=== PATIENT | female | born 1940 | race Caucasian/White ===

== ENCOUNTER → 2017-03-19 | Outpatient (CLI) | payer MEDICARE, BC ==
[~2017-03-19] MED LIST: ALBU0.08 NEB; AMLO2.5T PO; CICL8KIT2 TOPICAL; FLUT50SP EACH NARE; LORA-474 PO; LOSA50TA PO; METO200T3 PO; MONT10TA4 PO; PRAV20TA2 PO; SYMB160A INH; TRIA37.5 PO; VENTAER INH
[2017-03-19 09:26] LABS: HEMATOCRIT 41.5 % (35.0-46.0); MEAN CELL VOLUME 93.5 FL (80.0-100.0); MEAN CORPUSCULAR HEMOGLOBIN 31.3 PG (27.0-34.0); MEAN CORPUSCULAR HGB CONC 33.4 % (32.0-36.0); PLATELET COUNT 256 TH/MM3 (150-450); RED BLOOD COUNT 4.43 MIL/MM3 (4.00-5.30); RED CELL DISTRIBUTION WIDTH 12.9 % (11.6-17.2); REVIEW FLAG FINAL; WHITE BLOOD COUNT 6.9 TH/MM3 (4.0-11.0)
[2017-03-19 09:54] LABS: ANION GAP 10 MEQ/L (5-15); AST (GOT) 17 U/L (15-37); BICARBONATE 27.5 MEQ/L (21.0-32.0); BLOOD UREA NITROGEN 38 MG/DL (7-18); CHLORIDE 97 MEQ/L (98-107); GLOMERULAR FILTRATION RATE 21 ML/MIN (>89); GLUCOSE,FASTING 91 MG/DL (74-99); POTASSIUM 4.2 MEQ/L (3.5-5.1); SODIUM (NA) 134 MEQ/L (136-145)
[2017-03-19 10:00] LABS: ALKALINE PHOSPHATASE 64 U/L (45-117); ALT (GPT) 19 U/L (10-53); HDL CHOLESTEROL 52.1 MG/DL (40.0-60.0); LDL CHOLESTEROL 211 MG/DL (0-99); TOTAL BILIRUBIN ADULT 0.8 MG/DL (0.2-1.0)
== END ==
LOC: PLAB 06:58
PROVIDERS: ATTEND Family Medicine
DX: I10 Essential (primary) hypertension (principal)
CPT/HCPCS: 36415; 80053; 80061; 85027

== ENCOUNTER 2017-07-24 10:02 | Inpatient (IN) | payer MEDICARE, BC ==
[~2017-07-24] VITALS: Ht 165.1 cm; Wt 84.8 kg
[2017-07-24] VITALS (8 sets, daily range): BP systolic 162–198; BP diastolic 80–93; PULSE 60–68; RESP 18–29; TEMP 97.6–98.8; O2SAT 94–96
[~2017-07-24 10:02] MED LIST changes: +METO-393 PO; -METO200T3 PO
--- NOTE | 2017-07-24 14:27 | PD ---
HPI Chief Complaint: Neuro Symptoms/ Deficits Time Seen by Provider: 14:27 Travel History International Travel<30 days: No Contact w/Intl Traveler<30days: Yes Name of Country Traveled to: [facility], [facility], Traveled to known affect area: No History of Present Illness HPI 77-year-old female presenting to the primary's office complaining left arm weakness and numbness: She states that 5 days ago she was at home when she developed relatively sudden onset weakness of her left hand and left arm. She has difficulty raising her left arm due to weakness and difficulty controlling her arm. She also is dropping things out of her left hand and is unable to hold onto objects. She has a pins and needles sensation in the arm from the proximal humerus down into the hand, and has remained relatively constant and without improvement....of note patient is left hand dominant. pcp dr velasquez pmhx:htn, hyperchol, copd, anxiety, PFSH Past Medical History Anemia: Yes Arthritis: Yes Asthma: No Autoimmune Disease: No Blood Disorders: No Anxiety: Yes Depression: Yes Cancer: No Cardiovascular Problems: Yes (htn on meds) High Cholesterol: Yes Chemotherapy: No Chest Pain: No Congestive Heart Failure: No COPD: Yes Cerebrovascular Accident: No Diminished Hearing: No GERD: Yes Glaucoma: No Genitourinary: No Headaches: No Hepatitis: No Hiatal Hernia: No Hypertension: Yes Immune Disorder: No Kidney Stones: No Musculoskeletal: No Neurologic: No Psychiatric: No Reproductive: No Respiratory: Yes (copd/PE) Migraines: No Radiation Therapy: No Renal Failure: No Seizures: No Sickle Cell Disease: No Sleep Apnea: No Ulcer: No PNEUMOCCOCAL Vaccine (Year): 2 ?: Not Menopausal: Yes Past Surgical History Abdominal Surgery: Yes (GALLBLADDER, HERNIA REPAIR) AICD: No Arteriovenous Shunt: No Cardiac Surgery: No Cholecystectomy: Yes Ear Surgery: No Endocrine Surgery: No Eye Surgery: No Genitourinary Surgery: No Gynecologic Surgery: No Hysterectomy: Yes Insulin Pump: No Joint Replacement: No Oral Surgery: No Pacemaker: No Thoracic Surgery: No Other Surgery: Yes Social History Alcohol Use: Yes (OCCASIONALLY) Tobacco Use: No Substance Use: No Allergies-Medications (Allergen,Severity, Reaction): Coded Allergies: lisinopril (Unverified Allergy, Mild, obdulio cough, 07/24/17) Reported Meds & Prescriptions Reported Meds & Active Scripts Active Montelukast (Montelukast Sodium) 10 Mg Tab 10 Mg PO HS Amlodipine (Amlodipine Besylate) 2.5 Mg Tab 2.5 Mg PO DAILY Symbicort Inh (Budesonide/Formoterol Fumarate) 160-4.5 Mcg/Act Aero 2 Puff INH Q12HR Fluticasone Nasal Chancellor 50 Mcg/Act Naspr 50 Mcg EACH NARE BID 50 mcg/spray Pravastatin 20 Mg Tab 20 Mg PO DAILY Triamterene-Hydrochlorothiazide 37.5-25 Mg Tab 1 Tab PO DAILY Metoprolol Succinate ER 24 HR (Metoprolol Succinate) 200 Mg Tab 200 Mg PO DAILY Losartan (Losartan Potassium) 50 Mg Tab 50 Mg PO DAILY Ativan (Lorazepam) 1 Mg Tab 1 Mg PO DIRECTED PRN Reported Ciclopirox (Nail Lacquer) Topical 8% Kit 1 Applic TOPICAL HS Ventolin Hfa 18 GM Inh (Albuterol Sulfate) 90 Mcg/Act Aer 2 Puff INH DIRECTED PRN Albuterol Neb (Albuterol Sulfate) 2.5 Mg/3 Ml Neb 2.5 Mg NEB DIRECTED PRN While awake Review of Systems Except as stated in HPI: all other systems reviewed are Neg General / Constitutional: No: Fever Eyes: No: Visual changes HENT: No: Headaches Cardiovascular: No: Chest Pain or Discomfort Respiratory: No: Shortness of Breath Gastrointestinal: No: Abdominal Pain Genitourinary: No: Dysuria Musculoskeletal: No: Pain Skin: No Rash Neurologic: Positive: Paresthesia Psychiatric: No: Depression Endocrine: No: Polydipsia Hematologic/Lymphatic: No: Easy Bruising Physical Exam Narrative GENERAL: SKIN: Warm and dry. HEAD: Atraumatic. Normocephalic. EYES: Pupils equal and round. No scleral icterus. No injection or drainage. ENT: No nasal bleeding or discharge. Mucous membranes pink and moist. NECK: Trachea midline. No JVD. CARDIOVASCULAR: Regular rate and rhythm. RESPIRATORY: No accessory muscle use. Clear to auscultation. Breath sounds equal bilaterally. GASTROINTESTINAL: Abdomen soft, non-tender, nondistended. Hepatic and splenic margins not palpable. MUSCULOSKELETAL: Extremities without clubbing, cyanosis, or edema. No obvious deformities. NEUROLOGICAL: Awake and alert. No obvious cranial nerve deficits. Motor grossly within normal limits. Five out of 5 muscle strength in the arms and legs. Normal speech. PSYCHIATRIC: Appropriate mood and affect; insight and judgment normal. Data Data Last Documented VS Vital Signs Date Time Temp Pulse Resp B/P (MAP) Pulse Ox O2 Delivery O2 Flow Rate FiO2 07/24/17 14:22 68 18 195/ Room Air 07/24/17 10:04 98.8 96 Orders Orders Complete Blood Count With Diff (07/24/17 11:21) Basic Metabolic Panel (Bmp) (07/24/17 11:21) Act Partial Throm Time (Ptt) (07/24/17 11:21) Prothrombin Time / Inr (Pt) (07/24/17 11:21) Electrocardiogram (07/24/17 ) Ct Brain W/O Iv Contrast(Rout) (07/24/17 14:47) Labs Laboratory Tests Test 07/24/17 14:26 [facility] Medical Decision Making Medical Screen Exam Complete: Yes Emergency Medical Condition: Yes Medical Record Reviewed: Yes Interpretation(s) nsr, 65, incomplete rbbb, nonspec stt changes Differential Diagnosis tia v cva v paresthesia Admitting Information Admitting Physician Requests: Observation Jason Jara MD Jul 24, 2017 14:27
[2017-07-24 14:53] LABS: BASOPHIL # 0.1 TH/MM3 (0-0.2); BASOPHIL % 0.6 % (0.0-2.0); EOSINOPHIL # 0.3 TH/MM3 (0-0.4); EOSINOPHIL % 2.5 % (0.0-4.0); HEMOGLOBIN 14.2 GM/DL (11.6-15.3); LYMPH % 18.8 % (9.0-44.0); LYMPHOCYTE # 1.9 TH/MM3 (1.0-4.8); MEAN CORPUSCULAR HEMOGLOBIN 31.8 PG (27.0-34.0); MEAN CORPUSCULAR HGB CONC 33.9 % (32.0-36.0); MEAN PLATELET VOLUME 9.1 FL (7.0-11.0); MONO % 8.5 % (0.0-8.0); MONOCYTE # 0.9 TH/MM3 (0-0.9); NEUT % 69.6 % (16.0-70.0); PLATELET COUNT 276 TH/MM3 (150-450); RED BLOOD COUNT 4.47 MIL/MM3 (4.00-5.30); WHITE BLOOD COUNT 10.1 TH/MM3 (4.0-11.0)
[2017-07-24 15:14] LABS: BICARBONATE 31.9 MEQ/L (21.0-32.0); CALCIUM 10.1 MG/DL (8.5-10.1); CREATININE 1.5 MG/DL (0.50-1.00)
--- NOTE | 2017-07-24 15:16 | RADRPT ---
EXAM DATE/TIME: 07/24/2017 14:47 [facility] COMPARISON: No previous studies available for comparison. INDICATIONS : General weakness for one day. RADIATION DOSE: 56.35 CTDIvol (mGy) MEDICAL HISTORY : Hypertension. Chronic obstructive pulmonary disease. SURGICAL HISTORY : None. ENCOUNTER: Initial ACUITY: 1 day PAIN SCALE: 4/10 LOCATION: Bilateral cranial TECHNIQUE: Multiple contiguous axial images were obtained of the head. Using automated exposure control and adj ustment of the mA and/or kV according to patient size, radiation dose was kept as low as reasonably a chievable to obtain optimal diagnostic quality images. DICOM format image data is available electro nically for review and comparison. FINDINGS: CEREBRUM: Areas of low-attenuation are seen throughout the white matter. The ventricles are normal for age. No evidence of midline shift, mass lesion, hemorrhage or acute infarction. No extra-axial fluid collec tions are seen. POSTERIOR FOSSA: The cerebellum and brainstem are intact. The 4th ventricle is midline. The cerebellopontine angle i s unremarkable. EXTRACRANIAL: The visualized portion of the orbits is intact. SKULL: The calvaria is intact. No evidence of skull fracture. CONCLUSION: Chronic ischemic small vessel vasculopathy. Rufino Ray MD on July 24, 2017 at 15:12 Board Certified Radiologist. This report was verified electronically.
[2017-07-24] MEDS ORDERED: GADOBENATE DIM PF 529 MG/ML 20ML VIAL (for RAD MRI) IV ONE (15:59)
--- NOTE | 2017-07-24 16:02 | HHI.HP ---
[facility] Service Family Medicine Primary Care Physician Unknown Admission Diagnosis CVA Diagnoses: International Travel<30 Days: No Contact w/Intl Traveler<30days: Yes Name of Country Traveled to: [facility], Known Affected Area: No History of Present Illness 77-year-old female presenting to the office with a chief complaint left arm weakness and numbness, and left-sided facial drooping. She states she lost control of her left arm on Saturday. She feels like it is wobbly and she can't write anything (she is left-handed) or lift her left arm. She is continuing to drop things at the left arm and feels numbness and tingling from her elbow to hand. This has been unchanged since Saturday, neither improved or worsening. She also feels that her arm is heavy. She is also had some difficulty walking and is unsure if she is weaker in her left leg. She denies any headache or confusion at the time of event. She denies any shaking, tongue-biting, or incontinence. The physical weakness was noticeable by her but not alarming enough for her to come to the ED. She has not been sick recently and has been taking PO food and fluids without difficulty. Denies any chest pain/was of breath. Denies any nausea/vomiting. Denies any pain in any extremity. Denies any confusion, blurry vision, or mental status changes. (Cait Rojas MD R2) Review of Systems Constitutional: DENIES: Fever, Weight gain Endocrine: DENIES: Polyuria, Polyphagia Eyes: DENIES: Diplopia, Eye inflammation Ears, nose, mouth, throat: DENIES: Oral lesions, Throat pain Respiratory: DENIES: Apneas, Shortness of breath Cardiovascular: DENIES: Palpitations, Syncope Gastrointestinal: DENIES: Constipation, Diarrhea Genitourinary: DENIES: Urinary frequency Integumentary: DENIES: Pruritus, Rash Hematologic/lymphatic: DENIES: Lymphadenopathy Immunologic/allergic: DENIES: Urticaria Neurologic: DENIES: Headache Psychiatric: DENIES: Mood changes (Cait Rojas MD R2) Past Family Social History Past Medical History Past Medical History: Chronic kidney insufficiency Hypertension COPD Seasonal allergies Past Surgical/Procedural History: Pulmonary function tests, 10/02/13 MRI of the brain 05/20/13 CT angiogram 09/25/13 Echocardiogram 01/09/16 Colonoscopy 05/15/16 Ultrasound of abdominal aorta 08/02/15 Other Physicians/Providers Involved in the Care of Patient: Dr. Whitfieldology Dr. Nettie carranzaulmonary Dr. Елена Purvisergy Dr. Shelbydermatology Family History: Father: Mother: Siblings: Children: Social History: Marital Status: Living Situation: Lives with her Education: Work history: Tobacco: Denies Alcohol: Denies Illicit drug use: none Health maintenance: Colonoscopy 05/15/16 - 8 polyps removed, returned benign. Repeat colonoscopy in 3 years Mammogram 05/11/16 - benign cyst Flu shot 05/17/16 Pneumovax 10/01/12 (Cait Rojas MD R2) Allergies: Coded Allergies: lisinopril (Unverified Allergy, Mild, obdulio cough, 07/24/17) Physical Exam Vital Signs Vital Signs Date Time Temp Pulse Resp B/P (MAP) Pulse Ox O2 Delivery O2 Flow Rate FiO2 07/24/17 14:22 68 18 195/ Room Air 07/24/17 10:04 98.8 64 18 187/88 (121) 96 Room Air Physical Exam GENERAL: Awake alert and oriented 3, in no acute distress, obvious facial droop on left side, no dysarthria SKIN: Warm and dry. HEAD: Normocephalic. EYES: No scleral icterus. No injection or drainage. Pupils reactive and equal. Extraocular movements normal. NECK: Supple, trachea midline. No JVD or lymphadenopathy. CARDIOVASCULAR: Regular rate and rhythm without murmurs, gallops, or rubs. RESPIRATORY: Breath sounds equal bilaterally. No accessory muscle use. GASTROINTESTINAL: Abdomen soft, non-tender, nondistended. MUSCULOSKELETAL: No cyanosis, or edema. 3+ strength of left upper extremity, compared with 5 out of 5 strength on right upper extremity. Sensation intact and equal throughout. BACK: Nontender without obvious deformity. No CVA tenderness. Neuro: Cranial nerves grossly intact. Negative Babinski. Finger to nose exam normal, Laboratory Laboratory Tests Test 07/24/17 14:26 White Blood Count 10.1 Red Blood Count 4.47 Hemoglobin 14.2 Hematocrit 42.0 Mean Corpuscular Volume 94.0 Mean Corpuscular Hemoglobin 31.8 Mean Corpuscular Hemoglobin Concent 33.9 Red Cell Distribution Width 13.0 Platelet Count 276 Mean Platelet Volume 9.1 Neutrophils (%) (Auto) 69.6 Lymphocytes (%) (Auto) 18.8 Monocytes (%) (Auto) 8.5 Eosinophils (%) (Auto) 2.5 Basophils (%) (Auto) 0.6 Neutrophils # (Auto) 7.0 Lymphocytes # (Auto) 1.9 Monocytes # (Auto) 0.9 Eosinophils # (Auto) 0.3 Basophils # (Auto) 0.1 CBC Comment DIFF FINAL Differential Comment Prothrombin Time 10.0 Prothromb Time International Ratio 1.0 Activated Partial Thromboplast Time 25.5 Blood Urea Nitrogen 16 Creatinine 1.50 Random Glucose 87 Calcium Level 10.1 Sodium Level 137 Potassium Level 5.0 Chloride Level 100 Carbon Dioxide Level 31.9 Anion Gap 5 Estimat Glomerular Filtration Rate 34 (Cait Rojas MD R2) Result Diagram: 07/24/176 07/24/17 1426 Septic Shock Reassessment Septic shock perfusion: reassessment completed (Cait Rojas MD R2) Caprini VTE Risk Assessment Caprini VTE Risk Assessment: No/Low Risk (score <= 1) Caprini Risk Assessment Model Point Value = 1 Point Value = 2 Point Value = 3 Point Value = 5 Age 41-60 Minor surgery BMI > 25 kg/m2 Swollen legs Varicose veins or History of unexplained or recurrent spontaneous Oral contraceptives or hormone replacement Sepsis (< 1 month) Serious lung disease, including pneumonia (< 1 month) Abnormal pulmonary function Acute myocardial infarction Congestive heart failure (< 1 month) History of inflammatory bowel disease Medical patient at bed rest Age 61-74 Arthroscopic surgery Major open surgery (> 45 min) Laparoscopic surgery (> 45 min) Malignancy Confined to bed (> 72 hours) Immobilizing plaster cast Central venous access Age >= 75 History of VTE Family history of VTE Factor V Leiden Prothrombin [id number] Lupus anticoagulant Anticardiolipin antibodies Elevated serum homocysteine Heparin-induced thrombocytopenia Other congenital or acquired thrombophilia Stroke (< 1 month) Elective arthroplasty Hip, pelvis, or leg fracture Acute spinal cord injury (< 1 month) Prophylaxis Regimen Total Risk Factor Score Risk Level Prophylaxis Regimen 0-1 Low Early ambulation 2 Moderate Order ONE of the following: *Sequential Compression Device (SCD) *Heparin 5000 units SQ BID 3-4 Higher Order ONE of the following medications: *Heparin 5000 units SQ TID *Enoxaparin/Lovenox 40 mg SQ daily (WT < 150 kg, CrCl > 30 mL/min) *Enoxaparin/Lovenox 30 mg SQ daily (WT < 150 kg, CrCl > 10-29 mL/min) *Enoxaparin/Lovenox 30 mg SQ BID (WT < 150 kg, CrCl > 30 mL/min) AND/OR *Sequential Compression Device (SCD) 5 or more Highest Order ONE of the following medications: *Heparin 5000 units SQ TID (Preferred with Epidurals) *Enoxaparin/Lovenox 40 mg SQ daily (WT < 150 kg, CrCl > 30 mL/min) *Enoxaparin/Lovenox 30 mg SQ daily (WT < 150 kg, CrCl > 10-29 mL/min) *Enoxaparin/Lovenox 30 mg SQ BID (WT < 150 kg, CrCl > 30 mL/min) AND *Sequential Compression Device (SCD) (Cait Rojas MD R2) Assessment and Plan Assessment and Plan 77-year-old female with a past medical history of chronic kidney insufficiency, hypertension, and COPD presents with left arm weakness and numbness and facial droop. (Cait Rojas MD R2) Problem List: (1) Stroke ICD Codes: I63.9 - Cerebral infarction, unspecified Status: Acute Plan: Lay flat [address] negative for bleeding CT: chronic ischemic small vessel vasculopathy f/u MRI brain non-contrast f/u MRA brain non-contrast f/u STAT MRA of carotids w/ contrast Follow-up neurology consult recommendations Aspirin 325daily Pravastatin 40mg daily Lovenox 40 SQ daily (Creat 1.5, from 2.2 last year) Follow up lipids, A1C, LFTs Follow up echo Bedrest Fall precautions NIH stroke scale Neuro checks every 4 Bedside swallow study then full diet Stroke education Normal saline at 75 ml/hr Initial troponin 0.02, follow-up troponin trend EKG: WNL f/u with PT, OT, speech, CM (2) Hypertension, benign ICD Codes: I10 - Essential (primary) hypertension Status: Acute Plan: Blood pressure high on admission, BP range : 187/88 - 190/93 , however blood pressure within normal limits in clinic this morning - Continue amlodipine 2.5 mg daily - Continue losartan 50 mg daily - Continue metoprolol 200 mg daily - Clonidine when necessary 0.1 mg (3) COPD (chronic obstructive pulmonary disease) ICD Codes: J44.9 - Chronic obstructive pulmonary disease Status: Acute Plan: Currently not symptomatic Albuterol Inhalers when necessary (4) Kidney disease ICD Codes: N28.9 - Disorder of kidney and ureter, unspecified Status: Chronic Plan: Stage III kidney disease per chart review Creatinine 1.5 today, from 2.26 in March renal u/s (04/30) : right kidney echogenic and small, renal artery stenosis as a possibility. Left kidney unremarkable Avoid NSAIDs f/u BMP Follow-up with nephrology if acute worsening (5) fen/ppx Status: Chronic Plan: Fluids: Normal saline as above Electrolytes: BMP within normal limits, follow-up BMP tomorrow Nutrition: Regular diet after swallow test (Cait Rojas MD R2) Problem List: (1) Stroke ICD Codes: I63.9 - Cerebral infarction, unspecified Status: Acute Plan: Lay flat [address] negative for bleeding CT: chronic ischemic small vessel vasculopathy f/u MRI brain non-contrast f/u MRA brain non-contrast f/u STAT MRA of carotids w/ contrast Follow-up neurology consult recommendations Aspirin 325daily Pravastatin 40mg daily Lovenox 40 SQ daily (Creat 1.5, from 2.2 last year) Follow up lipids, A1C, LFTs Follow up echo Bedrest Fall precautions NIH stroke scale Neuro checks every 4 Bedside swallow study then full diet Stroke education Normal saline at 75 ml/hr Initial troponin 0.02, follow-up troponin trend EKG: WNL f/u with PT, OT, speech, CM (2) Hypertension, benign ICD Codes: I10 - Essential (primary) hypertension Status: Acute Plan: Blood pressure high on admission, BP range : 187/88 - 190/93 , however blood pressure within normal limits in clinic this morning - Continue amlodipine 2.5 mg daily - Continue losartan 50 mg daily - Continue metoprolol 200 mg daily - Clonidine when necessary 0.1 mg (3) COPD (chronic obstructive pulmonary disease) ICD Codes: J44.9 - Chronic obstructive pulmonary disease Status: Acute Plan: Currently not symptomatic Albuterol Inhalers when necessary (4) Kidney disease ICD Codes: N28.9 - Disorder of kidney and ureter, unspecified Status: Chronic Plan: Stage III kidney disease per chart review Creatinine 1.5 today, from 2.26 in March renal u/s (04/30) : right kidney echogenic and small, renal artery stenosis as a possibility. Left kidney unremarkable Avoid NSAIDs f/u BMP Follow-up with nephrology if acute worsening (5) fen/ppx Status: Chronic Plan: Fluids: Normal saline as above Electrolytes: BMP within normal limits, follow-up BMP tomorrow Nutrition: Regular diet after swallow test See the residents documentation for details. I saw and evaluated the patient regarding the solorzano portions of this evaluation and agree with the residents findings and plans as written. Parts of this note were created using [employer] voice recognition software program. While efforts were made to correct any mistakes made by this software, some mistakes, errors, and omissions may remain in the final note that were not caught when the note was originally created. Plan of care was discussed and agreed upon with the patient as specifically documented in the above note. An opportunity to ask questions with explanation was provided. Patient voiced understanding on all information reviewed and discussed. (Apolinar Henderson MD) Physician Certification 2 Midnight Certification Type: Admission for Inpatient Services Order for Inpatient Services The services are ordered in accordance with Medicare regulations or non- Medicare payer requirements, as applicable. In the case of services not specified as inpatient-only, they are appropriately provided as inpatient services in accordance with the 2-midnight benchmark. Estimated LOS (days): 2 days is the estimated time the patient will need to remain in the hospital, assuming treatment plan goals are met and no additional complications. Post-Hospital Plan: Home (Cait Rojas MD R2) Cait Rojas MD R2 Jul 24, 2017 16:02 Apolinar Henderson MD Jul 27, 2017 12:13
[2017-07-24] MEDS ORDERED: CALC600T5 PO (16:16)
[2017-07-24] MEDS ORDERED: MULT-65 PO (16:16)
[2017-07-24] MEDS ORDERED: DIPH25TA31 PO (16:16)
[2017-07-24] MEDS ORDERED: VITA1000 PO (16:16)
[2017-07-24] MEDS ORDERED: NALOXONE HCL 0.4 MG/ML AMP IV PUSH PRN (17:15)
[2017-07-24] MEDS ORDERED: LACTULOSE SYRUP 20 GM/30 ML CUP PO PRN (17:15)
[2017-07-24] MEDS ORDERED: DEXTROSE 50% IN WATER 50 ML VIAL(D50) IV PUSH PRN (17:15)
[2017-07-24] MEDS ORDERED: SENNOSIDES 8.6 MG TAB PO PRN (17:15)
[2017-07-24] MEDS ORDERED: GLUCAGON 1 MG/ML VIAL OTHER PRN (17:15)
[2017-07-24] MEDS ORDERED: ENALAPRILAT 1.25 MG/ML VIAL IV PUSH PRN (17:15)
[2017-07-24] MEDS ORDERED: SODIUM CHLORIDE 0.9% FLUSH 10 ML FLUSH IV FLUSH PRN (17:15)
[2017-07-24] MEDS ORDERED: MAGNESIUM HYDROXIDE SUSP 30 ML CUP PO PRN (17:15)
[2017-07-24] MEDS ORDERED: ONDANSETRON HCL 4 MG/2 ML VIAL IVP PRN (17:15)
[2017-07-24] MEDS ORDERED: BISACODYL 10 MG SUPP RECTAL PRN (17:15)
[2017-07-24] MEDS ORDERED: cloNIDine HCL 0.1 MG TAB PO ONE (17:30)
--- NOTE | 2017-07-24 17:42 | RADRPT ---
EXAM DATE/TIME: 07/24/2017 17:22 [facility] COMPARISON: No previous studies available for comparison. INDICATIONS : Stroke symptoms MEDICAL HISTORY : None. SURGICAL HISTORY : None. ENCOUNTER: Initial ACUITY: 1 day PAIN SCORE: 0/10 LOCATION: Bilateral chest FINDINGS: A single view of the chest demonstrates the lungs to be symmetrically aerated without evidence of mas s, infiltrate or effusion. The cardiomediastinal contours are unremarkable. Osseous structures are intact. CONCLUSION: No acute disease. Yo Metcalf MD FACR on July 24, 2017 at 17:39 Board Certified Radiologist. This report was verified electronically.
[2017-07-24] MEDS ORDERED: PILL SPLITTER OTHER PRN (17:45)
[2017-07-24] MEDS ORDERED: LOSARTAN 50 MG TAB PO ONE (17:45)
[2017-07-24] MEDS ORDERED: amLODIPine BESYLATE 5 MG TAB PO ONE (17:45)
[2017-07-24] MEDS: ASPIRIN 325 MG TAB PO SCH (18:08)
[2017-07-24] MEDS: ENOXAPARIN SODIUM 40 MG/0.4 ML SYRINGE SQ SCH (18:08)
[2017-07-24] MEDS: SODIUM CHLOR 0.9% 1000 ML INJ 1,000 ML IV SCH (18:12)
[2017-07-24] MEDS: INSULIN ASPART SUPPLEMENTAL SCALE SQ SCH (21:09)
[2017-07-24] MEDS: PRAVASTATIN SOD 40 MG TAB PO SCH (21:38)
[2017-07-24] MEDS: DOCUSATE SODIUM 50 MG/SENNA 8.6 MG TAB PO SCH (21:39)
[2017-07-24] MEDS: LORazepam 2 MG/ML VIAL IV PUSH PRN (21:39)
[2017-07-24] MEDS: SODIUM CHLORIDE 0.9% FLUSH 10 ML FLUSH IV FLUSH SCH (21:39)
[2017-07-24] MEDS ORDERED: cloNIDine HCL 0.1 MG TAB PO PRN (22:00)
--- NOTE | 2017-07-24 22:52 | RADRPT ---
EXAM DATE/TIME: 07/24/2017 22:09 [facility] COMPARISON: CT BRAIN W/O CONTRAST, July 24, 2017, 14:47. INDICATIONS : Stroke. Left sided weakness and facial droop. MEDICAL HISTORY : Hypertension. Hypercholesterolemia. Chronic obstructive pulmonary disease. GERD SURGICAL HISTORY : Cholecystectomy. ENCOUNTER: Initial ACUITY: 1 day PAIN SCORE: 3/10 LOCATION: Left cranial TECHNIQUE: Multiplanar, multisequence MRI of the brain was performed without contrast. FINDINGS: CEREBRUM: The ventricles are normal for age. No evidence of midline shift, mass lesion, hemorrhage or acute in farction. No extraaxial fluid collections are seen. The pituitary gland and suprasellar cistern are normal in configuration. WHITE MATTER: There bilateral chronic areas of increased signal in the periventricular white matter consistent with ischemic demyelinization. It is bilateral and symmetric.. POSTERIOR FOSSA: The cerebellum and brainstem are intact. The 4th ventricle is midline. The cerebellopontine angle is unremarkable. The cerebellar tonsils are normal in position. DIFFUSION IMAGING: There is a small focal infarct in the high white matter tracks on the right between the frontal and p arietal lobes. EXTRACRANIAL: The visualized portions of the orbits and paranasal sinuses are unremarkable. CONCLUSION: Area of abnormal diffusion signal in the deep white matter tracks between the right frontal and parie dulce maria regions. There is an additional small cortical stroke also in the right parietal region. No mass or mass effect. Abhilash Garcia MD on July 24, 2017 at 22:49 Board Certified Radiologist. This report was verified electronically.
--- NOTE | 2017-07-24 22:54 | RADRPT ---
EXAM DATE/TIME: 07/24/2017 22:09 [facility] COMPARISON: No previous studies available for comparison. INDICATIONS : Stroke. Left sided facial droop and weakness. MEDICAL HISTORY : Hypertension. Chronic obstructive pulmonary disease. Hypercholesterolemia. GERD SURGICAL HISTORY : Cholecystectomy. ENCOUNTER: Initial ACUITY: 1 day PAIN SCORE: 4/10 LOCATION: Left cranial Please note a normal MRA of the brain does not entirely exclude the possibility of a small aneurysm, nor the possibility of distal intracranial vessel disease. TECHNIQUE: 3D time of flight MRA was performed. Source images, multiplanar STS MIP, and 3D volume MIP reconstru ctions were reviewed. FINDINGS: There is excellent visualization of the major intracranial arteries out to the second-order branch ve ssels. There is no evidence for aneurysm, vessel truncation or stenosis, and no evidence for vascula r malformation. CONCLUSION: Normal examination. Abhilash Garcia MD on July 24, 2017 at 22:51 Board Certified Radiologist. This report was verified electronically.
--- NOTE | 2017-07-24 23:44 | RADRPT ---
EXAM DATE/TIME: 07/24/2017 22:09 [facility] COMPARISON: No previous studies available for comparison. INDICATIONS : Stroke. Facial droop and left sided weakness. CONTRAST: 20 cc Multihance (gadobenate) IV MEDICAL HISTORY : Hypertension. Chronic obstructive pulmonary disease. Hypercholesterolemia. GERD SURGICAL HISTORY : Cholecystectomy. ENCOUNTER: Initial ACUITY: 1 day PAIN SCORE: Nonresponsive. LOCATION: Left cranial Percent stenosis is calculated using the diameter of the stenotic region over the diameter of the nor mal distal internal carotid artery. TECHNIQUE: Bolus infused MRA of the extracranial circulation was performed using a neurovascular coil. Post pro cessing was performed including rotating subvolume maximum intensity projections of each carotid marques ry, rotating full volume maximum intensity projections of both carotid arteries, sagittal and coronal sliding thin slab reformations of each carotid artery, and left oblique sliding thin slab reformatio n through the aortic arch to include the origin of the arch branch vessels. FINDINGS: Percent stenosis is calculated using the diameter of the stenotic region over the diameter of the nor mal distal internal carotid artery. No abnormality is identified within the lung apices. There is 30-40% stenosis at the origin of the br achycephalic artery. Vertebral arteries are codominant. Examination of the right common carotid artery demonstrates the vessel to be widely patent. There is 50-60% stenosis at the origin of the right internal carotid artery. More distally the cervical staff internist office based only al carotid artery is intact. Examination of the left common carotid artery demonstrates the vessel to be widely patent. There is 0 -10% stenosis at the origin of the left internal carotid artery More distally the cervical internal c arotid artery is intact. CONCLUSION: 1. There is 50-60% stenosis at the origin of the right internal carotid artery. No significant stenos is on the left Kuldip Baron MD on July 24, 2017 at 23:38 Board Certified Radiologist. This report was verified electronically.
[2017-07-25] VITALS (10 sets, daily range): BP systolic 124–168; BP diastolic 58–79; PULSE 59–70; RESP 18–20; TEMP 97.5–98.5; O2SAT 93–96
[2017-07-25 07:05] LABS: BASOPHIL # 0.1 TH/MM3 (0-0.2); BASOPHIL % 0.8 % (0.0-2.0); EOSINOPHIL # 0.2 TH/MM3 (0-0.4); EOSINOPHIL % 3.7 % (0.0-4.0); HEMATOCRIT 37.8 % (35.0-46.0); HEMOGLOBIN 12.7 GM/DL (11.6-15.3); LYMPH % 20.3 % (9.0-44.0); LYMPHOCYTE # 1.3 TH/MM3 (1.0-4.8); MEAN CELL VOLUME 93.7 FL (80.0-100.0); MEAN CORPUSCULAR HEMOGLOBIN 31.5 PG (27.0-34.0); MEAN CORPUSCULAR HGB CONC 33.6 % (32.0-36.0); MEAN PLATELET VOLUME 9.1 FL (7.0-11.0); MONO % 12.2 % (0.0-8.0); MONOCYTE # 0.8 TH/MM3 (0-0.9); PLATELET COUNT 214 TH/MM3 (150-450); RED BLOOD COUNT 4.03 MIL/MM3 (4.00-5.30); RED CELL DISTRIBUTION WIDTH 12.7 % (11.6-17.2); WHITE BLOOD COUNT 6.3 TH/MM3 (4.0-11.0)
[2017-07-25 07:44] LABS: ALBUMIN 3.1 GM/DL (3.4-5.0); ALKALINE PHOSPHATASE 63 U/L (45-117); ALT (GPT) 17 U/L (10-53); AST (GOT) 21 U/L (15-37); BICARBONATE 28.4 MEQ/L (21.0-32.0); BLOOD UREA NITROGEN 18 MG/DL (7-18); CALCIUM 8.6 MG/DL (8.5-10.1); CHLORIDE 103 MEQ/L (98-107); CHOLESTEROL 224 MG/DL (120-200); CHOLESTEROL/ HDL RATIO 5.75 RATIO; CREATININE 1.46 MG/DL (0.50-1.00); DIRECT BILIRUBIN ADULT 0.1 MG/DL (0.0-0.2); GLOMERULAR FILTRATION RATE 35 ML/MIN (>89); GLUCOSE,RANDOM 90 MG/DL (74-106); HDL CHOLESTEROL 38.9 MG/DL (40.0-60.0); INDIRECT BILIRUBIN 0.4 MG/DL (0.0-0.8); LDL CHOLESTEROL 110 MG/DL (0-99); SODIUM (NA) 138 MEQ/L (136-145); TOTAL BILIRUBIN ADULT 0.5 MG/DL (0.2-1.0); TOTAL PROTEIN 6.5 GM/DL (6.4-8.2); TRIGLYCERIDES 378 MG/DL (42-150); TROPONIN I 0.02 NG/ML (0.02-0.05)
--- NOTE | 2017-07-25 08:05 | PD.CAR.PN ---
CVT Progress Note Subjective/Hospital Course: Referral received Full consult BRANDIN Jhaveri Objective: Vital Signs Date Time Temp Pulse Resp B/P (MAP) Pulse Ox O2 Delivery O2 Flow Rate FiO2 07/25/17 05:00 97.7 61 18 144/67 (92) 94 07/25/17 03:44 62 07/25/17 00:36 97.5 65 18 124/58 (80) 94 07/24/17 20:30 97.6 67 18 178/86 (116) 94 07/24/17 19:10 98.0 60 20 162/80 (107) 96 Room Air 07/24/17 18:00 61 29 195/88 (123) 95 07/24/17 17:00 60 25 198/93 (128) 94 Room Air 07/24/17 16:00 64 21 197/86 (123) 95 Room Air 07/24/17 15:00 62 24 190/92 (124) 95 Room Air 07/24/17 14:22 68 18 195/ Room Air 07/24/17 10:04 98.8 64 18 187/88 (121) 96 Room Air Labs: Laboratory Tests Test 07/24/17 23:41 07/25/17 05:21 Troponin I 0.03 NG/ML (0.02-0.05) 0.02 NG/ML (0.02-0.05) White Blood Count 6.3 TH/MM3 (4.0-11.0) Red Blood Count 4.03 MIL/MM3 (4.00-5.30) Hemoglobin 12.7 GM/DL (11.6-15.3) Hematocrit 37.8 % (35.0-46.0) Mean Corpuscular Volume 93.7 FL (80.0-100.0) Mean Corpuscular Hemoglobin 31.5 PG (27.0-34.0) Mean Corpuscular Hemoglobin Concent 33.6 % (32.0-36.0) Red Cell Distribution Width 12.7 % (11.6-17.2) Platelet Count 214 TH/MM3 (150-450) Mean Platelet Volume 9.1 FL (7.0-11.0) Neutrophils (%) (Auto) 63.0 % (16.0-70.0) Lymphocytes (%) (Auto) 20.3 % (9.0-44.0) Monocytes (%) (Auto) 12.2 % (0.0-8.0) Eosinophils (%) (Auto) 3.7 % (0.0-4.0) Basophils (%) (Auto) 0.8 % (0.0-2.0) Neutrophils # (Auto) 4.0 TH/MM3 (1.8-7.7) Lymphocytes # (Auto) 1.3 TH/MM3 (1.0-4.8) Monocytes # (Auto) 0.8 TH/MM3 (0-0.9) Eosinophils # (Auto) 0.2 TH/MM3 (0-0.4) Basophils # (Auto) 0.1 TH/MM3 (0-0.2) CBC Comment DIFF FINAL Differential Comment Blood Urea Nitrogen 18 MG/DL (7-18) Creatinine 1.46 MG/DL (0.50-1.00) Random Glucose 90 MG/DL (74-106) Total Protein 6.5 GM/DL (6.4-8.2) Albumin 3.1 GM/DL (3.4-5.0) Calcium Level 8.6 MG/DL (8.5-10.1) Alkaline Phosphatase 63 U/L (45-117) Aspartate Amino Transf (AST/SGOT) 21 U/L (15-37) Alanine Aminotransferase (ALT/SGPT) 17 U/L (10-53) Total Bilirubin 0.5 MG/DL (0.2-1.0) Direct Bilirubin 0.1 MG/DL (0.0-0.2) Sodium Level 138 MEQ/L (136-145) Potassium Level 3.9 MEQ/L (3.5-5.1) Chloride Level 103 MEQ/L (98-107) Carbon Dioxide Level 28.4 MEQ/L (21.0-32.0) Anion Gap 7 MEQ/L (5-15) Estimat Glomerular Filtration Rate 35 ML/MIN (>89) Indirect Bilirubin 0.4 MG/DL (0.0-0.8) Triglycerides Level 378 MG/DL (42-150) Cholesterol Level 224 MG/DL (120-200) LDL Cholesterol 110 MG/DL (0-99) HDL Cholesterol 38.9 MG/DL (40.0-60.0) Cholesterol/HDL Ratio 5.75 RATIO Result Diagram: 07/25/1752007/25/17 0521 Janna Cervantes MD Jul 25, 2017 08:05
[2017-07-25] MEDS: METOPROLOL SUCCINATE 50 MG EXTENDED RELEASE TAB PO SCH (08:07)
[2017-07-25] MEDS: INSULIN ASPART SUPPLEMENTAL SCALE SQ SCH ×4 (08:07→20:08)
[2017-07-25] MEDS: ASPIRIN 325 MG TAB PO SCH (08:08)
[2017-07-25] MEDS: amLODIPine BESYLATE 5 MG TAB PO SCH (08:08)
[2017-07-25] MEDS: DOCUSATE SODIUM 50 MG/SENNA 8.6 MG TAB PO SCH ×2 (08:08→20:07)
[2017-07-25] MEDS: LOSARTAN 50 MG TAB PO SCH (08:09)
[2017-07-25] MEDS: SODIUM CHLORIDE 0.9% FLUSH 10 ML FLUSH IV FLUSH SCH ×2 (08:13→20:09)
[2017-07-25] MEDS: SODIUM CHLOR 0.9% 1000 ML INJ 1,000 ML IV SCH ×2 (08:13→20:40)
--- NOTE | 2017-07-25 09:06 | MB ---
cc: JARVISLANDRY DATE OF CONSULTATION: 07/25/2017 HISTORY OF PRESENT ILLNESS A 77-year-old left-handed woman with hypertension, hypercholesterolemia, she does not take an aspirin a day or any blood thinners. About 5 days ago she woke up and her left arm was not working well. Her saw her left face was a little bit droopy and she had a little bit of difficulty walking. She did not fall. No headache, chest pain or palpitations. REVIEW OF SYSTEMS She denies any history of diabetes, NH, stent, angioplasty, atrial fibrillation, Coumadin, renal, hepatic or pulmonary disease, thyroid disease, lupus, ulcer, cancer, seizure, stroke, chest pain or palpitations. SOCIAL HISTORY She is not a smoker, occasional drink. Lives with her . FAMILY HISTORY Negative for cancer, seizure, stroke. ALLERGIES LISINOPRIL. MEDICATIONS 1. She is on Montelukast 2. Amlodipine 3. Symbicort 4. Some inhalers 5. Pravastatin 6. Triamterene-Hydrochlorothiazide 7. Metoprolol 8. Losartan 9. Ativan milligram p.r.n. 10. Other inhalers. PAST MEDICAL HISTORY As above. Also some chronic renal insufficiency, COPD, seasonal allergies. She does see Dr. Gilmore from cardiology. There has been some PE in the past and she did see Dr. Gilmore for some kind of irregular heart rhythm but not called atrial fibrillation as far as we can tell. PHYSICAL EXAMINATION VITAL SIGNS: Afebrile, 61, 18, 144/67 to 195/88. NECK: There were no carotid bruits. HEART: Regular rhythm. I do not detect a murmur. NEURO: Pupils are equal. Visual ludwig are full. Extraocular movements intact without nystagmus. Face is mainly symmetric, a little bit of a hint of facial droop on the left at rest but she moves it symmetrically with normal sensation. Tongue was midline. There is a positive left drift. She had normal strength in the right upper and bilateral lower extremities. Left deltoid, triceps was normal. Finger extensors were about a 5-/5, except the left pinky seems to be a little bit weaker. DTRs are trace throughout. Toes downgoing bilaterally. Pinprick is intact throughout including the left hand. She is not ataxic on [id number] on the right. She has severe ataxia on [id number] on the left. She is not ataxic on toe to finger on the left. Speech is fluent. She is not aphasic. She was alert and oriented x3. Short-term memory is 1 out of 3 at 2 minutes. LABORATORY DATA CBC is normal. Coags are normal. Basic metabolic profile creatinine 1.5, otherwise normal. Her LDL cholesterol was 211 in March and that is pending again. IMAGING STUDIES MRI of the brain shows a severe amount of subcortical and white matter changes and impressive L-shaped looking one on the left side, some diffuse atrophy and three small acute infarcts in the right parietal, cortical and subcortical region. She had an MRI in 2012 that showed white matter changes but we cannot actually look at the films. MRA of the neck on this admission showed about a 50% stenosis to 60% stenosis on the right ICA, although looking at it I did not see any major narrowing. MRA Ksxuix-ep-Dmbeov is normal. In the past she had a normal stress test in 2009. She had an echocardiogram done in 2009. She had a normal ejection fraction, basically normal. LA size 35. IMPRESSION New onset stroke, a couple of small ones in the right parietal, cortical and subcortical region. I would be worried about a cardioembolic event. I note her troponin here has been negative. Will check an echocardiogram and a Holter. For now just put her on an aspirin a day. She has a lot of white matter changes. She should take fish oil 1000 mg twice a day and she may need to get her cholesterol lower even though she is stated to be on a statin at home, we need to get her LDL at least less than 100, it was 224 this morning. She may need either some home PT or maybe go to rehab depending on how she walks and how unsteady she is, but overall I thought she looked fairly well neurologically. She has some ataxia on the left arm more than weakness and should have improvement there. She also appears to have some dementia and has severe white matter changes bilaterally. I can treat her for the memory as an outpatient. We will check some memory labs on her, but if her echo is negative in the Holter is on, she could go home on an adjusted statin regimen and 325 of aspirin a day, and she will need an outpatient 30-day Holter more than likely at least. At some point we will need to get the records from her past cardiology intervention with Dr. Gilmore. MD LISHA Concepcion/NILDA /7:56 AM /8:16 AM
[2017-07-25 11:22] LABS: HEMOGLOBIN A1C 5.7 % (4.3-6.0)
--- NOTE | 2017-07-25 11:22 | HHI.FPPN ---
Subjective Remarks Patient seen and examined bedside this morning with medical team. Patient continues to complain that her left arm is feeling weak, however she does feel that this is improved overnight. She continues to deny any dysarthria, confusion , or blurry vision. Patient denies any chest pain/redness of breath/dizziness. Patient denies any nausea/vomiting. (Cait Rojas MD R2) Objective Vitals Vital Signs Date Time Temp Pulse Resp B/P (MAP) Pulse Ox O2 Delivery O2 Flow Rate FiO2 07/25/17 10:23 94 07/25/17 10:12 70 07/25/17 08:30 97.6 66 18 163/79 (107) 94 07/25/17 05:00 97.7 61 18 144/67 (92) 94 07/25/17 03:44 62 07/25/17 00:36 97.5 65 18 124/58 (80) 94 07/24/17 20:30 97.6 67 18 178/86 (116) 94 07/24/17 19:10 98.0 60 20 162/80 (107) 96 Room Air 07/24/17 18:00 61 29 195/88 (123) 95 07/24/17 17:00 60 25 198/93 (128) 94 Room Air 07/24/17 16:00 64 21 197/86 (123) 95 Room Air 07/24/17 15:00 62 24 190/92 (124) 95 Room Air 07/24/17 14:22 68 18 195/ Room Air I/O 07/24/17 07/24/17 07/24/17 07/25/17 07/25/17 07/25/17 07:00 15:00 23:00 07:00 15:00 23:00 Intake Total 240 ml 1848 ml Balance 240 ml 1848 ml Intake Oral 240 ml IV Total 1848 ml # Voids 5 (Cait Rojas MD R2) Result Diagram: 07/25/17 0507/25/17 0521 Objective Remarks GENERAL: Alert and oriented 3, left-sided facial droop still noticeable SKIN: Warm and dry. HEAD: Normocephalic. EYES: No scleral icterus. No injection or drainage. NECK: Supple, trachea midline. No JVD or lymphadenopathy. CARDIOVASCULAR: Regular rate and rhythm without murmurs, gallops, or rubs. RESPIRATORY: Breath sounds equal bilaterally. No accessory muscle use. GASTROINTESTINAL: Abdomen soft, non-tender, nondistended. MUSCULOSKELETAL: No cyanosis, or edema. BACK: Nontender without obvious deformity. No CVA tenderness. Neuro: Strength of left upper extremity improved to 4/5, sensory remained intact throughout. Speech is fluent. (Cait Rojas MD R2) A/P Assessment and Plan 77-year-old female with a past medical history of chronic kidney insufficiency, hypertension, and COPD presents with left arm weakness and numbness and facial droop. (Cait Rojas MD R2) Problem List: (1) Stroke ICD Codes: I63.9 - Cerebral infarction, unspecified Status: Acute Plan: Lay flat [address] negative for bleeding CT: chronic ischemic small vessel vasculopathy MRI brain non-contrast: Abnormal diffusion pattern from frontal to parietal lesion, small cortical stroke and right parietal region MRA brain non-contrast: Normal STAT MRA of carotids w/ contrast: 50-60% stenosis of right internal carotid artery f/u vascular surgery recommendations Follow-up neurology consult recommendations - New-onset stroke, concern for cardioembolic event - Dementia as seen by severe white matter changes bilaterally; follow-up with neurology as outpatient - Follow up echo and Holter monitor outpatient for 30 days - Consult with her private laundry room attendant Dr. Gilmore - Continue aspirin - Add fish oil 1000 mg twice a day - Consider tighter cholesterol control with goal LDL less than 100 - Consider PT versus rehabilitation Aspirin 325daily Pravastatin 40mg daily Lovenox 40 SQ daily (Creat 1.5, from 2.2 last year) f/u HbA1C LFTs WNL Follow up echo Bedrest Fall precautions NIH stroke scale Neuro checks every 4 Bedside swallow study passed, full diet Stroke education Normal saline at 75 ml/hr Troponins negative x 3 (.02, .03, .02) EKG: WNL f/u with PT, OT, speech, CM (2) Hypertension, benign ICD Codes: I10 - Essential (primary) hypertension Status: Acute Plan: Blood pressure high on admission, BP range : 187/88 - 190/93 , BP has improved with extra dose of home meds - Continue amlodipine 2.5 mg daily - Continue losartan 50 mg daily - Continue metoprolol 200 mg daily - Clonidine when necessary 0.1 mg (3) COPD (chronic obstructive pulmonary disease) ICD Codes: J44.9 - Chronic obstructive pulmonary disease Status: Acute Plan: Currently not symptomatic Albuterol Inhalers when necessary (4) Kidney disease ICD Codes: N28.9 - Disorder of kidney and ureter, unspecified Status: Chronic Plan: Stage III kidney disease per chart review Creatinine 1.46 today, stable from 1.5 yesterday,(2.26 in March) renal u/s (04/30) : right kidney echogenic and small, renal artery stenosis as a possibility. Left kidney unremarkable Avoid NSAIDs f/u BMP Follow-up with nephrology if acute worsening (5) fen/ppx Status: Chronic Plan: Fluids: Normal saline as above Electrolytes: BMP within normal limits, follow-up BMP tomorrow Nutrition: Regular diet after swallow test (Cait Rojas MD R2) Problem List: (1) Stroke ICD Codes: I63.9 - Cerebral infarction, unspecified Status: Acute Plan: Lay flat [address] negative for bleeding CT: chronic ischemic small vessel vasculopathy MRI brain non-contrast: Abnormal diffusion pattern from frontal to parietal lesion, small cortical stroke and right parietal region MRA brain non-contrast: Normal STAT MRA of carotids w/ contrast: 50-60% stenosis of right internal carotid artery f/u vascular surgery recommendations Follow-up neurology consult recommendations - New-onset stroke, concern for cardioembolic event - Dementia as seen by severe white matter changes bilaterally; follow-up with neurology as outpatient - Follow up echo and Holter monitor outpatient for 30 days - Consult with her private laundry room attendant Dr. Gilmore - Continue aspirin - Add fish oil 1000 mg twice a day - Consider tighter cholesterol control with goal LDL less than 100 - Consider PT versus rehabilitation Aspirin 325daily Pravastatin 40mg daily Lovenox 40 SQ daily (Creat 1.5, from 2.2 last year) f/u HbA1C LFTs WNL Follow up echo Bedrest Fall precautions NIH stroke scale Neuro checks every 4 Bedside swallow study passed, full diet Stroke education Normal saline at 75 ml/hr Troponins negative x 3 (.02, .03, .02) EKG: WNL f/u with PT, OT, speech, CM (2) Hypertension, benign ICD Codes: I10 - Essential (primary) hypertension Status: Acute Plan: Blood pressure high on admission, BP range : 187/88 - 190/93 , BP has improved with extra dose of home meds - Continue amlodipine 2.5 mg daily - Continue losartan 50 mg daily - Continue metoprolol 200 mg daily - Clonidine when necessary 0.1 mg (3) COPD (chronic obstructive pulmonary disease) ICD Codes: J44.9 - Chronic obstructive pulmonary disease Status: Acute Plan: Currently not symptomatic Albuterol Inhalers when necessary (4) Kidney disease ICD Codes: N28.9 - Disorder of kidney and ureter, unspecified Status: Chronic Plan: Stage III kidney disease per chart review Creatinine 1.46 today, stable from 1.5 yesterday,(2.26 in March) renal u/s (04/30) : right kidney echogenic and small, renal artery stenosis as a possibility. Left kidney unremarkable Avoid NSAIDs f/u BMP Follow-up with nephrology if acute worsening (5) fen/ppx Status: Chronic Plan: Fluids: Normal saline as above Electrolytes: BMP within normal limits, follow-up BMP tomorrow Nutrition: Regular diet after swallow test See the residents documentation for details. I saw and evaluated the patient regarding the solorzano portions of this evaluation and agree with the residents findings and plans as written. Parts of this note were created using [employer] voice recognition software program. While efforts were made to correct any mistakes made by this software, some mistakes, errors, and omissions may remain in the final note that were not caught when the note was originally created. Plan of care was discussed and agreed upon with the patient as specifically documented in the above note. An opportunity to ask questions with explanation was provided. Patient voiced understanding on all information reviewed and discussed. (Apolinar Henderson MD) Cait Rojas MD R2 Jul 25, 2017 11:22 Apolinar Henderson MD Jul 25, 2017 13:09
--- NOTE | 2017-07-25 14:28 | RADRPT ---
EXAM DATE/TIME: 07/25/2017 11:34 [facility] COMPARISON: MRA CAROTIDS W CONTRAST, July 24, 2017, 22:09. INDICATIONS : Abnormal MR angiogram demonstrating a 50-60% stenosis in the origin of the right internal carotid art lexus.. Patient with left-sided weakness and facial droop. Cerebral vascular accident.. MEDICAL HISTORY : Hypercholesterolemia. Arthritis. HTN. COPD. Pulmonary embolism. Anemia. Shingles. Depression. Anxie ty. SURGICAL HISTORY : Cholecystectomy. Hysterectomy. ENCOUNTER: Initial ACUITY: 1 day PAIN SCORE: 07/24 LOCATION: Bilateral neck PEAK SYSTOLIC VELOCITIES (cm/sec): ICA/CCA RATIO: Right: 3.0 Left: 2.3 ICA: Right: 141 Left: 142 CCA: Right: 48 Left: 62 ECA: Right: 172 Left: 165 VERTEBRAL: Right: 34 antegrade Left: 76 antegrade Elevated flow velocities and ICA/CCA ratios have been found to correlate with increased degrees of vessel stenosis, calculated as percentage of diameter relative to a normal segment of distal ICA/CCA FINDINGS: RIGHT CAROTID: Calcification noted in the carotid bulb and proximal internal and external carotid arteries. Turbulen ce is noted in the proximal internal carotid artery with spectral broadening of the waveforms. There is an elevated peak systolic and peak diastolic velocity as well as ratio. LEFT CAROTID: Calcifications noted in the carotid bulb and internal and external carotid arteries. The mild turbule nce is noted with mild spectral broadening of the waveforms. There are elevated peak systolic and pea k diastolic waveforms and ratios. VERTEBRAL ARTERIES: Antegrade flow is seen in both vertebral arteries. MISCELLANEOUS: None. CONCLUSION: 1. 50-69% diameter stenosis in the proximal internal carotid artery by velocity criteria. 2. Milder 50-69 % diameter stenosis in the left internal carotid artery by velocity criteria. 3. Antegrade flow in both vertebral arteries. Raul Werner MD on July 25, 2017 at 14:19 Board Certified Radiologist. This report was verified electronically.
[2017-07-25 14:34] LABS: C-REACTIVE PROTEIN 0.61 MG/DL (0.00-0.30)
[2017-07-25 14:48] LABS: RHEUMATOID FACTOR SCREEN NEGATIVE (NEGATIVE)
[2017-07-25 14:59] LABS: FREE T4 1.11 NG/DL (0.76-1.46)
[2017-07-25 15:01] LABS: FOLATE GREATER THAN 20.0 NG/ML (3.1-17.5)
[2017-07-25] MEDS: ENOXAPARIN SODIUM 40 MG/0.4 ML SYRINGE SQ SCH (17:52)
[2017-07-25] MEDS: PRAVASTATIN SOD 40 MG TAB PO SCH (20:07)
[2017-07-25] MEDS: LORazepam 2 MG/ML VIAL IV PUSH PRN (22:00)
[2017-07-26] VITALS (10 sets, daily range): BP systolic 134–178; BP diastolic 65–81; PULSE 60–83; RESP 20–21; TEMP 97–97.8; O2SAT 92–96
--- NOTE | 2017-07-26 06:11 | MB ---
cc: SANDIP STOCK MD DATE OF CONSULTATION 07/25/[address] Stock, Vascular Surgery REASON FOR CONSULTATION Right internal carotid artery stenosis, left-sided hemiparesis, stroke. HISTORY OF PRESENT DISEASE A 77-year-old lady who has a history of hypertension, noted about 4 to 5 days ago that her left arm was getting weak. She was also noticed to have a left-sided facial droop and difficulty walking, as she describes the left leg was very heavy. The patient was admitted to the hospital and is now in the process of workup. Initial MRA reveals bilateral carotid stenosis in the range of 60% and the question arises where to go from here. PAST MEDICAL HISTORY 1. Hypertension. 2. Hypercholesteremia. 3. COPD. SURGICAL HISTORY Negative. MEDICATIONS 1. Metoprolol. 2. Losartan. 3. Pravastatin. 4. Amlodipine. 5. Symbicort. There is a question whether the patient had a PE in the past but she never had any anticoagulants. No history of atrial fibrillation. PHYSICAL EXAMINATION GENERAL: A pleasant of 77-year-old lady, awake, alert, oriented, surrounded by her family. HEENT: Normocephalic. No trauma to the head. Pupils equally reactive. Extraocular muscles are intact. Facial features are slightly asymmetric and the patient does have somewhat of a left facial anguli per droop. NECK: Bilateral carotid pulses and to be honest I do not hear any bruits but there is a propagated sounds from the right chest. CHEST: Bilateral breath sounds. Decreased over both lung ludwig. Considered some moderate degree of COPD. HEART: Regular rhythm. The patient is not in atrial fibrillation. She is in sinus rhythm about 70. Systolic murmur over second intercostal space consistent with aortic stenosis propagating into the right neck. ABDOMEN: Soft. Active bowel sounds. No rebound, no masses. PELVIS: Stable. UPPER AND LOWER EXTREMITIES: With good proximal and distal pulses. No signs of vascular deficit. NEUROLOGIC EXAMINATION Keyonna coma scale is 15. The patient has lateralization manifested by decreased strength in left arm, about 3/5, and decreased strength in the hand. No ataxia on the right, significant ataxia on the left. The patient is not slurring. IMPRESSION AND RECOMMENDATIONS I reviewed laboratory and diagnostic procedures. The patient clearly has a neurologic deficit consistent with right hemispheric stroke. Brain MRI reveals frontoparietal decreased diffusion consistent with ischemic changes. Neck MRA is sort of unusual. It reveals a right internal carotid artery stenosis about 60% but MRA quality is not that great. There is also an ulcerated plaque on the right side which measures about 4 mm x 5 mm. In addition the patient has a questionable stenotic area in the brachiocephalic artery lower down but again with the MRI I am looking at, it is hard to tell. I have ordered carotid ultrasound to confirm or deny the findings and carotid ultrasound actually does confirm about 60% carotid stenosis on the right and also on the left. At this point, taking everything into account, I am starting to suspect that this is probably actually carotid-related and the patient probably flushed debris into the brain from where now the ulcerated plaque is. The dictum is for most patients to have carotid surgery if there is more than 70% carotid stenosis, even in asymptomatic patients who have no other contraindications. In this particular situation, I was initially tempted to say that this may be a cardiac event, but the more I am looking at this MRI and ultrasound findings as well as the patient altogether seems to point to carotid event. The patient will need a basic preop workup including cardiac echo in the face of possible aortic stenosis from the above-described murmur and I believe, all things equal, she will need to have right carotid endarterectomy while we are going to watch the left side. I thank you much for referral. Sandip KELLEY/DUNCAN /7:34 PM /5:47 AM [facility]
--- NOTE | 2017-07-26 06:32 | EKG ---
Date Performed: 07/24/2017 Time Performed: 14:46:17 PTAGE: 77 years EKG: Sinus rhythm MARKED LEFT AXIS DEVIATION INCOMPLETE RIGHT BUNDLE BRANCH BLOCK NONSPECIFIC ST & T-WAVE ABNORMALITY ABNORMAL ECG Compared to PREVIOUS TRACING , slight change in nonspecific T-wave changes. T-waves now inverted in a VL but no significant change. PREVIOUS TRACIN02/19/2010 10.37 DOCTOR: Fátima Johnson Interpretating Date/Time 07/26/2017 06:46:15
--- NOTE | 2017-07-26 07:43 | HHI.PR ---
Subjective Remarks sr Objective Vital Signs Date Time Temp Pulse Resp B/P (MAP) Pulse Ox O2 Delivery O2 Flow Rate FiO2 07/26/17 05:58 97.3 71 20 134/65 (88) 93 07/26/17 00:56 97.1 73 21 142/67 (92) 93 07/25/17 21:07 98.5 65 20 168/75 (106) 95 07/25/17 16:51 98.3 68 18 124/58 (80) 96 07/25/17 14:19 66 07/25/17 12:28 98.0 59 18 152/65 (94) 93 07/25/17 10:23 94 07/25/17 10:12 70 07/25/17 08:30 97.6 66 18 163/79 (107) 94 I/O 07/25/17 07/25/17 07/25/17 07/26/17 07/26/17 07/26/17 07:00 15:00 23:00 07:00 15:00 23:00 Intake Total 240 ml 2328 ml Balance 240 ml 2328 ml Intake Oral 240 ml 480 ml IV Total 1848 ml # Voids 5 4 1 Result Diagram: 07/25/17 0521 07/25/17 0521 Objective Remarks moves face sym voice clear vff 5/5 lue x finger ext 5- lle ok Assessment and Plan Assessment and Plan imp alanis pend awit holter echo on statin and asa adjust statin to get ldl lower i dw surgery check cta i do not at this time with current data feel strongly about a cea unless cta shows something major Kuldip Balderas MD Jul 26, 2017 07:43
[2017-07-26] MEDS: INSULIN ASPART SUPPLEMENTAL SCALE SQ SCH ×2 (08:00→12:00)
[2017-07-26] MEDS: DOCUSATE SODIUM 50 MG/SENNA 8.6 MG TAB PO SCH ×2 (09:00→20:27)
[2017-07-26] MEDS: METOPROLOL SUCCINATE 50 MG EXTENDED RELEASE TAB PO SCH (09:16)
[2017-07-26] MEDS: amLODIPine BESYLATE 5 MG TAB PO SCH (09:16)
[2017-07-26] MEDS: LOSARTAN 50 MG TAB PO SCH (09:17)
[2017-07-26] MEDS: ASPIRIN 325 MG TAB PO SCH (09:17)
[2017-07-26] MEDS: SODIUM CHLORIDE 0.9% FLUSH 10 ML FLUSH IV FLUSH SCH ×2 (09:19→20:27)
[2017-07-26] MEDS: SODIUM CHLOR 0.9% 1000 ML INJ 1,000 ML IV SCH (09:20)
--- NOTE | 2017-07-26 09:50 | HHI.FPPN ---
Subjective Remarks Pt seen and examined this morning. No acute events overnight. Pt has been afebrile vital signs have been stable. Pt reports that she did fair overnight. She denies any acute chest pain, weakness, shortness of breath. She anticipates having surgery within the next several days with vascular surgery: Carotid endarterectomy. (Ramiro Cruz MD R3) Objective Vitals Vital Signs Date Time Temp Pulse Resp B/P (MAP) Pulse Ox O2 Delivery O2 Flow Rate FiO2 07/26/17 08:23 97.8 70 20 137/65 (89) 92 07/26/17 05:58 97.3 71 20 134/65 (88) 93 07/26/17 00:56 97.1 73 21 142/67 (92) 93 07/25/17 21:07 98.5 65 20 168/75 (106) 95 07/25/17 16:51 98.3 68 18 124/58 (80) 96 07/25/17 14:19 66 07/25/17 12:28 98.0 59 18 152/65 (94) 93 07/25/17 10:23 94 07/25/17 10:12 70 I/O 07/25/17 07/25/17 07/25/17 07/26/17 07/26/17 07/26/17 06:59 14:59 22:59 06:59 14:59 22:59 Intake Total 240 ml 2328 ml Balance 240 ml 2328 ml Intake Oral 240 ml 480 ml IV Total 1848 ml # Voids 5 4 1 (Ramiro Cruz MD R3) Result Diagram: 07/25/17 0521 07/25/17 0521 Objective Remarks GENERAL: Alert and oriented 3, left-sided facial droop still noticeable SKIN: Warm and dry. HEAD: Normocephalic. EYES: No scleral icterus. No injection or drainage. NECK: No visible JVD or lymphadenopathy. CARDIOVASCULAR: Regular rate and rhythm without murmurs, gallops, or rubs. RESPIRATORY: Breath sounds equal bilaterally. No accessory muscle use. GASTROINTESTINAL: Abdomen soft, non-tender, nondistended. MUSCULOSKELETAL: No cyanosis, or edema. BACK: Nontender without obvious deformity. No CVA tenderness. Neuro: Strength of left upper extremity improved to 4/5, sensory remained intact throughout. Speech is fluent. (Ramiro Cruz MD R3) A/P Assessment and Plan 77-year-old female with a past medical history of chronic kidney insufficiency, hypertension, and COPD presents with left arm weakness and numbness and facial droop. Discharge Planning Anticipate discharge once patient has been cleared by neurology, vascular surgery and cardiology. (Ramiro Cruz MD R3) Problem List: (1) Stroke ICD Codes: I63.9 - Cerebral infarction, unspecified Status: Acute Plan: Follow-up neurology consult recommendations - New-onset stroke, concern for cardioembolic event - Dementia as seen by severe white matter changes bilaterally; follow-up with neurology as outpatient - Follow up echo and Holter monitor outpatient for 30 days - Consult with her private economic development director Dr. Gilmore - Continue aspirin - Fish oil 1000 mg twice a day - Consider tighter cholesterol control with goal LDL less than 100 - Consider home PT versus in pt rehabilitation - Aspirin 325daily - Pravastatin 40mg daily - Lovenox 40 SQ daily (Creat 1.5, from 2.2 last year) - f/u HbA1c LFTs WNL Fall precautions NIH stroke scale Neuro checks every 4 Troponins negative x 3 (.02, .03, .02) EKG: WNL f/u with PT, OT, speech, CM Imaging: CT negative for bleeding CT: chronic ischemic small vessel vasculopathy MRI brain non-contrast: Abnormal diffusion pattern from frontal to parietal lesion, small cortical stroke and right parietal region MRA brain non-contrast: Normal STAT MRA of carotids w/ contrast: 50-60% stenosis of right internal carotid artery (2) Carotid artery stenosis ICD Codes: I65.29 - Occlusion and stenosis of unspecified carotid artery Plan: Carotid artery ultrasound significant for 50-69 percent diameter stenosis in the proximal internal carotid artery by velocity criteria. Neck MRI significant for a 50-60% stenosis at the origin of the right internal carotid artery. No significant stenosis on the left. Vascular surgery consulted, Dr. Shakila jones, appreciate recommendations and intervention. Patient has experienced a right hemispheric stroke that may be related to carotid stenosis. Patient will need to have a right carotid endarterectomy. She will require cardiac clearance prior to surgery due to abnormal echo with severe aortic stenosis. Cardiology consulted for surgical clearance. (3) Hypertension, benign ICD Codes: I10 - Essential (primary) hypertension Status: Acute Plan: Blood pressure high on admission, BP range : 187/88 - 190/93 , BP has improved with extra dose of home meds - Continue amlodipine 2.5 mg daily - Continue losartan 50 mg daily - Continue metoprolol 200 mg daily - Clonidine when necessary 0.1 mg (4) COPD (chronic obstructive pulmonary disease) ICD Codes: J44.9 - Chronic obstructive pulmonary disease Status: Acute Plan: Currently not symptomatic Albuterol Inhalers when necessary (5) Kidney disease ICD Codes: N28.9 - Disorder of kidney and ureter, unspecified Status: Chronic Plan: Stage III kidney disease per chart review Creatinine 1.46 on 07/25, stable. renal u/s (04/30) : right kidney echogenic and small, renal artery stenosis as a possibility. Left kidney unremarkable Avoid NSAIDs and nephrotoxic agents f/u BMP Follow-up with nephrology if acute worsening (6) fen/ppx Status: Chronic Plan: Fluids: Pt tolerating , no fluids at this time Electrolytes: In normal limits, continue to monitor Nutrition: Regular diet (Ramiro Cruz MD R3) Problem List: (1) Stroke ICD Codes: I63.9 - Cerebral infarction, unspecified Status: Acute Plan: Follow-up neurology consult recommendations - New-onset stroke, concern for cardioembolic event - Dementia as seen by severe white matter changes bilaterally; follow-up with neurology as outpatient - Follow up echo and Holter monitor outpatient for 30 days - Consult with her private economic development director Dr. Gilmore - Continue aspirin - Fish oil 1000 mg twice a day - Consider tighter cholesterol control with goal LDL less than 100 - Consider home PT versus in pt rehabilitation - Aspirin 325daily - Pravastatin 40mg daily - Lovenox 40 SQ daily (Creat 1.5, from 2.2 last year) - f/u HbA1c LFTs WNL Fall precautions NIH stroke scale Neuro checks every 4 Troponins negative x 3 (.02, .03, .02) EKG: WNL f/u with PT, OT, speech, CM Imaging: CT negative for bleeding CT: chronic ischemic small vessel vasculopathy MRI brain non-contrast: Abnormal diffusion pattern from frontal to parietal lesion, small cortical stroke and right parietal region MRA brain non-contrast: Normal STAT MRA of carotids w/ contrast: 50-60% stenosis of right internal carotid artery (2) Carotid artery stenosis ICD Codes: I65.29 - Occlusion and stenosis of unspecified carotid artery Plan: Carotid artery ultrasound significant for 50-69 percent diameter stenosis in the proximal internal carotid artery by velocity criteria. Neck MRI significant for a 50-60% stenosis at the origin of the right internal carotid artery. No significant stenosis on the left. Vascular surgery consulted, Dr. Shakila jones, appreciate recommendations and intervention. Patient has experienced a right hemispheric stroke that may be related to carotid stenosis. Patient will need to have a right carotid endarterectomy. She will require cardiac clearance prior to surgery due to abnormal echo with severe aortic stenosis. Cardiology consulted for surgical clearance. (3) Hypertension, benign ICD Codes: I10 - Essential (primary) hypertension Status: Acute Plan: Blood pressure high on admission, BP range : 187/88 - 190/93 , BP has improved with extra dose of home meds - Continue amlodipine 2.5 mg daily - Continue losartan 50 mg daily - Continue metoprolol 200 mg daily - Clonidine when necessary 0.1 mg (4) COPD (chronic obstructive pulmonary disease) ICD Codes: J44.9 - Chronic obstructive pulmonary disease Status: Acute Plan: Currently not symptomatic Albuterol Inhalers when necessary (5) Kidney disease ICD Codes: N28.9 - Disorder of kidney and ureter, unspecified Status: Chronic Plan: Stage III kidney disease per chart review Creatinine 1.46 on 07/25, stable. renal u/s (04/30) : right kidney echogenic and small, renal artery stenosis as a possibility. Left kidney unremarkable Avoid NSAIDs and nephrotoxic agents f/u BMP Follow-up with nephrology if acute worsening (6) fen/ppx Status: Chronic Plan: Fluids: Pt tolerating , no fluids at this time Electrolytes: In normal limits, continue to monitor Nutrition: Regular diet See the residents documentation for details. I saw and evaluated the patient regarding the solorzano portions of this evaluation and agree with the residents findings and plans as written. Parts of this note were created using [employer] voice recognition software program. While efforts were made to correct any mistakes made by this software, some mistakes, errors, and omissions may remain in the final note that were not caught when the note was originally created. Plan of care was discussed and agreed upon with the patient as specifically documented in the above note. An opportunity to ask questions with explanation was provided. Patient voiced understanding on all information reviewed and discussed. (Apolinar Henderson MD) Ramiro Cruz MD R3 Jul 26, 2017 09:50 Apolinar Henderson MD Jul 27, 2017 12:32
[2017-07-26 10:08] LABS: BACTERIA, URINE RARE /hpf; BILIRUBIN, URINE NEG (NEG); BLOOD, URINE NEG (NEG); GLUCOSE,URINE NEG (NEG); KETONE, URINE NEG (NEG); MUCUS URINE FEW /lpf (OCC); NITRITE,URINE NEG (NEG); PH, URINE 5.5 (5.0-8.5); SQUAMOUS EPITHELIAL CELL URINE 1 /hpf (0-5); URINE COLOR LIGHT-YELLOW (YELLW/STRAW); URINE LEUKOCYTE ESTERASE TRACE (NEG)
[2017-07-26] MEDS: ACETAMINOPHEN 325 MG TAB PO PRN (14:59)
--- NOTE | 2017-07-26 15:02 | ECHRPT ---
Indication: CVA/TIA CONCLUSIONS Normal left ventricular size. Wall thickness is normal. The left ventricular systolic function is low normal with an estimated ejection fraction in the rang e of 50- 55%. There is apical hypokinesis Moderate mitral valve regurgitation. Mitral annular calcification is present. Severe aortic valve stenosis. Trace aortic valve regurgitation. Mild thickening of the aortic valve leaflets. Aortic valve area is 0.93 cm. Aortic valve mean gradient is 42 mmHg. Diffuse calcification of the aortic valve. There is mild tricuspid valve regurgitation. The estimated pulmonary arterial pressure is 62.4 mmHg. BP: 163 / 79 HR: 66 Rhythm: MEASUREMENTS (Male / Female) Normal Values Technical Quality:Good 2D ECHO LV Diastolic Diameter PLAX 4.6 cm 4.2 - 5.9 / 3.9 - 5.3 cm LV Systolic Diameter PLAX 3.5 cm IVS Diastolic Thickness 0.8 cm 0.6 - 1.0 / 0.6 - 0.9 cm LVPW Diastolic Thickness 0.6 cm 0.6 - 1.0 / 0.6 - 0.9 cm LV Relative Wall Thickness 0.3 LVOT Diameter 1.9 cm LA Systolic Diameter LX 3.8 cm 3.0 - 4.0 / 2.7 - 3.8 cm DOPPLER AV Peak Velocity 428.0 cm/s AV Peak Gradient 73.3 mmHg AV Mean Gradient 42.0 mmHg AV Velocity Time Integral 114.0 cm LVOT Peak Velocity 135.5 cm/s LVOT Peak Gradient 7.3 mmHg LVOT Velocity Time Integral 37.4 cm LVOT Cardiac Index 3533.8 cm/minm AV Area Cont Eq vti 0.9 cm AV Area Cont Eq pk 0.9 cm Mitral E Point Velocity 88.3 cm/s Mitral A Point Velocity 103.0 cm/s Mitral E to A Ratio 0.9 TR Peak Velocity 362.0 cm/s TR Peak Gradient 52.4 mmHg Right Atrial Pressure 10.0 mmHg Pulmonary Artery Systolic Pressu 62.4 mmHg Right Ventricular Systolic Press 62.4 mmHg FINDINGS LEFT VENTRICLE Normal left ventricular size. Wall thickness is normal. The left ventricular systolic function is low normal with an estimated ejection fraction in the rang e of 50- 55%. There is apical hypokinesis RIGHT VENTRICLE Normal right ventricular size and systolic function. LEFT ATRIUM The left atrial size is normal. RIGHT ATRIUM The right atrial size is normal. ATRIAL SEPTUM Normal atrial septal thickness without atrial level shunting by limited color doppler interrogation. AORTA The aortic root and proximal ascending aorta are normal in size on limited imaging. MITRAL VALVE Moderate mitral valve regurgitation. Mitral annular calcification is present. AORTIC VALVE Severe aortic valve stenosis. Trace aortic valve regurgitation. Mild thickening of the aortic valve leaflets. Aortic valve area is 0.93 cm. Aortic valve mean gradient is 42 mmHg. Diffuse calcification of the aortic valve. TRICUSPID VALVE There is mild tricuspid valve regurgitation. The estimated pulmonary arterial pressure is 62.4 mmHg. PULMONARY VALVE No pulmonary valve regurgitation or stenosis. VESSELS The inferior vena cava is normal in size. PERICARDIUM No pericardial effusion. Abhilash Frey MD, FACC (Electronically Signed) Final Date:26 July 2017 15:01
[2017-07-26 15:40] LABS: ANA SCREEN POS (NEG)
[2017-07-26] MEDS ORDERED: BENZONATATE 100 MG CAP PO PRN (16:45)
[2017-07-26] MEDS ORDERED: ALBUTEROL SULFATE 90 MCG/ACT HFA 8 GM INHALER INH PRN (16:45)
[2017-07-26] MEDS ORDERED: IODIXANOL 320 MG/ML 10 ML VIAL (for Rad CT) IVCONTRAST ONE (18:39)
[2017-07-26] MEDS: ENOXAPARIN SODIUM 40 MG/0.4 ML SYRINGE SQ SCH (19:07)
--- NOTE | 2017-07-26 19:07 | PD.CAR.PN ---
CVT Progress Note Subjective/Hospital Course: Referral received Full consult BRANDIN Thanks J 07/26/17 Patient doing well at this time Facial droop is slowly improving and function of the left arm is slightly better with better strength I discussed the case with Dr. Balderas and we will go ahead with CTA of the carotids to better visualize the right carotid and see this ulcerated plaque may be something contributing to the patient's symptoms Echo of the heart reveals significant aortic stenosis based on what I saw but I do not see the reading yet If patient indeed has severe aortic stenosis she will need the cardiac workup prior to any possible intervention on carotid or otherwise Objective: Vital Signs Date Time Temp Pulse Resp B/P (MAP) Pulse Ox O2 Delivery O2 Flow Rate FiO2 07/26/17 17:08 60 07/26/17 16:49 97.4 73 20 175/81 (112) 94 07/26/17 12:42 68 07/26/17 12:35 97.0 77 20 178/81 (113) 96 07/26/17 08:23 97.8 70 20 137/65 (89) 92 07/26/17 08:00 83 07/26/17 05:58 97.3 71 20 134/65 (88) 93 07/26/17 00:56 97.1 73 21 142/67 (92) 93 07/25/17 21:07 98.5 65 20 168/75 (106) 95 Labs: Laboratory Tests Test 07/26/17 09:20 Urine Color LIGHT-YELLOW (YELLW/STRAW) Urine Turbidity CLEAR (CLEAR) Urine pH 5.5 (5.0-8.5) Urine Specific [place] 1.009 (1.002-1.035) Urine Protein NEG mg/dL (NEG-TRACE) Urine Glucose (UA) NEG mg/dL (NEG) Urine Ketones NEG mg/dL (NEG) Urine Occult Blood NEG (NEG) Urine Nitrite NEG (NEG) Urine Bilirubin NEG (NEG) Urine Urobilinogen LESS THAN 2.0 MG/DL (LESS Urine Leukocyte Esterase TRACE (NEG) Urine RBC LESS THAN 1 /hpf (0-3) Urine WBC 1 /hpf (0-5) Urine Squamous Epithelial Cells 1 /hpf (0-5) Urine Bacteria RARE /hpf (NONE) Urine Mucus FEW /lpf (OCC) Microscopic Urinalysis Comment CULT NOT INDICATED Result Diagram: 07/25/1752007/25/17 0521 Janna Cervantes MD Jul 26, 2017 19:07
[2017-07-26] MEDS: BUDESONIDE-FORMOTEROL 160/4.5 MCG INHALER INH SCH (20:26)
--- NOTE | 2017-07-26 20:26 | RADRPT ---
EXAM DATE/TIME: 07/26/2017 18:12 [facility] COMPARISON: No previous studies available for comparison. INDICATIONS : Confusion, stroke. IV CONTRAST: 50 cc Visipaque (iodixanol) IV RADIATION DOSE: 10.61 CTDIvol (mGy) MEDICAL HISTORY : Hypertension. Cardiovascular disease Reflux. SURGICAL HISTORY : Cholecystectomy. Hysterectomy. ENCOUNTER: Subsequent ACUITY: 3 days PAIN SCALE: 2/10 LOCATION: Right chest Elevated flow velocities and ICA/CCA ratios have been found to correlate with increased degrees of vessel stenosis, calculated as percentage of diameter relative to a normal segment of distal ICA/CCA. TECHNIQUE: Volumetric scanning was performed using a multirow detector CT scanner. The data was post processed with a variety of visualization algorithms including full-volume maximum intensity projection, multip lanar sliding thin-slab reformation, curved-planar reformation, and surface-rendering techniques. Us ing automated exposure control and adjustment of the mA and/or kV according to patient size, radiatio n dose was kept as low as reasonably achievable to obtain optimal diagnostic quality images. DICOM f ormat image data is available electronically for review and comparison. FINDINGS: AORTIC ARCH: Diffuse calcified plaque of the aortic arch. Calcified plaque is seen at the proximal brachiocephalic artery as well as the proximal common carotid arteries. No evidence of high-grade stenosis at this l evel. RIGHT CAROTID: Severe calcified and noncalcified plaque of the proximal right internal carotid artery. Approximately 1 cm distal to the origin there is a focal approximately 70% stenosis. Mild stenosis of the proximal external carotid artery at its origin. LEFT CAROTID: Calcified and noncalcified plaque at the carotid bulb. Less than 40% stenosis. VERTEBRALS: The vertebral arteries have a symmetric diameter. No stenotic lesions are seen. CONCLUSION: 1. Prominent irregular plaque at the right carotid bulb with approximately 70% stenosis of the proxim al right ICA. 2. No evidence of hemodynamically significant stenosis on the left. Kareem Charles MD on July 26, 2017 at 20:14 Board Certified Radiologist. This report was verified electronically.
[2017-07-26] MEDS: PRAVASTATIN SOD 40 MG TAB PO SCH (20:27)
[2017-07-26] MEDS: LORazepam 2 MG/ML VIAL IV PUSH PRN (21:58)
[2017-07-26 22:53] LABS: ALB/GLOB RATIO (SPE) 1.53 (1.39-2.23)
[2017-07-27] VITALS (9 sets, daily range): BP systolic 129–189; BP diastolic 67–87; PULSE 62–104; RESP 16–20; TEMP 97.4–98.2; O2SAT 92–95
[2017-07-27 08:12] LABS: AUTOMATED NEUTROPHIL # 3.8 TH/MM3 (1.8-7.7); BASOPHIL # 0.1 TH/MM3 (0-0.2); BASOPHIL % 0.9 % (0.0-2.0); EOSINOPHIL # 0.3 TH/MM3 (0-0.4); EOSINOPHIL % 4.2 % (0.0-4.0); HEMATOCRIT 38.2 % (35.0-46.0); HEMOGLOBIN 12.8 GM/DL (11.6-15.3); LYMPH % 22.3 % (9.0-44.0); LYMPHOCYTE # 1.4 TH/MM3 (1.0-4.8); MEAN CORPUSCULAR HEMOGLOBIN 31.5 PG (27.0-34.0); MEAN CORPUSCULAR HGB CONC 33.5 % (32.0-36.0); MEAN PLATELET VOLUME 8.8 FL (7.0-11.0); MONO % 10.5 % (0.0-8.0); MONOCYTE # 0.6 TH/MM3 (0-0.9); NEUT % 62.1 % (16.0-70.0); PLATELET COUNT 235 TH/MM3 (150-450); RED BLOOD COUNT 4.07 MIL/MM3 (4.00-5.30); RED CELL DISTRIBUTION WIDTH 12.8 % (11.6-17.2); WHITE BLOOD COUNT 6.1 TH/MM3 (4.0-11.0)
[2017-07-27] MEDS: METOPROLOL SUCCINATE 50 MG EXTENDED RELEASE TAB PO SCH (08:15)
[2017-07-27] MEDS: LOSARTAN 50 MG TAB PO SCH (08:15)
[2017-07-27] MEDS: DOCUSATE SODIUM 50 MG/SENNA 8.6 MG TAB PO SCH ×2 (08:16→21:00)
[2017-07-27] MEDS: ASPIRIN 325 MG TAB PO SCH (08:16)
[2017-07-27] MEDS: BUDESONIDE-FORMOTEROL 160/4.5 MCG INHALER INH SCH ×2 (08:16→21:17)
[2017-07-27] MEDS: amLODIPine BESYLATE 5 MG TAB PO SCH (08:16)
--- NOTE | 2017-07-27 08:31 | MB ---
cc: RUSSEL ARGUELLES M.D. DATE OF CONSULTATION: 07/27/2017 REASON FOR CONSULTATION: Evaluation of preoperative clearance for carotid endarterectomy. HISTORY OF PRESENT ILLNESS: This is A 77-year-old woman followed by my partner, Dr. Gilmore, who came in with a stroke and has been found have other problems as well. She has known aortic stenosis. Her last echocardiogram in the office had a mean gradient of mid 30s. She now has a mean gradient at 42 mm with findings on the echocardiogram suggesting that she has severe aortic stenosis. The patient has been noticing shortness of breath with exertion weeding her garden for about the past two years. She can walk without shortness of breath. It is more going up and down stairs or the bending over required to weed in her garden when she gets short of breath. The shortness of breath resolves quickly with rest. She has not had any associated chest tightness, chest squeezing, chest pain or other symptoms of angina. She has had no syncope or pre-syncope. She has occasional brief flip-flop palpitations but nothing more serious than that. She has not had the congestive heart failure. She denies lower extremity edema. She does a fair job at trying to limit her salt. She has not been taking aspirin prior to this admission. When I asked her why, her response was that her primary care physician, Dr. Kuo, told her specifically not to take aspirin and that it was not necessary. She has had any bleeding problems that she was able to tell me. I could not find any more specific reasons why she was not taking aspirin prior to this admission. PAST MEDICAL HISTORY: 1. She has longstanding hypertension for which she has been on medication. 2. She has hyperlipidemia. 3. Mention of COPD. 4. Obesity. 5. Anxiety issues. PAST SURGICAL HISTORY: Negative. FAMILY HISTORY: Her mother had a stroke at 54 and at 56 and she also had colon cancer. Her father at age 83 during surgery for a brain aneurysm. She has no siblings. SOCIAL HISTORY: She smoked about six to seven years from college but quit, she says, 32 years ago. She has an occasional beer. She is from [place], [place], and is an [facility] fan. (We laughed over that since I am a [place] fan). Additional social history is that the patient has had a great deal of stress in her family. She has had lots of company in her tiny home. She has had a recent in her family. Her is ill with a defibrillator and in a wheelchair and she is very worried about him. REVIEW OF SYSTEMS: She has not had any problems with her bowels in about a month but she often has problems with bowel urgency or when she has to go she has no time to get to the bathroom. No GI bleeding. No urinary symptoms that are positive. Regarding her memory, she says her memory is about 90%. She has no problem remembering things except occasionally she cannot find her car keys. The remaining of review of systems was also gone over in detail and are negative. Most recent neuro review of systems was difficult to eat with her left arm and left leg as described in the hospital notes. MEDICATIONS PRIOR TO ADMISSION: 1. Albuterol. 2. Pravastatin. 3. Metoprolol 200 milligrams. 4. Amlodipine 2.5 milligrams. 5. Losartan 50 milligrams. 6. Lorazepam. 7. Triamterene / hydrochlorothiazide 37.5 / 25. 8. Symbicort. 9. Montelukast. 10. Fluticasone Nasal [place]. 11. Vitamin D. 12. A multivitamin. MEDICATIONS SHE HAS HAD PREVIOUS ADVERSE REACTIONS TO: Lisinopril. PHYSICAL EXAMINATION: GENERAL: The physical exam reveals a pleasant elderly-like female who is resting comfortably in no acute distress. VITAL SIGNS: Her vital signs are charted. Blood pressures have ranged from normal to mildly elevated. She has had blood pressures as low as 124/58 and blood pressures as high as 175/81. She is in sinus rhythm on the monitor and on her EKG. HEAD, EYES, EARS, NOSE, THROAT: Unremarkable. NECK: Neck exam shows possible extremely faint bruits. Upstrokes are delayed. CHEST: Clear to auscultation. CARDIAC: Exam reveals a 2-3/6 somewhat high-pitched fairly late peaking aortic stenosis murmur with reduction in the second heart sound. ABDOMEN: Markedly obese, soft, nontender. I cannot appreciate masses. EXTREMITIES: Intact pulses. No cyanosis, clubbing or edema. EKGS: Her EKG demonstrates normal sinus rhythm, left axis deviation, very slight nonspecific interventricular conduction delay. No findings to indicate ischemia. LAB WORK: Her CBC is unremarkable. Sedimentation rate is elevated at 36. Troponins have been negative x3. Lipids are very elevated. Cholesterol 224. Triglycerides 378. HDL 38.9. Creatinine is elevated at 1.46. Urinalysis is negative for blood. IMAGING STUDIES: Chest x-ray shows no acute disease. Carotid Doppler shows flow velocity ratio suggestive of a 50% to 69% stenoses bilaterally with antegrade vertebral flow. Her neck MRA was interpreted as a 50% to 60% stenosis at the origin of the right internal carotid artery, 30% to 40% stenosis at the origin of the brachiocephalic artery, 0% to 10% stenosis at the origin of the left internal carotid artery. Her brain MRI shows bilateral chronic areas and signals consistent with ischemic demyelinization, bilateral and symmetric, small focal infarct in the high white matter tracts on the right between the frontal and parietal lobes. Her head MRA was a normal examination. IMPRESSION: This is a complicated 77-year-old female who has had a right hemispheric stroke. She has aortic stenosis which is severe. It manifesting as dyspnea on exertion for the past two years with things such as wheezing in her garden and going up and down stairs. She is also found to have carotid disease. Interestingly, she has not been on aspirin for reasons that are not clear to me. She has now been demonstrated to have carotid disease, although from the reports that I see in the computer, the carotid disease is not severe. As far as entertaining the risk of surgery, it is well known that severe aortic stenosis substantially increases the risk of any type of surgery, and in particular vascular surgery. I therefore have concerns and this will need to be weighed. The issue of clearance is not so much saying that she is cleared and has no risk. If surgery is entertained, it must be with the full understanding that there is significant involved. Trying to put a precise number on this, but being 77 years old with aortic stenosis that is this severe is a serious matter. As far as recommendations, the ultimate decision about surgery should be between the vascular surgeon and the patient. The patient has not been on aspirin, and obviously it is very important that that therapy has been instituted as it already has been. Her blood pressure medications have been continued, which I think is important. Were she not to have surgery on her carotid, at some point I think she will need to be evaluated for the severe aortic stenosis, particularly since the mean gradient has increased and she does have dyspnea with activity such as weeding in her garden and doing activities that involve going up and down stairs. Thank you for asking me to evaluate her. MD EN White/ANGELINA /7:00 AM /7:44 AM
[2017-07-27 08:38] LABS: ALBUMIN 3.2 GM/DL (3.4-5.0); ALT (GPT) 20 U/L (10-53); AST (GOT) 18 U/L (15-37); BLOOD UREA NITROGEN 18 MG/DL (7-18); CALCIUM 9.2 MG/DL (8.5-10.1); CHLORIDE 105 MEQ/L (98-107); CREATININE 1.31 MG/DL (0.50-1.00); GLOMERULAR FILTRATION RATE 39 ML/MIN (>89); GLUCOSE,RANDOM 83 MG/DL (74-106); SODIUM (NA) 141 MEQ/L (136-145)
[2017-07-27 08:40] LABS: ALKALINE PHOSPHATASE 65 U/L (45-117); TOTAL BILIRUBIN ADULT 0.6 MG/DL (0.2-1.0); TOTAL PROTEIN 6.7 GM/DL (6.4-8.2)
[2017-07-27] MEDS: SODIUM CHLORIDE 0.9% FLUSH 10 ML FLUSH IV FLUSH SCH ×2 (10:20→21:17)
--- NOTE | 2017-07-27 13:49 | HHI.FPPN ---
Subjective Remarks Patient seen and examined bedside this morning. Patient states that she feels she is getting stronger in her left arm. She has questions about the new findings that were found on imaging. She denies any chest pain/shortness of breath. She denies any nausea/vomiting. Denies any fever/chills. There have been no further syncopal events or acute onset weaknesses. (Cait Rojas MD R2) Objective Vitals Vital Signs Date Time Temp Pulse Resp B/P (MAP) Pulse Ox O2 Delivery O2 Flow Rate FiO2 07/27/17 12:00 98.1 64 16 148/72 (97) 95 07/27/17 08:00 98.2 65 16 189/87 (121) 95 07/27/17 07:02 95 07/27/17 05:26 97.9 70 20 168/78 (108) 92 07/27/17 05:15 69 07/27/17 00:00 97.4 76 20 142/67 (92) 92 07/26/17 20:21 97.4 79 20 140/79 (99) 94 07/26/17 20:20 73 07/26/17 17:08 60 07/26/17 16:49 97.4 73 20 175/81 (112) 94 I/O 07/26/17 07/26/17 07/26/17 07/27/17 07/27/17 07/27/17 07:00 15:00 23:00 07:00 15:00 23:00 Intake Total 150 ml 480 ml Balance 150 ml 480 ml Intake Oral 480 ml IV Total 150 ml # Voids 1 3 2 (Cait Rojas MD R2) Result Diagram: 07/27/1770407/27/17 07 Objective Remarks GENERAL: Alert and oriented 3, left-sided facial droop still noticeable however improved SKIN: Warm and dry. HEAD: Normocephalic. EYES: No scleral icterus. No injection or drainage. NECK: No visible JVD or lymphadenopathy. CARDIOVASCULAR: 3/6 systolic murmur, S1 easily heard, S2 faint RESPIRATORY: Breath sounds equal bilaterally. No accessory muscle use. GASTROINTESTINAL: Abdomen soft, non-tender, nondistended. MUSCULOSKELETAL: No cyanosis, or edema. BACK: Nontender without obvious deformity. No CVA tenderness. Neuro: Strength of left upper extremity improved to 4/5, sensory remained intact throughout. Speech is fluent. (Cait Rojas MD R2) A/P Assessment and Plan 77-year-old female with a past medical history of chronic kidney insufficiency, hypertension, and COPD presents with left arm weakness and numbness and facial droop. Discharge Planning Anticipate discharge once patient has been cleared by neurology, vascular surgery and cardiology. (Cait Rojas MD R2) Problem List: (1) Stroke ICD Codes: I63.9 - Cerebral infarction, unspecified Status: Acute Plan: Follow-up neurology consult recommendations - New-onset stroke, concern for cardioembolic event - Dementia as seen by severe white matter changes bilaterally; follow-up with neurology as outpatient - Follow up echo and Holter monitor outpatient for 30 days - Consult with her private program therapist Dr. Gilmore - Continue aspirin - Fish oil 1000 mg twice a day - Consider tighter cholesterol control with goal LDL less than 100 - Consider home PT versus in pt rehabilitation - Aspirin 325daily - Pravastatin 40mg daily - Lovenox 40 SQ daily (Creat 1.5, from 2.2 last year) - HbA1c 5.7 LFTs WNL Fall precautions NIH stroke scale Neuro checks every 4 Troponins negative x 3 (.02, .03, .02) EKG: WNL f/u with PT, OT, speech, CM Imaging: CT negative for bleeding CT: chronic ischemic small vessel vasculopathy MRI brain non-contrast: Abnormal diffusion pattern from frontal to parietal lesion, small cortical stroke and right parietal region MRA brain non-contrast: Normal STAT MRA of carotids w/ contrast: 50-60% stenosis of right internal carotid artery Neck CTA: prominent irregular plaque at the right carotid bulb with 70% stenosis of the proximal right internal carotid artery (2) Carotid artery stenosis ICD Codes: I65.29 - Occlusion and stenosis of unspecified carotid artery Plan: Carotid artery ultrasound significant for 50-69 percent diameter stenosis in the proximal internal carotid artery by velocity criteria. Neck MRI significant for a 50-60% stenosis at the origin of the right internal carotid artery. No significant stenosis on the left. Vascular surgery consulted, Dr. Shakila jones, appreciate recommendations and intervention. Patient has experienced a right hemispheric stroke that may be related to carotid stenosis. Patient will need to have a right carotid endarterectomy. She will require cardiac clearance prior to surgery due to abnormal echo with severe aortic stenosis. Cardiology consulted for surgical clearance; Dr. Griffiths program therapist has confirmed that there will be significant risk to doing the CEA surgery due to her advanced age and severe aortic stenosis. He defers the decision to do the surgery between the patient and the vascular surgeon (3) Hypertension, benign ICD Codes: I10 - Essential (primary) hypertension Status: Acute Plan: Blood pressure high on admission, BP range : 187/88 - 190/93 , BP has improved with extra dose of home meds - Continue amlodipine 2.5 mg daily - Continue losartan 50 mg daily - Continue metoprolol 200 mg daily - Clonidine when necessary 0.1 mg (4) COPD (chronic obstructive pulmonary disease) ICD Codes: J44.9 - Chronic obstructive pulmonary disease Status: Acute Plan: Currently not symptomatic Albuterol Inhalers when necessary (5) Kidney disease ICD Codes: N28.9 - Disorder of kidney and ureter, unspecified Status: Chronic Plan: Stage III kidney disease per chart review Creatinine 1.31 today renal u/s (04/30) : right kidney echogenic and small, renal artery stenosis as a possibility. Left kidney unremarkable Avoid NSAIDs and nephrotoxic agents f/u BMP Follow-up with nephrology if acute worsening (6) fen/ppx Status: Chronic Plan: Fluids: Pt tolerating by mouth, no fluids at this time Electrolytes: In normal limits, continue to monitor Nutrition: Regular diet (Cait Rojas MD R2) Problem List: (1) Stroke ICD Codes: I63.9 - Cerebral infarction, unspecified Status: Acute Plan: Follow-up neurology consult recommendations - New-onset stroke, concern for cardioembolic event - Dementia as seen by severe white matter changes bilaterally; follow-up with neurology as outpatient - Follow up echo and Holter monitor outpatient for 30 days - Consult with her private program therapist Dr. iGlmore - Continue aspirin - Fish oil 1000 mg twice a day - Consider tighter cholesterol control with goal LDL less than 100 - Consider home PT versus in pt rehabilitation - Aspirin 325daily - Pravastatin 40mg daily - Lovenox 40 SQ daily (Creat 1.5, from 2.2 last year) - HbA1c 5.7 LFTs WNL Fall precautions NIH stroke scale Neuro checks every 4 Troponins negative x 3 (.02, .03, .02) EKG: WNL f/u with PT, OT, speech, CM Imaging: CT negative for bleeding CT: chronic ischemic small vessel vasculopathy MRI brain non-contrast: Abnormal diffusion pattern from frontal to parietal lesion, small cortical stroke and right parietal region MRA brain non-contrast: Normal STAT MRA of carotids w/ contrast: 50-60% stenosis of right internal carotid artery Neck CTA: prominent irregular plaque at the right carotid bulb with 70% stenosis of the proximal right internal carotid artery (2) Carotid artery stenosis ICD Codes: I65.29 - Occlusion and stenosis of unspecified carotid artery Plan: Carotid artery ultrasound significant for 50-69 percent diameter stenosis in the proximal internal carotid artery by velocity criteria. Neck MRI significant for a 50-60% stenosis at the origin of the right internal carotid artery. No significant stenosis on the left. Vascular surgery consulted, Dr. Shakila jones, appreciate recommendations and intervention. Patient has experienced a right hemispheric stroke that may be related to carotid stenosis. Patient will need to have a right carotid endarterectomy. She will require cardiac clearance prior to surgery due to abnormal echo with severe aortic stenosis. Cardiology consulted for surgical clearance; Dr. Griffiths program therapist has confirmed that there will be significant risk to doing the CEA surgery due to her advanced age and severe aortic stenosis. He defers the decision to do the surgery between the patient and the vascular surgeon (3) Hypertension, benign ICD Codes: I10 - Essential (primary) hypertension Status: Acute Plan: Blood pressure high on admission, BP range : 187/88 - 190/93 , BP has improved with extra dose of home meds - Continue amlodipine 2.5 mg daily - Continue losartan 50 mg daily - Continue metoprolol 200 mg daily - Clonidine when necessary 0.1 mg (4) COPD (chronic obstructive pulmonary disease) ICD Codes: J44.9 - Chronic obstructive pulmonary disease Status: Acute Plan: Currently not symptomatic Albuterol Inhalers when necessary (5) Kidney disease ICD Codes: N28.9 - Disorder of kidney and ureter, unspecified Status: Chronic Plan: Stage III kidney disease per chart review Creatinine 1.31 today renal u/s (04/30) : right kidney echogenic and small, renal artery stenosis as a possibility. Left kidney unremarkable Avoid NSAIDs and nephrotoxic agents f/u BMP Follow-up with nephrology if acute worsening (6) fen/ppx Status: Chronic Plan: Fluids: Pt tolerating by mouth, no fluids at this time Electrolytes: In normal limits, continue to monitor Nutrition: Regular diet See the residents documentation for details. I saw and evaluated the patient regarding the solorzano portions of this evaluation and agree with the residents findings and plans as written. Parts of this note were created using [employer] voice recognition software program. While efforts were made to correct any mistakes made by this software, some mistakes, errors, and omissions may remain in the final note that were not caught when the note was originally created. Plan of care was discussed and agreed upon with the patient as specifically documented in the above note. An opportunity to ask questions with explanation was provided. Patient voiced understanding on all information reviewed and discussed. (Apolinar Henderson MD) Cait Rojas MD R2 Jul 27, 2017 13:49 Apolinar Henderson MD Jul 28, 2017 10:50
--- NOTE | 2017-07-27 15:22 | PD.CAR.PN ---
CVT Progress Note Subjective/Hospital Course: Referral received Full consult BRANDIN Liset Shakila 07/26/17 Patient doing well at this time Facial droop is slowly improving and function of the left arm is slightly better with better strength I discussed the case with Dr. Balderas and we will go ahead with CTA of the carotids to better visualize the right carotid and see this ulcerated plaque may be something contributing to the patient's symptoms Echo of the heart reveals significant aortic stenosis based on what I saw but I do not see the reading yet If patient indeed has severe aortic stenosis she will need the cardiac workup prior to any possible intervention on carotid or otherwise 07/27/17 Patient doing well this morning and I discussed with her the final findings 1. Patient does have about 70% right internal carotid artery stenosis by CTA is definitely hemodynamically significant and in correlation with the ultrasound and MRA we can safely say that patient's symptoms and stroke have been related to the same Therefore at some point patient will have to undergo a right carotid endarterectomy. At this point its only [id number] timing and correlation with other issues. 2. Patient indeed has severe aortic stenosis with the gradient of 42 mmHg and cross-sectional area of less than 1 cm (9mm). By standard classifications any patient that has a gradient of > 40 mmHg and cross-sectional area of less than 1 cm qualifies as severe aortic stenosis Of course that has to be put in the context of symptoms and flow gradient ratio ie normal flow low gradient /normal flow high gradient /low flow low gradient/ low flow high gradient This patient is symptomatic and short of breath making this more of a clear case for intervention for most study show that survival in this group is less than 3 years if untreated Patient should be evaluated for TAVR and or open valve replacement at this time and aortic valve takes precedence over any carotid issue that patient has right now Will await evaluation by cardiology and cardiac surgery I have discussed this in detail with patient and her family and they agree with the plan Objective: Vital Signs Date Time Temp Pulse Resp B/P (MAP) Pulse Ox O2 Delivery O2 Flow Rate FiO2 07/27/17 12:00 98.1 64 16 148/72 (97) 95 07/27/17 08:00 98.2 65 16 189/87 (121) 95 07/27/17 07:02 95 07/27/17 05:26 97.9 70 20 168/78 (108) 92 07/27/17 05:15 69 07/27/17 00:00 97.4 76 20 142/67 (92) 92 07/26/17 20:21 97.4 79 20 140/79 (99) 94 07/26/17 20:20 73 07/26/17 17:08 60 07/26/17 16:49 97.4 73 20 175/81 (112) 94 Labs: Laboratory Tests Test 07/27/17 07:05 White Blood Count 6.1 TH/MM3 (4.0-11.0) Red Blood Count 4.07 MIL/MM3 (4.00-5.30) Hemoglobin 12.8 GM/DL (11.6-15.3) Hematocrit 38.2 % (35.0-46.0) Mean Corpuscular Volume 94.0 FL (80.0-100.0) Mean Corpuscular Hemoglobin 31.5 PG (27.0-34.0) Mean Corpuscular Hemoglobin Concent 33.5 % (32.0-36.0) Red Cell Distribution Width 12.8 % (11.6-17.2) Platelet Count 235 TH/MM3 (150-450) Mean Platelet Volume 8.8 FL (7.0-11.0) Neutrophils (%) (Auto) 62.1 % (16.0-70.0) Lymphocytes (%) (Auto) 22.3 % (9.0-44.0) Monocytes (%) (Auto) 10.5 % (0.0-8.0) Eosinophils (%) (Auto) 4.2 % (0.0-4.0) Basophils (%) (Auto) 0.9 % (0.0-2.0) Neutrophils # (Auto) 3.8 TH/MM3 (1.8-7.7) Lymphocytes # (Auto) 1.4 TH/MM3 (1.0-4.8) Monocytes # (Auto) 0.6 TH/MM3 (0-0.9) Eosinophils # (Auto) 0.3 TH/MM3 (0-0.4) Basophils # (Auto) 0.1 TH/MM3 (0-0.2) CBC Comment DIFF FINAL Differential Comment Blood Urea Nitrogen 18 MG/DL (7-18) Creatinine 1.31 MG/DL (0.50-1.00) Random Glucose 83 MG/DL (74-106) Total Protein 6.7 GM/DL (6.4-8.2) Albumin 3.2 GM/DL (3.4-5.0) Calcium Level 9.2 MG/DL (8.5-10.1) Alkaline Phosphatase 65 U/L (45-117) Aspartate Amino Transf (AST/SGOT) 18 U/L (15-37) Alanine Aminotransferase (ALT/SGPT) 20 U/L (10-53) Total Bilirubin 0.6 MG/DL (0.2-1.0) Sodium Level 141 MEQ/L (136-145) Potassium Level 3.9 MEQ/L (3.5-5.1) Chloride Level 105 MEQ/L (98-107) Carbon Dioxide Level 30.0 MEQ/L (21.0-32.0) Anion Gap 6 MEQ/L (5-15) Estimat Glomerular Filtration Rate 39 ML/MIN (>89) Result Diagram: 07/27/17 0705 07/27/17 0705 Janna Cervantes MD Jul 27, 2017 15:22
[2017-07-27] MEDS: ENOXAPARIN SODIUM 40 MG/0.4 ML SYRINGE SQ SCH (18:26)
[2017-07-27] MEDS: PRAVASTATIN SOD 40 MG TAB PO SCH (21:17)
[2017-07-27] MEDS: LORazepam 2 MG/ML VIAL IV PUSH PRN (21:50)
[2017-07-28] VITALS (11 sets, daily range): BP systolic 122–166; BP diastolic 58–79; PULSE 57–106; RESP 16–18; TEMP 97.3–98.2; O2SAT 91–96
[2017-07-28] MEDS: METOPROLOL SUCCINATE 50 MG EXTENDED RELEASE TAB PO SCH (09:00)
[2017-07-28] MEDS: LOSARTAN 50 MG TAB PO SCH (09:13)
[2017-07-28] MEDS: DOCUSATE SODIUM 50 MG/SENNA 8.6 MG TAB PO SCH ×2 (09:13→21:00)
[2017-07-28] MEDS: amLODIPine BESYLATE 5 MG TAB PO SCH (09:14)
[2017-07-28] MEDS: ASPIRIN 325 MG TAB PO SCH (09:14)
[2017-07-28] MEDS: BUDESONIDE-FORMOTEROL 160/4.5 MCG INHALER INH SCH ×2 (09:15→22:17)
[2017-07-28] MEDS: SODIUM CHLORIDE 0.9% FLUSH 10 ML FLUSH IV FLUSH SCH ×2 (09:34→22:17)
--- NOTE | 2017-07-28 10:34 | HHI.FPPN ---
Subjective Remarks Patient seen and examined at bedside. No acute events overnight. at bedside. Patient denies DEJESUS, and CP. Reports mild SOB when ambulating. Pt also reports improving strength on Left arm. Pt stated that Dr. Short will be coming to speak to her regarding options for aortic valve surgery. (Nadeen Contreras MD, R1) Objective Vitals Vital Signs Date Time Temp Pulse Resp B/P (MAP) Pulse Ox O2 Delivery O2 Flow Rate FiO2 07/28/17 08:00 98.2 57 18 145/79 (101) 95 07/28/17 05:10 67 07/28/17 04:00 98.1 68 18 166/78 (107) 93 07/28/17 01:58 76 07/28/17 00:00 98.0 57 18 156/69 (98) 95 07/27/17 22:15 63 07/27/17 20:00 98.1 62 18 163/70 (101) 95 07/27/17 16:00 98.0 67 16 174/84 (114) 95 07/27/17 12:00 98.1 64 16 148/72 (97) 95 I/O 07/27/17 07/27/17 07/27/17 07/28/17 07/28/17 07/28/17 07:00 15:00 23:00 07:00 15:00 23:00 # Voids 2 2 3 (Nadeen Contreras MD, R1) Result Diagram: 07/27/17 0705 07/27/17 0705 Objective Remarks GENERAL: Alert and oriented 3, mild left-sided facial droop barely noticeable today SKIN: Warm and dry. HEAD: Normocephalic. EYES: No scleral icterus. No injection or drainage. NECK: No visible JVD or lymphadenopathy. CARDIOVASCULAR: 3/6 systolic murmur, S1 easily heard, S2 faint RESPIRATORY: Breath sounds equal bilaterally. No accessory muscle use. GASTROINTESTINAL: Abdomen soft, non-tender, nondistended. MUSCULOSKELETAL: No cyanosis, or edema. BACK: Nontender without obvious deformity. No CVA tenderness. Neuro: Strength of left upper extremity improved to 4/5, sensory remained intact throughout. Speech is fluent. (Nadeen Contreras MD, R1) A/P Assessment and Plan 77-year-old female with a past medical history of chronic kidney insufficiency, hypertension, and COPD presented with left arm weakness and numbness and facial droop. Discharge Planning Anticipate discharge once patient has been cleared by neurology, vascular surgery and cardiology. (Nadeen Contreras MD, R1) Problem List: (1) Stroke ICD Codes: I63.9 - Cerebral infarction, unspecified Status: Acute Plan: Follow-up neurology consult recommendations - New-onset stroke, concern for cardioembolic event - Dementia as seen by severe white matter changes bilaterally; follow-up with neurology as outpatient - Follow up echo and Holter monitor outpatient for 30 days - Consult with her private concrete laborer Dr. Gilmore - Continue aspirin - Fish oil 1000 mg twice a day - Consider tighter cholesterol control with goal LDL less than 100 - Consider home PT versus in pt rehabilitation - Aspirin 325daily - Pravastatin 40mg daily - Lovenox 40 SQ daily (Creat 1.5, from 2.2 last year) - HbA1c 5.7 - Echo: EF 50-55% LFTs WNL Fall precautions NIH stroke scale Neuro checks every 4 Troponins negative x 3 (.02, .03, .02) EKG: WNL f/u with PT, OT, speech, CM Imaging: CT negative for bleeding CT: chronic ischemic small vessel vasculopathy MRI brain non-contrast: Abnormal diffusion pattern from frontal to parietal lesion, small cortical stroke and right parietal region MRA brain non-contrast: Normal STAT MRA of carotids w/ contrast: 50-60% stenosis of right internal carotid artery Neck CTA: prominent irregular plaque at the right carotid bulb with 70% stenosis of the proximal right internal carotid artery (2) Carotid artery stenosis ICD Codes: I65.29 - Occlusion and stenosis of unspecified carotid artery Status: Acute Plan: Carotid artery ultrasound significant for 50-69 percent diameter stenosis in the proximal internal carotid artery by velocity criteria. Neck MRI significant for a 50-60% stenosis at the origin of the right internal carotid artery. No significant stenosis on the left. Vascular surgery consulted, Dr. Shakila jones, appreciate recommendations and intervention. Patient has experienced a right hemispheric stroke that may be related to carotid stenosis. Patient will need to have a right carotid endarterectomy. She will require cardiac clearance prior to surgery due to abnormal echo with severe aortic stenosis. Cardiology consulted for surgical clearance; Dr. Griffiths concrete laborer has confirmed that there will be significant risk to doing the CEA surgery due to her advanced age and severe aortic stenosis. He defers the decision to do the surgery between the patient and the vascular surgeon. -Pt stated Dr. Griffiths stated that Dr. Short will be meeting pt to discuss possible aortic valve surgery. Spoke to Dr. Griffiths, he stated Dr. Short will see pt on Saturday to discuss surgery options. (3) Hypertension, benign ICD Codes: I10 - Essential (primary) hypertension Status: Chronic Plan: Blood pressure high on admission, BP range :148-189/69-87, - Continue amlodipine 2.5 mg daily - Continue losartan 50 mg daily - Continue metoprolol 200 mg daily - Clonidine when necessary 0.1 mg -continue to monitor (4) COPD (chronic obstructive pulmonary disease) ICD Codes: J44.9 - Chronic obstructive pulmonary disease Status: Acute Plan: Currently not symptomatic Albuterol Inhalers when necessary (5) Kidney disease ICD Codes: N28.9 - Disorder of kidney and ureter, unspecified Status: Chronic Plan: Stage III kidney disease per chart review Creatinine 1.31 on 07/27 renal u/s (04/30) : right kidney echogenic and small, renal artery stenosis as a possibility. Left kidney unremarkable Avoid NSAIDs and nephrotoxic agents f/u BMP Follow-up with nephrology if acute worsening (6) fen/ppx Status: Chronic Plan: Fluids: Pt tolerating by mouth, no fluids at this time Electrolytes: In normal limits, continue to monitor Nutrition: Regular diet (Nadeen Contreras MD, R1) Problem List: (1) Stroke ICD Codes: I63.9 - Cerebral infarction, unspecified Status: Acute Plan: Follow-up neurology consult recommendations - New-onset stroke, concern for cardioembolic event - Dementia as seen by severe white matter changes bilaterally; follow-up with neurology as outpatient - Follow up echo and Holter monitor outpatient for 30 days - Consult with her private concrete laborer Dr. Gilmore - Continue aspirin - Fish oil 1000 mg twice a day - Consider tighter cholesterol control with goal LDL less than 100 - Consider home PT versus in pt rehabilitation - Aspirin 325daily - Pravastatin 40mg daily - Lovenox 40 SQ daily (Creat 1.5, from 2.2 last year) - HbA1c 5.7 - Echo: EF 50-55% LFTs WNL Fall precautions NIH stroke scale Neuro checks every 4 Troponins negative x 3 (.02, .03, .02) EKG: WNL f/u with PT, OT, speech, CM Imaging: CT negative for bleeding CT: chronic ischemic small vessel vasculopathy MRI brain non-contrast: Abnormal diffusion pattern from frontal to parietal lesion, small cortical stroke and right parietal region MRA brain non-contrast: Normal STAT MRA of carotids w/ contrast: 50-60% stenosis of right internal carotid artery Neck CTA: prominent irregular plaque at the right carotid bulb with 70% stenosis of the proximal right internal carotid artery (2) Carotid artery stenosis ICD Codes: I65.29 - Occlusion and stenosis of unspecified carotid artery Status: Acute Plan: Carotid artery ultrasound significant for 50-69 percent diameter stenosis in the proximal internal carotid artery by velocity criteria. Neck MRI significant for a 50-60% stenosis at the origin of the right internal carotid artery. No significant stenosis on the left. Vascular surgery consulted, Dr. Shakila jones, appreciate recommendations and intervention. Patient has experienced a right hemispheric stroke that may be related to carotid stenosis. Patient will need to have a right carotid endarterectomy. She will require cardiac clearance prior to surgery due to abnormal echo with severe aortic stenosis. Cardiology consulted for surgical clearance; Dr. Griffiths concrete laborer has confirmed that there will be significant risk to doing the CEA surgery due to her advanced age and severe aortic stenosis. He defers the decision to do the surgery between the patient and the vascular surgeon. -Pt stated Dr. Griffiths stated that Dr. Short will be meeting pt to discuss possible aortic valve surgery. Spoke to Dr. Griffiths, he stated Dr. Short will see pt on Saturday to discuss surgery options. (3) Hypertension, benign ICD Codes: I10 - Essential (primary) hypertension Status: Chronic Plan: Blood pressure high on admission, BP range :148-189/69-87, - Continue amlodipine 2.5 mg daily - Continue losartan 50 mg daily - Continue metoprolol 200 mg daily - Clonidine when necessary 0.1 mg -continue to monitor (4) COPD (chronic obstructive pulmonary disease) ICD Codes: J44.9 - Chronic obstructive pulmonary disease Status: Acute Plan: Currently not symptomatic Albuterol Inhalers when necessary (5) Kidney disease ICD Codes: N28.9 - Disorder of kidney and ureter, unspecified Status: Chronic Plan: Stage III kidney disease per chart review Creatinine 1.31 on 07/27 renal u/s (04/30) : right kidney echogenic and small, renal artery stenosis as a possibility. Left kidney unremarkable Avoid NSAIDs and nephrotoxic agents f/u BMP Follow-up with nephrology if acute worsening (6) fen/ppx Status: Chronic Plan: Fluids: Pt tolerating by mouth, no fluids at this time Electrolytes: In normal limits, continue to monitor Nutrition: Regular diet See the residents documentation for details. I saw and evaluated the patient regarding the solorzano portions of this evaluation and agree with the residents findings and plans as written. Parts of this note were created using [employer] voice recognition software program. While efforts were made to correct any mistakes made by this software, some mistakes, errors, and omissions may remain in the final note that were not caught when the note was originally created. Plan of care was discussed and agreed upon with the patient as specifically documented in the above note. An opportunity to ask questions with explanation was provided. Patient voiced understanding on all information reviewed and discussed. (Apolinar Henderson MD) Nadeen Contreras MD, R1 Jul 28, 2017 10:34 Apolinar Henderson MD Aug 05, 2017 09:31
--- NOTE | 2017-07-28 11:23 | PD.CARD.PN ---
Subjective Subjective Remarks No complaints Objective Medications Current Medications Medications (Trade) Dose Ordered Sig/Jasmeet Route Start Time Stop Time Status Last Admin (NS Flush) 2 ml UNSCH PRN IV FLUSH 07/24/17 17:15 (NS Flush) 2 ml BID IV FLUSH 07/24/17 21:00 07/28/17 09:34 (Tylenol) 650 mg Q4H PRN PO 07/24/17 17:15 07/26/17 14:59 (Zofran Inj) 4 mg Q6H PRN IVP 07/24/17 17:15 (Lovenox Inj) 40 mg Q24H SQ 07/24/17 18:00 07/27/17 18:26 (Narcan Inj) 0.4 mg UNSCH PRN IV PUSH 07/24/17 17:15 (Kerry-Colace) 1 tab BID PO 07/24/17 21:00 07/28/17 09:13 (Milk Of Magnesia Liq) 30 ml Q12H PRN PO 07/24/17 17:15 (Senokot) 17.2 mg Q12H PRN PO 07/24/17 17:15 (Dulcolax Supp) 10 mg DAILY PRN RECTAL 07/24/17 17:15 (Lactulose Liq) 30 ml DAILY PRN PO 07/24/17 17:15 (Aspirin) 325 mg DAILY PO 07/24/17 18:00 07/28/17 09:14 (Pravachol) 40 mg HS PO 07/24/17 21:00 07/27/17 21:17 (Norvasc) 2.5 mg DAILY PO 07/25/17 09:00 07/28/17 09:14 (Cozaar) 50 mg DAILY PO 07/25/17 09:00 07/28/17 09:13 (Toprol Xl) 200 mg DAILY PO 07/25/17 09:00 07/27/17 08:15 (Pill Splitter) 1 ea UNSCH PRN OTHER 07/24/17 17:45 (Ativan Inj) 0.5 mg Q15M PRN IV PUSH 07/24/17 22:00 07/27/17 21:50 (Catapres) 0.1 mg Q4HR PRN PO 07/24/17 22:00 (Proair Hfa Inh) 2 puff Q2HR PRN INH 07/26/17 16:45 (Symbicort 160-4.5 Mcg Inh) 2 puff Q12HR INH 07/26/17 21:00 07/28/17 09:15 (Tessalon) 200 mg TID PRN PO 07/26/17 16:45 Vital Signs / I&O Vital Signs Date Time Temp Pulse Resp B/P (MAP) Pulse Ox O2 Delivery O2 Flow Rate FiO2 07/28/17 08:00 98.2 57 18 145/79 (101) 95 07/28/17 05:10 67 07/28/17 04:00 98.1 68 18 166/78 (107) 93 07/28/17 01:58 76 07/28/17 00:00 98.0 57 18 156/69 (98) 95 07/27/17 22:15 63 07/27/17 20:00 98.1 62 18 163/70 (101) 95 07/27/17 16:00 98.0 67 16 174/84 (114) 95 07/27/17 12:00 98.1 64 16 148/72 (97) 95 I/O 07/27/17 07/27/17 07/27/17 07/28/17 07/28/17 07/28/17 07:00 15:00 23:00 07:00 15:00 23:00 # Voids 2 2 3 Physical Exam GENERAL: Well developed, obes. No acute distress. HEENT: Jugular venous pressure is normal. CHEST: Lungs clear to auscultation bilaterally. Unlabored respiratory effort. CARDIAC: nl S1S2 irr irr and 3/6 severe murmur ABDOMEN: Soft, nontender,Bowel sounds present. EXTREMITIES: No clubbing, cyanosis, or edema. Assessment and Plan Problem List: (1) Obesity ICD Codes: E66.9 - Obesity, unspecified (2) Aortic stenosis ICD Codes: I35.0 - Nonrheumatic aortic (valve) stenosis Plan: Severe. New onset dyspnea and fatigue about [address] Short (3) CVA (cerebral vascular accident) ICD Codes: I63.9 - Cerebral infarction, unspecified (4) Carotid artery stenosis ICD Codes: I65.29 - Occlusion and stenosis of unspecified carotid artery Plan: Was not taking ASA WAITER/WAITRESS COCKTAIL LOUNGE. Now on it. CEA high risk due to . (5) CKD (chronic kidney disease) stage 3, GFR 30-59 ml/min ICD Codes: N18.3 - Chronic kidney disease, stage 3 (moderate) Status: Acute (6) Hypertension, benign ICD Codes: I10 - Essential (primary) hypertension Status: Acute Assessment and Plan Complicated patient re: whether to do procedure on her aortic valve and/or carotid and the timing of each and also the method (? carotid stenting instead of CEA and then delay TAVR a while?). Marco Griffiths MD Jul 28, 2017 11:23
--- NOTE | 2017-07-28 14:13 | PD.CAR.PN ---
CVT Progress Note Subjective/Hospital Course: Referral received Full consult BRANDIN Jhaveri 07/26/17 Patient doing well at this time Facial droop is slowly improving and function of the left arm is slightly better with better strength I discussed the case with Dr. Balderas and we will go ahead with CTA of the carotids to better visualize the right carotid and see this ulcerated plaque may be something contributing to the patient's symptoms Echo of the heart reveals significant aortic stenosis based on what I saw but I do not see the reading yet If patient indeed has severe aortic stenosis she will need the cardiac workup prior to any possible intervention on carotid or otherwise 07/27/17 Patient doing well this morning and I discussed with her the final findings 1. Patient does have about 70% right internal carotid artery stenosis by CTA is definitely hemodynamically significant and in correlation with the ultrasound and MRA we can safely say that patient's symptoms and stroke have been related to the same Therefore at some point patient will have to undergo a right carotid endarterectomy. At this point its only [id number] timing and correlation with other issues. 2. Patient indeed has severe aortic stenosis with the gradient of 42 mmHg and cross-sectional area of less than 1 cm (9mm). By standard classifications any patient that has a gradient of > 40 mmHg and cross-sectional area of less than 1 cm qualifies as severe aortic stenosis Of course that has to be put in the context of symptoms and flow gradient ratio ie normal flow low gradient /normal flow high gradient /low flow low gradient/ low flow high gradient This patient is symptomatic and short of breath making this more of a clear case for intervention for most study show that survival in this group is less than 3 years if untreated Patient should be evaluated for TAVR and or open valve replacement at this time and aortic valve takes precedence over any carotid issue that patient has right now Will await evaluation by cardiology and cardiac surgery I have discussed this in detail with patient and her family and they agree with the plan 07/28/17 Patient doing well at this time Carotid right artery stenosis of 70% symptomatic post stroke, and severe aortic valvular stenosis with above-noted gradient At this point I believe that aortic stenosis trumps every other issue and therefore I believe should be addressed first. We'll wait for Dr. Short to evaluate patient for TAVR. We can follow this with carotid endarterectomy The other option is to do endovascular carotid stent instead. Objective: Vital Signs Date Time Temp Pulse Resp B/P (MAP) Pulse Ox O2 Delivery O2 Flow Rate FiO2 07/28/17 12:20 97.3 67 16 122/58 (79) 96 07/28/17 08:00 98.2 57 18 145/79 (101) 95 07/28/17 05:10 67 07/28/17 04:00 98.1 68 18 166/78 (107) 93 07/28/17 01:58 76 07/28/17 00:00 98.0 57 18 156/69 (98) 95 07/27/17 22:15 63 07/27/17 20:00 98.1 62 18 163/70 (101) 95 07/27/17 16:00 98.0 67 16 174/84 (114) 95 Result Diagram: 07/27/17 0705 07/27/17 0705 (1) Obesity (2) Aortic stenosis Plan: Severe. New onset dyspnea and fatigue about [address] 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 Now on it. CEA high risk due to . (5) CKD (chronic kidney disease) stage 3, GFR 30-59 ml/min (6) Hypertension, benign Janna Cervantes MD Jul 28, 2017 14:13
[2017-07-28 17:11] LABS: BICARBONATE 30.2 MEQ/L (21.0-32.0); CALCIUM 9.3 MG/DL (8.5-10.1); CREATININE 1.45 MG/DL (0.50-1.00)
[2017-07-28] MEDS: ENOXAPARIN SODIUM 40 MG/0.4 ML SYRINGE SQ SCH (18:21)
[2017-07-28] MEDS: PRAVASTATIN SOD 40 MG TAB PO SCH (22:16)
[2017-07-28] MEDS: LORazepam 2 MG/ML VIAL IV PUSH PRN (22:17)
[2017-07-29] VITALS: BP 134/79; PULSE 81; RESP 18; TEMP 97; O2SAT 95
[2017-07-29 04:00] VITALS: BP 149/84; PULSE 91; RESP 18; TEMP 98.3; O2SAT 95
--- NOTE | 2017-07-29 07:45 | HHI.PR ---
Subjective Remarks sr Objective Vital Signs Date Time Temp Pulse Resp B/P (MAP) Pulse Ox O2 Delivery O2 Flow Rate FiO2 07/29/17 04:00 98.3 91 18 149/84 (105) 95 07/29/17 00:00 97.0 81 18 134/79 (97) 95 07/28/17 23:45 84 07/28/17 20:00 97.7 80 18 142/68 (92) 95 07/28/17 16:57 98.1 67 18 146/74 (98) 95 07/28/17 16:00 72 07/28/17 12:20 97.3 67 16 122/58 (79) 96 07/28/17 12:00 66 07/28/17 08:00 76 07/28/17 08:00 98.2 57 18 145/79 (101) 95 I/O 07/28/17 07/28/17 07/28/17 07/29/17 07/29/17 07/29/17 07:00 15:00 23:00 07:00 15:00 23:00 # Voids 2 3 4 # Bowel Movements 1 Result Diagram: 07/27/17 0705 07/28/17 1632 Objective Remarks moves face sym voice clear vff 5/5 lue x finger ext 5- lle ok clumsy left ffm nl gait vff Assessment and Plan Assessment and Plan imp echo severe as on statin and asa adjust statin to get ldl lower cta 70% r ica the r ica likley sx and could have stent r ica if need as fixed? vs waiting ofr cea after valve? Kuldip Balderas MD Jul 29, 2017 07:45
[2017-07-29 08:07] VITALS: BP 188/98; PULSE 93; RESP 20; TEMP 97.7; O2SAT 94
[2017-07-29] MEDS: METOPROLOL SUCCINATE 50 MG EXTENDED RELEASE TAB PO SCH (08:34)
[2017-07-29] MEDS: DOCUSATE SODIUM 50 MG/SENNA 8.6 MG TAB PO SCH ×2 (08:34→22:10)
[2017-07-29] MEDS: SODIUM CHLORIDE 0.9% FLUSH 10 ML FLUSH IV FLUSH SCH ×2 (08:35→22:10)
[2017-07-29] MEDS: BUDESONIDE-FORMOTEROL 160/4.5 MCG INHALER INH SCH ×2 (08:35→22:10)
[2017-07-29] MEDS: amLODIPine BESYLATE 5 MG TAB PO SCH (08:35)
[2017-07-29] MEDS: LOSARTAN 50 MG TAB PO SCH (08:35)
[2017-07-29] MEDS: ASPIRIN 325 MG TAB PO SCH (08:35)
--- NOTE | 2017-07-29 09:06 | HM ---
Date Performed: 07/25/2017 Time Performed: 16:47:00 HOOKUP DATE: 07/25/17 04:47:00 PM Pearl ANALYSIS START TIME: 07/25/2017 4:52:00 PM ANALYSIS END TIME: 07/26/2017 4:55:59 PM PATIENT AGE: 77 PATIENT HEIGHT PATIENT WEIGHT DRUG LIST PATIENT DIAGNOSIS TEST NARRATIVE: The patient's average heart rate was 69 BPM. No episodes of tachycardia wer e noted. No episodes of bradycardia were noted. No pauses exceeding 2.0 seconds were noted. 24 ventricular ectopics, which represented < 1% of the total beat count, were noted. The highest maria elena tricular ectopic frequency occurred from 04:00 AM to 05:00 AM Fri. During this time 4 VE(s) occurred . Ventricular ectopics were observed as 20 isolated beat(s) and as 2 couplet(s). No runs were noted . 51 supraventricular ectopics, which represented < 1% of the total beat count, were noted. The highest supraventricular ectopic frequency occurred from 05:00 PM to 06:00 PM Pearl. During this time 23 SVE(s) occurred. No episodes of ST depression (defined as -1.0 mm or more) were noted in chann el 1. No episodes of ST depression (defined as -1.0 mm or more) were noted in channel 2. No episode s of ST depression (defined as -1.0 mm or more) were noted in channel 3. NO SYMPTOMS WERE RECORDED IN THE PATIENT DIARY TEST INTERPRETATION: 1. The patient is in Sinus rhythm throughout the recording. The average heart rate is 69 bpm, minimum heart rate is 56 and peak heart rate of 112 bpm. 2. There are 20 ventricular premature beats including 2 couplets. 3. There are 40 atrial premature beats including one atrial triplet. 4. There are no pauses. 5. There was no sympto ms reported in the patient diary. CONCLUSIONS: Sinus rhythm throughout the recording with ectopic be ats as described. Signed by : John Griffiths
--- NOTE | 2017-07-29 10:37 | PD.CAR.PN ---
CVT Progress Note Subjective/Hospital Course: Referral received Full consult BRANDIN Jhaveri 07/26/17 Patient doing well at this time Facial droop is slowly improving and function of the left arm is slightly better with better strength I discussed the case with Dr. Balderas and we will go ahead with CTA of the carotids to better visualize the right carotid and see this ulcerated plaque may be something contributing to the patient's symptoms Echo of the heart reveals significant aortic stenosis based on what I saw but I do not see the reading yet If patient indeed has severe aortic stenosis she will need the cardiac workup prior to any possible intervention on carotid or otherwise 07/27/17 Patient doing well this morning and I discussed with her the final findings 1. Patient does have about 70% right internal carotid artery stenosis by CTA is definitely hemodynamically significant and in correlation with the ultrasound and MRA we can safely say that patient's symptoms and stroke have been related to the same Therefore at some point patient will have to undergo a right carotid endarterectomy. At this point its only [id number] timing and correlation with other issues. 2. Patient indeed has severe aortic stenosis with the gradient of 42 mmHg and cross-sectional area of less than 1 cm (9mm). By standard classifications any patient that has a gradient of > 40 mmHg and cross-sectional area of less than 1 cm qualifies as severe aortic stenosis Of course that has to be put in the context of symptoms and flow gradient ratio ie normal flow low gradient /normal flow high gradient /low flow low gradient/ low flow high gradient This patient is symptomatic and short of breath making this more of a clear case for intervention for most study show that survival in this group is less than 3 years if untreated Patient should be evaluated for TAVR and or open valve replacement at this time and aortic valve takes precedence over any carotid issue that patient has right now Will await evaluation by cardiology and cardiac surgery I have discussed this in detail with patient and her family and they agree with the plan 07/28/17 Patient doing well at this time Carotid right artery stenosis of 70% symptomatic post stroke, and severe aortic valvular stenosis with above-noted gradient At this point I believe that aortic stenosis trumps every other issue and therefore I believe should be addressed first. We'll wait for Dr. Short to evaluate patient for TAVR. We can follow this with carotid endarterectomy The other option is to do endovascular carotid stent instead. 07/29/17 As noted above patient has critical aortic stenosis and carotid stenosis As per my last note patient should have both addressed either carotid endovascularly followed by aortic repair or the other way around. All of these options some medically and surgically acceptable and within standards. Have discussed this at length with family and they're want both issues addressed one way or another Objective: Vital Signs Date Time Temp Pulse Resp B/P (MAP) Pulse Ox O2 Delivery O2 Flow Rate FiO2 07/29/17 08:07 97.7 93 20 188/98 (128) 94 07/29/17 04:00 98.3 91 18 149/84 (105) 95 07/29/17 00:00 97.0 81 18 134/79 (97) 95 07/28/17 23:45 84 07/28/17 20:00 97.7 80 18 142/68 (92) 95 07/28/17 16:57 98.1 67 18 146/74 (98) 95 07/28/17 16:00 72 07/28/17 12:20 97.3 67 16 122/58 (79) 96 07/28/17 12:00 66 Result Diagram: 07/27/17 0705 07/28/17 1632 (1) Obesity (2) Aortic stenosis Plan: Severe. New onset dyspnea and fatigue about [address] 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 Now on it. CEA high risk due to . (5) CKD (chronic kidney disease) stage 3, GFR 30-59 ml/min (6) Hypertension, benign Janna Cervantes MD Jul 29, 2017 10:37
[2017-07-29 12:19] VITALS: BP 119/70; PULSE 69; RESP 20; TEMP 98.5; O2SAT 95
[2017-07-29 15:24] LABS: ANA PATTERN DIFFUSE
[2017-07-29 16:09] VITALS: BP 161/77; PULSE 71; RESP 20; TEMP 98.7; O2SAT 93
--- NOTE | 2017-07-29 18:46 | HHI.FPPN ---
Subjective Remarks Delayed entry. Patient seen and examined at bedside. No acute events overnight. present at bedside. Pt stated she is is doing well. Denies SOB while ambulating. SOB is present when she bends over. Denies CP. Reports continue improvement of Left arm strength. (Nadeen Contreras MD, R1) Objective Vitals Vital Signs Date Time Temp Pulse Resp B/P (MAP) Pulse Ox O2 Delivery O2 Flow Rate FiO2 07/29/17 16:09 98.7 71 20 161/77 (105) 93 07/29/17 12:19 98.5 69 20 119/70 (86) 95 07/29/17 08:07 97.7 93 20 188/98 (128) 94 07/29/17 04:00 98.3 91 18 149/84 (105) 95 07/29/17 00:00 97.0 81 18 134/79 (97) 95 07/28/17 23:45 84 07/28/17 20:00 97.7 80 18 142/68 (92) 95 I/O 07/28/17 07/28/17 07/28/17 07/29/17 07/29/17 07/29/17 07:00 15:00 23:00 07:00 15:00 23:00 # Voids 2 3 4 # Bowel Movements 1 (Nadeen Contreras MD, R1) Result Diagram: 07/27/17 0705 07/28/17 1632 Objective Remarks GENERAL: Alert and oriented 3, mild left-sided facial droop barely noticeable today SKIN: Warm and dry. HEAD: Normocephalic. EYES: No scleral icterus. No injection or drainage. NECK: No visible JVD or lymphadenopathy. CARDIOVASCULAR: 3/6 systolic murmur, S1 easily heard, S2 faint RESPIRATORY: Breath sounds equal bilaterally. No accessory muscle use. GASTROINTESTINAL: Abdomen soft, non-tender, nondistended. MUSCULOSKELETAL: No cyanosis, or edema. BACK: Nontender without obvious deformity. No CVA tenderness. Neuro: Strength of left upper extremity improved to 4/5, sensory remained intact throughout. Speech is fluent. (Nadeen Contreras MD, R1) A/P Assessment and Plan 77-year-old female with a past medical history of chronic kidney insufficiency, hypertension, and COPD presented with left arm weakness and numbness and facial droop. Discharge Planning Anticipate discharge once patient has been cleared by neurology, vascular surgery and cardiology. (Nadeen Contreras MD, R1) Assessment and Plan Attending clinical assessment: Patient was seen with the resident team. Discussed the right carotid stenosis, aortic stenosis and answer the patient's questions as well as questions from her . Patient continues to improve with her left sided weakness. Patient is able to stand on toes and on heels although there is some dorsiflexion weakness on the left, there is a slight drift to the left outstretched arm and slight weakness of left facial musculature. Will discuss with Dr. Hutton and vascular surgery. Case discussed with resident team, agree with the assessment of the resident team and diagnostic and therapeutic orders. (Keyshawn Lawrence MD) Problem List: (1) Stroke ICD Codes: I63.9 - Cerebral infarction, unspecified Status: Acute Plan: Follow-up neurology consult recommendations - New-onset stroke, concern for cardioembolic event - Dementia as seen by severe white matter changes bilaterally; follow-up with neurology as outpatient - Follow up echo and Holter monitor outpatient for 30 days - Consult with her private shaping machine operator Dr. Gilmore - Continue aspirin - Fish oil 1000 mg twice a day - Consider tighter cholesterol control with goal LDL less than 100 - Consider home PT versus in pt rehabilitation - Aspirin 325daily - Pravastatin 40mg daily - Lovenox 40 SQ daily (Creat 1.5, from 2.2 last year) - HbA1c 5.7 - Echo: EF 50-55% LFTs WNL Fall precautions NIH stroke scale Neuro checks every 4 Troponins negative x 3 (.02, .03, .02) EKG: WNL f/u with PT, OT, speech, CM Imaging: CT negative for bleeding CT: chronic ischemic small vessel vasculopathy MRI brain non-contrast: Abnormal diffusion pattern from frontal to parietal lesion, small cortical stroke and right parietal region MRA brain non-contrast: Normal STAT MRA of carotids w/ contrast: 50-60% stenosis of right internal carotid artery Neck CTA: prominent irregular plaque at the right carotid bulb with 70% stenosis of the proximal right internal carotid artery (2) Carotid artery stenosis ICD Codes: I65.29 - Occlusion and stenosis of unspecified carotid artery Plan: Carotid artery ultrasound significant for 50-69 percent diameter stenosis in the proximal internal carotid artery by velocity criteria. Neck MRI significant for a 50-60% stenosis at the origin of the right internal carotid artery. No significant stenosis on the left. Vascular surgery consulted, Dr. Shakila jones, appreciate recommendations and intervention. Patient has experienced a right hemispheric stroke that may be related to carotid stenosis. Patient will need to have a right carotid endarterectomy. She will require cardiac clearance prior to surgery due to abnormal echo with severe aortic stenosis. Cardiology consulted for surgical clearance; Dr. Griffiths shaping machine operator has confirmed that there will be significant risk to doing the CEA surgery due to her advanced age and severe aortic stenosis. He defers the decision to do the surgery between the patient and the vascular surgeon. -plan to discuss medical/surgical plan with vascular and email specialist (3) Hypertension, benign ICD Codes: I10 - Essential (primary) hypertension Status: Acute Plan: Blood pressure high on admission, BP range :148-189/69-87, - Continue amlodipine 2.5 mg daily - Continue losartan 50 mg daily - Continue metoprolol 200 mg daily - Clonidine when necessary 0.1 mg -continue to monitor (4) COPD (chronic obstructive pulmonary disease) ICD Codes: J44.9 - Chronic obstructive pulmonary disease Status: Acute Plan: Currently not symptomatic Albuterol Inhalers when necessary (5) Kidney disease ICD Codes: N28.9 - Disorder of kidney and ureter, unspecified Status: Chronic Plan: Stage III kidney disease per chart review Creatinine 1.45 on 07/28 renal u/s (04/30) : right kidney echogenic and small, renal artery stenosis as a possibility. Left kidney unremarkable Avoid NSAIDs and nephrotoxic agents f/u BMP Follow-up with nephrology if acute worsening (6) fen/ppx Status: Chronic Plan: Fluids: Pt tolerating by mouth, no fluids at this time Electrolytes: In normal limits, continue to monitor Nutrition: Regular diet (Nadeen Contreras MD, R1) Nadeen Contreras MD, R1 Jul 29, 2017 18:46 Keyshawn Lawrence MD Jul 29, 2017 22:49
[2017-07-29] MEDS: ENOXAPARIN SODIUM 40 MG/0.4 ML SYRINGE SQ SCH (20:03)
[2017-07-29 20:59] VITALS: BP 185/79; PULSE 66; RESP 18; TEMP 98.1; O2SAT 94
[2017-07-29] MEDS: PRAVASTATIN SOD 40 MG TAB PO SCH (22:10)
[2017-07-29] MEDS: LORazepam 2 MG/ML VIAL IV PUSH PRN (22:11)
[2017-07-30] VITALS (9 sets, daily range): BP systolic 116–143; BP diastolic 56–83; PULSE 61–75; RESP 18–20; TEMP 97.4–98; O2SAT 92–96
--- NOTE | 2017-07-30 08:21 | HHI.PR ---
Subjective Remarks sr Objective Vital Signs Date Time Temp Pulse Resp B/P (MAP) Pulse Ox O2 Delivery O2 Flow Rate FiO2 07/30/17 07:36 98.0 67 20 143/74 (97) 92 07/30/17 05:12 97.6 66 18 122/68 (86) 94 07/30/17 03:40 65 07/30/17 00:30 97.9 75 18 116/56 (76) 94 07/29/17 20:59 98.1 66 18 185/79 (114) 94 07/29/17 16:09 98.7 71 20 161/77 (105) 93 07/29/17 12:19 98.5 69 20 119/70 (86) 95 I/O 07/29/17 07/29/17 07/29/17 07/30/17 07/30/17 07/30/17 07:00 15:00 23:00 07:00 15:00 23:00 # Voids 4 # Bowel Movements 1 Result Diagram: 07/27/17 0705 07/28/17 1632 Objective Remarks moves face sym voice clear vff 5/5 lue x finger ext 5- lle ok clumsy left ffm nl gait vff no change Assessment and Plan Assessment and Plan imp echo severe as on statin and asa adjust statin to get ldl lower cta 70% r ica the r ica likley sx and could have stent r ica if need as fixed? vs waiting ofr cea after valve? 07/30/17 i dw surgery yest stent r ica then doing valve to me seems best course family waiting for cards Kuldip Balderas MD Jul 30, 2017 08:21
[2017-07-30 08:45] LABS: METHYLMALONIC ACID 0.22 nmol/mL (<=0.40)
[2017-07-30] MEDS: BUDESONIDE-FORMOTEROL 160/4.5 MCG INHALER INH SCH ×2 (09:11→20:53)
[2017-07-30] MEDS: ASPIRIN 325 MG TAB PO SCH (09:12)
[2017-07-30] MEDS: SODIUM CHLORIDE 0.9% FLUSH 10 ML FLUSH IV FLUSH SCH ×2 (09:12→20:53)
[2017-07-30] MEDS: METOPROLOL SUCCINATE 50 MG EXTENDED RELEASE TAB PO SCH (09:13)
[2017-07-30] MEDS: amLODIPine BESYLATE 5 MG TAB PO SCH (09:13)
[2017-07-30] MEDS: LOSARTAN 50 MG TAB PO SCH (09:13)
[2017-07-30] MEDS: DOCUSATE SODIUM 50 MG/SENNA 8.6 MG TAB PO SCH ×2 (09:13→20:52)
[2017-07-30 10:51] LABS: BICARBONATE 28.2 MEQ/L (21.0-32.0); CALCIUM 9.4 MG/DL (8.5-10.1); CREATININE 1.37 MG/DL (0.50-1.00)
--- NOTE | 2017-07-30 11:58 | HHI.FPPN ---
Objective Vitals Vital Signs Date Time Temp Pulse Resp B/P (MAP) Pulse Ox O2 Delivery O2 Flow Rate FiO2 07/30/17 11:45 97.7 64 20 139/67 (91) 95 07/30/17 07:36 98.0 67 20 143/74 (97) 92 07/30/17 05:12 97.6 66 18 122/68 (86) 94 07/30/17 03:40 65 07/30/17 00:30 97.9 75 18 116/56 (76) 94 07/29/17 20:59 98.1 66 18 185/79 (114) 94 07/29/17 16:09 98.7 71 20 161/77 (105) 93 07/29/17 12:19 98.5 69 20 119/70 (86) 95 I/O 07/29/17 07/29/17 07/29/17 07/30/17 07/30/17 07/30/17 07:00 15:00 23:00 07:00 15:00 23:00 # Voids 4 # Bowel Movements 1 (Ramiro Cruz MD R3) Result Diagram: 07/27/17 0705 07/30/17 0854 Objective Remarks GENERAL: Alert and oriented 3, mild left-sided facial droop barely noticeable today SKIN: Warm and dry. HEAD: Normocephalic. EYES: No scleral icterus. No injection or drainage. NECK: No visible JVD or lymphadenopathy. CARDIOVASCULAR: 3/6 systolic murmur, S1 easily heard, S2 faint RESPIRATORY: Breath sounds equal bilaterally. No accessory muscle use. GASTROINTESTINAL: Abdomen soft, non-tender, nondistended. MUSCULOSKELETAL: No cyanosis, or edema. BACK: Nontender without obvious deformity. No CVA tenderness. Neuro: Strength of left upper extremity improved to 4/5, sensory remained intact throughout. Speech is fluent. (Ramiro Cruz MD R3) A/P Assessment and Plan Attending clinical assessment: Patient was seen with the resident team. Discussed the right carotid stenosis, aortic stenosis and answer the patient's questions as well as questions from her . Patient continues to improve with her left sided weakness. Patient is able to stand on toes and on heels although there is some dorsiflexion weakness on the left, there is a slight drift to the left outstretched arm and slight weakness of left facial musculature. Will discuss with Dr. Hutton and vascular surgery. Case discussed with resident team, agree with the assessment of the resident team and diagnostic and therapeutic orders. Discharge Planning Anticipate discharge once patient has been cleared by neurology, vascular surgery and cardiology. (Ramiro Cruz MD R3) Assessment and Plan Attending clinical assessment: 07/30/17.Patient seen and examined. Case reviewed and discussed with the resident team. Agree with plan of care as discussed with me and documented in the resident note. Coordinated with the resident team conversations with Dr. Marco Griffiths, Dr. Jhaveri vascular surgeon, Dr. Vinnie Hutton and family answering questions and making a decision to have the right carotid endarterectomy performed on 07/31/17 and consideration of aortic valve procedure in 6 months. Patient and expressed understanding of the plans and to proceed. (Keyshawn Lawrence MD) Problem List: (1) Stroke ICD Codes: I63.9 - Cerebral infarction, unspecified Status: Acute Plan: Follow-up neurology consult recommendations - New-onset stroke, concern for cardioembolic event - Dementia as seen by severe white matter changes bilaterally; follow-up with neurology as outpatient - Follow up echo and Holter monitor outpatient for 30 days - Consult with her private counter tacker Dr. Gilmore - Continue aspirin - Fish oil 1000 mg twice a day - Consider tighter cholesterol control with goal LDL less than 100 - Consider home PT versus in pt rehabilitation - Aspirin 325daily - Pravastatin 40mg daily - Lovenox 40 SQ daily (Creat 1.5, from 2.2 last year) - HbA1c 5.7 - Echo: EF 50-55% LFTs WNL Fall precautions NIH stroke scale Neuro checks every 4 Troponins negative x 3 (.02, .03, .02) EKG: WNL f/u with PT, OT, speech, CM Imaging: CT negative for bleeding CT: chronic ischemic small vessel vasculopathy MRI brain non-contrast: Abnormal diffusion pattern from frontal to parietal lesion, small cortical stroke and right parietal region MRA brain non-contrast: Normal STAT MRA of carotids w/ contrast: 50-60% stenosis of right internal carotid artery Neck CTA: prominent irregular plaque at the right carotid bulb with 70% stenosis of the proximal right internal carotid artery (2) Carotid artery stenosis ICD Codes: I65.29 - Occlusion and stenosis of unspecified carotid artery Plan: Carotid artery ultrasound significant for 50-69 percent diameter stenosis in the proximal internal carotid artery by velocity criteria. Neck MRI significant for a 50-60% stenosis at the origin of the right internal carotid artery. No significant stenosis on the left. Vascular surgery consulted, Dr. Shakila jones, appreciate recommendations and intervention. Patient has experienced a right hemispheric stroke that may be related to carotid stenosis. Patient will need to have a right carotid endarterectomy. She will require cardiac clearance prior to surgery due to abnormal echo with severe aortic stenosis. Cardiology consulted for surgical clearance; Dr. Griffiths counter tacker has confirmed that there will be significant risk to doing the CEA surgery due to her advanced age and severe aortic stenosis. He defers the decision to do the surgery between the patient and the vascular surgeon. -plan to discuss medical/surgical plan with vascular and business account specialist (3) Hypertension, benign ICD Codes: I10 - Essential (primary) hypertension Status: Acute Plan: Blood pressure high on admission, BP range :148-189/69-87, - Continue amlodipine 2.5 mg daily - Continue losartan 50 mg daily - Continue metoprolol 200 mg daily - Clonidine when necessary 0.1 mg -continue to monitor (4) COPD (chronic obstructive pulmonary disease) ICD Codes: J44.9 - Chronic obstructive pulmonary disease Status: Acute Plan: Currently not symptomatic Albuterol Inhalers when necessary (5) Kidney disease ICD Codes: N28.9 - Disorder of kidney and ureter, unspecified Status: Chronic Plan: Stage III kidney disease per chart review Creatinine 1.45 on 07/28 renal u/s (04/30) : right kidney echogenic and small, renal artery stenosis as a possibility. Left kidney unremarkable Avoid NSAIDs and nephrotoxic agents f/u BMP Follow-up with nephrology if acute worsening (6) fen/ppx Status: Chronic Plan: Fluids: Pt tolerating by mouth, no fluids at this time Electrolytes: In normal limits, continue to monitor Nutrition: Regular diet (Ramiro Cruz MD R3) Ramiro Cruz MD R3 Jul 30, 2017 11:58 Keyshawn Lawrence MD Jul 30, 2017 15:16
--- NOTE | 2017-07-30 17:26 | PD.CAR.PN ---
CVT Progress Note Subjective/Hospital Course: Referral received Full consult BRANDIN Jhaveri 07/26/17 Patient doing well at this time Facial droop is slowly improving and function of the left arm is slightly better with better strength I discussed the case with Dr. Balderas and we will go ahead with CTA of the carotids to better visualize the right carotid and see this ulcerated plaque may be something contributing to the patient's symptoms Echo of the heart reveals significant aortic stenosis based on what I saw but I do not see the reading yet If patient indeed has severe aortic stenosis she will need the cardiac workup prior to any possible intervention on carotid or otherwise 07/27/17 Patient doing well this morning and I discussed with her the final findings 1. Patient does have about 70% right internal carotid artery stenosis by CTA is definitely hemodynamically significant and in correlation with the ultrasound and MRA we can safely say that patient's symptoms and stroke have been related to the same Therefore at some point patient will have to undergo a right carotid endarterectomy. At this point its only [id number] timing and correlation with other issues. 2. Patient indeed has severe aortic stenosis with the gradient of 42 mmHg and cross-sectional area of less than 1 cm (9mm). By standard classifications any patient that has a gradient of > 40 mmHg and cross-sectional area of less than 1 cm qualifies as severe aortic stenosis Of course that has to be put in the context of symptoms and flow gradient ratio ie normal flow low gradient /normal flow high gradient /low flow low gradient/ low flow high gradient This patient is symptomatic and short of breath making this more of a clear case for intervention for most study show that survival in this group is less than 3 years if untreated Patient should be evaluated for TAVR and or open valve replacement at this time and aortic valve takes precedence over any carotid issue that patient has right now Will await evaluation by cardiology and cardiac surgery I have discussed this in detail with patient and her family and they agree with the plan 07/28/17 Patient doing well at this time Carotid right artery stenosis of 70% symptomatic post stroke, and severe aortic valvular stenosis with above-noted gradient At this point I believe that aortic stenosis trumps every other issue and therefore I believe should be addressed first. We'll wait for Dr. Short to evaluate patient for TAVR. We can follow this with carotid endarterectomy The other option is to do endovascular carotid stent instead. 07/29/17 As noted above patient has critical aortic stenosis and carotid stenosis As per my last note patient should have both addressed either carotid endovascularly followed by aortic repair or the other way around. All of these options some medically and surgically acceptable and within standards. Have discussed this at length with family and they're want both issues addressed one way or another 07/30/17 Patient doing well at this time still has a facial droop and weakness of the left arm and leg but able to walk to bathroom and back At this point we have discussed all the issues between the specialists and subspecialists. Cardiology and neurology input is greatly appreciated After careful consideration about the best course of action in discussion with cardiology, neurology in interventional radiology, the consensuses the patient' s aortic stenosis should be handled after carotid endarterectomy and that surgical carotid endarterectomy is the preferred way to go in face of low embolic risk and outcome Patient has been cleared by cardiology for surgery with understanding of the risk. Patient scheduled for right carotid endarterectomy tomorrow I've discussed ins and outs and the whole care with patient and family very carefully and in detail Objective: Vital Signs Date Time Temp Pulse Resp B/P (MAP) Pulse Ox O2 Delivery O2 Flow Rate FiO2 07/30/17 16:30 97.4 68 20 143/83 (103) 95 07/30/17 11:45 97.7 64 20 139/67 (91) 95 07/30/17 08:00 69 07/30/17 07:36 98.0 67 20 143/74 (97) 92 07/30/17 05:12 97.6 66 18 122/68 (86) 94 07/30/17 03:40 65 07/30/17 00:30 97.9 75 18 116/56 (76) 94 07/29/17 20:59 98.1 66 18 185/79 (114) 94 Labs: Laboratory Tests Test 07/30/17 08:54 Blood Urea Nitrogen 27 MG/DL (7-18) Creatinine 1.37 MG/DL (0.50-1.00) Random Glucose 82 MG/DL (74-106) Calcium Level 9.4 MG/DL (8.5-10.1) Sodium Level 139 MEQ/L (136-145) Potassium Level 4.0 MEQ/L (3.5-5.1) Chloride Level 104 MEQ/L (98-107) Carbon Dioxide Level 28.2 MEQ/L (21.0-32.0) Anion Gap 7 MEQ/L (5-15) Estimat Glomerular Filtration Rate 37 ML/MIN (>89) Result Diagram: 07/27/17 0705 07/30/17 0854 (1) Obesity (2) Aortic stenosis Plan: Severe. New onset dyspnea and fatigue about [address] Short (3) CVA (cerebral vascular accident) (4) Carotid artery stenosis Plan: Was not taking ASA COW BU[employer]ER. Now on it. CEA high risk due to . (5) CKD (chronic kidney disease) stage 3, GFR 30-59 ml/min (6) Hypertension, benign Janna Cervantes MD Jul 30, 2017 17:26
[2017-07-30] MEDS ORDERED: ceFAZolin 2 GM PREMIX 50 ML IV SCH (17:30)
[2017-07-30] MEDS: ENOXAPARIN SODIUM 40 MG/0.4 ML SYRINGE SQ SCH (17:40)
--- NOTE | 2017-07-30 18:28 | HHI.FPPN ---
Addendum to progress note ADDENDUM Reason for addendum: Additonal documentation Additional information Pt seen and examined this morning. No acute events overnight. Pts present at bedside. Both pt and her express concern that they are very frustrated because the plan of care has been unclear and they would like clarification. All questions were answered and the plan was clarified. Anticipate carotid endarterectomy tomorrow. She has been cleared by cardiology to have this procedure. Ramiro Cruz MD R3 Jul 30, 2017 18:28
[2017-07-30] MEDS ORDERED: METOPROLOL TARTRATE 25 MG TAB PO PRN (18:45)
[2017-07-30] MEDS ORDERED: CHLORHEXIDINE GLUCONATE 2 % 1 PACK (2 CLOTHS) TOPICAL PRN (18:45)
[2017-07-30] MEDS ORDERED: SODIUM CHLORID 0.9% 500 ML IV PRN (18:45)
[2017-07-30] MEDS ORDERED: LACTATED RINGER'S 1000 ML IV PRN (18:45)
[2017-07-30] MEDS ORDERED: POVIDONE IODINE 5% (ANTISEPSIS KIT) 4 APPLICATIONS EACH NARE PRN (18:45)
[2017-07-30] MEDS: PRAVASTATIN SOD 40 MG TAB PO SCH (20:52)
[2017-07-31] VITALS (7 sets, daily range): BP systolic 145–166; BP diastolic 66–81; PULSE 61–76; RESP 18–21; TEMP 97.5–98.2; O2SAT 92–95
[2017-07-31] MEDS: SODIUM CHLORIDE 0.9% FLUSH 10 ML FLUSH IV FLUSH SCH ×2 (08:31→21:00)
[2017-07-31] MEDS: DOCUSATE SODIUM 50 MG/SENNA 8.6 MG TAB PO SCH ×2 (08:32→21:00)
[2017-07-31] MEDS: BUDESONIDE-FORMOTEROL 160/4.5 MCG INHALER INH SCH ×2 (08:32→21:00)
[2017-07-31] MEDS: ASPIRIN 325 MG TAB PO SCH (08:32)
[2017-07-31] MEDS: METOPROLOL SUCCINATE 50 MG EXTENDED RELEASE TAB PO SCH (08:32)
[2017-07-31] MEDS: LOSARTAN 50 MG TAB PO SCH (08:32)
[2017-07-31] MEDS: amLODIPine BESYLATE 5 MG TAB PO SCH (08:32)
[2017-07-31] MEDS ORDERED: HEPARIN SODIUM - SQ 10,000 UNITS/ML VIAL ONE (10:04)
[2017-07-31] MEDS ORDERED: GELFOAM SIZE 100 ONE (10:05)
[2017-07-31] MEDS ORDERED: THROMBIN (TOPICAL) 5,000 UNIT VIAL ONE (10:05)
[2017-07-31] MEDS ORDERED: PROTAMINE SULFATE 50 MG/5 ML VIAL ONE (10:05)
[2017-07-31] MEDS ORDERED: HEPARIN SODIUM - IV 10,000 UNITS/10 ML VIAL ONE (10:05)
[2017-07-31] MEDS ORDERED: LIDOCAINE HCL 1% PF 5 ML AMPULE ONE (10:05)
[2017-07-31] MEDS ORDERED: NOREPINEPHRINE 4 MG/4 ML AMP ONE (10:51)
--- NOTE | 2017-07-31 11:20 | HHI.FPPN ---
Subjective Remarks Patient seen and examined at bedside. No acute events overnight. at bedside. Pt has been NPO since midnight pending Right carotid endarterectomy procedure scheduled for today. Pt denies CP, chills, abdominal pain, or dysuria. Pt mentioned she has noticed increase in urinary frequency. No fevers. No other complaints. Objective Vitals Vital Signs Date Time Temp Pulse Resp B/P (MAP) Pulse Ox O2 Delivery O2 Flow Rate FiO2 07/31/17 08:50 98.2 61 20 145/69 (94) 94 07/31/17 08:00 70 07/31/17 05:37 97.7 69 18 147/66 (93) 94 07/31/17 00:47 97.6 71 18 166/81 (109) 95 07/31/17 00:03 69 07/30/17 20:39 97.6 61 18 132/63 (86) 96 07/30/17 20:00 61 07/30/17 16:30 97.4 68 20 143/83 (103) 95 07/30/17 11:45 97.7 64 20 139/67 (91) 95 I/O 07/30/17 07/30/17 07/30/17 07/31/17 07/31/17 07/31/17 07:00 15:00 23:00 07:00 15:00 23:00 Intake Total 960 ml Balance 960 ml Intake Oral 960 ml # Voids 5 2 # Bowel Movements 1 Result Diagram: 07/27/17 0705 07/30/17 0854 Imaging Last Impressions Neck CTA 07/26/17 0000 Signed Impressions: Service Date/Time: Wednesday, July 26, 2017 18:12 - CONCLUSION: 1. Prominent irregular plaque at the right carotid bulb with approximately 70%% stenosis of the proximal right ICA. 2. No evidence of hemodynamically significant stenosis on the left. Kareem Charles MD Carotid Artery Ultrasound 07/25/17 0000 Signed Impressions: Service Date/Time: July 11:34 - CONCLUSION: 1. 50-69%% diameter stenosis in the proximal internal carotid artery by velocity criteria. 2. Milder 50-69 %% diameter stenosis in the left internal carotid artery by velocity criteria. 3. Antegrade flow in both vertebral arteries. Raul Werner MD Neck Magnetic Resonance Angiography 07/24/171951 Signed Impressions: Service Date/Time: Monday, July 24, 2017 22:09 - CONCLUSION: 1. There is 50-60%% stenosis at the origin of the right internal carotid artery. No significant stenosis on the left Kuldip Baron MD Chest X-Ray 07/24/17 1701 Signed Impressions: Service Date/Time: Monday, July 24, 2017 17:22 - CONCLUSION: No acute disease. Yo Metcalf MD FACR Head CT 07/24/17 1447 Signed Impressions: Service Date/Time: Monday, July 24, 2017 14:47 - CONCLUSION: Chronic ischemic small vessel vasculopathy. Rufino Ray MD Head Magnetic Resonance Angiography 07/24/17 0000 Signed Impressions: Service Date/Time: Monday, July 24, 2017 22:09 - CONCLUSION: Normal examination. Abhilash Garcia MD Brain MRI 07/24/17 0000 Signed Impressions: Service Date/Time: Monday, July 24, 2017 22:09 - CONCLUSION: Area of abnormal diffusion signal in the deep white matter tracks between the right frontal and parietal regions. There is an additional small cortical stroke also in the right parietal region. No mass or mass effect. Abhilash Garcia MD Objective Remarks GENERAL: Alert and oriented 3, mild left-sided facial droop barely noticeable, improved SKIN: Warm and dry. HEAD: Normocephalic. EYES: No scleral icterus. No injection or drainage. NECK: No visible JVD or lymphadenopathy. CARDIOVASCULAR: 3/6 systolic murmur, S1 easily heard, S2 faint RESPIRATORY: Breath sounds equal bilaterally. No accessory muscle use. GASTROINTESTINAL: Abdomen soft, non-tender, nondistended. MUSCULOSKELETAL: No cyanosis, or edema. BACK: Nontender without obvious deformity. No CVA tenderness. Neuro: Strength of left upper extremity improved to 4/5, sensory remained intact throughout. Speech is fluent. A/P Assessment and Plan Attending clinical assessment: 07/30/17.Patient seen and examined. Case reviewed and discussed with the resident team. Agree with plan of care as discussed with me and documented in the resident note. Coordinated with the resident team conversations with Dr. Marco Griffiths, Dr. Jhaveri vascular surgeon, Dr. Vinnie Hutton and family answering questions and making a decision to have the right carotid endarterectomy performed on 07/31/17 and consideration of aortic valve procedure in 6 months. Patient and expressed understanding of the plans and to proceed. Discharge Planning Anticipate discharge once patient has been cleared by neurology, vascular surgery and cardiology. Problem List: (1) Stroke ICD Codes: I63.9 - Cerebral infarction, unspecified Status: Acute Plan: Follow-up neurology consult recommendations - New-onset stroke, concern for cardioembolic event - Dementia as seen by severe white matter changes bilaterally; follow-up with neurology as outpatient - Follow up echo and Holter monitor outpatient for 30 days - Consult with her private compliance program manager Dr. Gilmore - Continue aspirin - Fish oil 1000 mg twice a day - Consider tighter cholesterol control with goal LDL less than 100 - Consider home PT versus in pt rehabilitation - Aspirin 325daily - Pravastatin 40mg daily - Lovenox 40 SQ daily (Creat 1.5, from 2.2 last year) - HbA1c 5.7 - Echo: EF 50-55% LFTs WNL Fall precautions NIH stroke scale Neuro checks every 4 Troponins negative x 3 (.02, .03, .02) EKG: WNL PT and OT recommended continued therapy at rehab Speech evaluation stated no need for continued speech therapy upon discharge, ok for pt to have regular diet. Imaging: CT negative for bleeding CT: chronic ischemic small vessel vasculopathy MRI brain non-contrast: Abnormal diffusion pattern from frontal to parietal lesion, small cortical stroke and right parietal region MRA brain non-contrast: Normal STAT MRA of carotids w/ contrast: 50-60% stenosis of right internal carotid artery Neck CTA: prominent irregular plaque at the right carotid bulb with 70% stenosis of the proximal right internal carotid artery (2) Carotid artery stenosis ICD Codes: I65.29 - Occlusion and stenosis of unspecified carotid artery Plan: Carotid artery ultrasound significant for 50-69 percent diameter stenosis in the proximal internal carotid artery by velocity criteria. Neck MRI significant for a 50-60% stenosis at the origin of the right internal carotid artery. No significant stenosis on the left. Vascular surgery consulted, Dr. Shakila jones, appreciate recommendations and intervention. Patient has experienced a right hemispheric stroke that may be related to carotid stenosis. Patient will have a right carotid endarterectomy today by Dr. Cervantes Cardiology consulted, appreciate recommendations - Pt with Cardiac clearance for surgery -ASA held today (3) Hypertension, benign ICD Codes: I10 - Essential (primary) hypertension Status: Acute Plan: Blood pressure high on admission, BP range :132-166/63-83, - Continue amlodipine 2.5 mg daily - Continue losartan 50 mg daily - Continue metoprolol 200 mg daily - Clonidine when necessary 0.1 mg -continue to monitor (4) COPD (chronic obstructive pulmonary disease) ICD Codes: J44.9 - Chronic obstructive pulmonary disease Status: Acute Plan: Currently not symptomatic Albuterol Inhalers when necessary (5) Kidney disease ICD Codes: N28.9 - Disorder of kidney and ureter, unspecified Status: Chronic Plan: Stage III kidney disease per chart review Creatinine 1.37 on 07/30 renal u/s (04/30) : right kidney echogenic and small, renal artery stenosis as a possibility. Left kidney unremarkable Avoid NSAIDs and nephrotoxic agents f/u BMP Follow-up with nephrology if acute worsening (6) fen/ppx Status: Chronic Plan: Fluids: Pt tolerating by mouth, no fluids at this time Electrolytes: In normal limits, continue to monitor Nutrition: NPO since midnight, cardiac diet after surgery DVT ppx: Nadeen Phillips MD, R1 Jul 31, 2017 11:20
[2017-07-31] MEDS ORDERED: NEOSTIGMINE 5 MG/5 ML SYRINGE IV PUSH ONE (12:00)
[2017-07-31] MEDS ORDERED: PROPOFOL 200 MG/20 ML AMP IV ONE (12:00)
[2017-07-31] MEDS ORDERED: ONDANSETRON HCL 4 MG/2 ML VIAL IV ONE (12:00)
[2017-07-31] MEDS ORDERED: LIDOCAINE HCL 1% PF 5 ML SYRINGE OTHER ONE (12:00)
[2017-07-31] MEDS ORDERED: ePHEDrine/NS 25 MG/5 ML SYRINGE IV ONE (12:00)
[2017-07-31] MEDS ORDERED: SODIUM CHLORID 0.9% 500 ML INJ 500 ML IV ONE (12:00)
[2017-07-31] MEDS ORDERED: NORMOSOL R INJ 2,000 ML IV ONE (12:00)
[2017-07-31] MEDS ORDERED: PHENYLEPHRINE HCL 10 MG/ML VIAL IV ONE (12:00)
[2017-07-31] MEDS ORDERED: PHENYLEPH/NS 1000 MCG/10 ML SYR IV ONE (12:00)
[2017-07-31] MEDS ORDERED: DEXAMETHASONE SOD PHOS 4 MG/ML VIAL IV ONE (12:00)
[2017-07-31] MEDS ORDERED: SODIUM CHLOR 0.9% 250 ML INJ 250 ML IV ONE (12:00)
[2017-07-31] MEDS ORDERED: GLYCOPYRROLATE 1 MG/5 ML SYRINGE IV PUSH ONE (12:00)
[2017-07-31] MEDS ORDERED: SUGAMMADEX SODIUM 200 MG/2 ML VIAL IV PUSH ONE (16:01)
[2017-07-31] MEDS ORDERED: DO NOT ADM ANY ANTICOAGULANT DRUGS PRN (16:40)
[2017-07-31] MEDS: ENOXAPARIN SODIUM 40 MG/0.4 ML SYRINGE SQ SCH (18:00)
[2017-07-31] MEDS ORDERED: CLOPIDOGREL 75 MG TAB ONE (18:06)
[2017-07-31] MEDS ORDERED: CLOPIDOGREL 75 MG TAB PO ONE (18:15)
[2017-07-31] MEDS: PRAVASTATIN SOD 40 MG TAB PO SCH (21:00)
[2017-07-31] MEDS: LORazepam 2 MG/ML VIAL IV PUSH PRN (23:57)
[2017-08-01] VITALS: BP 160/85; PULSE 75; RESP 21; TEMP 97.5; O2SAT 96
[2017-08-01 04:00] VITALS: BP 151/81; PULSE 78; RESP 23; TEMP 98.2; O2SAT 97
[2017-08-01 05:48] LABS: AUTOMATED NEUTROPHIL # 14.5 TH/MM3 (1.8-7.7); BASOPHIL % 0.1 % (0.0-2.0); HEMATOCRIT 38.4 % (35.0-46.0); HEMOGLOBIN 12.9 GM/DL (11.6-15.3); LYMPH % 4.3 % (9.0-44.0); LYMPHOCYTE # 0.7 TH/MM3 (1.0-4.8); MEAN CORPUSCULAR HEMOGLOBIN 31.6 PG (27.0-34.0); MEAN CORPUSCULAR HGB CONC 33.6 % (32.0-36.0); MEAN PLATELET VOLUME 8.9 FL (7.0-11.0); MONO % 4.2 % (0.0-8.0); MONOCYTE # 0.7 TH/MM3 (0-0.9); NEUT % 91.4 % (16.0-70.0); PLATELET COUNT 306 TH/MM3 (150-450); RED BLOOD COUNT 4.09 MIL/MM3 (4.00-5.30); RED CELL DISTRIBUTION WIDTH 12.7 % (11.6-17.2); WHITE BLOOD COUNT 15.9 TH/MM3 (4.0-11.0)
[2017-08-01 06:25] LABS: ALBUMIN 3.5 GM/DL (3.4-5.0); ALKALINE PHOSPHATASE 78 U/L (45-117); ALT (GPT) 34 U/L (10-53); AST (GOT) 24 U/L (15-37); BICARBONATE 27.3 MEQ/L (21.0-32.0); BLOOD UREA NITROGEN 24 MG/DL (7-18); CALCIUM 8.6 MG/DL (8.5-10.1); CHLORIDE 102 MEQ/L (98-107); CREATININE 1.26 MG/DL (0.50-1.00); GLOMERULAR FILTRATION RATE 41 ML/MIN (>89); GLUCOSE,RANDOM 132 MG/DL (74-106); SODIUM (NA) 137 MEQ/L (136-145); TOTAL BILIRUBIN ADULT 0.8 MG/DL (0.2-1.0); TOTAL PROTEIN 7.5 GM/DL (6.4-8.2)
[2017-08-01 08:00] VITALS: BP 155/74; PULSE 72; RESP 22; TEMP 98.6; O2SAT 98
[2017-08-01] MEDS: METOPROLOL SUCCINATE 50 MG EXTENDED RELEASE TAB PO SCH (08:35)
[2017-08-01] MEDS: DOCUSATE SODIUM 50 MG/SENNA 8.6 MG TAB PO SCH ×2 (08:35→21:23)
[2017-08-01] MEDS: SODIUM CHLORIDE 0.9% FLUSH 10 ML FLUSH IV FLUSH SCH ×2 (08:36→21:23)
[2017-08-01] MEDS: CLOPIDOGREL 75 MG TAB PO SCH (08:36)
[2017-08-01] MEDS: ASPIRIN 325 MG TAB PO SCH (08:36)
[2017-08-01] MEDS: LOSARTAN 50 MG TAB PO SCH (08:36)
[2017-08-01] MEDS: amLODIPine BESYLATE 5 MG TAB PO SCH (08:36)
[2017-08-01] MEDS: BUDESONIDE-FORMOTEROL 160/4.5 MCG INHALER INH SCH ×2 (09:00→21:00)
[2017-08-01] MEDS: ACETAMINOPHEN 325 MG TAB PO PRN (09:07)
--- NOTE | 2017-08-01 10:20 | HHI.FPPN ---
Subjective Remarks Patient seen and examined at bedside. No acute events overnight. Pt had Right CEA yesterday. Pt reports she has DEJESUS and sore throat. Pt also reports decreased range of motion in Left hand after the surgery. Denies CP, SOB or vision issues. No other issues. (Nadeen Contreras MD, R1) Objective Vitals Vital Signs Date Time Temp Pulse Resp B/P (MAP) Pulse Ox O2 Delivery O2 Flow Rate FiO2 08/01/17 08:00 98.6 72 22 155/74 (101) 98 Arterial Line 08/01/17 08:00 72 08/01/17 04:00 98.2 78 23 151/81 (104) 97 08/01/17 04:00 78 08/01/17 00:00 75 08/01/17 00:00 97.5 75 21 160/85 (110) 96 07/31/17 20:00 97.5 76 21 152/81 (104) 93 07/31/17 20:00 76 07/31/17 19:48 92 Nasal Cannula 4.00 07/31/17 18:45 97.5 75 16 136/66 (89) 95 Nasal Cannula 3 07/31/17 18:30 73 16 137/66 (89) 95 Nasal Cannula 3 128/64 (85) 07/31/17 18:15 72 16 140/68 (92) 95 Nasal Cannula 3 127/61 (83) 07/31/17 18:00 74 16 138/67 (90) 94 Nasal Cannula 3 130/64 (86) 07/31/17 17:45 74 16 145/65 (91) 94 Nasal Cannula 3 137/65 (89) 07/31/17 17:30 73 16 148/68 (94) 93 Nasal Cannula 3 140/67 (91) 07/31/17 17:15 74 16 150/69 (96) 93 Nasal Cannula 3 142/68 (92) 07/31/17 17:00 76 16 152/74 (100) 92 Nasal Cannula 3 144/70 (94) 07/31/17 16:45 77 16 155/76 (102) 92 Nasal Cannula 3 148/69 (95) 07/31/17 16:40 97.6 80 18 146/72 (96) 93 Nasal Cannula 3 145/70 (95) I/O 1/17/18 1/1707/31/17 08/01/17 08/01/17 08/01/17 07:00 15:00 23:00 07:00 15:00 23:00 Intake Total 2000 ml 360 ml Output Total 520 ml 530 ml Balance 1480 ml -170 ml Intake Oral 360 ml Other 2000 ml Output Urine Total 450 ml 500 ml Drainage Total 20 ml 30 ml Estimated Blood Loss 50 ml # Voids 2 1 # Bowel Movements 1 (Nadeen Contreras MD, R1) Result Diagram: 08/01/17 0500 08/01/17 0500 Imaging Last Impressions Neck CTA 07/26/17 0000 Signed Impressions: Service Date/Time: Wednesday, July 26, 2017 18:12 - CONCLUSION: 1. Prominent irregular plaque at the right carotid bulb with approximately 70%% stenosis of the proximal right ICA. 2. No evidence of hemodynamically significant stenosis on the left. Kareem Charles MD Carotid Artery Ultrasound 07/25/17 0000 Signed Impressions: Service Date/Time: July 11:34 - CONCLUSION: 1. 50-69%% diameter stenosis in the proximal internal carotid artery by velocity criteria. 2. Milder 50-69 %% diameter stenosis in the left internal carotid artery by velocity criteria. 3. Antegrade flow in both vertebral arteries. Raul Werner MD Neck Magnetic Resonance Angiography 07/24/171951 Signed Impressions: Service Date/Time: Monday, July 24, 2017 22:09 - CONCLUSION: 1. There is 50-60%% stenosis at the origin of the right internal carotid artery. No significant stenosis on the left Kuldip Baron MD Chest X-Ray 07/24/17 1701 Signed Impressions: Service Date/Time: Monday, July 24, 2017 17:22 - CONCLUSION: No acute disease. Yo Metcalf MD FACR Head CT 07/24/17 1447 Signed Impressions: Service Date/Time: Monday, July 24, 2017 14:47 - CONCLUSION: Chronic ischemic small vessel vasculopathy. Rufino Ray MD Head Magnetic Resonance Angiography 07/24/17 0000 Signed Impressions: Service Date/Time: Monday, July 24, 2017 22:09 - CONCLUSION: Normal examination. Abhilash Garcia MD Brain MRI 07/24/17 0000 Signed Impressions: Service Date/Time: Monday, July 24, 2017 22:09 - CONCLUSION: Area of abnormal diffusion signal in the deep white matter tracks between the right frontal and parietal regions. There is an additional small cortical stroke also in the right parietal region. No mass or mass effect. Abhilash Garcia MD Objective Remarks GENERAL: Alert and oriented 3, mild left-sided facial droop barely noticeable, improved SKIN: Warm and dry. HEAD: Normocephalic. EYES: No scleral icterus. No injection or drainage. NECK: No visible JVD or lymphadenopathy. CARDIOVASCULAR: 3/6 systolic murmur, S1 easily heard, S2 faint RESPIRATORY: Breath sounds equal bilaterally. No accessory muscle use. GASTROINTESTINAL: Abdomen soft, non-tender, nondistended. MUSCULOSKELETAL: No cyanosis, or edema. BACK: Nontender without obvious deformity. No CVA tenderness. Neuro: Strength of left upper extremity 3/5, sensory remained intact throughout. Able to lift left arm but limited range of motion of digits. 5/5 strength in LE BL. Speech is fluent. (Nadeen Contreras MD, R1) A/P Assessment and Plan Attending clinical assessment: 07/30/17.Patient seen and examined. Case reviewed and discussed with the resident team. Agree with plan of care as discussed with me and documented in the resident note. Coordinated with the resident team conversations with Dr. Marco Griffiths, Dr. Jhaveri vascular surgeon, Dr. Vinnie Short and family answering questions and making a decision to have the right carotid endarterectomy performed on 07/31/17 and consideration of aortic valve procedure in 6 months. Patient and expressed understanding of the plans and to proceed. Discharge Planning Anticipate discharge once patient has been cleared by neurology, vascular surgery and cardiology. (Nadeen Contreras MD, R1) Assessment and Plan Attending clinical assessment: 08/01/17 patient seen with resident team. Patient is postop day 1 right carotid endarterectomy. Out of bed in chair, at bedside. Complaining of decreased strength and weakness in her left arm and hand compared to preop. Otherwise, has no new symptoms. Able to tolerate by mouth nutrition, bowels are working. Booker catheter is in place currently. HEENT: Facial asymmetry, EOMs intact, pupils 3 mm and reactive oral pharynx tongue and uvula midline. Lungs are clear. Cardiac S1-S2, no S3 or murmurs. Abdomen soft, nontender. Extremities notable for weakness in the left arm hand and fingers. Discussed discharge planning which may include [facility]. Evaluation pending. Please see resident note complete discussion of details. Despite increasing activity, discharge in the next 1-2 days pending clinical progress. Seen and examined. Case reviewed and discussed with resident team. Agree with plan of care is discussed with me and documented in the resident note. 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 Gilmore - Continue aspirin - Fish oil 1000 mg twice a day - Consider tighter cholesterol control with goal LDL less than 100 - Consider home PT versus in pt rehabilitation - Aspirin 325daily - Pravastatin 40mg daily - Lovenox 40 SQ daily (Creat 1.5, from 2.2 last year) - HbA1c 5.7 - Echo: EF 50-55% LFTs WNL Fall precautions NIH stroke scale Neuro checks every 4 Troponins negative x 3 (.02, .03, .02) EKG: WNL PT and OT recommended continued therapy at rehab Speech evaluation stated no need for continued speech therapy upon discharge, ok for pt to have regular diet. -Pt reports decreased range of motion of Left fingers, can occur after CEA surgery, will continue to monitor. Imaging: CT negative for bleeding CT: chronic ischemic small vessel vasculopathy MRI brain non-contrast: Abnormal diffusion pattern from frontal to parietal lesion, small cortical stroke and right parietal region MRA brain non-contrast: Normal STAT MRA of carotids w/ contrast: 50-60% stenosis of right internal carotid artery Neck CTA: prominent irregular plaque at the right carotid bulb with 70% stenosis of the proximal right internal carotid artery (2) Carotid artery stenosis ICD Codes: I65.29 - Occlusion and stenosis of unspecified carotid artery Plan: Carotid artery ultrasound significant for 50-69 percent diameter stenosis in the proximal internal carotid artery by velocity criteria. Neck MRI significant for a 50-60% stenosis at the origin of the right internal carotid artery. No significant stenosis on the left. Vascular surgery consulted, Dr. Shakila jones, appreciate recommendations and intervention. Patient has experienced a right hemispheric stroke that may be related to carotid stenosis. -s/p Right CEA by Dr. Cervantes, POD#1 -plan for pt to continue recuperation at rehab Cardiology consulted, appreciate recommendations - Pt with Cardiac clearance for surgery (3) Hypertension, benign ICD Codes: I10 - Essential (primary) hypertension Status: Acute Plan: Blood pressure high on admission, BP range :130-160s/60-80s, - Continue amlodipine 2.5 mg daily - Continue losartan 50 mg daily - Continue metoprolol 200 mg daily - Clonidine when necessary 0.1 mg -continue to monitor (4) COPD (chronic obstructive pulmonary disease) ICD Codes: J44.9 - Chronic obstructive pulmonary disease Status: Acute Plan: Currently not symptomatic Albuterol Inhalers when necessary (5) Kidney disease ICD Codes: N28.9 - Disorder of kidney and ureter, unspecified Status: Chronic Plan: Stage III kidney disease per chart review Creatinine 1.26 on 07/31 renal u/s (04/30) : right kidney echogenic and small, renal artery stenosis as a possibility. Left kidney unremarkable Avoid NSAIDs and nephrotoxic agents f/u BMP Follow-up with nephrology if acute worsening (6) fen/ppx Status: Chronic Plan: Fluids: Pt tolerating by mouth, no fluids at this time Electrolytes: In normal limits, continue to monitor Nutrition: cardiac diet DVT ppx: lovenox (Nadeen Contreras MD, R1) Nadeen Contreras MD, R1 Aug 01, 2017 10:20 Keyshawn Lawrence MD Aug 01, 2017 11:39
--- NOTE | 2017-08-01 11:25 | MP ---
cc: JANNA STOCK MD DATE OF SURGERY 07/31/2017 PREOPERATIVE DIAGNOSIS Stroke and right internal carotid artery stenosis. POSTOPERATIVE DIAGNOSIS Stroke and right internal carotid artery stenosis. OPERATIVE PROCEDURE Right carotid endarterectomy, patch angioplasty. SURGEON Janna Stock MD ANESTHESIA General ESTIMATED BLOOD LOSS 100 cc PROCEDURE NOTE The patient prepped and draped in the usual fashion and area exposed. The pre-sternocleidomastoid incision was made, deepened through the platysma down to the carotid sheath. Common carotid, internal and external carotid arteries are carefully identified and dissected with sharp dissection around each a vessel respectively and umbilical taped and a Jerrod tourniquet is placed. Hypoglossal nerve is carefully identified and preserved. Weitlaner retractors are placed and upper arm iron social media intern placed to get visualization. The patient was given 7000 units of heparin and then the internal carotid artery was clamped with a bulldog and the common carotid with an angled DeBakey clamp. The vessel was opened longitudinally with Plata scissors and then [place] shunt is placed and blood flow immediately reestablished. The patient has a huge plaque in the common carotid artery extending into the internal carotid artery which appears to be ulcerated in several places and sort of mushy and ugly appearing. This one is dissected in the medial plane, removed and sent for pathology. The surface of the vessel is now washed out with a heparinized saline and small debris removed. The internal intima is checked now in the internal carotid artery. This one is tightly adherent and peeled off nicely. The common carotid artery intima is tailored to remove any debris. Once this was all done, the bovine patch was placed and sewn in with a running 6-0 Prolene prior to completing the repair of the carotid artery. The [place] shunt is removed and then the repair completed. Blood flow was now reestablished in the usual order and fashion preventing distal embolization. Two small stitches were placed to control oozing between the stitches and then blood flow was checked with Doppler. The area is now irrigated with copious amounts of saline and some Surgicel placed over the vessel and a 7 flat VICKI laid down. The incision closed in layers with 2-0 Vicryl and 4-0 Monocryl. Dressing applied. The patient tolerated the procedure well. Upon the completion of the procedure, the patient is fully neurologically intact, moves all four extremities awake and alert. Janna DUPREE /5:23 PM /11:04 AM
[2017-08-01 12:00] VITALS: BP 138/70; PULSE 59; RESP 21; TEMP 98.6; O2SAT 99
--- NOTE | 2017-08-01 12:25 | PD.CAR.PN ---
CVT Progress Note Subjective/Hospital Course: Referral received Full consult BRANDIN Jhaveri 07/26/17 Patient doing well at this time Facial droop is slowly improving and function of the left arm is slightly better with better strength I discussed the case with Dr. Balderas and we will go ahead with CTA of the carotids to better visualize the right carotid and see this ulcerated plaque may be something contributing to the patient's symptoms Echo of the heart reveals significant aortic stenosis based on what I saw but I do not see the reading yet If patient indeed has severe aortic stenosis she will need the cardiac workup prior to any possible intervention on carotid or otherwise 07/27/17 Patient doing well this morning and I discussed with her the final findings 1. Patient does have about 70% right internal carotid artery stenosis by CTA is definitely hemodynamically significant and in correlation with the ultrasound and MRA we can safely say that patient's symptoms and stroke have been related to the same Therefore at some point patient will have to undergo a right carotid endarterectomy. At this point its only [id number] timing and correlation with other issues. 2. Patient indeed has severe aortic stenosis with the gradient of 42 mmHg and cross-sectional area of less than 1 cm (9mm). By standard classifications any patient that has a gradient of > 40 mmHg and cross-sectional area of less than 1 cm qualifies as severe aortic stenosis Of course that has to be put in the context of symptoms and flow gradient ratio ie normal flow low gradient /normal flow high gradient /low flow low gradient/ low flow high gradient This patient is symptomatic and short of breath making this more of a clear case for intervention for most study show that survival in this group is less than 3 years if untreated Patient should be evaluated for TAVR and or open valve replacement at this time and aortic valve takes precedence over any carotid issue that patient has right now Will await evaluation by cardiology and cardiac surgery I have discussed this in detail with patient and her family and they agree with the plan 07/28/17 Patient doing well at this time Carotid right artery stenosis of 70% symptomatic post stroke, and severe aortic valvular stenosis with above-noted gradient At this point I believe that aortic stenosis trumps every other issue and therefore I believe should be addressed first. We'll wait for Dr. Short to evaluate patient for TAVR. We can follow this with carotid endarterectomy The other option is to do endovascular carotid stent instead. 07/29/17 As noted above patient has critical aortic stenosis and carotid stenosis As per my last note patient should have both addressed either carotid endovascularly followed by aortic repair or the other way around. All of these options some medically and surgically acceptable and within standards. Have discussed this at length with family and they're want both issues addressed one way or another 07/30/17 Patient doing well at this time still has a facial droop and weakness of the left arm and leg but able to walk to bathroom and back At this point we have discussed all the issues between the specialists and subspecialists. Cardiology and neurology input is greatly appreciated After careful consideration about the best course of action in discussion with cardiology, neurology in interventional radiology, the consensuses the patient' s aortic stenosis should be handled after carotid endarterectomy and that surgical carotid endarterectomy is the preferred way to go in face of low embolic risk and outcome Patient has been cleared by cardiology for surgery with understanding of the risk. Patient scheduled for right carotid endarterectomy tomorrow I've discussed ins and outs and the whole care with patient and family very carefully and in detail 08/01/17 Neurologically intact with pre-op deficits and weakness in R arm Incision clean dry DC VICKI Booker Transfer to floor and from my point, patient can go to rehab any time Objective: Vital Signs Date Time Temp Pulse Resp B/P (MAP) Pulse Ox O2 Delivery O2 Flow Rate FiO2 08/01/17 12:00 59 08/01/17 12:00 98.6 59 21 138/70 (92) 99 08/01/17 08:00 98.6 72 22 155/74 (101) 98 Arterial Line 08/01/17 08:00 72 08/01/17 04:00 98.2 78 23 151/81 (104) 97 08/01/17 04:00 78 08/01/17 00:00 75 08/01/17 00:00 97.5 75 21 160/85 (110) 96 07/31/17 20:00 97.5 76 21 152/81 (104) 93 07/31/17 20:00 76 07/31/17 19:48 92 Nasal Cannula 4.00 07/31/17 18:45 97.5 75 16 136/66 (89) 95 Nasal Cannula 3 07/31/17 18:30 73 16 137/66 (89) 95 Nasal Cannula 3 128/64 (85) 07/31/17 18:15 72 16 140/68 (92) 95 Nasal Cannula 3 127/61 (83) 07/31/17 18:00 74 16 138/67 (90) 94 Nasal Cannula 3 130/64 (86) 18 17:45 74 16 145/65 (91) 94 Nasal Cannula 3 137/65 (89) 07/31/17 17:30 73 16 148/68 (94) 93 Nasal Cannula 3 140/67 (91) 07/31/17 17:15 74 16 150/69 (96) 93 Nasal Cannula 3 142/68 (92) 07/31/17 17:00 76 16 152/74 (100) 92 Nasal Cannula 3 144/70 (94) 07/31/17 16:45 77 16 155/76 (102) 92 Nasal Cannula 3 148/69 (95) 07/31/17 16:40 97.6 80 18 146/72 (96) 93 Nasal Cannula 3 145/70 (95) Labs: Laboratory Tests Test 08/01/17 05:00 White Blood Count 15.9 TH/MM3 (4.0-11.0) Red Blood Count 4.09 MIL/MM3 (4.00-5.30) Hemoglobin 12.9 GM/DL (11.6-15.3) Hematocrit 38.4 % (35.0-46.0) Mean Corpuscular Volume 94.0 FL (80.0-100.0) Mean Corpuscular Hemoglobin 31.6 PG (27.0-34.0) Mean Corpuscular Hemoglobin Concent 33.6 % (32.0-36.0) Red Cell Distribution Width 12.7 % (11.6-17.2) Platelet Count 306 TH/MM3 (150-450) Mean Platelet Volume 8.9 FL (7.0-11.0) Neutrophils (%) (Auto) 91.4 % (16.0-70.0) Lymphocytes (%) (Auto) 4.3 % (9.0-44.0) Monocytes (%) (Auto) 4.2 % (0.0-8.0) Eosinophils (%) (Auto) 0.0 % (0.0-4.0) Basophils (%) (Auto) 0.1 % (0.0-2.0) Neutrophils # (Auto) 14.5 TH/MM3 (1.8-7.7) Lymphocytes # (Auto) 0.7 TH/MM3 (1.0-4.8) Monocytes # (Auto) 0.7 TH/MM3 (0-0.9) Eosinophils # (Auto) 0.0 TH/MM3 (0-0.4) Basophils # (Auto) 0.0 TH/MM3 (0-0.2) CBC Comment DIFF FINAL Differential Comment Blood Urea Nitrogen 24 MG/DL (7-18) Creatinine 1.26 MG/DL (0.50-1.00) Random Glucose 132 MG/DL (74-106) Total Protein 7.5 GM/DL (6.4-8.2) Albumin 3.5 GM/DL (3.4-5.0) Calcium Level 8.6 MG/DL (8.5-10.1) Alkaline Phosphatase 78 U/L (45-117) Aspartate Amino Transf (AST/SGOT) 24 U/L (15-37) Alanine Aminotransferase (ALT/SGPT) 34 U/L (10-53) Total Bilirubin 0.8 MG/DL (0.2-1.0) Sodium Level 137 MEQ/L (136-145) Potassium Level 4.5 MEQ/L (3.5-5.1) Chloride Level 102 MEQ/L (98-107) Carbon Dioxide Level 27.3 MEQ/L (21.0-32.0) Anion Gap 8 MEQ/L (5-15) Estimat Glomerular Filtration Rate 41 ML/MIN (>89) Result Diagram: 08/01/17 0500 08/01/17 0500 (1) Obesity (2) Aortic stenosis Plan: Severe. New onset dyspnea and fatigue about [address] 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 CEA high risk due to . (5) CKD (chronic kidney disease) stage 3, GFR 30-59 ml/min (6) Hypertension, benign Janna Cervantes MD Aug 01, 2017 12:25
[2017-08-01 16:00] VITALS: BP 128/62; PULSE 62; RESP 22; TEMP 98.7; O2SAT 99
[2017-08-01] MEDS: ENOXAPARIN SODIUM 40 MG/0.4 ML SYRINGE SQ SCH (18:00)
[2017-08-01 20:33] VITALS: BP 142/68; PULSE 69; RESP 20; TEMP 97.8; O2SAT 98
[2017-08-01] MEDS: LORazepam 2 MG/ML VIAL IV PUSH PRN (21:23)
[2017-08-01] MEDS: PRAVASTATIN SOD 40 MG TAB PO SCH (21:23)
[2017-08-02] VITALS (10 sets, daily range): BP systolic 112–163; BP diastolic 57–91; PULSE 65–100; RESP 16–21; TEMP 97.4–98.6; O2SAT 92–100
[2017-08-02 07:51] LABS: AUTOMATED NEUTROPHIL # 10.3 TH/MM3 (1.8-7.7); BASOPHIL # 0.1 TH/MM3 (0-0.2); BASOPHIL % 0.5 % (0.0-2.0); EOSINOPHIL # 0.1 TH/MM3 (0-0.4); EOSINOPHIL % 0.8 % (0.0-4.0); HEMATOCRIT 35.8 % (35.0-46.0); HEMOGLOBIN 12.2 GM/DL (11.6-15.3); LYMPH % 8.7 % (9.0-44.0); LYMPHOCYTE # 1.1 TH/MM3 (1.0-4.8); MEAN CELL VOLUME 93.7 FL (80.0-100.0); MEAN CORPUSCULAR HEMOGLOBIN 31.9 PG (27.0-34.0); MEAN CORPUSCULAR HGB CONC 34.1 % (32.0-36.0); MEAN PLATELET VOLUME 8.6 FL (7.0-11.0); MONO % 11.2 % (0.0-8.0); MONOCYTE # 1.5 TH/MM3 (0-0.9); NEUT % 78.8 % (16.0-70.0); PLATELET COUNT 270 TH/MM3 (150-450); RED BLOOD COUNT 3.83 MIL/MM3 (4.00-5.30); RED CELL DISTRIBUTION WIDTH 13.1 % (11.6-17.2); WHITE BLOOD COUNT 13.1 TH/MM3 (4.0-11.0)
--- NOTE | 2017-08-02 08:26 | PD.CAR.PN ---
CVT Progress Note Subjective/Hospital Course: Referral received Full consult BRANDIN Jhaveri 07/26/17 Patient doing well at this time Facial droop is slowly improving and function of the left arm is slightly better with better strength I discussed the case with Dr. Balderas and we will go ahead with CTA of the carotids to better visualize the right carotid and see this ulcerated plaque may be something contributing to the patient's symptoms Echo of the heart reveals significant aortic stenosis based on what I saw but I do not see the reading yet If patient indeed has severe aortic stenosis she will need the cardiac workup prior to any possible intervention on carotid or otherwise 07/27/17 Patient doing well this morning and I discussed with her the final findings 1. Patient does have about 70% right internal carotid artery stenosis by CTA is definitely hemodynamically significant and in correlation with the ultrasound and MRA we can safely say that patient's symptoms and stroke have been related to the same Therefore at some point patient will have to undergo a right carotid endarterectomy. At this point its only [id number] timing and correlation with other issues. 2. Patient indeed has severe aortic stenosis with the gradient of 42 mmHg and cross-sectional area of less than 1 cm (9mm). By standard classifications any patient that has a gradient of > 40 mmHg and cross-sectional area of less than 1 cm qualifies as severe aortic stenosis Of course that has to be put in the context of symptoms and flow gradient ratio ie normal flow low gradient /normal flow high gradient /low flow low gradient/ low flow high gradient This patient is symptomatic and short of breath making this more of a clear case for intervention for most study show that survival in this group is less than 3 years if untreated Patient should be evaluated for TAVR and or open valve replacement at this time and aortic valve takes precedence over any carotid issue that patient has right now Will await evaluation by cardiology and cardiac surgery I have discussed this in detail with patient and her family and they agree with the plan 07/28/17 Patient doing well at this time Carotid right artery stenosis of 70% symptomatic post stroke, and severe aortic valvular stenosis with above-noted gradient At this point I believe that aortic stenosis trumps every other issue and therefore I believe should be addressed first. We'll wait for Dr. Short to evaluate patient for TAVR. We can follow this with carotid endarterectomy The other option is to do endovascular carotid stent instead. 07/29/17 As noted above patient has critical aortic stenosis and carotid stenosis As per my last note patient should have both addressed either carotid endovascularly followed by aortic repair or the other way around. All of these options some medically and surgically acceptable and within standards. Have discussed this at length with family and they're want both issues addressed one way or another 07/30/17 Patient doing well at this time still has a facial droop and weakness of the left arm and leg but able to walk to bathroom and back At this point we have discussed all the issues between the specialists and subspecialists. Cardiology and neurology input is greatly appreciated After careful consideration about the best course of action in discussion with cardiology, neurology in interventional radiology, the consensuses the patient' s aortic stenosis should be handled after carotid endarterectomy and that surgical carotid endarterectomy is the preferred way to go in face of low embolic risk and outcome Patient has been cleared by cardiology for surgery with understanding of the risk. Patient scheduled for right carotid endarterectomy tomorrow I've discussed ins and outs and the whole care with patient and family very carefully and in detail 08/01/17 Neurologically intact with pre-op deficits and weakness in R arm Incision clean dry DC VICKI Booker Transfer to floor and from my point, patient can go to rehab any time 08/02/17 Patient doing well at this time Neurologically fully intact except weakness in the left arm which was there before surgery and is now unchanged if not slightly better Incision clean and dry Nothing further to add to care Objective: Vital Signs Date Time Temp Pulse Resp B/P (MAP) Pulse Ox O2 Delivery O2 Flow Rate FiO2 08/02/17 07:44 84 08/02/17 07:44 Nasal Cannula 2.00 08/02/17 04:03 97.4 65 20 163/70 (101) 100 08/02/17 00:35 98.1 76 20 148/67 (94) 100 08/01/17 21:35 Nasal Cannula 2.00 08/01/17 20:33 97.8 69 20 142/68 (92) 98 08/01/17 20:00 Nasal Cannula 2.00 08/01/17 16:00 98.7 62 22 128/62 (84) 99 08/01/17 16:00 62 08/01/17 12:30 97 Nasal Cannula 3.00 08/01/17 12:00 Nasal Cannula 08/01/17 12:00 59 08/01/17 12:00 98.6 59 21 138/70 (92) 99 Labs: Laboratory Tests Test 08/02/17 07:24 White Blood Count 13.1 TH/MM3 (4.0-11.0) Red Blood Count 3.83 MIL/MM3 (4.00-5.30) Hemoglobin 12.2 GM/DL (11.6-15.3) Hematocrit 35.8 % (35.0-46.0) Mean Corpuscular Volume 93.7 FL (80.0-100.0) Mean Corpuscular Hemoglobin 31.9 PG (27.0-34.0) Mean Corpuscular Hemoglobin Concent 34.1 % (32.0-36.0) Red Cell Distribution Width 13.1 % (11.6-17.2) Platelet Count 270 TH/MM3 (150-450) Mean Platelet Volume 8.6 FL (7.0-11.0) Neutrophils (%) (Auto) 78.8 % (16.0-70.0) Lymphocytes (%) (Auto) 8.7 % (9.0-44.0) Monocytes (%) (Auto) 11.2 % (0.0-8.0) Eosinophils (%) (Auto) 0.8 % (0.0-4.0) Basophils (%) (Auto) 0.5 % (0.0-2.0) Neutrophils # (Auto) 10.3 TH/MM3 (1.8-7.7) Lymphocytes # (Auto) 1.1 TH/MM3 (1.0-4.8) Monocytes # (Auto) 1.5 TH/MM3 (0-0.9) Eosinophils # (Auto) 0.1 TH/MM3 (0-0.4) Basophils # (Auto) 0.1 TH/MM3 (0-0.2) CBC Comment DIFF FINAL Differential Comment Result Diagram: 08/02/17 0724 08/01/17 0500 (1) Obesity (2) Aortic stenosis Plan: Severe. New onset dyspnea and fatigue about [address] 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 CEA high risk due to . (5) CKD (chronic kidney disease) stage 3, GFR 30-59 ml/min (6) Hypertension, benign Janna Cervantes MD Aug 02, 2017 08:26
[2017-08-02 08:32] LABS: BICARBONATE 28.7 MEQ/L (21.0-32.0); CREATININE 1.25 MG/DL (0.50-1.00)
--- NOTE | 2017-08-02 08:34 | HHI.PR ---
Subjective Remarks sr Objective Vital Signs Date Time Temp Pulse Resp B/P (MAP) Pulse Ox O2 Delivery O2 Flow Rate FiO2 08/02/17 07:44 84 08/02/17 07:44 Nasal Cannula 2.00 08/02/17 04:03 97.4 65 20 163/70 (101) 100 08/02/17 00:35 98.1 76 20 148/67 (94) 100 08/01/17 21:35 Nasal Cannula 2.00 08/01/17 20:33 97.8 69 20 142/68 (92) 98 08/01/17 20:00 Nasal Cannula 2.00 08/01/17 16:00 98.7 62 22 128/62 (84) 99 08/01/17 16:00 62 08/01/17 12:30 97 Nasal Cannula 3.00 08/01/17 12:00 Nasal Cannula 08/01/17 12:00 59 08/01/17 12:00 98.6 59 21 138/70 (92) 99 I/O 08/01/17 08/01/17 08/01/17 08/02/17 08/02/17 08/02/17 07:00 15:00 23:00 07:00 15:00 23:00 Intake Total 360 ml 60 ml 80 ml 0 ml Output Total 530 ml Balance -170 ml 60 ml 80 ml 0 ml Intake Oral 360 ml 60 ml 80 ml IV Total 0 ml Output Urine Total 500 ml Drainage Total 30 ml # Voids 3 2 # Bowel Movements 0 Result Diagram: 08/02/17 0724 08/01/17 0500 Objective Remarks moves face sym bult slight left droop voice clear vff 5/5 left tricep finger ext weaker 4 and slow moving left fingers lle ok vff Assessment and Plan Assessment and Plan /imp echo severe as on statin and asa adjust statin to get ldl lower cta 70% r ica the r ica likley sx and could have stent r ica if need as fixed? vs waiting ofr cea after valve? 07/30/17 i dw surgery yest stent r ica then doing valve to me seems best course family waiting for cards 08/02/17 sp r cea doing fairly well a little weaker lue and left droop check ct bp doing ok Kuldip Balderas MD Aug 02, 2017 08:34
[2017-08-02] MEDS: CLOPIDOGREL 75 MG TAB PO SCH (09:00)
[2017-08-02] MEDS: LOSARTAN 50 MG TAB PO SCH (09:51)
[2017-08-02] MEDS: METOPROLOL SUCCINATE 50 MG EXTENDED RELEASE TAB PO SCH (09:52)
[2017-08-02] MEDS: amLODIPine BESYLATE 5 MG TAB PO SCH (09:52)
[2017-08-02] MEDS: DOCUSATE SODIUM 50 MG/SENNA 8.6 MG TAB PO SCH ×2 (09:52→21:14)
[2017-08-02] MEDS: ASPIRIN 325 MG TAB PO SCH (09:52)
[2017-08-02] MEDS: BUDESONIDE-FORMOTEROL 160/4.5 MCG INHALER INH SCH ×2 (09:52→21:13)
[2017-08-02] MEDS: SODIUM CHLORIDE 0.9% FLUSH 10 ML FLUSH IV FLUSH SCH ×2 (09:52→21:15)
--- NOTE | 2017-08-02 10:36 | HHI.FPPN ---
Subjective Remarks Patient seen and examined at bedside. No acute events overnight. Pt denies CP, SOB and abdominal pain. Pt stated she was not able to sleep well do to being uncomfortable in the bed. Pt also mentioned that since the CEA surgery she has noticed her left upper extremity from wrist to fingers is weaker, less mobility. Endorses good urine output and flatus. Reports good po intake. Last BM was 2 days ago. (Nadeen Contreras MD, R1) Objective Vitals Vital Signs Date Time Temp Pulse Resp B/P (MAP) Pulse Ox O2 Delivery O2 Flow Rate FiO2 08/02/17 09:37 72 08/02/17 08:00 97.4 65 16 147/70 (95) 99 08/02/17 07:44 84 08/02/17 07:44 Nasal Cannula 2.00 08/02/17 04:03 97.4 65 20 163/70 (101) 100 08/02/17 00:35 98.1 76 20 148/67 (94) 100 08/01/17 21:35 Nasal Cannula 2.00 08/01/17 20:33 97.8 69 20 142/68 (92) 98 08/01/17 20:00 Nasal Cannula 2.00 08/01/17 16:00 98.7 62 22 128/62 (84) 99 08/01/17 16:00 62 08/01/17 12:30 97 Nasal Cannula 3.00 08/01/17 12:00 Nasal Cannula 08/01/17 12:00 59 08/01/17 12:00 98.6 59 21 138/70 (92) 99 I/O 08/01/17 08/01/17 08/01/17 08/02/17 08/02/17 08/02/17 06:59 14:59 22:59 06:59 14:59 22:59 Intake Total 360 ml 60 ml 80 ml 0 ml Output Total 530 ml Balance -170 ml 60 ml 80 ml 0 ml Intake Oral 360 ml 60 ml 80 ml IV Total 0 ml Output Urine Total 500 ml Drainage Total 30 ml # Voids 3 2 # Bowel Movements 0 (Nadeen Contreras MD, R1) Result Diagram: 08/02/17 0724 08/02/17 0724 Imaging Last Impressions Neck CTA 07/26/17 0000 Signed Impressions: Service Date/Time: Wednesday, July 26, 2017 18:12 - CONCLUSION: 1. Prominent irregular plaque at the right carotid bulb with approximately 70%% stenosis of the proximal right ICA. 2. No evidence of hemodynamically significant stenosis on the left. Kareem Charles MD Carotid Artery Ultrasound 07/25/17 0000 Signed Impressions: Service Date/Time: July 11:34 - CONCLUSION: 1. 50-69%% diameter stenosis in the proximal internal carotid artery by velocity criteria. 2. Milder 50-69 %% diameter stenosis in the left internal carotid artery by velocity criteria. 3. Antegrade flow in both vertebral arteries. Raul Werner MD Neck Magnetic Resonance Angiography 07/24/17 195 Signed Impressions: Service Date/Time: Monday, July 24, 2017 22:09 - CONCLUSION: 1. There is 50-60%% stenosis at the origin of the right internal carotid artery. No significant stenosis on the left Kuldip Baron MD Chest X-Ray 07/24/17 1701 Signed Impressions: Service Date/Time: Monday, July 24, 2017 17:22 - CONCLUSION: No acute disease. Yo Metcalf MD FACR Head CT 07/24/17 1447 Signed Impressions: Service Date/Time: Monday, July 24, 2017 14:47 - CONCLUSION: Chronic ischemic small vessel vasculopathy. Rufino Ray MD Head Magnetic Resonance Angiography 07/24/17 0000 Signed Impressions: Service Date/Time: Monday, July 24, 2017 22:09 - CONCLUSION: Normal examination. Abhilash Garcia MD Brain MRI 07/24/17 0000 Signed Impressions: Service Date/Time: Monday, July 24, 2017 22:09 - CONCLUSION: Area of abnormal diffusion signal in the deep white matter tracks between the right frontal and parietal regions. There is an additional small cortical stroke also in the right parietal region. No mass or mass effect. Abhilash Garcia MD Objective Remarks GENERAL: Alert and oriented 3, mild left-sided facial droop barely noticeable, improved SKIN: Warm and dry. HEAD: Normocephalic. EYES: No scleral icterus. No injection or drainage. NECK: No visible JVD or lymphadenopathy. CARDIOVASCULAR: 3/6 systolic murmur, S1 easily heard, S2 faint RESPIRATORY: Breath sounds equal bilaterally. No accessory muscle use. GASTROINTESTINAL: Abdomen soft, non-tender, nondistended. MUSCULOSKELETAL: No cyanosis, or edema. BACK: Nontender without obvious deformity. No CVA tenderness. 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 Able to lift left arm. 5/5 strength in LE BL. Speech is fluent. (Nadeen Contreras MD, R1) A/P Assessment and Plan Attending clinical assessment: 08/01/17 patient seen with resident team. Patient is postop day 2 right carotid endarterectomy. Out of bed in chair, at bedside. Complaining of decreased strength and weakness in her left arm and hand compared to preop. Otherwise, has no new symptoms. Able to tolerate by mouth nutrition, bowels are working. HEENT: Facial asymmetry, EOMs intact, pupils 3 mm and reactive oral pharynx tongue and uvula midline. Lungs are clear. Cardiac S1-S2, no S3 or murmurs. Abdomen soft, nontender. Extremities notable for weakness in the left arm hand and fingers. Discussed discharge planning which may include [facility]. Evaluation pending. Please see resident note complete discussion of details. Despite increasing activity, discharge in the next 1-2 days pending clinical progress. Seen and examined. Case reviewed and discussed with resident team. Agree with plan of care is discussed with me and documented in the resident note. Discharge Planning Pt medically clear to commence rehab therapy by our team and vascular surgery. (Nadeen Contreras MD, R1) Assessment and Plan Attending clinical assessment: 08/02/17 patient was seen on the morning of with the resident team. at bedside, seen with nursing staff. Out of bed and very verbal, looking for to being transferred to [facility]. Still having difficulty with her left wrist and hand function. Thinks it might be a little better.Case reviewed and discussed with resident team. Agree with plan of care is discussed with me and documented in the resident note. Plan discharge to rehabilitation center today for 08/03/18. (Keyshawn Lawrence MD) Problem List: (1) Stroke ICD Codes: I63.9 - Cerebral infarction, unspecified Status: Acute Plan: Follow-up neurology consult recommendations - New-onset stroke, concern for cardioembolic event - Dementia as seen by severe white matter changes bilaterally; follow-up with neurology as outpatient - Follow up echo and Holter monitor outpatient for 30 days - Consult with her private dental office receptionist Dr. Gilmore - Continue aspirin - Fish oil 1000 mg twice a day - Consider tighter cholesterol control with goal LDL less than 100 - Consider home PT versus in pt rehabilitation - Aspirin 325daily - Pravastatin 40mg daily - Lovenox 40 SQ daily (Creat 1.5, from 2.2 last year) - HbA1c 5.7 - Echo: EF 50-55% LFTs WNL Fall precautions NIH stroke scale Troponins negative x 3 (.02, .03, .02) EKG: WNL PT and OT recommended continued therapy at rehab Speech evaluation stated no need for continued speech therapy upon discharge, ok for pt to have regular diet. -Pt reports increased weakness of LUE from wrist to fingers compared to pre-op, can occur after CEA surgery, will continue to monitor. Pt will benefit for rehab to regain strength in LUE. Imaging: CT negative for bleeding CT: chronic ischemic small vessel vasculopathy MRI brain non-contrast: Abnormal diffusion pattern from frontal to parietal lesion, small cortical stroke and right parietal region MRA brain non-contrast: Normal STAT MRA of carotids w/ contrast: 50-60% stenosis of right internal carotid artery Neck CTA: prominent irregular plaque at the right carotid bulb with 70% stenosis of the proximal right internal carotid artery (2) Carotid artery stenosis ICD Codes: I65.29 - Occlusion and stenosis of unspecified carotid artery Plan: Carotid artery ultrasound significant for 50-69 percent diameter stenosis in the proximal internal carotid artery by velocity criteria. Neck MRI significant for a 50-60% stenosis at the origin of the right internal carotid artery. No significant stenosis on the left. Vascular surgery consulted, Dr. Shakila jones, appreciate recommendations and intervention. Patient has experienced a right hemispheric stroke that may be related to carotid stenosis. -s/p Right CEA by Dr. Cervantes, POD#2 -plan for pt to continue recuperation at rehab Cardiology consulted, appreciate recommendations - Pt with Cardiac clearance for surgery (3) Hypertension, benign ICD Codes: I10 - Essential (primary) hypertension Status: Acute Plan: Blood pressure high on admission, BP range :130-160s/60-80s, - Continue amlodipine 2.5 mg daily - Continue losartan 50 mg daily - Continue metoprolol 200 mg daily - Clonidine when necessary 0.1 mg -continue to monitor (4) COPD (chronic obstructive pulmonary disease) ICD Codes: J44.9 - Chronic obstructive pulmonary disease Status: Acute Plan: Currently not symptomatic Albuterol Inhalers when necessary (5) Kidney disease ICD Codes: N28.9 - Disorder of kidney and ureter, unspecified Status: Chronic Plan: Stage III kidney disease per chart review Creatinine 1.25 on 08/02 renal u/s (04/30) : right kidney echogenic and small, renal artery stenosis as a possibility. Left kidney unremarkable Avoid NSAIDs and nephrotoxic agents f/u BMP Follow-up with nephrology if acute worsening (6) fen/ppx Status: Chronic Plan: Fluids: Pt tolerating by mouth, no fluids at this time Electrolytes: In normal limits, continue to monitor Nutrition: cardiac diet DVT ppx: lovenox (Nadeen Contreras MD, R1) Nadeen Contreras MD, R1 Aug 02, 2017 10:36 Keyshawn Lawrence MD Aug 03, 2017 06:53
[2017-08-02] MEDS ORDERED: MAGN30S PO (11:35)
[2017-08-02] MEDS ORDERED: ASA325 PO (11:35)
[2017-08-02] MEDS ORDERED: PRAV40TA PO (11:35)
[2017-08-02] MEDS ORDERED: PLAV75TA29 PO ×2 (11:35→14:06)
[2017-08-02] MEDS ORDERED: PERI PO (11:35)
--- NOTE | 2017-08-02 13:47 | HHI.DCPOC ---
Discharge Care Plan Diagnosis: (1) Kidney disease (2) Stroke (3) Carotid artery stenosis (4) Aortic stenosis Goals to Promote Your Health * To prevent worsening of your condition and complications * To maintain your health at the optimal level Directions to Meet Your Goals Take your medications as prescribed Follow your dietary instruction Follow activity as directed Keep your appointments as scheduled Take your immunizations and boosters as scheduled If your symptoms worsen call your PCP, if no PCP go to Urgent Care Center or Emergency Room Smoking is Dangerous to Your Health. Avoid second hand smoke Call the 24-hour hour crisis hotline for domestic abuse at Cait Rojas MD R2 Aug 02, 2017 13:47
--- NOTE | 2017-08-02 15:17 | RADRPT ---
EXAM DATE/TIME: 08/02/2017 15:09 [place] COMPARISON: CT BRAIN W/O CONTRAST, July 24, 2017, 14:47. INDICATIONS : CVA RADIATION DOSE: 37.02 CTDIvol (mGy) MEDICAL HISTORY : Cardiovascular disease. Hypertension. SURGICAL HISTORY : Cholecystectomy. Hysterectomy. ENCOUNTER: Subsequent ACUITY: 1 week PAIN SCALE: 0/10 LOCATION: cranial TECHNIQUE: Multiple contiguous axial images were obtained of the head. Using automated exposure control and adj ustment of the mA and/or kV according to patient size, radiation dose was kept as low as reasonably a chievable to obtain optimal diagnostic quality images. DICOM format image data is available electro nically for review and comparison. FINDINGS: There is patchy moderate diminished attenuation in periventricular white matter which appears grossly stable. There is no evidence of intracranial mass or hemorrhage. There is nothing to suggest acute i nfarction. The extracranial structures are stable, benign and intact. CONCLUSION: Stable brain appearance. Advanced chronic naqvi-white matter hypodensities. No evidence of acute intra cranial process. Reno Vogel MD on August 02, 2017 at 15:13 Board Certified Radiologist. This report was verified electronically.
[2017-08-02] MEDS: ENOXAPARIN SODIUM 40 MG/0.4 ML SYRINGE SQ SCH (17:32)
[2017-08-02] MEDS: PRAVASTATIN SOD 40 MG TAB PO SCH (21:14)
[2017-08-02] MEDS: LORazepam 2 MG/ML VIAL IV PUSH PRN (21:16)
[2017-08-03] VITALS: BP 137/71; PULSE 84; RESP 18; TEMP 97.8; O2SAT 97
--- NOTE | 2017-08-03 00:07 | HHI.PR ---
Addendum to Inpatient Note Addendum Reason: Additional Documentation Additional Information Received page from Rhonda at [facility] ([phone]) regarding this patient at approximately 2130. She wished to clarify that this patient does meet criteria at this time to be accepted to [facility] and would be eligible to be transferred this following morning(08/03/17). Raul Sylvester MD R1 Aug 03, 2017 00:07
[2017-08-03 04:00] VITALS: BP 173/77; PULSE 77; PULSE 86; RESP 16; TEMP 97.9; O2SAT 98
[2017-08-03 07:06] VITALS: PULSE 83
[2017-08-03 08:00] VITALS: BP 120/64; PULSE 75; RESP 15; TEMP 97.6; O2SAT 97
[2017-08-03] MEDS: SODIUM CHLORIDE 0.9% FLUSH 10 ML FLUSH IV FLUSH SCH (09:00)
[2017-08-03] MEDS: ASPIRIN 325 MG TAB PO SCH (09:00)
[2017-08-03] MEDS: BUDESONIDE-FORMOTEROL 160/4.5 MCG INHALER INH SCH (09:05)
[2017-08-03] MEDS: CLOPIDOGREL 75 MG TAB PO SCH (09:05)
[2017-08-03] MEDS: DOCUSATE SODIUM 50 MG/SENNA 8.6 MG TAB PO SCH (09:05)
[2017-08-03] MEDS: LOSARTAN 50 MG TAB PO SCH (09:05)
[2017-08-03] MEDS: METOPROLOL SUCCINATE 50 MG EXTENDED RELEASE TAB PO SCH (09:06)
[2017-08-03] MEDS: amLODIPine BESYLATE 5 MG TAB PO SCH (09:06)
--- NOTE | 2017-08-03 10:55 | HHI.PR ---
Subjective Remarks sr Objective Vital Signs Date Time Temp Pulse Resp B/P (MAP) Pulse Ox O2 Delivery O2 Flow Rate FiO2 08/03/17 08:00 97.6 75 15 120/64 (82) 97 08/03/17 04:00 77 08/03/17 04:00 97.9 86 16 173/77 (109) 98 08/03/17 00:00 84 08/03/17 00:00 97.8 84 18 137/71 (93) 97 08/02/17 20:00 86 08/02/17 20:00 Nasal Cannula 2.00 08/02/17 20:00 98.1 87 18 135/91 (106) 92 08/02/17 17:00 98.6 77 18 127/61 (83) 93 08/02/17 16:14 08/02/17 16:01 81 08/02/17 12:20 08/02/17 12:19 100 08/02/17 12:00 97.9 74 21 112/57 (75) 98 I/O 08/02/17 08/02/17 08/02/17 08/03/17 08/03/17 08/03/17 07:00 15:00 23:00 07:00 15:00 23:00 Intake Total 80 ml 560 ml 0 ml 360 ml Output Total 450 ml Balance 80 ml 560 ml 0 ml -90 ml Intake Oral 80 ml 560 ml 360 ml IV Total 0 ml 0 ml Output Urine Total 450 ml # Voids 2 2 1 # Bowel Movements 0 Result Diagram: 08/02/1724 08/02/17 0724 Objective Remarks moves face sym but slight left droop still voice clear vff 5/5 left tricep finger ext weaker 4- and slow moving left fingers lle ok vff Assessment and Plan Assessment and Plan /imp echo severe as on statin and asa adjust statin to get ldl lower cta 70% r ica the r ica likley sx and could have stent r ica if need as fixed? vs waiting ofr cea after valve? 07/30/17 i dw surgery yest stent r ica then doing valve to me seems best course family waiting for cards 08/01 sp r cea doing fairly well a little weaker lue and left droop check ct neg bp doing ok to rehab still needs cardionet o/p Kuldip Balderas MD Aug 03, 2017 10:55
--- NOTE | 2017-08-03 14:18 | HHI.FPPN ---
Subjective Remarks Patient seen and examined this morning. No acute events overnight. Patient has been afebrile, vital signs stable. Patient's present at bedside. Patient denies chest pain, shortness of breath, abdominal pain. She is having regular bowel movements. She is tolerating her diet. She anticipates being discharged to [place] later today and she has no additional acute concerns. (Ramiro Cruz MD R3) Objective Vitals Vital Signs Date Time Temp Pulse Resp B/P (MAP) Pulse Ox O2 Delivery O2 Flow Rate FiO2 08/03/17 08:00 97.6 75 15 120/64 (82) 97 08/03/17 07:00 Nasal Cannula 2.00 08/03/17 04:00 77 08/03/17 04:00 97.9 86 16 173/77 (109) 98 08/03/17 00:00 84 08/03/17 00:00 97.8 84 18 137/71 (93) 97 08/02/17 20:00 86 08/02/17 20:00 Nasal Cannula 2.00 08/02/17 20:00 98.1 87 18 135/91 (106) 92 08/02/17 17:00 98.6 77 18 127/61 (83) 93 08/02/17 16:14 08/02/17 16:01 81 I/O 08/02/17 08/02/17 08/02/17 08/03/17 08/03/17 08/03/17 07:00 15:00 23:00 07:00 15:00 23:00 Intake Total 80 ml 560 ml 0 ml 360 ml 360 ml Output Total 450 ml Balance 80 ml 560 ml 0 ml -90 ml 360 ml Intake Oral 80 ml 560 ml 360 ml 360 ml IV Total 0 ml 0 ml Output Urine Total 450 ml # Voids 2 2 1 2 # Bowel Movements 0 1 (Ramiro Cruz MD R3) Result Diagram: 08/02/1772308/02/17723 Objective Remarks GENERAL: Alert and oriented 3, mild left-sided facial droop barely noticeable, improved SKIN: Warm and dry. HEAD: Normocephalic. EYES: No scleral icterus. No injection or drainage. NECK: No visible JVD or lymphadenopathy. CARDIOVASCULAR: 3/6 systolic murmur, S1 easily heard, S2 faint RESPIRATORY: Breath sounds equal bilaterally. No accessory muscle use. GASTROINTESTINAL: Abdomen soft, non-tender, nondistended. MUSCULOSKELETAL: No cyanosis, or edema. BACK: Nontender without obvious deformity. No CVA tenderness. 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 Able to lift left arm. 5/5 strength in LE BL. Speech is fluent. (Ramiro Cruz MD R3) A/P Assessment and Plan 77-year-old female with a past medical history of chronic kidney insufficiency, hypertension, and COPD found to have had a stroke, s/p carotid endarterectomy. Discharge Planning Pt medically clear to commence rehab therapy by our team and vascular surgery. Discharged to [place]. (Ramiro Cruz MD R3) Assessment and Plan Attending note: Patient seen and examined on the morning of 08/03/17. Case reviewed and discussed with the resident team. Agree with plan of care as discussed with me and documented in the resident note. Discharge was delayed. Patient continues with the neurologic weakness of the left arm, evidenced at shoulder, elbow, wrist and digits. Anticipate discharge to [facility] today. (Keyshawn Lawrence MD) Problem List: (1) Stroke ICD Codes: I63.9 - Cerebral infarction, unspecified Status: Acute Plan: Follow-up neurology consult recommendations - New-onset stroke, concern for cardioembolic event - Dementia as seen by severe white matter changes bilaterally; follow-up with neurology as outpatient - Follow up echo and Holter monitor outpatient for 30 days - Consult with her private tailercpa Dr. Gilmore - Continue aspirin - Fish oil 1000 mg twice a day - Consider tighter cholesterol control with goal LDL less than 100 - Consider home PT versus in pt rehabilitation - Aspirin 325daily - Pravastatin 40mg daily - Lovenox 40 SQ daily (Creat 1.5, from 2.2 last year) - HbA1c 5.7 - Echo: EF 50-55% LFTs WNL Fall precautions Troponins negative x 3 (.02, .03, .02) EKG: WNL PT and OT recommended continued therapy at rehab Speech evaluation stated no need for continued speech therapy upon discharge, ok for pt to have regular diet. -Pt reports increased weakness of LUE from wrist to fingers compared to pre-op, can occur after CEA surgery, will continue to monitor. Pt will benefit for rehab to regain strength in E. Imaging: CT negative for bleeding CT: chronic ischemic small vessel vasculopathy MRI brain non-contrast: Abnormal diffusion pattern from frontal to parietal lesion, small cortical stroke and right parietal region MRA brain non-contrast: Normal STAT MRA of carotids w/ contrast: 50-60% stenosis of right internal carotid artery Neck CTA: prominent irregular plaque at the right carotid bulb with 70% stenosis of the proximal right internal carotid artery (2) Carotid artery stenosis ICD Codes: I65.29 - Occlusion and stenosis of unspecified carotid artery Status: Acute Plan: Carotid artery ultrasound significant for 50-69 percent diameter stenosis in the proximal internal carotid artery by velocity criteria. Neck MRI significant for a 50-60% stenosis at the origin of the right internal carotid artery. No significant stenosis on the left. Vascular surgery consulted, Dr. Shakila jones, appreciate recommendations and intervention. Patient has experienced a right hemispheric stroke that may be related to carotid stenosis. -s/p Right CEA by Dr. Cervantes, 07/31/17, POD#3 -Continue Plavix -plan for pt to continue recuperation at rehab Cardiology consulted, appreciate recommendations - Pt with Cardiac clearance for surgery (3) Hypertension, benign ICD Codes: I10 - Essential (primary) hypertension Status: Chronic Plan: Blood pressure high on admission, BP range :130-160s/60-80s, - Continue amlodipine 2.5 mg daily - Continue losartan 50 mg daily - Continue metoprolol 200 mg daily - Clonidine when necessary 0.1 mg -continue to monitor (4) COPD (chronic obstructive pulmonary disease) ICD Codes: J44.9 - Chronic obstructive pulmonary disease Status: Acute Plan: Currently not symptomatic Albuterol Inhalers when necessary (5) Kidney disease ICD Codes: N28.9 - Disorder of kidney and ureter, unspecified Status: Chronic Plan: Stage III kidney disease per chart review Creatinine 1.25 on 08/02 renal u/s (04/30) : right kidney echogenic and small, renal artery stenosis as a possibility. Left kidney unremarkable Avoid NSAIDs and nephrotoxic agents Follow-up with nephrology if acute worsening (6) fen/ppx Status: Chronic Plan: Fluids: Pt tolerating by mouth, no fluids at this time Electrolytes: In normal limits, continue to monitor Nutrition: cardiac diet DVT ppx: lovenox (Ramiro Cruz MD R3) Ramiro Cruz MD R3 Aug 03, 2017 14:18 Keyshawn Lawrence MD Aug 04, 2017 12:37
--- NOTE | 2017-08-03 14:42 | PD.CAR.PN ---
CVT Progress Note Subjective/Hospital Course: Referral received Full consult BRANDIN Jhaveri 07/26/17 Patient doing well at this time Facial droop is slowly improving and function of the left arm is slightly better with better strength I discussed the case with Dr. Balderas and we will go ahead with CTA of the carotids to better visualize the right carotid and see this ulcerated plaque may be something contributing to the patient's symptoms Echo of the heart reveals significant aortic stenosis based on what I saw but I do not see the reading yet If patient indeed has severe aortic stenosis she will need the cardiac workup prior to any possible intervention on carotid or otherwise 07/27/17 Patient doing well this morning and I discussed with her the final findings 1. Patient does have about 70% right internal carotid artery stenosis by CTA is definitely hemodynamically significant and in correlation with the ultrasound and MRA we can safely say that patient's symptoms and stroke have been related to the same Therefore at some point patient will have to undergo a right carotid endarterectomy. At this point its only [id number] timing and correlation with other issues. 2. Patient indeed has severe aortic stenosis with the gradient of 42 mmHg and cross-sectional area of less than 1 cm (9mm). By standard classifications any patient that has a gradient of > 40 mmHg and cross-sectional area of less than 1 cm qualifies as severe aortic stenosis Of course that has to be put in the context of symptoms and flow gradient ratio ie normal flow low gradient /normal flow high gradient /low flow low gradient/ low flow high gradient This patient is symptomatic and short of breath making this more of a clear case for intervention for most study show that survival in this group is less than 3 years if untreated Patient should be evaluated for TAVR and or open valve replacement at this time and aortic valve takes precedence over any carotid issue that patient has right now Will await evaluation by cardiology and cardiac surgery I have discussed this in detail with patient and her family and they agree with the plan 07/28/17 Patient doing well at this time Carotid right artery stenosis of 70% symptomatic post stroke, and severe aortic valvular stenosis with above-noted gradient At this point I believe that aortic stenosis trumps every other issue and therefore I believe should be addressed first. We'll wait for Dr. Short to evaluate patient for TAVR. We can follow this with carotid endarterectomy The other option is to do endovascular carotid stent instead. 07/29/17 As noted above patient has critical aortic stenosis and carotid stenosis As per my last note patient should have both addressed either carotid endovascularly followed by aortic repair or the other way around. All of these options some medically and surgically acceptable and within standards. Have discussed this at length with family and they're want both issues addressed one way or another 07/30/17 Patient doing well at this time still has a facial droop and weakness of the left arm and leg but able to walk to bathroom and back At this point we have discussed all the issues between the specialists and subspecialists. Cardiology and neurology input is greatly appreciated After careful consideration about the best course of action in discussion with cardiology, neurology in interventional radiology, the consensuses the patient' s aortic stenosis should be handled after carotid endarterectomy and that surgical carotid endarterectomy is the preferred way to go in face of low embolic risk and outcome Patient has been cleared by cardiology for surgery with understanding of the risk. Patient scheduled for right carotid endarterectomy tomorrow I've discussed ins and outs and the whole care with patient and family very carefully and in detail 08/01/17 Neurologically intact with pre-op deficits and weakness in R arm Incision clean dry DC VICKI Booker Transfer to floor and from my point, patient can go to rehab any time 08/02/17 Patient doing well at this time Neurologically fully intact except weakness in the left arm which was there before surgery and is now unchanged if not slightly better Incision clean and dry Nothing further to add to care 08/03/17 Patient doing very well Incision clean and dry Neurologically intact except for known weakness in the left arm, although patient stated that she had some more weakness in the left hand initially post surgery but this is since resolved Patient can be discharged from my point any time She remains in ICU as a border due to lack of beds on the floor or rehabilitation unit Objective: Vital Signs Date Time Temp Pulse Resp B/P (MAP) Pulse Ox O2 Delivery O2 Flow Rate FiO2 08/03/17 08:00 97.6 75 15 120/64 (82) 97 08/03/17 07:06 83 08/03/17 07:00 Nasal Cannula 2.00 08/03/17 04:00 77 08/03/17 04:00 97.9 86 16 173/77 (109) 98 08/03/17 00:00 84 08/03/17 00:00 97.8 84 18 137/71 (93) 97 08/02/17 20:00 86 08/02/17 20:00 Nasal Cannula 2.00 08/02/17 20:00 98.1 87 18 135/91 (106) 92 08/02/17 17:00 98.6 77 18 127/61 (83) 93 08/02/17 16:14 08/02/17 16:01 81 Result Diagram: 08/02/17 0724 08/02/17 0724 (1) Obesity (2) Aortic stenosis Plan: Severe. New onset dyspnea and fatigue about [address] Short (3) CVA (cerebral vascular accident) (4) Carotid artery stenosis Plan: Was not taking ASA CONTROL ANALYST. Now on it. CEA high risk due to . (5) CKD (chronic kidney disease) stage 3, GFR 30-59 ml/min (6) Hypertension, benign Janna Cervantes MD Aug 03, 2017 14:42
== END 2017-08-03 14:45 | DRG 38 ==
LOC: NEPE 10:02 → NEDA 15:58 → OBSVTOIN 17:11 → N05A 20:05 → N03B 07-31 16:57 → N03A 07-31 19:07 → N03B 08-01 18:45
PROVIDERS: ADMIT Family Medicine; ATTEND Family Medicine
PROC: 03UK0KZ Supplement Right Internal Carotid Artery with Nonautologous Tissue Substitute, Open Approach (ICD-10-PCS; 2017-07-31)
PROC: 03CK0ZZ Extirpation of Matter from Right Internal Carotid Artery, Open Approach (ICD-10-PCS; principal; 2017-07-31 13:41)
DX: I63.231 Cerebral infarction due to unspecified occlusion or stenosis of right carotid arteries (principal); G81.92 Hemiplegia, unspecified affecting left dominant side; J44.9 Chronic obstructive pulmonary disease, unspecified; I35.0 Nonrheumatic aortic (valve) stenosis; N18.3 Chronic kidney disease, stage 3 (moderate); I12.9 Hypertensive chronic kidney disease with stage 1 through stage 4 chronic kidney disease, or unspecified chronic kidney disease; R29.810 Facial weakness; E78.5 Hyperlipidemia, unspecified; E66.9 Obesity, unspecified; Z68.31 Body mass index [BMI] 31.0-31.9, adult; Z87.891 Personal history of nicotine dependence; Z88.8 Allergy status to other drugs, medicaments and biological substances
CPT/HCPCS: 36415; 70450; 70498; 70544; 70548; 70551; 71045; 80048; 80053; 80061; 80076; 81001; 82607; 82746; 82948; 83036; 83921; 84165; 84207; 84425; 84439; 84443; 84484; 85025; 85610; 85652; 85730; 86038; 86039; 86140; 86430; 86592; 86850; 86900; 86901; 86920; 88304; 88311; 93005; 93225; 93226; 93306; 93880; A9577; C1768; G8987-GP; G8988-GP; J0690; J1100; J1644; J1650; J2060; J2370; J2405; J2710; J2720; J3010; J7030; J7040; J7050; Q9967

== ENCOUNTER 2017-08-24 13:14 | Inpatient (IN) | payer MEDICARE, BC ==
[~2017-08-24] VITALS: Ht 166.4 cm; Wt 78.4 kg
[2017-08-24] VITALS (14 sets, daily range): BP systolic 135–150; BP diastolic 80–104; PULSE 81–110; RESP 20–40; TEMP 98.3–99.2; O2SAT 92–100
[~2017-08-24 13:14] MED LIST changes: -ALBU0.08 NEB; +ALPR.25 PO; +BENA25CA4 PO; +CALC600T5 PO; +COMMODE 3-IN-11 MIS; +COZA50TA PO; -FLUT50SP EACH NARE; +GETGO ROLLING W1 MI1; -LORA-474 PO; -LOSA50TA PO; +MULT-65 PO; +PLAV75TA29 PO; -PRAV20TA2 PO; +PRAV40TA PO; -TRIA37.5 PO; +VITA1000 PO
--- NOTE | 2017-08-24 13:28 | PD ---
HPI Chief Complaint: Respiratory Distress Time Seen by Provider: 13:17 Travel History International Travel<30 days: No Contact w/Intl Traveler<30days: No Traveled to known affect area: No History of Present Illness HPI The patient is a 77-year-old female who presents to the emergency department via EMS from home for shortness of breath. The patient was recently hospitalized in July for a CVA, was noted to have right carotid stenosis and underwent carotid endarterectomy. The patient was in rehabilitation until August 21 when she was discharged home. The patient developed increasing shortness of breath earlier today, when EMS arrived they stated the patient was in the tripod position with a respiratory rate in the high 20s. The patient's and his oxygen saturation was in the mid 80s according to EMS, did improve with nebulizers and oxygen administration. The patient notes a history of "borderline" COPD, quit smoking 30 years ago. She denies any known history of congestive heart failure. The patient does have a history of aortic stenosis. She denies any new cough or lower extremity pain. She does have a remote history of pulmonary embolism but is not currently anticoagulated. She denies any significant swelling to lower extremities. She denies any chest pain, nausea, vomiting, or abdominal pain. However, she does complain of mild abdominal distention. PFSH Past Medical History Anemia: Yes Arthritis: Yes Asthma: No Autoimmune Disease: No Blood Disorders: No Anxiety: Yes Depression: Yes Cancer: No Cardiovascular Problems: Yes High Cholesterol: Yes Chemotherapy: No Chest Pain: No Congestive Heart Failure: No COPD: Yes Cerebrovascular Accident: No Diabetes: No Diminished Hearing: No Endocrine: No GERD: Yes Glaucoma: No Genitourinary: No Headaches: No Hepatitis: No Hiatal Hernia: No Hypertension: Yes Immune Disorder: No Kidney Stones: No Musculoskeletal: No Neurologic: No Psychiatric: No Reproductive: No Respiratory: Yes (copd/PE) Migraines: No Radiation Therapy: No Renal Failure: No Seizures: No Shingles: Yes Sickle Cell Disease: No Sleep Apnea: No Thyroid Disease: No Ulcer: No PNEUMOCCOCAL Vaccine (Year): 2 Menopausal: Yes Past Surgical History Abdominal Surgery: Yes (GALLBLADDER, ) AICD: No Arteriovenous Shunt: No Cardiac Surgery: Yes (carotid endarterectomy surgery July 2017) Cholecystectomy: Yes Ear Surgery: No Endocrine Surgery: No Eye Surgery: No Genitourinary Surgery: No Gynecologic Surgery: No Hysterectomy: Yes Insulin Pump: No Joint Replacement: No Oral Surgery: No Pacemaker: No Thoracic Surgery: No Other Surgery: Yes Social History Alcohol Use: Yes (OCCASIONALLY) Tobacco Use: No Substance Use: No Allergies-Medications (Allergen,Severity, Reaction): Coded Allergies: lisinopril (Unverified Allergy, Mild, obdulio cough, 08/24/17) Reported Meds & Prescriptions Reported Meds & Active Scripts Active Xanax (Alprazolam) 0.25 Mg Tab 0.125 Mg PO BID PRN Cozaar (Losartan Potassium) 50 Mg Tab 25 Mg PO DAILY Benadryl Allergy (Diphenhydramine HCl) 25 Mg Cap 25 Mg PO HS PRN Plavix (Clopidogrel Bisulfate) 75 Mg Tab 75 Mg PO DAILY Patient to take plavix daily for the next 3 months as recommended by vascular surgeon. Pravachol (Pravastatin) 40 Mg Tab 40 Mg PO HS Vitamin D-1000 (Cholecalciferol) 1,000 Unit Tab 1,000 Units PO DAILY Multi-Vitamin Daily (Multiple Vitamin) 1 Tab Tab 1 Tab PO DAILY Montelukast (Montelukast Sodium) 10 Mg Tab 10 Mg PO HS Amlodipine (Amlodipine Besylate) 2.5 Mg Tab 2.5 Mg PO DAILY Symbicort Inh (Budesonide/Formoterol Fumarate) 160-4.5 Mcg/Act Aero 2 Puff INH Q12HR Metoprolol Succinate ER 24 HR (Metoprolol Succinate) 200 Mg Tab 200 Mg PO DAILY Ventolin Hfa 18 GM Inh (Albuterol Sulfate) 90 Mcg/Act Aer 2 Puff INH DIRECTED PRN Walker Rolling/GetGo (Device) 1 Mis Mis Ea .XX DIRECTED Commode 3-in-1 (Device) 1 Mis Mis Ea .XX DIRECTED Ciclopirox (Nail Lacquer) Topical 8% Kit 1 Applic TOPICAL HS Reported Calcium (Calcium Carbonate) 600 Mg Calcium (1500 Mg) Tab 1,200 Mg PO DAILY Review of Systems Except as stated in HPI: all other systems reviewed are Neg General / Constitutional: No: Fever HENT: No: Lightheadedness Cardiovascular: Positive: Dyspnea on exertion, No: Chest Pain or Discomfort Respiratory: Positive: Shortness of Breath, Wheezing Gastrointestinal: Positive: Abdominal Pain (distention), No: Nausea, Vomiting Musculoskeletal: No: Edema Physical Exam Narrative GENERAL: Awake, alert, pleasant 77-year-old female who appears her stated age and is in moderate respiratory distress. SKIN: Focused skin assessment warm/dry. HEAD: Atraumatic. Normocephalic. EYES: No injection or drainage. ENT: No nasal bleeding or discharge. Mucous membranes pink and moist. NECK: Trachea midline. No JVD. Steri-Strips in place over right carotid scar. CARDIOVASCULAR: Regular, tachycardic with a heart rate in the 120s. Holosystolic murmur. RESPIRATORY: Tachypnea with a respiratory rate of 26. Prolonged expiratory phase with diffuse wheezing. GASTROINTESTINAL: Abdomen soft, slightly distended. No rebound tenderness. MUSCULOSKELETAL: No obvious deformities. No clubbing. No cyanosis. No edema. Calves are soft bilaterally. NEUROLOGICAL: Awake and alert. No obvious cranial nerve deficits. Motor grossly within normal limits. Normal speech. PSYCHIATRIC: Appropriate mood and affect; insight and judgment normal. Data Data Last Documented VS Vital Signs Date Time Temp Pulse Resp B/P (MAP) Pulse Ox O2 Delivery O2 Flow Rate FiO2 08/24/17 13:26 99.2 110 40 141/104 (116) 99 BiPAP 08/24/17 13:23 40 Orders Orders Complete Blood Count With Diff (08/24/17 13:20) Comprehensive Metabolic Panel (08/24/17 13:20) B-Type Natriuretic Peptide (08/24/17 13:20) Act Partial Throm Time (Ptt) (08/24/17 13:20) Prothrombin Time / Inr (Pt) (08/24/17 13:20) Magnesium (Mg) (08/24/17 13:20) Ckmb (Isoenzyme) Profile (08/24/17 13:20) Troponin I (08/24/17 13:20) Blood Culture (08/24/17 13:20) Iv Access Insert/Monitor (08/24/17 13:20) Electrocardiogram (08/24/17 13:20) Ecg Monitoring (08/24/17 13:20) Oximetry (08/24/17 13:20) Oxygen Administration (08/24/17 13:20) Chest, Single Ap (08/24/17 13:20) Sodium Chloride 0.9% Flush (Ns Flush) (08/24/17 13:30) Methylprednisolone So Succ Inj (Solumedr (08/24/17 13:30) Albuterol-Ipratropium Neb (Duoneb Neb) (08/24/17 13:30) Resp Bipap / Cpap Non Invas Vt (08/24/17 13:20) Lactic Acid (08/24/17 13:20) CKMB (08/24/17 13:25) CKMB% (08/24/17 13:25) Aspirin Chew (Aspirin Chew) (08/24/17 14:45) Admit To Inpatient (08/24/17 ) Vital Signs (Adult) ANGELO.Q4H (08/24/17 15:04) Activity Bed Rest (08/24/17 15:04) Diet Npo (08/24/17 Dinner) Sodium Chloride 0.9% Flush (Ns Flush) (08/24/17 15:15) Sodium Chloride 0.9% Flush (Ns Flush) (08/24/17 21:00) Inpatient Certification (08/24/17 ) Admit Order (Ed Use Only) (08/24/17 15:10) Labs Laboratory Tests Test 08/24/17 13:25 White Blood Count 13.9 TH/MM3 Red Blood Count 3.02 MIL/MM3 Hemoglobin 9.3 GM/DL Hematocrit 28.2 % Mean Corpuscular Volume 93.1 FL Mean Corpuscular Hemoglobin 30.9 PG Mean Corpuscular Hemoglobin Concent 33.2 % Red Cell Distribution Width 13.8 % Platelet Count 702 TH/MM3 Mean Platelet Volume 7.7 FL Neutrophils (%) (Auto) 68.1 % Lymphocytes (%) (Auto) 18.9 % Monocytes (%) (Auto) 10.2 % Eosinophils (%) (Auto) 2.0 % Basophils (%) (Auto) 0.8 % Neutrophils # (Auto) 9.4 TH/MM3 Lymphocytes # (Auto) 2.6 TH/MM3 Monocytes # (Auto) 1.4 TH/MM3 Eosinophils # (Auto) 0.3 TH/MM3 Basophils # (Auto) 0.1 TH/MM3 CBC Comment DIFF FINAL Differential Comment Prothrombin Time 10.3 SEC Prothromb Time International Ratio 1.0 RATIO Activated Partial Thromboplast Time 20.4 SEC Blood Urea Nitrogen 23 MG/DL Creatinine 1.63 MG/DL Random Glucose 184 MG/DL Total Protein 7.7 GM/DL Albumin 3.1 GM/DL Calcium Level 9.2 MG/DL Magnesium Level 2.3 MG/DL Alkaline Phosphatase 118 U/L Aspartate Amino Transf (AST/SGOT) 70 U/L Alanine Aminotransferase (ALT/SGPT) 25 U/L Total Bilirubin 0.4 MG/DL Sodium Level 135 MEQ/L Potassium Level 4.4 MEQ/L Chloride Level 100 MEQ/L Carbon Dioxide Level 27.4 MEQ/L Anion Gap 8 MEQ/L Estimat Glomerular Filtration Rate 31 ML/MIN Lactic Acid Level 2.2 mmol/L Total Creatine Kinase 368 U/L Creatine Kinase MB 52.5 NG/ML Creatine Kinase MB % 14.3 % Troponin I 8.13 NG/ML B-Type Natriuretic Peptide 1466 PG/ML MDM Medical Decision Making Medical Screen Exam Complete: Yes Emergency Medical Condition: Yes Medical Record Reviewed: Yes Interpretation(s) EKG reveals sinus tachycardia with unifocal PVC. RSR prime in V1. EKG #2 reveals normal sinus rhythm with a rate of 95. Mild ST changes noted in lead V4, V5, V6. Laboratory Tests Test 08/24/17 13:25 White Blood Count 13.9 TH/MM3 Red Blood Count 3.02 MIL/MM3 Hemoglobin 9.3 GM/DL Hematocrit 28.2 % Mean Corpuscular Volume 93.1 FL Mean Corpuscular Hemoglobin 30.9 PG Mean Corpuscular Hemoglobin Concent 33.2 % Red Cell Distribution Width 13.8 % Platelet Count 702 TH/MM3 Mean Platelet Volume 7.7 FL Neutrophils (%) (Auto) 68.1 % Lymphocytes (%) (Auto) 18.9 % Monocytes (%) (Auto) 10.2 % Eosinophils (%) (Auto) 2.0 % Basophils (%) (Auto) 0.8 % Neutrophils # (Auto) 9.4 TH/MM3 Lymphocytes # (Auto) 2.6 TH/MM3 Monocytes # (Auto) 1.4 TH/MM3 Eosinophils # (Auto) 0.3 TH/MM3 Basophils # (Auto) 0.1 TH/MM3 CBC Comment DIFF FINAL Differential Comment Prothrombin Time 10.3 SEC Prothromb Time International Ratio 1.0 RATIO Activated Partial Thromboplast Time 20.4 SEC Blood Urea Nitrogen 23 MG/DL Creatinine 1.63 MG/DL Random Glucose 184 MG/DL Total Protein 7.7 GM/DL Albumin 3.1 GM/DL Calcium Level 9.2 MG/DL Magnesium Level 2.3 MG/DL Alkaline Phosphatase 118 U/L Aspartate Amino Transf (AST/SGOT) 70 U/L Alanine Aminotransferase (ALT/SGPT) 25 U/L Total Bilirubin 0.4 MG/DL Sodium Level 135 MEQ/L Potassium Level 4.4 MEQ/L Chloride Level 100 MEQ/L Carbon Dioxide Level 27.4 MEQ/L Anion Gap 8 MEQ/L Estimat Glomerular Filtration Rate 31 ML/MIN Lactic Acid Level 2.2 mmol/L Total Creatine Kinase 368 U/L Troponin I 8.13 NG/ML B-Type Natriuretic Peptide 1466 PG/ML Last Impressions Chest X-Ray 08/24/17 1320 Signed Impressions: Service Date/Time: Thursday, August 24, 2017 14:07 - CONCLUSION: Development of bibasilar prominent bronchovascular markings without consolidation, infiltrates. Milind Fairbanks MD Differential Diagnosis Differential diagnosis includes pulmonary edema, aortic stenosis, pulmonary embolism, COPD exacerbation, bronchitis, pneumonia, cardiomyopathy. Narrative Course IV was established, labs are drawn and sent, and the patient was placed on cardiac telemetry monitoring and continuous pulse oximetry monitoring. EKG was ordered and interpreted. Chest x-rays obtained. The patient received Solu- Medrol 125 mg intravenously and duo nebs 2 via BiPAP at 12/5 of 40%. Chest x- ray does reveal bilateral peribronchiolar changes, BNP is greater than 1400, troponin is greater than 8. The patient was administered aspirin. The patient' s respiratory rate did improve with BiPAP, respiratory rate came down to 18, heart rate came down to less than 100. The patient does have a history of severe aortic stenosis, appears to have pulmonary edema and congestive heart failure, possibly secondary to cardiomyopathy and/or aortic stenosis. The patient will be admitted, the patient's primary physician is Dr. Eldon Engel, therefore, the residents were paged for admission. Critical Care Narrative Aggregate critical care time was 35 minutes. Time to perform other separately billable procedures was not included in the critical care time. My time did not include minutes spent treating any other patients simultaneously or on activities that did not directly contribute to the patient's treatment. The services I provided to this patient were to treat and/or prevent clinically significant deterioration that could result in: Anoxia, hypoxia, arrhythmia, pulmonary edema, heart failure, cardiomyopathy. I provided critical care services requiring my management, as noted below: Chart data review, documentation time, medication orders and management, vital sign assessments/reviewing monitor data, ordering and reviewing lab tests, ordering and interpreting/reviewing x-rays and diagnostic studies, care of the patient and discussion of the patient with the admitting physicians. Physician Communication Physician Communication The patient's primary physician is Dr. Engel, therefore, the residents were paged for admission. Diagnosis Primary Impression: Congestive heart failure Qualified Codes: I50.9 - Heart failure, unspecified Additional Impressions: Aortic stenosis Qualified Codes: I35.0 - Nonrheumatic aortic (valve) stenosis Elevated troponin Non-ST elevation DE (NSTEMI) Admitting Information Admitting Physician Requests: Admit Condition: Serious Jere Rose MD Aug 24, 2017 13:28
[2017-08-24] MEDS ORDERED: methylPREDNISolone SOD SUCC 125 MG/2 ML VIAL IV PUSH ONE (13:30)
[2017-08-24] MEDS ORDERED: SODIUM CHLORIDE 0.9% FLUSH 10 ML FLUSH IVF PRN (13:30)
[2017-08-24] MEDS: RESP: ALBUTEROL 2.5 MG/IPRATROPIUM 0.5 MG NEB (SCH) INH (13:31)
[2017-08-24 13:53] LABS: AUTOMATED NEUTROPHIL # 9.4 TH/MM3 (1.8-7.7); BASOPHIL # 0.1 TH/MM3 (0-0.2); BASOPHIL % 0.8 % (0.0-2.0); EOSINOPHIL # 0.3 TH/MM3 (0-0.4); HEMATOCRIT 28.2 % (35.0-46.0); HEMOGLOBIN 9.3 GM/DL (11.6-15.3); LYMPH % 18.9 % (9.0-44.0); LYMPHOCYTE # 2.6 TH/MM3 (1.0-4.8); MEAN CELL VOLUME 93.1 FL (80.0-100.0); MEAN CORPUSCULAR HEMOGLOBIN 30.9 PG (27.0-34.0); MEAN CORPUSCULAR HGB CONC 33.2 % (32.0-36.0); MEAN PLATELET VOLUME 7.7 FL (7.0-11.0); MONO % 10.2 % (0.0-8.0); MONOCYTE # 1.4 TH/MM3 (0-0.9); NEUT % 68.1 % (16.0-70.0); PLATELET COUNT 702 TH/MM3 (150-450); RED BLOOD COUNT 3.02 MIL/MM3 (4.00-5.30); RED CELL DISTRIBUTION WIDTH 13.8 % (11.6-17.2); WHITE BLOOD COUNT 13.9 TH/MM3 (4.0-11.0)
[2017-08-24 14:07] LABS: PROTHROMBIN TIME - PATIENT 10.3 SEC (9.8-11.6)
[2017-08-24 14:08] LABS: ALBUMIN 3.1 GM/DL (3.4-5.0); ALT (GPT) 25 U/L (10-53); AST (GOT) 70 U/L (15-37); BICARBONATE 27.4 MEQ/L (21.0-32.0); BLOOD UREA NITROGEN 23 MG/DL (7-18); CALCIUM 9.2 MG/DL (8.5-10.1); CHLORIDE 100 MEQ/L (98-107); CREATININE 1.63 MG/DL (0.50-1.00); GLOMERULAR FILTRATION RATE 31 ML/MIN (>89); GLUCOSE,RANDOM 184 MG/DL (74-106); MAGNESIUM 2.3 MG/DL (1.5-2.5); SODIUM (NA) 135 MEQ/L (136-145)
[2017-08-24 14:12] LABS: ALKALINE PHOSPHATASE 118 U/L (45-117); TOTAL BILIRUBIN ADULT 0.4 MG/DL (0.2-1.0); TOTAL PROTEIN 7.7 GM/DL (6.4-8.2)
[2017-08-24 14:28] LABS: TROPONIN I 8.13 NG/ML (0.02-0.05)
--- NOTE | 2017-08-24 14:41 | RADRPT ---
EXAM DATE/TIME: 08/24/2017 14:07 [facility] COMPARISON: CT THORAX W/O CONTRAST, August 16, 2017, 19:46. CHEST SINGLE AP, August 15, 2017, 11:38. INDICATIONS : Shortness of breath. MEDICAL HISTORY : Chronic obstructive pulmonary disease. Hypertension. SURGICAL HISTORY : None. ENCOUNTER: Initial ACUITY: 1 day PAIN SCORE: Non-responsive. LOCATION: Bilateral chest FINDINGS: Relative to prior examination patient has developed bibasilar prominent bronchovascular markings, air space disease without consolidation. Consistent with minimal early basilar infiltrates. CONCLUSION: Development of bibasilar prominent bronchovascular markings without consolidation, infiltrates. Milind Fairbanks MD on August 24, 2017 at 14:37 Board Certified Radiologist. This report was verified electronically.
[2017-08-24] MEDS ORDERED: ASPIRIN 81 MG CHEW TAB CHEW ONE (14:45)
--- NOTE | 2017-08-24 15:01 | HHI.HP ---
[facility] Service Family Medicine Primary Care Physician Eldon Engel MD Admission Diagnosis Diagnoses: International Travel<30 Days: No Contact w/Intl Traveler<30days: No Known Affected Area: No History of Present Illness 72 yr old w/ PMHx of aortic stenosis, HTN, COPD, and recent stroke on 07/24 s/p right CEA presents with sudden-onset SOB and associated abdominal pain. Accompanied by . She was recently hospitalized on 07/24 for recent stroke in right temporal region, discharge on 08/03 to rehab. She completed rehab and was released this Saturday. states that she has been doing "wonderful" , gained 70-80% function back on her left-side, walking around with a cane, and eating well. This morning when she woke up, she had sudden-onset SOB as she was walking to the kitchen. Her blood pressure was elevated at 142/93 with O2 sat at 94% at home. She also experienced associated "heavy, epigastric" abdominal pain for about several minutes. She tried going to sleep for a short time. She woke up again and experienced worsening SOB. She became upset and concerned, called her home health nurse and was told to call 911, brought here via EMS. She denies diaphoresis, palpations, fevers, cough, and N/V. Last meal was breakfast. (Cande Lopez MD R1) History of Present Illness 72 yo F presenting with acute onset shortness of breath associated with epigastric pressure this morning. She states that she was doing well upon her discharge from rehab on 08/21 for a recent cerebellar ischemic stroke s/p carotid endarterectomy (07/20 and 07/31 respectively). She states she woke up this morning with shortness of breath that progressed throughout the morning. She was found to have a troponin of >8 and BNP near 1500 on arrival. 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 Past Surgical History Cholecystectomy 09/21/97 (Cande Lopez MD R1) Allergies: Coded Allergies: lisinopril (Unverified Allergy, Mild, obdulio cough, 08/24/17) Family History Father: at 83-AAA Mother: at 56- colon cancer Siblings: none Children: healthy Social History Marital Status: Living Situation: Lives with her in [place] Tobacco: quit 30 years ago, h/o smoking 1ppd for 7 yrs Alcohol: 1beer/week Illicit drug use: none (Cande Lopez MD R1) Physical Exam Vital Signs Vital Signs Date Time Temp Pulse Resp B/P (MAP) Pulse Ox O2 Delivery O2 Flow Rate FiO2 08/24/17 13:26 99.2 110 40 141/104 (116) 99 BiPAP 08/24/17 13:25 100 BiPAP 08/24/17 13:25 100 BiPAP 08/24/17 13:23 95 40 08/24/17 13:23 40 BiPAP 08/24/17 13:19 99.2 Physical Exam GENERAL: elderly female, lying in bed, currently on 3L O2 NC SKIN: several ecchymosis on abdomen due to lovenox injections and hemangiomas present on abdomen HEAD: Atraumatic. Normocephalic. No temporal or scalp tenderness. EYES: Pupils equal round and reactive. Extraocular motions intact. No scleral icterus. No injection or drainage. ENT: Nose without bleeding, purulent drainage or septal hematoma. Throat without erythema, tonsillar hypertrophy or exudate. Uvula midline. Airway patent. NECK: Trachea midline. No JVD or lymphadenopathy. Supple, nontender, no meningeal signs. CARDIOVASCULAR: RRR, 3/6 systolic/diastolic murmur in RUSB RESPIRATORY: Decreased breath sounds throughout all lung ludwig GASTROINTESTINAL: See skin exam above. Abdomen soft, non-tender, nondistended. No hepato-splenomegaly, or palpable masses. No guarding. MUSCULOSKELETAL: Extremities without clubbing, cyanosis, or edema. No joint tenderness, effusion, or edema noted. No calf tenderness. Negative Homans sign bilaterally. NEUROLOGICAL: Awake and alert. Cranial nerves II through XII intact. Motor and sensory grossly within normal limits. Normal speech. Mild residual weakness 4/5 on left side Laboratory Laboratory Tests Test 08/24/17 13:25 White Blood Count 13.9 Red Blood Count 3.02 Hemoglobin 9.3 Hematocrit 28.2 Mean Corpuscular Volume 93.1 Mean Corpuscular Hemoglobin 30.9 Mean Corpuscular Hemoglobin Concent 33.2 Red Cell Distribution Width 13.8 Platelet Count 702 Mean Platelet Volume 7.7 Neutrophils (%) (Auto) 68.1 Lymphocytes (%) (Auto) 18.9 Monocytes (%) (Auto) 10.2 Eosinophils (%) (Auto) 2.0 Basophils (%) (Auto) 0.8 Neutrophils # (Auto) 9.4 Lymphocytes # (Auto) 2.6 Monocytes # (Auto) 1.4 Eosinophils # (Auto) 0.3 Basophils # (Auto) 0.1 CBC Comment DIFF FINAL Differential Comment Prothrombin Time 10.3 Prothromb Time International Ratio 1.0 Activated Partial Thromboplast Time 20.4 Blood Urea Nitrogen 23 Creatinine 1.63 Random Glucose 184 Total Protein 7.7 Albumin 3.1 Calcium Level 9.2 Magnesium Level 2.3 Alkaline Phosphatase 118 Aspartate Amino Transf (AST/SGOT) 70 Alanine Aminotransferase (ALT/SGPT) 25 Total Bilirubin 0.4 Sodium Level 135 Potassium Level 4.4 Chloride Level 100 Carbon Dioxide Level 27.4 Anion Gap 8 Estimat Glomerular Filtration Rate 31 Lactic Acid Level 2.2 Total Creatine Kinase 368 Creatine Kinase MB 52.5 Creatine Kinase MB % 14.3 Troponin I 8.13 B-Type Natriuretic Peptide 1466 Date/Time Source Procedure Growth Status 08/24/17 13:25 Blood Peripheral Aerobic Blood Culture Pending Received 08/24/17 13:25 Blood Peripheral Anaerobic Blood Culture Pending Received (Cande Lopez MD R1) Physical Exam GENERAL: elderly female, sitting up in bed and appears short of breath SKIN: several ecchymosis on abdomen due to lovenox injections and hemangiomas present on abdomen CARDIOVASCULAR: RRR, 2/6 systolic/diastolic murmur in RUSB RESPIRATORY: Decreased breath sounds throughout all lung ludwig with coarse crackles in the bases MUSCULOSKELETAL: bilateral lower ext. with 1+ pitting edema to distal tibia (Eldon Engel MD) Result Diagram: 08/24/17 1325 08/24/17 1325 Imaging Last Impressions Chest X-Ray 08/24/17 1320 Signed Impressions: Service Date/Time: Thursday, August 24, 2017 14:07 - CONCLUSION: Development of bibasilar prominent bronchovascular markings without consolidation, infiltrates. Milind Fairbanks MD (Cande Lopez MD R1) Imaging Last 24 hours Impressions Chest X-Ray 08/24/17 1320 Signed Impressions: Service Date/Time: Thursday, August 24, 2017 14:07 - CONCLUSION: Development of bibasilar prominent bronchovascular markings without consolidation, infiltrates. Milind Fairbanks MD (Eldon Engel MD) Caprini VTE Risk Assessment Caprini VTE Risk Assessment: Mod/High Risk (score >= 2) Caprini Risk Assessment Model Point Value = 1 Point Value = 2 Point Value = 3 Point Value = 5 Age 41-60 Minor surgery BMI > 25 kg/m2 Swollen legs Varicose veins or History of unexplained or recurrent spontaneous Oral contraceptives or hormone replacement Sepsis (< 1 month) Serious lung disease, including pneumonia (< 1 month) Abnormal pulmonary function Acute myocardial infarction Congestive heart failure (< 1 month) History of inflammatory bowel disease Medical patient at bed rest Age 61-74 Arthroscopic surgery Major open surgery (> 45 min) Laparoscopic surgery (> 45 min) Malignancy Confined to bed (> 72 hours) Immobilizing plaster cast Central venous access Age >= 75 History of VTE Family history of VTE Factor V Leiden Prothrombin [id number] Lupus anticoagulant Anticardiolipin antibodies Elevated serum homocysteine Heparin-induced thrombocytopenia Other congenital or acquired thrombophilia Stroke (< 1 month) Elective arthroplasty Hip, pelvis, or leg fracture Acute spinal cord injury (< 1 month) Prophylaxis Regimen Total Risk Factor Score Risk Level Prophylaxis Regimen 0-1 Low Early ambulation 2 Moderate Order ONE of the following: *Sequential Compression Device (SCD) *Heparin 5000 units SQ BID 3-4 Higher Order ONE of the following medications: *Heparin 5000 units SQ TID *Enoxaparin/Lovenox 40 mg SQ daily (WT < 150 kg, CrCl > 30 mL/min) *Enoxaparin/Lovenox 30 mg SQ daily (WT < 150 kg, CrCl > 10-29 mL/min) *Enoxaparin/Lovenox 30 mg SQ BID (WT < 150 kg, CrCl > 30 mL/min) AND/OR *Sequential Compression Device (SCD) 5 or more Highest Order ONE of the following medications: *Heparin 5000 units SQ TID (Preferred with Epidurals) *Enoxaparin/Lovenox 40 mg SQ daily (WT < 150 kg, CrCl > 30 mL/min) *Enoxaparin/Lovenox 30 mg SQ daily (WT < 150 kg, CrCl > 10-29 mL/min) *Enoxaparin/Lovenox 30 mg SQ BID (WT < 150 kg, CrCl > 30 mL/min) AND *Sequential Compression Device (SCD) (Cande Lopez MD R1) Assessment and Plan Assessment and Plan 72 yr old w/ PMHx of aortic stenosis, HTN, COPD, and recent stroke on 07/24 s/p right CEA presents with sudden-onset SOB. Code Status Full Code Discussed Condition With Dr. Engel and Dr. Corea (Cande Lopez MD R1) Attending Attestation THIS CASE WAS DISCUSSED WITH THE RESIDENT PHYSICIANS. I HAVE REVIEWED THE RECORD AND AGREE WITH THE ABOVE NOTE AND PLAN OF CARE WAS DISCUSSED. I HAVE AUTHORIZED THE ORDER FOR ADMISSION TO AN IN-PATIENT STATUS. (Eldon Engel MD) Problem List: (1) Non-ST elevation NV (NSTEMI) ICD Codes: I21.4 - Non-ST elevation (NSTEMI) myocardial infarction Status: Acute Plan: Troponin elevated at 8.13, EKG with ST depression in leads V4-V6. Continue to trend troponin and EKG q6h Continue to monitor on cardiac telemetry Aspirin 81mg administered in ED Morphine 2mg IV push q30m PRN chest pain Nitroglycerin 0.4mg Sl q5m PRN chest pain, nitroglycerin 2% oint q8hr Metoprolol tartrate 100mg PO q12hr Cardiology consulted for possible cath, appreciate recs Spoke with neurologist software applications specialist- due to recent stroke, will need CT head w/o contrast before starting heparin drip CT head pending (2) Severe sepsis ICD Codes: A41.9 - Sepsis, unspecified organism; R65.20 - Severe sepsis without septic shock Plan: Patient meets severe sepsis criteria due to tachycardia, tachypnea, leukocytosis, lactic acid >2, with known source of suspected HCAP CXR significant for development of bibasilar prominent bronchovascular markings w/o consolidation, infiltrates IV antibiotics Start Vancomycin, pharmacy consulted for dosing Start Zosyn 4.5 gm q6h Start Solumedrol 40mg IV push q12hr Duonebs ARMOND q4hr, albuterol as needed Urine Legionella antigen and pneumococcal urinary antigen ordered Blood cultures x2 pending (3) HCAP (healthcare-associated pneumonia) ICD Codes: J18.9 - Pneumonia, unspecified organism Status: Acute Plan: Please see plan above. (4) Congestive heart failure ICD Codes: I50.9 - Heart failure, unspecified Status: Acute Plan: Last Echo 07/26/17 EF of 50-55%, significant for severe aortic stenosis and moderate mitral valve regurgitation BNP 1466 Administered 80mg IV lasix once for SOB, will re-evaluate patient's response to medication before starting 40mg lasix BID daily 2D Echo w/ Doppler ordered strict I & Os and daily weights (5) Aortic stenosis ICD Codes: I35.0 - Nonrheumatic aortic (valve) stenosis Status: Chronic Plan: 2D echo w/ doppler ordered Plan as above (6) HTN (hypertension) ICD Codes: I10 - Essential (primary) hypertension Status: Chronic Plan: Metoprolol as above Continue home Triam/HCTZ 25mg daily and amlodipine 2.5mg PO daily Clonidine PRN for BP > 180/100 (7) COPD (chronic obstructive pulmonary disease) ICD Codes: J44.9 - Chronic obstructive pulmonary disease, unspecified Status: Chronic Plan: See plan above Continue Montelukast 10mg PO HS (8) CKD (chronic kidney disease) stage 3, GFR 30-59 ml/min ICD Codes: N18.3 - Chronic kidney disease, stage 3 (moderate) Status: Chronic Plan: Baseline Cr ~1.2 per chart review BUN 23, Cr 1.63 on admission Continue to monitor (9) Hx of arterial ischemic stroke ICD Codes: Z86.73 - Personal history of transient ischemic attack (TIA), and cerebral infarction without residual deficits Plan: Continue 40mg PO pravastatin HS (10) Anxiety ICD Codes: F41.9 - Anxiety disorder, unspecified Plan: Continue home Xanax 0.125mg PO BID PRN (11) Nutrition, metabolism, and development symptoms ICD Codes: R63.8 - Other symptoms and signs concerning food and fluid intake Status: Acute Plan: Diet: NPO for possible cath Fluids: none vitals q4h, strict I & Os, daily weights, neurochecks q4h (Cande Lopez MD R1) Problem List: (1) Non-ST elevation NV (NSTEMI) ICD Codes: I21.4 - Non-ST elevation (NSTEMI) myocardial infarction Status: Acute Plan: Troponin elevated at 8.13, EKG with minor ST depression in leads V4-V6. Continue to trend troponin and EKG q6h Continue to monitor on cardiac telemetry Aspirin 81mg administered in ED Morphine 2mg IV push q30m PRN chest pain Nitroglycerin 0.4mg Sl q5m PRN chest pain, nitroglycerin 2% oint q8hr Metoprolol tartrate 100mg PO q12hr Cardiology consulted for possible cath, sadi reyes Spoke with neurologist software applications specialist- due to recent stroke, will need CT head w/o contrast before starting heparin drip CT head pending (2) Severe sepsis ICD Codes: A41.9 - Sepsis, unspecified organism; R65.20 - Severe sepsis without septic shock Plan: Patient meets severe sepsis criteria due to tachycardia, tachypnea, leukocytosis, lactic acid >2, with known source of suspected HCAP CXR significant for development of bibasilar prominent bronchovascular markings w/o consolidation, infiltrates IV antibiotics Start Vancomycin, pharmacy consulted for dosing Start Zosyn 4.5 gm q6h Start Solumedrol 40mg IV push q12hr Duonebs ARMOND q4hr, albuterol as needed Urine Legionella antigen and pneumococcal urinary antigen ordered Blood cultures x2 pending (3) HCAP (healthcare-associated pneumonia) ICD Codes: J18.9 - Pneumonia, unspecified organism Status: Acute Plan: Please see plan above. (4) Congestive heart failure ICD Codes: I50.9 - Heart failure, unspecified Status: Acute Plan: Last Echo 07/26/17 EF of 50-55%, significant for severe aortic stenosis and moderate mitral valve regurgitation BNP 1466 Administered 80mg IV lasix once for SOB, will re-evaluate patient's response to medication before starting 40mg lasix BID daily 2D Echo w/ Doppler ordered strict I & Os and daily weights (5) Aortic stenosis ICD Codes: I35.0 - Nonrheumatic aortic (valve) stenosis Status: Chronic Plan: 2D echo w/ doppler ordered Plan as above (6) HTN (hypertension) ICD Codes: I10 - Essential (primary) hypertension Status: Chronic Plan: Metoprolol as above Continue home Triam/HCTZ 25mg daily and amlodipine 2.5mg PO daily Clonidine PRN for BP > 180/100 (7) COPD (chronic obstructive pulmonary disease) ICD Codes: J44.9 - Chronic obstructive pulmonary disease, unspecified Status: Chronic Plan: See plan above Continue Montelukast 10mg PO HS (8) CKD (chronic kidney disease) stage 3, GFR 30-59 ml/min ICD Codes: N18.3 - Chronic kidney disease, stage 3 (moderate) Status: Chronic Plan: Baseline Cr ~1.2 per chart review BUN 23, Cr 1.63 on admission Continue to monitor (9) Hx of arterial ischemic stroke ICD Codes: Z86.73 - Personal history of transient ischemic attack (TIA), and cerebral infarction without residual deficits Plan: Continue 40mg PO pravastatin HS (10) Anxiety ICD Codes: F41.9 - Anxiety disorder, unspecified Plan: Continue home Xanax 0.125mg PO BID PRN (11) Nutrition, metabolism, and development symptoms ICD Codes: R63.8 - Other symptoms and signs concerning food and fluid intake Status: Acute Plan: Diet: NPO for possible cath Fluids: none vitals q4h, strict I & Os, daily weights, neurochecks q4h (Eldon Engel MD) Physician Certification 2 Midnight Certification Type: Admission for Inpatient Services Order for Inpatient Services The services are ordered in accordance with Medicare regulations or non- Medicare payer requirements, as applicable. In the case of services not specified as inpatient-only, they are appropriately provided as inpatient services in accordance with the 2-midnight benchmark. Estimated LOS (days): 2 2 days is the estimated time the patient will need to remain in the hospital, assuming treatment plan goals are met and no additional complications. Post-Hospital Plan: Home (Cande Lopez MD R1) Problem Qualifiers (1) Congestive heart failure: Qualified Codes: I50.9 - Heart failure, unspecified (2) Aortic stenosis: Qualified Codes: I35.0 - Nonrheumatic aortic (valve) stenosis Cande Lopez MD R1 Aug 24, 2017 15:01 Eldon Engel MD Aug 24, 2017 19:12
[2017-08-24] MEDS ORDERED: SODIUM CHLORIDE 0.9% FLUSH 10 ML FLUSH IV FLUSH PRN (15:15)
[2017-08-24] MEDS ORDERED: MAGNESIUM HYDROXIDE SUSP 30 ML CUP PO PRN (15:45)
[2017-08-24] MEDS ORDERED: ONDANSETRON HCL 4 MG/2 ML VIAL IVP PRN (15:45)
[2017-08-24] MEDS ORDERED: SENNOSIDES 8.6 MG TAB PO PRN (15:45)
[2017-08-24] MEDS ORDERED: BISACODYL 10 MG SUPP RECTAL PRN (15:45)
[2017-08-24] MEDS ORDERED: LACTULOSE SYRUP 20 GM/30 ML CUP PO PRN (15:45)
[2017-08-24] MEDS ORDERED: NALOXONE HCL 0.4 MG/ML AMP IV PUSH PRN (15:45)
--- NOTE | 2017-08-24 15:53 | PD.PN.STU ---
Subjective Remarks Patient is a 77 year old female presenting with SOB since this morning. She was hospitalized in July for a CVA, noted to have right carotid stenosis, and underwent right carotid endarterectomy. She was discharged home from [facility] on 08/21. She reports that she was doing very well at home since discharge. She began feeling short of breath this morning once she woke up and got out of bed. She was able to make it to the kitchen where she sat down and took her blood pressure. It was 142/93 with O2sat 94%. She tried resting on the couch, but the SOB continued to worsen and she began to have heavy epigastric abdominal pain and nausea. She called her home health nurse who advised her to call 911. She denies any chest pain, arm/jaw pain, or diaphoresis. Review of Systems Constitutional: DENIES: Fever, Weight loss Respiratory: COMPLAINS OF: Cough, DENIES: Sputum production Cardiovascular: DENIES: Chest pain Gastrointestinal: COMPLAINS OF: Abdominal pain, Nausea, DENIES: Diarrhea, Vomiting Genitourinary: DENIES: Dysuria Musculoskeletal: DENIES: Muscle aches Integumentary: DENIES: Rash Neurologic: DENIES: Headache Past Medical History: Severe Aortic Stenosis H/o Pulmonary embolism 02/18/10 h/o Right Ischemic CVA 07/24/17 Last Echo 02/20/17 COPD Hypertension Past Surgical History: Cholecystectomy 09/21/97 Family History: Father: at 83-AAA Mother: at 56- colon cancer Siblings: none Children: healthy Social History: Marital Status: Living Situation: Lives with her in [place] Education: Work history: Tobacco: quit 30 years ago, h/o smoking 1ppd for 7 yrs Alcohol: 1beer/week Illicit drug use: none Allergies: Lisinopril- coughing Other physicians: Maren- PCP Helen- Vascular Mando- Cardiology White- Pulm D'Forbes- Pulm Sara- GI Yunier- Allergy Heller- Derm Sherrie- Neuro Objective Vitals Vital Signs Date Time Temp Pulse Resp B/P (MAP) Pulse Ox O2 Delivery O2 Flow Rate FiO2 08/24/17 15:00 98 23 137/85 (102) 92 Nasal Cannula 2.00 08/24/17 14:00 98 26 135/81 (99) 98 BiPAP 08/24/17 13:26 99.2 110 40 141/104 (116) 99 BiPAP 08/24/17 13:25 100 BiPAP 08/24/17 13:25 100 BiPAP 08/24/17 13:23 95 40 08/24/17 13:23 40 BiPAP 08/24/17 13:19 99.2 Result Diagram: 08/24/17 1325 08/24/17 1325 Other Results Laboratory Tests Test 08/24/17 13:25 White Blood Count 13.9 TH/MM3 (4.0-11.0) Red Blood Count 3.02 MIL/MM3 (4.00-5.30) Hemoglobin 9.3 GM/DL (11.6-15.3) Hematocrit 28.2 % (35.0-46.0) Platelet Count 702 TH/MM3 (150-450) Monocytes (%) (Auto) 10.2 % (0.0-8.0) Neutrophils # (Auto) 9.4 TH/MM3 (1.8-7.7) Monocytes # (Auto) 1.4 TH/MM3 (0-0.9) Activated Partial Thromboplast Time 20.4 SEC (24.3-30.1) Blood Urea Nitrogen 23 MG/DL (7-18) Creatinine 1.63 MG/DL (0.50-1.00) Random Glucose 184 MG/DL (74-106) Albumin 3.1 GM/DL (3.4-5.0) Alkaline Phosphatase 118 U/L (45-117) Aspartate Amino Transf (AST/SGOT) 70 U/L (15-37) Sodium Level 135 MEQ/L (136-145) Estimat Glomerular Filtration Rate 31 ML/MIN (>89) Lactic Acid Level 2.2 mmol/L (0.4-2.0) Total Creatine Kinase 368 U/L (26-192) Creatine Kinase MB 52.5 NG/ML (0.5-3.6) Creatine Kinase MB % 14.3 % (0.0-4.0) Troponin I 8.13 NG/ML (0.02-0.05) B-Type Natriuretic Peptide 1466 PG/ML (0-100) Objective Remarks GENERAL: WDWN elderly female lying on a gurnee, comfortable on 3L via nasal cannula. SKIN: No rashes, ecchymoses or lesions. Cool and dry. HEAD: Atraumatic. Normocephalic. No temporal or scalp tenderness. EYES: Pupils equal round and reactive. No scleral icterus. No injection or drainage. ENT: Nose without bleeding, purulent drainage or septal hematoma. Throat without erythema, tonsillar hypertrophy or exudate. Uvula midline. Airway patent. NECK: Trachea midline. No JVD or lymphadenopathy. Supple, nontender, no meningeal signs. CARDIOVASCULAR: Regular rate and rhythm. 3/6 systolic/diastolic murmur in the aortic area. RESPIRATORY: Breath sounds decreased throughout GASTROINTESTINAL: Abdomen soft, non-tender, nondistended. No hepato-splenomegaly , or palpable masses. No guarding. MUSCULOSKELETAL: Mild edema of bilateral lower extremities. No joint tenderness , effusion, or edema noted. No calf tenderness. Negative Homans sign bilaterally. NEUROLOGICAL: Awake and alert. Cranial nerves II through XII intact. Motor and sensory grossly within normal limits. Normal speech. Mild residual weakness 4/5 on left side. A/P Assessment and Plan This is a 77 year old female with recent history of CVA and carotid endarterectomy presenting with sudden onset shortness of breath. Problem List: 1. NSTEMI -Consulted Cardiology: recommended speaking with neurology for possible head CT prior to starting heparin drip -NPO for possible cath -trending troponin and EKG q6 -Morphine and nitro prn chest pain -continue home metoprolol -oxygen as needed 2. Acute CHF -administer IV lasix 80mg once -Echo 2D with doppler ordered 3. HCAP -IV zosyn and vancomycin -solumedrol -duonebs scheduled -legionella and pneumococcal urine tests pending 4. CKD -BUN 23, Cr 1.63 continue to monitor 5. Hypertension -continue home metoprolol 6. COPD -see plan above Ashly Dietz M3 Aug 24, 2017 15:53
[2017-08-24] MEDS ORDERED: HEPARIN SODIUM - IV 10,000 UNITS/10 ML VIAL IV PUSH ONE (16:00)
[2017-08-24] MEDS ORDERED: FUROSEMIDE 100 MG/10 ML VIAL IV PUSH ONE (16:00)
[2017-08-24] MEDS ORDERED: MORPHINE SULFATE 2 MG/ML INJ IV PUSH PRN (16:00)
[2017-08-24] MEDS ORDERED: NITROGLYCERIN 0.4 MG SL 25 TABS/BTL SL PRN (16:00)
[2017-08-24] MEDS ORDERED: Vancomycin Consult Pharmacy 1 EA OTHER SCH (16:15)
[2017-08-24] MEDS ORDERED: VANCOMYCIN INJ 1,000 MG in SODIUM CHLOR 0.9% 250 ML INJ 250 ML IV SCH (16:15)
[2017-08-24] MEDS: NITROGLYCERIN 2% OINT 1 GM PACKET TOPICAL SCH ×2 (16:41→21:13)
[2017-08-24] MEDS ORDERED: VANCOMYCIN 1 GM/200 ML PREMIX IV ONE (17:00)
[2017-08-24 17:21] LABS: BILIRUBIN, URINE NEG (NEG); BLOOD, URINE NEG (NEG); GLUCOSE,URINE NEG (NEG); KETONE, URINE TRACE mg/dL (NEG); MUCUS URINE FEW /lpf (OCC); NITRITE,URINE NEG (NEG); PH, URINE 5.5 (5.0-8.5); SQUAMOUS EPITHELIAL CELL URINE <1 /hpf (0-5); URINE COLOR YELLOW (YELLW/STRAW); URINE LEUKOCYTE ESTERASE NEG (NEG)
[2017-08-24] MEDS ORDERED: PIPERACIL-TAZO 4.5 GM PREMIX 100 ML IV SCH ×2 (17:45→18:00)
[2017-08-24] MEDS ORDERED: PILL SPLITTER OTHER PRN (17:45)
[2017-08-24] MEDS ORDERED: RESP: ALBUTEROL 2.5 MG/3 ML NEB (PRN) NEB (17:45)
--- NOTE | 2017-08-24 17:53 | MB ---
cc: YASH FRIED M.D. DATE OF CONSULTATION: 08/24/2017. REASON FOR CONSULTATION: Shortness of breath, [id number] KS. HISTORY OF PRESENT ILLNESS: Mrs. Carbajal is a 72-year-old female with history of aortic stenosis, high blood pressure, COPD, previous stroke with right carotid occlusion around 50% to 69%. The patient has a carotid endarterectomy by Dr. Cervantes on the . It was decided to rehab. The patient apparently has severe aortic stenosis also. He went back to the rehab. The patient developed shortness of breath and chest pain. She was brought to the emergency room. The chest pain resolved. She continued with shortness of breath. Troponin was over 8. No acute S-T and T wave changes. The patient was referred for evaluation and management. The chart was reviewed. The patient was evaluated. I discussed the case with the patient and her . ALLERGIES: LISINOPRIL. SOCIAL HISTORY: Negative for smoking and drinking. FAMILY HISTORY: Noncontributory to her current medical condition. MEDICATIONS: 1. Benadryl. 2. Ventolin. 3. Plavix 75 milligrams a day. 4. Pravachol 40 milligrams a day. 5. Metoprolol ER 200 milligrams a day. 6. Amlodipine 2.5 milligrams a day. 7. Losartan 50 milligrams a day. 8. Alprazolam. REVIEW OF SYSTEMS: She refers shortness of breath but no chest pain or chest discomfort. PHYSICAL EXAMINATION: GENERAL: Alert, fully oriented in bed. There is some minimal left-sided weakness. VITAL SIGNS: Blood pressure 137/85, pulse 98, respirations 20. LUNGS: Ventilated. CARDIOVASCULAR: S1 and S2. Tachycardic. Irregular. ABDOMEN: Abdomen obese, no mass, no bruits. EXTREMITIES: No edema. EKGS: Electrocardiogram shows sinus tachycardia, diffuse S-T changes. LABORATORY DATA: Hemoglobin 9.3, white blood cells 13.9. Potassium is 4.4, creatinine 1.63. Troponin 8.13. BNP close to 1500. INR 1.0. ASSESSMENT AND RECOMMENDATIONS: Mrs. Carbajal most likely developed a [id number] KS. Apparently this episode is not new because troponin is already 8. There is no chest pain. There is some shortness of breath. There may be a sign of heart failure. Already the BNP is close to 1500. At this point, I am going to resume her medications. I am going to add Lasix. I already increased the oxygen. I am going to order an echocardiogram to evaluate wall motion and valvular function. Remember also the patient has a severe aortic stenosis on previous echo. I discussed the case with Dr. Wilburn, the park aide. Will recommend for now observation. Further decision will be taken depending on the patient's evolution. MD MANUEL Burton/ANGELINA /5:33 PM /5:41 PM
[2017-08-24] MEDS ORDERED: PIPERACIL-TAZO 3.375 GM PREMIX 50 ML IV SCH (18:00)
[2017-08-24] MEDS: FUROSEMIDE 40 MG/4 ML VIAL IV PUSH SCH ×2 (18:00→21:14)
[2017-08-24] MEDS: PIPERACIL-TAZO 3.375 GM PREMIX 50 ML IV SCH ×2 (19:12→23:30)
--- NOTE | 2017-08-24 20:33 | RADRPT ---
EXAM DATE/TIME: 08/24/2017 20:02 [facility] COMPARISON: CT BRAIN W/O CONTRAST, August 02, 2017, 15:09. INDICATIONS : Altered mental status. RADIATION DOSE: 56.35 CTDIvol (mGy) MEDICAL HISTORY : Stroke. Hypertension. skin cancer SURGICAL HISTORY : Hysterectomy. ENCOUNTER: Initial ACUITY: 1 day PAIN SCALE: 5/10 LOCATION: Bilateral head TECHNIQUE: Multiple contiguous axial images were obtained of the head. Using automated exposure control and adj ustment of the mA and/or kV according to patient size, radiation dose was kept as low as reasonably a chievable to obtain optimal diagnostic quality images. DICOM format image data is available electro nically for review and comparison. FINDINGS: CEREBRUM: Stable appearance to the diffuse decreased attenuation in the supratentorial white matter and promine nt sulci. The overall appearance of the supratentorial brain is unchanged from 08/02/17. The ventric les are normal in size. No evidence of acute blood products, midline shift, or extra-axial fluid. POSTERIOR FOSSA: The cerebellum and brainstem are intact. The 4th ventricle is midline. The cerebellopontine angle i s unremarkable. EXTRACRANIAL: The visualized portion of the orbits is intact. SKULL: The calvaria is intact. No evidence of skull fracture. CONCLUSION: No acute findings in the brain. Stable advanced supratentorial white matter hypodensities. The Patrick Gupta MD on August 24, 2017 at 20:23 Board Certified Radiologist. This report was verified electronically.
[2017-08-24] MEDS: BUDESONIDE-FORMOTEROL 160/4.5 MCG INHALER INH SCH (21:00)
[2017-08-24] MEDS: MONTELUKAST SODIUM 10 MG TAB PO SCH (21:12)
[2017-08-24] MEDS: ALPRAZolam 0.25 MG TAB PO PRN (21:12)
[2017-08-24] MEDS: PRAVASTATIN SOD 40 MG TAB PO SCH (21:13)
[2017-08-24] MEDS: DOCUSATE SODIUM 50 MG/SENNA 8.6 MG TAB PO SCH (21:13)
[2017-08-24] MEDS: CALCIUM CARBONATE 1.25 GM (CA 500 MG) TAB PO SCH (21:14)
[2017-08-24] MEDS: SODIUM CHLORIDE 0.9% FLUSH 10 ML FLUSH IV FLUSH SCH (21:17)
[2017-08-24] MEDS ORDERED: HEPARIN SODIUM - IV 10,000 UNITS/10 ML VIAL IV PUSH PRN ×2 (22:00)
[2017-08-24] MEDS: HEPARIN-D5W 25,000 U/250 ML 250 ML IV PRN (22:18)
[2017-08-24] MEDS ORDERED: PHARMACY ORDERED LAB ONE (23:30)
[2017-08-24] MEDS: RESP: ALBUTEROL 2.5 MG/IPRATROPIUM 0.5 MG NEB (SCH) NEB (23:58)
[2017-08-25] VITALS (27 sets, daily range): BP systolic 90–130; BP diastolic 54–85; PULSE 74–87; RESP 19–20; TEMP 97.8–98.8; O2SAT 94–98
--- NOTE | 2017-08-25 00:40 | EKG ---
Date Performed: 08/24/2017 Time Performed: 19:18:25 PTAGE: 77 years EKG: Sinus rhythm MARKED LEFT AXIS DEVIATION ST DEVIATION AND MODERATE T-WAVE ABNORMALITY, CONSIDER ANTEROLATERAL ISCH EMIA ABNORMAL ECG PREVIOUS TRACING : 08/24/2017 14.44 Compared to prior tracing, ST/T wave changes are more prom inent DOCTOR: Enrike Wilburn Interpretating Date/Time 08/25/2017 00:38:16
[2017-08-25] MEDS ORDERED: VANCOMYCIN 1,000 MG/NS 250 ML IV ONE ×2 (01:30)
[2017-08-25 03:13] LABS: AUTOMATED NEUTROPHIL # 8.6 TH/MM3 (1.8-7.7); BASOPHIL % 0.1 % (0.0-2.0); HEMATOCRIT 25.8 % (35.0-46.0); HEMOGLOBIN 8.7 GM/DL (11.6-15.3); LYMPH % 5.9 % (9.0-44.0); LYMPHOCYTE # 0.6 TH/MM3 (1.0-4.8); MEAN CELL VOLUME 91.2 FL (80.0-100.0); MEAN CORPUSCULAR HEMOGLOBIN 30.8 PG (27.0-34.0); MEAN CORPUSCULAR HGB CONC 33.7 % (32.0-36.0); MEAN PLATELET VOLUME 7.5 FL (7.0-11.0); MONO % 3.5 % (0.0-8.0); MONOCYTE # 0.3 TH/MM3 (0-0.9); NEUT % 90.5 % (16.0-70.0); PLATELET COUNT 517 TH/MM3 (150-450); RED BLOOD COUNT 2.83 MIL/MM3 (4.00-5.30); RED CELL DISTRIBUTION WIDTH 13.6 % (11.6-17.2); WHITE BLOOD COUNT 9.5 TH/MM3 (4.0-11.0)
[2017-08-25 03:25] LABS: BICARBONATE 30.3 MEQ/L (21.0-32.0); CALCIUM 9.4 MG/DL (8.5-10.1); CREATININE 1.59 MG/DL (0.50-1.00)
[2017-08-25] MEDS: RESP: ALBUTEROL 2.5 MG/IPRATROPIUM 0.5 MG NEB (SCH) NEB ×6 (03:30→21:33)
[2017-08-25 03:50] LABS: TROPONIN I 7.03 NG/ML (0.02-0.05)
[2017-08-25] MEDS: FUROSEMIDE 40 MG/4 ML VIAL IV PUSH SCH (05:17)
[2017-08-25] MEDS: NITROGLYCERIN 2% OINT 1 GM PACKET TOPICAL SCH ×3 (05:17→20:26)
[2017-08-25] MEDS: PIPERACIL-TAZO 3.375 GM PREMIX 50 ML IV SCH ×4 (05:18→23:33)
[2017-08-25] MEDS ORDERED: NON-FORMULARY DRUG (Multiple Vitamin (Multi-Vitamin Daily) 1 TAB) PO SCH (09:00)
[2017-08-25] MEDS: BUDESONIDE-FORMOTEROL 160/4.5 MCG INHALER INH SCH ×2 (09:00→20:22)
[2017-08-25] MEDS ORDERED: LOSARTAN 25 MG TAB PO SCH (09:00)
[2017-08-25] MEDS ORDERED: TRIAMTERENE/HCTZ 37.5 MG/25 MG TAB PO SCH (09:00)
[2017-08-25] MEDS ORDERED: CALCIUM CARBONATE 1200 MG PO SCH (09:00)
[2017-08-25] MEDS: amLODIPine BESYLATE 5 MG TAB PO SCH (09:53)
[2017-08-25] MEDS: CHOLECALCIFEROL (VIT D3) 1000 UNIT TAB PO SCH (09:53)
[2017-08-25] MEDS: DOCUSATE SODIUM 50 MG/SENNA 8.6 MG TAB PO SCH ×2 (09:53→20:03)
[2017-08-25] MEDS: METOPROLOL TARTRATE 100 MG TAB PO SCH ×2 (09:54→20:04)
[2017-08-25] MEDS: CALCIUM CARBONATE 1.25 GM (CA 500 MG) TAB PO SCH ×2 (09:54→20:03)
[2017-08-25] MEDS: SODIUM CHLORIDE 0.9% FLUSH 10 ML FLUSH IV FLUSH SCH ×2 (09:54→20:02)
[2017-08-25] MEDS: ASPIRIN 81 MG CHEW TAB CHEW SCH (09:54)
[2017-08-25] MEDS: MULTIVITAMIN TAB PO SCH (09:55)
[2017-08-25] MEDS: methylPREDNISolone SOD SUCC 40 MG/1 ML VIAL IV PUSH SCH ×2 (09:55→20:04)
--- NOTE | 2017-08-25 10:36 | ECHRPT ---
Indication: HEART FAILURE CONCLUSIONS The left ventricular systolic function is low normal with an estimated ejection fraction in the rang e of 50- 55%. Normal left ventricular size. Wall thickness is normal. No regional wall motion abnormalities are present. Mild mitral annular calcification. Trace mitral valve regurgitation. Diffuse calcification of the aortic valve. Severe aortic valve stenosis. Aortic valve area is 0.69 cm. Aortic valve mean gradient is 32 mmHg. There is trace tricuspid valve regurgitation. The estimated pulmonary arterial pressure is 46 mmHg. BP: 121 / 78 HR: 92 Rhythm: Sinus MEASUREMENTS (Male / Female) Normal Values Technical Quality:Fair 2D ECHO LVOT Diameter 1.7 cm LV Ejection Fraction MOD 4C 55.1 % LV Cardiac Index MOD 4C 2042.6 cm/minm LV Ejection Fraction 4C AL 55.2 % LV Cardiac Index 4C AL 2109.0 cm/minm M-MODE Aortic Root Diameter MM 2.6 cm AV Cusp Separation MM 1.3 cm DOPPLER AV Peak Velocity 370.5 cm/s AV Peak Gradient 54.9 mmHg AV Mean Gradient 32.0 mmHg AV Velocity Time Integral 77.1 cm LVOT Peak Velocity 109.0 cm/s LVOT Peak Gradient 4.8 mmHg LVOT Velocity Time Integral 23.3 cm LVOT Cardiac Index 2512.2 cm/minm AV Area Cont Eq vti 0.7 cm AV Area Cont Eq pk 0.7 cm MV Area PHT 4.1 cm Mitral E Point Velocity 88.4 cm/s Mitral A Point Velocity 138.0 cm/s Mitral E to A Ratio 0.6 LV E' Lateral Velocity 5.0 cm/s Mitral E to LV E' Lateral Ratio 17.8 LV E' Septal Velocity 5.1 cm/s Mitral E to LV E' Septal Ratio 17.4 TR Peak Velocity 300.0 cm/s TR Peak Gradient 36.0 mmHg Right Atrial Pressure 10.0 mmHg Pulmonary Artery Systolic Pressu 46.0 mmHg Right Ventricular Systolic Press 46.0 mmHg PV Peak Velocity 114.0 cm/s PV Peak Gradient 5.2 mmHg FINDINGS LEFT VENTRICLE The left ventricular systolic function is low normal with an estimated ejection fraction in the rang e of 50- 55%. Normal left ventricular size. Wall thickness is normal. No regional wall motion abnormalities are present. RIGHT VENTRICLE Normal right ventricular size and systolic function. LEFT ATRIUM The left atrial size is normal. RIGHT ATRIUM The right atrial size is normal. ATRIAL SEPTUM Normal atrial septal thickness without atrial level shunting by limited color doppler interrogation. AORTA The aortic root and proximal ascending aorta are normal in size on limited imaging. MITRAL VALVE Mild mitral annular calcification. Trace mitral valve regurgitation. AORTIC VALVE Trileaflet aortic valve. Diffuse calcification of the aortic valve. Severe aortic valve stenosis. Aortic valve area is 0.69 cm. Aortic valve mean gradient is 32 mmHg. TRICUSPID VALVE Structurally normal tricuspid valve. There is trace tricuspid valve regurgitation. The estimated pulmonary arterial pressure is 46 mmHg. PULMONARY VALVE No pulmonary valve regurgitation or stenosis. VESSELS The inferior vena cava is normal in size. PERICARDIUM No pericardial effusion. Michelle Lord MD (Electronically Signed) Final Date:25 August 2017 10:35
--- NOTE | 2017-08-25 11:15 | HHI.FPPN ---
Subjective Remarks No acute issues overnight. Vitals are stable, patient remains afebrile. She is saturating 97-98% on 3-4 L nasal cannula. She denies any chest pain, shortness of breath, fever, chills, nausea or vomiting. She continues to have general weakness, but otherwise is feeling well this morning. (Ashly Cope MD, R3) Objective Vitals Vital Signs Date Time Temp Pulse Resp B/P (MAP) Pulse Ox O2 Delivery O2 Flow Rate FiO2 08/25/17 07:55 98 Nasal Cannula 3.00 08/25/17 06:00 80 08/25/17 05:00 81 08/25/17 04:00 98.1 85 20 121/78 (92) 97 08/25/17 04:00 85 08/25/17 04:00 Nasal Cannula 4.00 08/25/17 03:00 86 08/25/17 02:00 87 08/25/17 01:00 83 08/25/17 00:00 85 08/25/17 00:00 98.1 85 20 130/85 (100) 94 08/24/17 23:58 96 Nasal Cannula 3.00 08/24/17 23:00 82 08/24/17 22:00 83 08/24/17 21:00 81 08/24/17 20:00 85 08/24/17 20:00 98.3 85 20 140/87 (104) 95 08/24/17 19:15 93 24 150/93 (112) 94 Nasal Cannula 4.00 08/24/17 17:00 98 33 150/90 (110) 92 BiPAP 08/24/17 16:00 96 26 143/80 (101) 94 Nasal Cannula 3.00 08/24/17 15:00 98 23 137/85 (102) 92 Nasal Cannula 2.00 08/24/17 14:00 98 26 135/81 (99) 98 BiPAP 08/24/17 13:26 99.2 110 40 141/104 (116) 99 BiPAP 08/24/17 13:25 100 BiPAP 08/24/17 13:25 100 BiPAP 08/24/17 13:23 95 40 08/24/17 13:23 40 BiPAP 08/24/17 13:19 99.2 I/O 2/10/18 2/1008/24/17 08/25/17 08/25/17 08/25/17 07:00 15:00 23:00 07:00 15:00 23:00 Intake Total 540 ml Output Total 1200 ml Balance -660 ml Intake Oral 240 ml IV Total 300 ml Output Urine Total 1200 ml # Bowel Movements 0 (Ashly Cope MD, R3) Result Diagram: 08/25/17 0239 08/25/17 0239 Imaging Last Impressions Chest X-Ray 08/24/17 1320 Signed Impressions: Service Date/Time: Thursday, August 24, 2017 14:07 - CONCLUSION: Development of bibasilar prominent bronchovascular markings without consolidation, infiltrates. Milind Fairbanks MD Head CT 08/24/17 0000 Signed Impressions: Service Date/Time: Thursday, August 24, 2017 20:02 - CONCLUSION: No acute findings in the brain. Stable advanced supratentorial white matter hypodensities. The Patrick Gupta MD Objective Remarks GENERAL: Well-nourished, well-developed female patient in no acute distress. Nasal cannula in place. SKIN: Warm and dry. No rashes or lesions present. EYES: No scleral icterus. No conjunctival injection or drainage. Extraocular movements intact. THROAT: Moist mucous membranes. NECK: Supple, trachea midline. Incision clean and dry along the right carotid artery. CARDIOVASCULAR: Regular rate and rhythm, 3/6 TIERRA. Strong radial and pedal pulses. CHEST: Symmetric chest expansion with respiration. RESPIRATORY: Breath sounds clear to auscultation bilaterally. No accessory muscle use. GASTROINTESTINAL: Abdomen soft, non-tender, nondistended. Bowel sounds present. MUSCULOSKELETAL: No cyanosis or edema. No nail changes. NEURO: Cranial nerves II through XII grossly intact. Good muscle tone. PSYCH: Normal mood and affect. Good eye contact. Good insight and judgment. Normal speech. (Ashly Cope MD, R3) A/P Assessment and Plan 72 yr old w/ PMHx of aortic stenosis, HTN, COPD, and recent stroke on 07/24 s/p right CEA presents with sudden-onset SOB and admitted with NSTEMI and HCAP. Discharge Planning Unclear timetable, pending cardiology interventions. (Ashly Cope MD, R3) Attending Attestation Pt. examined with resident physician during rounds and case discussed with resident physicians. I have read the above note and agree with the assessment and plan as discussed with me. I was involved in all medical decision making for this patient. Eldon Engel MD (Eldon Engel MD) Problem List: (1) Non-ST elevation [place] (NSTEMI) ICD Codes: I21.4 - Non-ST elevation (NSTEMI) myocardial infarction Status: Acute Plan: Troponin elevated at 8.13, EKG with minor ST depression in leads V4-V6 on admission. Troponin trending down 8.13-7.54-7.03 Continue to monitor on cardiac telemetry Aspirin 81mg administered in ED Morphine 2mg IV push q30m PRN chest pain Nitroglycerin 0.4mg Sl q5m PRN chest pain, nitroglycerin 2% oint q8hr Metoprolol tartrate 100mg PO q12hr CT head negative. Heparin drip. Cardiology consulted- appreciate recs. s/p Lasix. Cardiac cath planned for tomorrow with Dr. Wilburn (2) HCAP (healthcare-associated pneumonia) ICD Codes: J18.9 - Pneumonia, unspecified organism Status: Acute Plan: Patient met severe sepsis criteria on admission due to tachycardia, tachypnea, leukocytosis, lactic acid >2, with known source of suspected HCAP CXR significant for development of bibasilar prominent bronchovascular markings w/o consolidation, infiltrates Leukocytosis, tachypnea, tachycardia, and lactic acid have resolved to wnl today. Urine Legionella antigen and pneumococcal negative Blood cultures x2 No growth in 1 day Plan: Continue Vancomycin, pharmacy consulted for dosing Continue Zosyn 4.5 gm q6h Solumedrol 40mg IV push q12hr Duonebs ARMOND q4hr, albuterol as needed (3) Congestive heart failure ICD Codes: I50.9 - Heart failure, unspecified Status: Chronic Plan: Last Echo 07/26/17 EF of 50-55%, significant for severe aortic stenosis and moderate mitral valve regurgitation 08/25 Echo significant for EF 50-55% with normal left ventricular systolic function BNP 1466 s/p 80mg IV lasix once and Lasix 40mg IV Q8H with improvement in SOB strict I & Os and daily weights (4) Aortic stenosis ICD Codes: I35.0 - Nonrheumatic aortic (valve) stenosis Status: Chronic Plan: 08/25 Echo shows diffuse calcification of the aortic valve, severe aortic valve stenosis, aortic valve area of 0.697 cm, Aortic valve mean gradient is 32 mmHg (5) HTN (hypertension) ICD Codes: I10 - Essential (primary) hypertension Status: Chronic Plan: Metoprolol [id number] PO BID Continue home Triam/HCTZ 25mg daily and amlodipine 2.5mg PO daily Clonidine PRN for BP > 180/100 (6) COPD (chronic obstructive pulmonary disease) ICD Codes: J44.9 - Chronic obstructive pulmonary disease, unspecified Status: Chronic Plan: See plan above Continue Montelukast 10mg PO HS (7) CKD (chronic kidney disease) stage 3, GFR 30-59 ml/min ICD Codes: N18.3 - Chronic kidney disease, stage 3 (moderate) Status: Chronic Plan: Baseline Cr ~1.2 per chart review BUN 23, Cr 1.63 on admission, BUN trending up to 25, creatinine trending down to 1.59 today Continue to monitor (8) Hx of arterial ischemic stroke ICD Codes: Z86.73 - Personal history of transient ischemic attack (TIA), and cerebral infarction without residual deficits Plan: Continue 40mg PO pravastatin HS (9) Anxiety ICD Codes: F41.9 - Anxiety disorder, unspecified Plan: Continue home Xanax 0.125mg PO BID PRN (10) Nutrition, metabolism, and development symptoms ICD Codes: R63.8 - Other symptoms and signs concerning food and fluid intake Status: Acute Plan: Diet: Heart Healthy Diet, NPO after midnight for cath tomorrow Fluids: none vitals q4h, strict I & Os, daily weights, neurochecks q4h (Ashly Cope MD, R3) Problem Qualifiers (1) Congestive heart failure: Qualified Codes: I50.9 - Heart failure, unspecified (2) Aortic stenosis: Qualified Codes: I35.0 - Nonrheumatic aortic (valve) stenosis (3) HTN (hypertension): Qualified Codes: I10 - Essential (primary) hypertension (4) COPD (chronic obstructive pulmonary disease): Ashly Cope MD, R3 Aug 25, 2017 11:15 Eldon Engel MD Aug 25, 2017 21:10
--- NOTE | 2017-08-25 12:52 | MB ---
cc: ENRIKE BOLAÑOS DO DATE OF CONSULTATION: 08/25/2017. REASON FOR CONSULTATION: Interventional cardiology consultation for NSTEMI. HISTORY OF PRESENT ILLNESS: Shawnee Carbajal is a pleasant 72-year-old female who sees my partner, Dr. Gilmore, in the office and presented to [facility] due to shortness of breath and chest pain. She recently was here with a stroke July 24, 2017, and during that time she started getting better and then had a right CEA done. She then was not doing great but went to rehab and after rehab she was doing phenomenal up and walking with a came with no neurological residuals that could be noted. She went home on August 21 and then on the morning of August 24, 2017, she was walking into the kitchen and got a sudden onset of shortness of breath. She felt a heavy epigastric pain for several minutes. She attempted to go to sleep for a short period of time but woke up experiencing worsening shortness of breath and so at that time she got anxious, called her home health care nurse and was told to call . On arrival, she was found to have an elevated troponin as well as EKG changes. Since that time, she has been diuresed and is currently sitting up in the chair this morning without chest pain or shortness of breath. I was asked to see her for consideration of cardiac catheterization due to the NSTEMI as well as evaluation of her aortic valve. PAST MEDICAL HISTORY: 1. Severe aortic stenosis (echo July 26, 2017, aortic valve area 0.93, mean gradient 42). 2. Recent right-sided ischemic CVA (July 24, 2017). 3. Chronic kidney disease. 4. Hypertension. 5. COPD. 6. History of pulmonary embolus (February of 2010). PAST SURGICAL HISTORY: 1. Right carotid endarterectomy with patch angioplasty (July 31, 2017). 2. Cholecystectomy (September 1997). ALLERGIES: 1. LISINOPRIL. MEDICATIONS: 1. Benadryl 25 milligrams as needed for insomnia. 2. Albuterol two puffs as needed for shortness of breath. 3. Plavix 75 milligrams daily. 4. Pravastatin 40 milligrams every night. 5. Toprol XL 200 milligrams daily. 6. Norvasc 2.5 milligrams daily. 7. Cozaar 25 milligrams daily. 8. Xanax 0.125 milligrams twice a day as needed for anxiety. 9. Symbicort two puffs every 12 hours. 10. Montelukast 10 milligrams every night. 11. A multivitamin daily. FAMILY HISTORY: Father at the age of 83 due to a abdominal aortic aneurysm. Mother at the age of 56 due to colon cancer. SOCIAL HISTORY: The patient is and lives with her . She previously smoked one pack a day for seven years and quit thirty years ago. She drinks one beer per week. Denies drug abuse. REVIEW OF SYSTEMS Fourteen systems were reviewed including osteopathic with pertinent positives and negatives as above; otherwise negative. PHYSICAL EXAMINATION VITAL SIGNS: Temperature 98.1, heart rate 85, blood pressure 121/78, respirations 20, pulse oximetry 96% on four liters. GENERAL: In general the patient appears well and in no acute distress. Awake, alert and oriented times three. HEENT: Extraocular muscles intact. Mucous membranes moist. NECK: The neck is supple. Right-sided CEA wound is clean, dry and intact. HEART: Regular rate and rhythm with a 3/6 crescendo-decrescendo murmur, which is late-peaking and dampening S2. LUNGS: Decreased breath sounds bilaterally, but minimal rales at most. ABDOMEN: The abdomen is soft, nontender and nondistended. No organomegaly noted. EXTREMITIES: No clubbing, cyanosis or edema. Femoral and distal pulses are intact bilaterally. NEUROLOGIC: No focal deficits. SKIN: Warm, dry and intact. OSTEOPATHIC: Osteopathically, no kyphoscoliosis, lordosis or paraspinal tender points. LAB WORK: Hemoglobin 8.7, hematocrit 25.8, platelets 517. Potassium 3.7, BUN 25, creatinine 1.59. Troponin 7.038. BNP 14, 66. EKGS: Electrocardiogram (August at 0115): Sinus rhythm, left axis deviation, possible left ventricular hypertrophy, ST-T wave changes may be due to LVH but more likely ischemia. IMPRESSION: 1. NSTEMI, possible type 1 versus type 2. 2. Acute diastolic heart failure secondary to severe aortic stenosis. 3. Severe aortic stenosis by echocardiogram (July 26, 2017, aortic valve area 0.93, mean gradient 42). 4. History of hypertension. 5. Chronic kidney disease stage III. 6. COPD. 7. History of recent ischemic stroke (July 24, 2017) with right-sided CEA (July 31, 2017). RECOMMENDATIONS: 1. Mrs. Carbajal presented with an NSTEMI and this may be due to her significant aortic stenosis leading to her congestive heart failure, but it is also possible that she has underlying coronary artery disease and she does have a history of carotid as well as aortic stenosis, which leads to high risk of coronary artery disease. 2. She will undergo right and left heart catheterization tomorrow as long as she is stable. Most likely this will be diagnostic and then we will have to evaluate how we go about fixing her aortic valve and whether this will be open AVR, mini AVR or consideration of TAVR plus or minus CABG / percutaneous coronary intervention depending on operation decided on. 3. For now, we will check a 2D echocardiogram to look at her overall left ventricular function to make sure that she has not had significant reduction in her ejection fraction due to her recent ischemic event. 4. She does have S-T-T wave changes anterolaterally, which may be due to left ventricular hypertrophy with her aortic stenosis versus true ischemic disease. 5. We will continue her on a heparin drip. 6. We will plan to continue to attempt to diurese her as possible, although she is looking close to compensated. 7. Further recommendations will be made based on the hospital course. Thank you for allowing me to see Shawnee Carbajal. If there are any questions, please do not hesitate to call. Enrike Bolaños DO MARK/JCC /11:48 AM /12:31 PM
--- NOTE | 2017-08-25 13:02 | HHI.PR ---
Subjective Remarks Feeling better today Objective Vital Signs Date Time Temp Pulse Resp B/P (MAP) Pulse Ox O2 Delivery O2 Flow Rate FiO2 08/25/17 07:55 98 Nasal Cannula 3.00 08/25/17 06:00 80 08/25/17 05:00 81 08/25/17 04:00 98.1 85 20 121/78 (92) 97 08/25/17 04:00 85 08/25/17 04:00 Nasal Cannula 4.00 08/25/17 03:00 86 08/25/17 02:00 87 08/25/17 01:00 83 08/25/17 00:00 85 08/25/17 00:00 98.1 85 20 130/85 (100) 94 08/24/17 23:58 96 Nasal Cannula 3.00 08/24/17 23:00 82 08/24/17 22:00 83 08/24/17 21:00 81 08/24/17 20:00 85 08/24/17 20:00 98.3 85 20 140/87 (104) 95 08/24/17 19:15 93 24 150/93 (112) 94 Nasal Cannula 4.00 08/24/17 17:00 98 33 150/90 (110) 92 BiPAP 08/24/17 16:00 96 26 143/80 (101) 94 Nasal Cannula 3.00 08/24/17 15:00 98 23 137/85 (102) 92 Nasal Cannula 2.00 08/24/17 14:00 98 26 135/81 (99) 98 BiPAP 08/24/17 13:26 99.2 110 40 141/104 (116) 99 BiPAP 08/24/17 13:25 100 BiPAP 08/24/17 13:25 100 BiPAP 08/24/17 13:23 95 40 08/24/17 13:23 40 BiPAP 08/24/17 13:19 99.2 I/O 08/24/17 08/24/17 08/24/17 08/25/17 08/25/17 08/25/17 07:00 15:00 23:00 07:00 15:00 23:00 Intake Total 540 ml Output Total 1200 ml Balance -660 ml Intake Oral 240 ml IV Total 300 ml Output Urine Total 1200 ml # Bowel Movements 0 Result Diagram: 2/11/18 0239 2/11/18 0239 Imaging Alert, fully oriented Lungs: ventilated Heart: S1, S2 regular, no gallop Abdomen: soft, no mass Ext: no edema Current Medications Medications (Trade) Dose Ordered Sig/Jasmeet Route Start Time Stop Time Status Last Admin (NS Flush) 2 ml UNSCH PRN IV FLUSH 08/24/17 15:15 (NS Flush) 2 ml BID IV FLUSH 08/24/17 21:00 08/25/17 09:54 (Zofran Inj) 4 mg Q6H PRN IVP 08/24/17 15:45 (Narcan Inj) 0.4 mg UNSCH PRN IV PUSH 08/24/17 15:45 (Kerry-Colace) 1 tab BID PO 08/24/17 21:00 08/25/17 09:53 (Milk Of Magnesia Liq) 30 ml Q12H PRN PO 08/24/17 15:45 (Senokot) 17.2 mg Q12H PRN PO 08/24/17 15:45 (Dulcolax Supp) 10 mg DAILY PRN RECTAL 08/24/17 15:45 (Lactulose Liq) 30 ml DAILY PRN PO 08/24/17 15:45 (Nitrostat Sl) 0.4 mg Q5M PRN SL 08/24/17 16:00 (Morphine Inj) 2 mg Q30M PRN IV PUSH 08/24/17 16:00 (Tylenol) 650 mg Q6H PRN PO 08/24/17 16:00 (Heparin Inj) 5,000 units UNSCH PRN IV PUSH 08/24/17 22:00 (Heparin Inj) 2,500 units UNSCH PRN IV PUSH 08/24/17 22:00 Heparin Sodium/ Dextrose 250 ml @ 9.6 mls/hr TITRATE PRN IV 08/24/17 16:00 Future hold 08/24/17 22:18 (Nitroglycerin 2% Oint) 0.5 inch Q8HR TOPICAL 08/24/17 16:00 08/25/17 05:17 (Aspirin Chew) 81 mg DAILY CHEW 08/25/17 09:00 08/25/17 09:54 (Duoneb Neb) 1 ampule Q4HR NEB NEB 08/24/17 16:15 08/25/17 11:47 Pharmacy Profile Note 0 ml @ 1 mls/hr UNSCH OTHER 2/10/18 16:15 (Xanax) 0.125 mg BID PRN PO 08/24/17 17:15 08/24/17 21:12 (Norvasc) 2.5 mg DAILY PO 08/25/17 09:00 08/25/17 09:53 (Symbicort 160-4.5 Mcg Inh) 2 puff Q12HR INH 08/24/17 21:00 (Vitamin D3) 1,000 units DAILY PO 08/25/17 09:00 08/25/17 09:53 (Singulair) 10 mg HS PO 08/24/17 21:00 08/24/17 21:12 (Pravachol) 40 mg HS PO 08/24/17 21:00 08/24/17 21:13 (Lopressor) 100 mg Q12HR PO 08/25/17 09:00 08/25/17 09:54 (SoluMEDROL INJ) 40 mg Q12HR IV PUSH 08/25/17 09:00 08/25/17 09:55 (Pill Splitter) 1 ea UNSCH PRN OTHER 08/24/17 17:45 (Oscal) 500 mg BID PO 08/24/17 21:00 08/25/17 09:54 (Theragran) 1 tab DAILY PO 08/25/17 09:00 08/25/17 09:55 (Albuterol Neb) 2.5 mg Q2HR NEB PRN NEB 08/24/17 17:45 Piperacillin Sod/ Tazobactam Sod 50 ml @ 100 mls/hr Q6H IV 08/24/17 18:00 08/25/17 05:18 (Lasix Inj) 40 mg DAILY IV PUSH 08/26/17 09:00 Assessment and Plan Problem List: (1) Non-ST elevation VA (NSTEMI) ICD Codes: I21.4 - Non-ST elevation (NSTEMI) myocardial infarction Status: Acute Plan: Troponin increased No chest pain Doing better Interventional cardiology consulted (2) Aortic stenosis ICD Codes: I35.0 - Nonrheumatic aortic (valve) stenosis Status: Chronic Plan: Severe aortic stenosis Evaluation by interventional cardiology Case discussed with patient and Problem Qualifiers (1) Aortic stenosis: Qualified Codes: I35.0 - Nonrheumatic aortic (valve) stenosis Michelle Lord MD Aug 25, 2017 13:02
[2017-08-25] MEDS ORDERED: VANCOMYCIN INJ 750 MG in SODIUM CHLOR 0.9% 250 ML INJ 250 ML IV ONE (16:00)
--- NOTE | 2017-08-25 16:56 | EKG ---
Date Performed: 08/25/2017 Time Performed: 01:15:58 PTAGE: 77 years EKG: Sinus rhythm Left axis deviation Left ventricular hypertrophy Extensive ST-T changes may be due to hypertrophy an d/or ischemia Abnormal ECG PREVIOUS TRACING : 08/24/2017 19.18 Compared to prior tracing, ST/T wave changes are more promi nent DOCTOR: Enrike Wilburn Interpretating Date/Time 08/25/2017 16:56:17
--- NOTE | 2017-08-25 17:26 | EKG ---
Date Performed: 08/24/2017 Time Performed: 14:44:54 PTAGE: 77 years EKG: Sinus rhythm MARKED LEFT AXIS DEVIATION NONSPECIFIC ST & T-WAVE ABNORMALITY ABNORMAL ECG PREVIOUS TRACING : 07/24/2017 14.46 Compared to prior tracing, rate has decreased, non-specific ST/T wave changes now noted DOCTOR: Enrike Wilburn Interpretating Date/Time 08/25/2017 17:26:36
--- NOTE | 2017-08-25 17:40 | EKG ---
Date Performed: 08/24/2017 Time Performed: 13:16:58 PTAGE: 77 years EKG: SINUS TACHYCARDIA WITH OCCASIONAL VENTRICULAR PREMATURE COMPLEXES MARKED LEFT AXIS DEVIATIO N INCOMPLETE RIGHT BUNDLE BRANCH BLOCK ABNORMAL ECG Compared to prior tracing, rate has increased DOCTOR: Enrike Wilburn Interpretating Date/Time 08/25/2017 17:38:45
[2017-08-25] MEDS: MONTELUKAST SODIUM 10 MG TAB PO SCH (20:03)
[2017-08-25] MEDS: PRAVASTATIN SOD 40 MG TAB PO SCH (20:03)
[2017-08-25] MEDS: ZOLPIDEM TARTRATE 5 MG TAB PO PRN (20:03)
[2017-08-25] MEDS: HEPARIN-D5W 25,000 U/250 ML 250 ML IV PRN (20:06)
[2017-08-26] VITALS (22 sets, daily range): BP systolic 91–120; BP diastolic 58–73; PULSE 68–114; RESP 18; TEMP 97.2–98.6; O2SAT 92–98
[2017-08-26] MEDS: RESP: ALBUTEROL 2.5 MG/IPRATROPIUM 0.5 MG NEB (SCH) NEB ×7 (00:13→23:47)
[2017-08-26] MEDS: NITROGLYCERIN 2% OINT 1 GM PACKET TOPICAL SCH ×3 (05:16→21:48)
[2017-08-26] MEDS: PIPERACIL-TAZO 3.375 GM PREMIX 50 ML IV SCH ×4 (05:17→23:20)
[2017-08-26 06:53] LABS: AUTOMATED NEUTROPHIL # 10.2 TH/MM3 (1.8-7.7); BASOPHIL % 0.1 % (0.0-2.0); HEMOGLOBIN 8.3 GM/DL (11.6-15.3); LYMPH % 6.6 % (9.0-44.0); LYMPHOCYTE # 0.8 TH/MM3 (1.0-4.8); MEAN CELL VOLUME 90.6 FL (80.0-100.0); MEAN CORPUSCULAR HEMOGLOBIN 30.1 PG (27.0-34.0); MEAN CORPUSCULAR HGB CONC 33.2 % (32.0-36.0); MEAN PLATELET VOLUME 7.6 FL (7.0-11.0); MONO % 5.5 % (0.0-8.0); MONOCYTE # 0.6 TH/MM3 (0-0.9); NEUT % 87.8 % (16.0-70.0); PLATELET COUNT 539 TH/MM3 (150-450); RED BLOOD COUNT 2.76 MIL/MM3 (4.00-5.30); RED CELL DISTRIBUTION WIDTH 13.7 % (11.6-17.2); WHITE BLOOD COUNT 11.6 TH/MM3 (4.0-11.0)
[2017-08-26 07:27] LABS: ALKALINE PHOSPHATASE 88 U/L (45-117); ALT (GPT) 22 U/L (10-53); AST (GOT) 46 U/L (15-37); BICARBONATE 33.6 MEQ/L (21.0-32.0); BLOOD UREA NITROGEN 45 MG/DL (7-18); CALCIUM 9.8 MG/DL (8.5-10.1); CHLORIDE 92 MEQ/L (98-107); GLOMERULAR FILTRATION RATE 18 ML/MIN (>89); GLUCOSE,RANDOM 136 MG/DL (74-106); SODIUM (NA) 135 MEQ/L (136-145); TOTAL BILIRUBIN ADULT 0.5 MG/DL (0.2-1.0); TOTAL PROTEIN 7.1 GM/DL (6.4-8.2)
--- NOTE | 2017-08-26 07:56 | PD.CARD.PN ---
Subjective Subjective Remarks Pt without CV complaints Objective Medications Current Medications Medications (Trade) Dose Ordered Sig/Jasmeet Route Start Time Stop Time Status Last Admin (NS Flush) 2 ml UNSCH PRN IV FLUSH 08/24/17 15:15 (NS Flush) 2 ml BID IV FLUSH 08/24/17 21:00 08/25/17 20:02 (Zofran Inj) 4 mg Q6H PRN IVP 08/24/17 15:45 (Narcan Inj) 0.4 mg UNSCH PRN IV PUSH 08/24/17 15:45 (Kerry-Colace) 1 tab BID PO 08/24/17 21:00 08/25/17 20:03 (Milk Of Magnesia Liq) 30 ml Q12H PRN PO 08/24/17 15:45 (Senokot) 17.2 mg Q12H PRN PO 08/24/17 15:45 (Dulcolax Supp) 10 mg DAILY PRN RECTAL 08/24/17 15:45 (Lactulose Liq) 30 ml DAILY PRN PO 08/24/17 15:45 (Nitrostat Sl) 0.4 mg Q5M PRN SL 08/24/17 16:00 (Morphine Inj) 2 mg Q30M PRN IV PUSH 08/24/17 16:00 (Tylenol) 650 mg Q6H PRN PO 08/24/17 16:00 (Heparin Inj) 5,000 units UNSCH PRN IV PUSH 08/24/17 22:00 (Heparin Inj) 2,500 units UNSCH PRN IV PUSH 08/24/17 22:00 Heparin Sodium/ Dextrose 250 ml @ 9.6 mls/hr TITRATE PRN IV 08/24/17 16:00 Future hold 08/25/17 20:06 (Nitroglycerin 2% Oint) 0.5 inch Q8HR TOPICAL 08/24/17 16:00 08/26/17 05:16 (Aspirin Chew) 81 mg DAILY CHEW 08/25/17 09:00 08/25/17 09:54 (Duoneb Neb) 1 ampule Q4HR NEB NEB 08/24/17 16:15 08/26/17 07:51 Pharmacy Profile Note 0 ml @ 1 mls/hr UNSCH OTHER 08/24/17 16:15 (Xanax) 0.125 mg BID PRN PO 08/24/17 17:15 08/24/17 21:12 (Norvasc) 2.5 mg DAILY PO 08/25/17 09:00 08/25/17 09:53 (Symbicort 160-4.5 Mcg Inh) 2 puff Q12HR INH 08/24/17 21:00 08/25/17 20:22 (Vitamin D3) 1,000 units DAILY PO 08/25/17 09:00 08/25/17 09:53 (Singulair) 10 mg HS PO 08/24/17 21:00 08/25/17 20:03 (Pravachol) 40 mg HS PO 08/24/17 21:00 08/25/17 20:03 (Lopressor) 100 mg Q12HR PO 08/25/17 09:00 08/25/17 09:54 (SoluMEDROL INJ) 40 mg Q12HR IV PUSH 08/25/17 09:00 08/25/17 20:04 (Pill Splitter) 1 ea UNSCH PRN OTHER 08/24/17 17:45 (Oscal) 500 mg BID PO 08/24/17 21:00 08/25/17 20:03 (Theragran) 1 tab DAILY PO 08/25/17 09:00 08/25/17 09:55 (Albuterol Neb) 2.5 mg Q2HR NEB PRN NEB 08/24/17 17:45 Piperacillin Sod/ Tazobactam Sod 50 ml @ 100 mls/hr Q6H IV 08/24/17 18:00 08/26/17 05:17 (Lasix Inj) 40 mg DAILY IV PUSH 08/26/17 09:00 (Ambien) 5 mg HS PRN PO 08/25/17 17:30 08/25/17 20:03 Vital Signs / I&O Vital Signs Date Time Temp Pulse Resp B/P (MAP) Pulse Ox O2 Delivery O2 Flow Rate FiO2 08/26/17 07:51 98 Nasal Cannula 1.00 08/26/17 04:00 86 08/26/17 04:00 Nasal Cannula 2.00 08/26/17 04:00 98.6 86 18 120/73 (89) 97 08/26/17 03:00 82 08/26/17 02:00 79 08/26/17 01:00 76 08/26/17 00:00 Nasal Cannula 2.00 08/26/17 00:00 74 08/26/17 00:00 98.2 80 18 95/63 (74) 96 08/25/17 23:00 82 08/25/17 22:08 94 40 08/25/17 22:00 80 08/25/17 21:34 Nasal Cannula 3.00 08/25/17 21:00 82 08/25/17 20:00 74 08/25/17 20:00 Nasal Cannula 2.00 08/25/17 20:00 98.6 74 20 90/54 (66) 97 08/25/17 18:00 80 08/25/17 17:00 82 08/25/17 16:00 80 08/25/17 15:49 98.8 77 19 121/74 (90) 95 08/25/17 15:00 85 08/25/17 14:00 80 08/25/17 13:00 76 08/25/17 12:40 78 19 92/54 (67) 97 08/25/17 12:00 80 08/25/17 11:00 75 08/25/17 10:00 80 08/25/17 09:00 84 08/25/17 08:00 86 08/25/17 07:55 97 Nasal Cannula 4.00 08/25/17 07:55 98 Nasal Cannula 3.00 08/25/17 07:55 97.8 85 19 119/74 (89) 97 I/O 08/25/17 08/25/17 08/25/17 08/26/17 08/26/17 08/26/17 07:00 15:00 23:00 07:00 15:00 23:00 Intake Total 540 ml 975 ml 240 ml Output Total 1200 ml 800 ml 1100 ml Balance -660 ml 175 ml -860 ml Intake Oral 240 ml 720 ml 240 ml IV Total 300 ml 255 ml Output Urine Total 1200 ml 800 ml 1100 ml # Bowel Movements 0 0 0 Physical Exam GENERAL: Well developed, well nourished. No acute distress. HEENT: Jugular venous pressure is normal. CHEST: Lungs clear to auscultation bilaterally. CARDIAC: Regular rate , murmur ABDOMEN: Soft, nontender, no hepatosplenomegaly. Bowel sounds present. EXTREMITIES: No clubbing, cyanosis, or edema. Laboratory Laboratory Tests Test 08/25/17 11:32 08/25/17 19:30 08/26/17 06:18 Activated Partial Thromboplast Time 51.8 SEC 53.9 SEC White Blood Count 11.6 TH/MM3 Red Blood Count 2.76 MIL/MM3 Hemoglobin 8.3 GM/DL Hematocrit 25.0 % Mean Corpuscular Volume 90.6 FL Mean Corpuscular Hemoglobin 30.1 PG Mean Corpuscular Hemoglobin Concent 33.2 % Red Cell Distribution Width 13.7 % Platelet Count 539 TH/MM3 Mean Platelet Volume 7.6 FL Neutrophils (%) (Auto) 87.8 % Lymphocytes (%) (Auto) 6.6 % Monocytes (%) (Auto) 5.5 % Eosinophils (%) (Auto) 0.0 % Basophils (%) (Auto) 0.1 % Neutrophils # (Auto) 10.2 TH/MM3 Lymphocytes # (Auto) 0.8 TH/MM3 Monocytes # (Auto) 0.6 TH/MM3 Eosinophils # (Auto) 0.0 TH/MM3 Basophils # (Auto) 0.0 TH/MM3 CBC Comment DIFF FINAL Differential Comment Blood Urea Nitrogen 45 MG/DL Creatinine 2.60 MG/DL Random Glucose 136 MG/DL Total Protein 7.1 GM/DL Albumin 3.0 GM/DL Calcium Level 9.8 MG/DL Alkaline Phosphatase 88 U/L Aspartate Amino Transf (AST/SGOT) 46 U/L Alanine Aminotransferase (ALT/SGPT) 22 U/L Total Bilirubin 0.5 MG/DL Sodium Level 135 MEQ/L Potassium Level 3.9 MEQ/L Chloride Level 92 MEQ/L Carbon Dioxide Level 33.6 MEQ/L Anion Gap 9 MEQ/L Estimat Glomerular Filtration Rate 18 ML/MIN Assessment and Plan Assessment and Plan - will have to hold off on cath secondary to CKD CKD - Cr >2.0 -consider Renal consult Janell Gilmore MD Aug 26, 2017 07:56
--- NOTE | 2017-08-26 08:31 | HHI.FPPN ---
Subjective Remarks Patient seen and examined this morning by medical team. No acute events overnight. Vital signs remain stable while on 1-2L nasal cannula. Patient appeared nervous regarding the postponement of her catheterization as her renal function has decreased overnight. Her only complaint this morning is mild constipation as she feels "bloated," but is without pain. Otherwise she currently is without complaints and denies any fevers, chills, SOB, chest pain, NVD, or calf tenderness. (Tom Corea MD R2) Remarks Patient examined separate from the resident physicians this morning with no complaints. There are no acute events overnight and patient remains comfortable. She remains mildly short of breath but feels much better and is only using 2 L nasal cannula. She denies any current chest pain or palpitations , she denies any nausea or vomiting, she denies any fevers or chills. (Eldon Engel MD) Objective Vitals Vital Signs Date Time Temp Pulse Resp B/P (MAP) Pulse Ox O2 Delivery O2 Flow Rate FiO2 08/26/17 07:55 97.7 91 18 119/67 (84) 96 08/26/17 07:51 98 Nasal Cannula 1.00 08/26/17 04:00 86 08/26/17 04:00 Nasal Cannula 2.00 08/26/17 04:00 98.6 86 18 120/73 (89) 97 08/26/17 03:00 82 08/26/17 02:00 79 08/26/17 01:00 76 08/26/17 00:00 Nasal Cannula 2.00 08/26/17 00:00 74 08/26/17 00:00 98.2 80 18 95/63 (74) 96 08/25/17 23:00 82 08/25/17 22:08 94 40 08/25/17 22:00 80 08/25/17 21:34 Nasal Cannula 3.00 08/25/17 21:00 82 08/25/17 20:00 74 08/25/17 20:00 Nasal Cannula 2.00 08/25/17 20:00 98.6 74 20 90/54 (66) 97 08/25/17 18:00 80 08/25/17 17:00 82 08/25/17 16:00 80 08/25/17 15:49 98.8 77 19 121/74 (90) 95 08/25/17 15:00 85 08/25/17 14:00 80 08/25/17 13:00 76 08/25/17 12:40 78 19 92/54 (67) 97 08/25/17 12:00 80 08/25/17 11:00 75 08/25/17 10:00 80 08/25/17 09:00 84 I/O 08/25/17 08/25/17 08/25/17 08/26/17 08/26/17 08/26/17 07:00 15:00 23:00 07:00 15:00 23:00 Intake Total 540 ml 975 ml 240 ml Output Total 1200 ml 800 ml 1100 ml Balance -660 ml 175 ml -860 ml Intake Oral 240 ml 720 ml 240 ml IV Total 300 ml 255 ml Output Urine Total 1200 ml 800 ml 1100 ml # Bowel Movements 0 0 0 (Tom Corea MD R2) Result Diagram: 08/26/1718 08/26/1718 Objective Remarks GENERAL: Elderly female patient lying in bed in no acute distress. SKIN: Warm and dry. No rashes or lesions present. HEENT: AT, NC with EOMI. No rhinorrhea. MMM. No visible LAD or JVD appreciated. CARDIOVASCULAR: Regular rate and rhythm, 3/6 TIERRA. Strong radial and pedal pulses. RESPIRATORY: Breath sounds clear to auscultation bilaterally. No accessory muscle use. Currently on 2L NC. GASTROINTESTINAL: Abdomen soft, non-tender with +BS. Patient mildly distended. No fluid or masses appreciated. MUSCULOSKELETAL: No cyanosis or edema. No calf tenderness. NEURO: Afocal. CN 2-12 grossly intact. Good muscle tone. PSYCH: Normal mood and affect. Good eye contact. Good insight and judgment. Normal speech. (Tom Corea MD R2) A/P Assessment and Plan 72 yr old w/ PMHx of aortic stenosis, HTN, COPD, and recent stroke on 07/24 s/p right CEA presents with sudden-onset SOB and admitted with NSTEMI and HCAP. Discharge Planning Unclear timetable, pending cardiology interventions. (Tom Corea MD R2) Attending Attestation Patient examined and case discussed with resident physicians I have read the above note and agree with the assessment/plan as discussed with me I was involved in all medical decision making for this patient Eldon Engel MD (Eldon Engel MD) Problem List: (1) Non-ST elevation IN (NSTEMI) ICD Codes: I21.4 - Non-ST elevation (NSTEMI) myocardial infarction Status: Acute Plan: Troponin elevated at 8.13, EKG with minor ST depression in leads V4-V6 on admission. Troponin trending down 8.13-7.54-7.03 Continue to monitor on cardiac telemetry Aspirin 81mg administered in ED Morphine 2mg IV push q30m PRN chest pain Nitroglycerin 0.4mg Sl q5m PRN chest pain, nitroglycerin 2% oint q8hr Metoprolol tartrate 100mg PO q12hr CT head negative. Heparin drip. Cardiology consulted- appreciate recs. s/p Lasix. Cardiac cath postponed due to creatinine elevation with Dr. Wilburn (2) CKD (chronic kidney disease) stage 3, GFR 30-59 ml/min ICD Codes: N18.3 - Chronic kidney disease, stage 3 (moderate) Status: Chronic Plan: Baseline Cr ~1.2 per chart review Creatinine increased to 2.6 on 08/26, cardiac catheterization postponed Lasix held Continue to monitor (3) JOE (acute kidney injury) ICD Codes: N17.9 - Acute kidney failure, unspecified Status: Acute Plan: -Patient with increase in creatinine to 2.6 on 08/26 -Baseline Cr ~1.2 per chart review -Lasix held and cardiac catheterization postponed (4) HCAP (healthcare-associated pneumonia) ICD Codes: J18.9 - Pneumonia, unspecified organism Status: Acute Plan: Patient met severe sepsis criteria on admission due to tachycardia, tachypnea, leukocytosis, lactic acid >2, with known source of suspected HCAP CXR significant for development of bibasilar prominent bronchovascular markings w/o consolidation, infiltrates Leukocytosis, tachypnea, tachycardia, and lactic acid have resolved to wnl today. Urine Legionella antigen and pneumococcal negative Blood cultures x2 No growth in 1 day Plan: Continue Vancomycin, pharmacy consulted for dosing Continue Zosyn 4.5 gm q6h Solumedrol 40mg IV push q12hr Duonebs ARMOND q4hr, albuterol as needed (5) COPD (chronic obstructive pulmonary disease) ICD Codes: J44.9 - Chronic obstructive pulmonary disease, unspecified Status: Chronic Plan: See plan above Continue Montelukast 10mg PO HS (6) Congestive heart failure ICD Codes: I50.9 - Heart failure, unspecified Status: Chronic Plan: Last Echo 07/26/17 EF of 50-55%, significant for severe aortic stenosis and moderate mitral valve regurgitation 08/25 Echo significant for EF 50-55% with normal left ventricular systolic function, continued severe aortic stenosis BNP 1466 s/p 80mg IV lasix once and Lasix 40mg IV Q8H with improvement in SOB, held due to creatinine increase strict I & Os and daily weights (7) Aortic stenosis ICD Codes: I35.0 - Nonrheumatic aortic (valve) stenosis Status: Chronic Plan: 08/25 Echo shows diffuse calcification of the aortic valve, severe aortic valve stenosis, aortic valve area of 0.697 cm, Aortic valve mean gradient is 32 mmHg (8) HTN (hypertension) ICD Codes: I10 - Essential (primary) hypertension Status: Chronic Plan: Metoprolol [id number] PO BID Continue home Triam/HCTZ 25mg daily and amlodipine 2.5mg PO daily Clonidine PRN for BP > 180/100 (9) Hx of arterial ischemic stroke ICD Codes: Z86.73 - Personal history of transient ischemic attack (TIA), and cerebral infarction without residual deficits Plan: Continue 40mg PO pravastatin HS (10) Anxiety ICD Codes: F41.9 - Anxiety disorder, unspecified Plan: Continue home Xanax 0.125mg PO BID PRN (11) Nutrition, metabolism, and development symptoms ICD Codes: R63.8 - Other symptoms and signs concerning food and fluid intake Status: Acute Plan: Diet: Heart Healthy Diet, NPO after midnight for cath tomorrow Fluids: none vitals q4h, strict I & Os, daily weights, neurochecks q4h (Tom Corea MD R2) Problem Qualifiers (1) COPD (chronic obstructive pulmonary disease): (2) Congestive heart failure: Qualified Codes: I50.9 - Heart failure, unspecified (3) Aortic stenosis: Qualified Codes: I35.0 - Nonrheumatic aortic (valve) stenosis (4) HTN (hypertension): Qualified Codes: I10 - Essential (primary) hypertension Tom Corea MD R2 Aug 26, 2017 08:31 Eldon Engel MD Aug 26, 2017 16:41
[2017-08-26] MEDS: SODIUM CHLORIDE 0.9% FLUSH 10 ML FLUSH IV FLUSH SCH ×2 (09:00→21:00)
[2017-08-26] MEDS ORDERED: FUROSEMIDE 40 MG/4 ML VIAL IV PUSH SCH (09:00)
[2017-08-26] MEDS: BUDESONIDE-FORMOTEROL 160/4.5 MCG INHALER INH SCH ×2 (09:00→21:48)
[2017-08-26] MEDS: METOPROLOL TARTRATE 100 MG TAB PO SCH ×2 (09:32→21:47)
[2017-08-26] MEDS: methylPREDNISolone SOD SUCC 40 MG/1 ML VIAL IV PUSH SCH ×2 (09:32→21:48)
[2017-08-26] MEDS: ASPIRIN 81 MG CHEW TAB CHEW SCH (09:32)
[2017-08-26] MEDS: amLODIPine BESYLATE 5 MG TAB PO SCH (09:34)
[2017-08-26] MEDS: CALCIUM CARBONATE 1.25 GM (CA 500 MG) TAB PO SCH ×2 (09:34→21:47)
[2017-08-26] MEDS: MULTIVITAMIN TAB PO SCH (09:35)
[2017-08-26] MEDS: CHOLECALCIFEROL (VIT D3) 1000 UNIT TAB PO SCH (09:35)
[2017-08-26] MEDS: DOCUSATE SODIUM 50 MG/SENNA 8.6 MG TAB PO SCH ×2 (09:35→21:00)
--- NOTE | 2017-08-26 17:19 | PD.CONS ---
HPI Service Nephrology Consult Requested By Dr. Lopez Reason for Consult JOE with upcoming cardiac procedure Primary Care Physician Eldon Engel MD History of Present Illness Patient is a 77 yr old female w/ PMHx of aortic stenosis, HTN, COPD, and recent stroke on 07/24 s/p right CEA. Patient presents to the ED with sudden- onset SOB and associated abdominal pain. She was found to have a troponin of >8 and BNP near 1500 on admission. Nephrology was consulted for evaluation of JOE with worsening renal indices with a creatinine of 2.60 and GFR of 18 ml/min today. Patient was to have cardiac procedure but this has now been put on hold with renal function. Patient has been having CKD stage 3 followed by primary care. Appears that baseline creatinine is around 1.5. 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 Past Surgical History Cholecystectomy 09/21/97 Active Ordered Medications Current Medications Medications (Trade) Dose Ordered Sig/Jasmeet Route Start Time Stop Time Status Last Admin (NS Flush) 2 ml UNSCH PRN IV FLUSH 08/24/17 15:15 (NS Flush) 2 ml BID IV FLUSH 08/24/17 21:00 08/25/17 20:02 (Zofran Inj) 4 mg Q6H PRN IVP 08/24/17 15:45 (Narcan Inj) 0.4 mg UNSCH PRN IV PUSH 08/24/17 15:45 (Kerry-Colace) 1 tab BID PO 08/24/17 21:00 08/26/17 09:35 (Milk Of Magnesia Liq) 30 ml Q12H PRN PO 08/24/17 15:45 (Senokot) 17.2 mg Q12H PRN PO 08/24/17 15:45 (Dulcolax Supp) 10 mg DAILY PRN RECTAL 08/24/17 15:45 (Lactulose Liq) 30 ml DAILY PRN PO 08/24/17 15:45 08/26/17 09:31 (Nitrostat Sl) 0.4 mg Q5M PRN SL 08/24/17 16:00 (Morphine Inj) 2 mg Q30M PRN IV PUSH 08/24/17 16:00 (Tylenol) 650 mg Q6H PRN PO 08/24/17 16:00 (Heparin Inj) 5,000 units UNSCH PRN IV PUSH 08/24/17 22:00 (Heparin Inj) 2,500 units UNSCH PRN IV PUSH 08/24/17 22:00 Heparin Sodium/ Dextrose 250 ml @ 9.6 mls/hr TITRATE PRN IV 08/24/17 16:00 Future hold 08/25/17 20:06 (Nitroglycerin 2% Oint) 0.5 inch Q8HR TOPICAL 08/24/17 16:00 08/26/17 05:16 (Aspirin Chew) 81 mg DAILY CHEW 08/25/17 09:00 08/26/17 09:32 (Duoneb Neb) 1 ampule Q4HR NEB NEB 08/24/17 16:15 08/26/17 15:33 Pharmacy Profile Note 0 ml @ 1 mls/hr UNSCH OTHER 08/24/17 16:15 (Xanax) 0.125 mg BID PRN PO 08/24/17 17:15 08/24/17 21:12 (Norvasc) 2.5 mg DAILY PO 08/25/17 09:00 08/26/17 09:34 (Symbicort 160-4.5 Mcg Inh) 2 puff Q12HR INH 08/24/17 21:00 08/25/17 20:22 (Vitamin D3) 1,000 units DAILY PO 08/25/17 09:00 08/26/17 09:35 (Singulair) 10 mg HS PO 08/24/17 21:00 08/25/17 20:03 (Pravachol) 40 mg HS PO 08/24/17 21:00 08/25/17 20:03 (Lopressor) 100 mg Q12HR PO 08/25/17 09:00 08/26/17 09:32 (SoluMEDROL INJ) 40 mg Q12HR IV PUSH 08/25/17 09:00 08/26/17 09:32 (Pill Splitter) 1 ea UNSCH PRN OTHER 08/24/17 17:45 (Oscal) 500 mg BID PO 08/24/17 21:00 08/26/17 09:34 (Theragran) 1 tab DAILY PO 08/25/17 09:00 08/26/17 09:35 (Albuterol Neb) 2.5 mg Q2HR NEB PRN NEB 08/24/17 17:45 Piperacillin Sod/ Tazobactam Sod 50 ml @ 100 mls/hr Q6H IV 08/24/17 18:00 08/26/17 12:55 (Lasix Inj) 40 mg DAILY IV PUSH 08/26/17 09:00 08/26/17 09:34 (Ambien) 5 mg HS PRN PO 08/25/17 17:30 08/25/17 20:03 Family History Father: at 83-AAA Mother: at 56- colon cancer Social History Marital Status: Living Situation: Lives with her in [place] Tobacco: quit 30 years ago, h/o smoking 1ppd for 7 yrs Alcohol: 1beer/week Illicit drug use: none (Michell Salguero) Physical Exam Vital Signs Vital Signs Date Time Temp Pulse Resp B/P (MAP) Pulse Ox O2 Delivery O2 Flow Rate FiO2 08/26/17 15:33 Nasal Cannula 1.00 08/26/17 07:55 97.7 91 18 119/67 (84) 96 08/26/17 07:53 Nasal Cannula 2.00 40 08/26/17 07:53 92 08/26/17 07:51 98 Nasal Cannula 1.00 08/26/17 04:00 86 08/26/17 04:00 Nasal Cannula 2.00 08/26/17 04:00 98.6 86 18 120/73 (89) 97 08/26/17 03:00 82 08/26/17 02:00 79 08/26/17 01:00 76 08/26/17 00:00 Nasal Cannula 2.00 08/26/17 00:00 74 08/26/17 00:00 98.2 80 18 95/63 (74) 96 08/25/17 23:00 82 08/25/17 22:08 94 40 08/25/17 22:00 80 08/25/17 21:34 Nasal Cannula 3.00 08/25/17 21:00 82 08/25/17 20:00 74 08/25/17 20:00 Nasal Cannula 2.00 08/25/17 20:00 98.6 74 20 90/54 (66) 97 08/25/17 18:00 80 Physical Exam Severe Aortic Stenosis Chronic Renal Insufficiency HTN COPD Hx of Pulmonary embolism 02/18/10 Hx of Right Ischemic CVA 07/24/17 Past Surgical History Cholecystectomy 09/21/97 GENERAL: Alert and oriented SKIN: Warm and dry. HEAD: Normocephalic. EYES: No scleral icterus. No injection or drainage. NECK: Supple, trachea midline. No JVD or lymphadenopathy. CARDIOVASCULAR: Regular rate and rhythm without murmurs, gallops, or rubs. RESPIRATORY: Breath sounds equal bilaterally. No accessory muscle use. O2 2 liters GASTROINTESTINAL: Abdomen soft, non-tender, nondistended. MUSCULOSKELETAL: No cyanosis, or edema. BACK: Nontender without obvious deformity. No CVA tenderness. Laboratory Laboratory Tests Test 08/25/17 19:30 08/26/17 06:18 Activated Partial Thromboplast Time 53.9 White Blood Count 11.6 Red Blood Count 2.76 Hemoglobin 8.3 Hematocrit 25.0 Mean Corpuscular Volume 90.6 Mean Corpuscular Hemoglobin 30.1 Mean Corpuscular Hemoglobin Concent 33.2 Red Cell Distribution Width 13.7 Platelet Count 539 Mean Platelet Volume 7.6 Neutrophils (%) (Auto) 87.8 Lymphocytes (%) (Auto) 6.6 Monocytes (%) (Auto) 5.5 Eosinophils (%) (Auto) 0.0 Basophils (%) (Auto) 0.1 Neutrophils # (Auto) 10.2 Lymphocytes # (Auto) 0.8 Monocytes # (Auto) 0.6 Eosinophils # (Auto) 0.0 Basophils # (Auto) 0.0 CBC Comment DIFF FINAL Differential Comment Blood Urea Nitrogen 45 Creatinine 2.60 Random Glucose 136 Total Protein 7.1 Albumin 3.0 Calcium Level 9.8 Alkaline Phosphatase 88 Aspartate Amino Transf (AST/SGOT) 46 Alanine Aminotransferase (ALT/SGPT) 22 Total Bilirubin 0.5 Sodium Level 135 Potassium Level 3.9 Chloride Level 92 Carbon Dioxide Level 33.6 Anion Gap 9 Estimat Glomerular Filtration Rate 18 Date/Time Source Procedure Growth Status 08/24/17 13:25 Blood Peripheral Aerobic Blood Culture - Preliminary NO GROWTH IN 2 DAYS Resulted 08/24/17 13:25 Blood Peripheral Anaerobic Blood Culture - Preliminary NO GROWTH IN 2 DAYS Resulted 08/24/17 16:20 Urine Catheterized Urine Streptococcus pneumoniae Antigen (M - Final PRESUMPTIVE NEGATIVE FOR STREPTOCOCCU... Complete (Michell Salguero) Result Diagram: 08/26/17 0618 08/26/17 0618 Imaging Last Impressions Chest X-Ray 08/24/17 1320 Signed Impressions: Service Date/Time: Thursday, August 24, 2017 14:07 - CONCLUSION: Development of bibasilar prominent bronchovascular markings without consolidation, infiltrates. Milind Fairbanks MD Head CT 08/24/17 0000 Signed Impressions: Service Date/Time: Thursday, August 24, 2017 20:02 - CONCLUSION: No acute findings in the brain. Stable advanced supratentorial white matter hypodensities. The Patrick Gupta MD (Michell aSlguero) Assessment and Plan Problem List: (1) JOE (acute kidney injury) ICD Codes: N17.9 - Acute kidney failure, unspecified Plan: JOE on CKD with creatinine of 2.60 with a GFR 18ml/min Appears that baseline creatinine is around 1.5 JOE possibly related to sepsis or prerenal azotemia CKD from maybe HTN or renovascular disease Trace proteinurea Potassium WNL Plan Renal US Maintain strict I+O Fluids encouraged Continue to hold lasix Continue antibiotics renal dosing Continue to follow labs (2) HTN (hypertension) ICD Codes: I10 - Essential (primary) hypertension Status: Chronic Plan: Well controlled on amlodipine and metoprolol (3) Non-ST elevation PR (NSTEMI) ICD Codes: I21.4 - Non-ST elevation (NSTEMI) myocardial infarction Status: Acute Plan: Cardiology managing Heparin gtt (4) HCAP (healthcare-associated pneumonia) ICD Codes: J18.9 - Pneumonia, unspecified organism Status: Acute Plan: On antibiotics O 2 2 liters (Michell Salguero) Problem List: (1) JOE (acute kidney injury) ICD Codes: N17.9 - Acute kidney failure, unspecified Plan: JOE on CKD with creatinine of 2.60 with a GFR 18ml/min Appears that baseline creatinine is around 1.5 JOE possibly related to sepsis or prerenal azotemia CKD from maybe HTN or renovascular disease Trace proteinuria Potassium WNL Plan Renal US Maintain strict I+O On Lasix Continue antibiotics renal dosing Continue to follow labs Patient has Chronic kidney disease, most likely related to Hypertensive or renovascular disease. Now also develop SOFAI, possibly Cardiorenal. Lasix is on hold, check Renal U/S. Avoid Nephrotoxins. (2) HTN (hypertension) ICD Codes: I10 - Essential (primary) hypertension Status: Chronic Plan: Well controlled on amlodipine and metoprolol (3) Non-ST elevation PR (NSTEMI) ICD Codes: I21.4 - Non-ST elevation (NSTEMI) myocardial infarction Status: Acute Plan: Cardiology managing Heparin gtt (4) HCAP (healthcare-associated pneumonia) ICD Codes: J18.9 - Pneumonia, unspecified organism Status: Acute Plan: On antibiotics O 2 2 liters (Kingsley Johnson MD) Problem Qualifiers (1) HTN (hypertension): Qualified Codes: I10 - Essential (primary) hypertension Michell Salguero Aug 26, 2017 17:19 Kingsley Johnson MD Aug 26, 2017 19:14
[2017-08-26] MEDS: HEPARIN-D5W 25,000 U/250 ML 250 ML IV PRN (21:46)
[2017-08-26] MEDS: MONTELUKAST SODIUM 10 MG TAB PO SCH (21:47)
[2017-08-26] MEDS: ZOLPIDEM TARTRATE 5 MG TAB PO PRN (21:47)
[2017-08-26] MEDS: PRAVASTATIN SOD 40 MG TAB PO SCH (21:47)
--- NOTE | 2017-08-26 22:07 | RADRPT ---
EXAM DATE/TIME: 08/26/2017 19:37 [place] COMPARISON: No previous studies available for comparison. EXTERNAL COMPARISON : [facility], US KIDNEY - BILATERAL, May 07, 2017 INDICATIONS : Increased BUN/creatinine. MEDICAL HISTORY : Hypercholesterolemia. Arthritis. HTN. COPD. Dyspnea. GERD. Skin cancer. Anemia. Shingles. Depressio n. Anxiety. Anticoagulant therapy, Heparin. SURGICAL HISTORY : Tonsillectomy. Carotid endarterectomy. Cholecystectomy. Hysterectomy. ENCOUNTER: Initial ACUITY: 1 day PAIN SCORE: 0/10 LOCATION: Bilateral flank MEASUREMENTS: RIGHT KIDNEY: 8.2 x 2.3 x 4.4 cm LEFT KIDNEY: 10.2 x 4.7 x 4.9 cm FINDINGS: The right kidney is atrophic and slightly echogenic characteristic of medical renal disease. Left kid saravanan has normal thickness. Bladder unremarkable. No hydronephrosis. CONCLUSION: 1. Right-sided renal atrophy and medical renal disease. No hydronephrosis bilaterally. Bladder unrema rkable. Kermit Short MD on August 26, 2017 at 22:04 Board Certified Radiologist. This report was verified electronically.
[2017-08-27] VITALS (29 sets, daily range): BP systolic 104–135; BP diastolic 62–78; PULSE 1–94; RESP 18–20; TEMP 97.6–98.2; O2SAT 93–98
[2017-08-27] MEDS: RESP: ALBUTEROL 2.5 MG/IPRATROPIUM 0.5 MG NEB (SCH) NEB ×5 (03:43→21:23)
[2017-08-27] MEDS: NITROGLYCERIN 2% OINT 1 GM PACKET TOPICAL SCH ×3 (06:00→21:00)
[2017-08-27] MEDS: PIPERACIL-TAZO 3.375 GM PREMIX 50 ML IV SCH (06:12)
[2017-08-27 06:49] LABS: HEMATOCRIT 26.3 % (35.0-46.0); HEMOGLOBIN 8.9 GM/DL (11.6-15.3); MEAN CELL VOLUME 90.4 FL (80.0-100.0); MEAN CORPUSCULAR HEMOGLOBIN 30.7 PG (27.0-34.0); MEAN PLATELET VOLUME 7.4 FL (7.0-11.0); PLATELET COUNT 525 TH/MM3 (150-450); RED BLOOD COUNT 2.91 MIL/MM3 (4.00-5.30); RED CELL DISTRIBUTION WIDTH 13.8 % (11.6-17.2); WHITE BLOOD COUNT 9.9 TH/MM3 (4.0-11.0)
[2017-08-27 07:05] LABS: COMPLEMENT C3 149 MG/DL (90-180); COMPLEMENT C4 26 MG/DL (10-40)
[2017-08-27 07:13] LABS: ALBUMIN 3.1 GM/DL (3.4-5.0); BICARBONATE 35.7 MEQ/L (21.0-32.0); CALCIUM 10.4 MG/DL (8.5-10.1); CREATININE 2.75 MG/DL (0.50-1.00)
[2017-08-27] MEDS: CHOLECALCIFEROL (VIT D3) 1000 UNIT TAB PO SCH (09:55)
[2017-08-27] MEDS: MULTIVITAMIN TAB PO SCH (09:56)
[2017-08-27] MEDS: methylPREDNISolone SOD SUCC 40 MG/1 ML VIAL IV PUSH SCH (09:56)
[2017-08-27] MEDS: amLODIPine BESYLATE 5 MG TAB PO SCH (09:56)
[2017-08-27] MEDS: DOCUSATE SODIUM 50 MG/SENNA 8.6 MG TAB PO SCH ×2 (09:56→20:51)
[2017-08-27] MEDS: METOPROLOL TARTRATE 100 MG TAB PO SCH ×2 (09:56→20:50)
[2017-08-27] MEDS: CALCIUM CARBONATE 1.25 GM (CA 500 MG) TAB PO SCH ×2 (09:57→20:49)
[2017-08-27] MEDS: ASPIRIN 81 MG CHEW TAB CHEW SCH (09:57)
[2017-08-27] MEDS: BUDESONIDE-FORMOTEROL 160/4.5 MCG INHALER INH SCH ×2 (09:57→20:48)
[2017-08-27] MEDS: SODIUM CHLORIDE 0.9% FLUSH 10 ML FLUSH IV FLUSH SCH ×2 (09:57→21:01)
--- NOTE | 2017-08-27 10:06 | HHI.FPPN ---
Subjective Remarks No acute events overnight. Pt lying in bed this AM. Currently on 2L NC. at bedside. States that she is doing well. Denies CP, SOB, N/V, and abdominal gil. (Cande Lopez MD R1) Objective Vitals Vital Signs Date Time Temp Pulse Resp B/P (MAP) Pulse Ox O2 Delivery O2 Flow Rate FiO2 08/27/17 08:16 96 Nasal Cannula 2.00 08/27/17 08:16 97.9 80 18 135/78 (97) 96 08/27/17 07:40 96 Nasal Cannula 2.00 08/27/17 06:44 80 08/27/17 05:03 81 08/27/17 04:15 80 08/27/17 03:34 78 08/27/17 03:15 97.6 80 119/72 (88) 98 08/27/17 02:00 74 08/27/17 01:00 74 08/27/17 00:00 70 08/26/17 23:47 95 Nasal Cannula 2.00 08/26/17 23:00 68 08/26/17 23:00 98.3 72 105/65 (78) 96 08/26/17 22:00 90 08/26/17 21:00 98 08/26/17 20:00 Nasal Cannula 2.00 08/26/17 20:00 114 08/26/17 19:00 95 08/26/17 19:00 97.8 109 119/73 (88) 97 08/26/17 17:00 90 08/26/17 16:00 88 08/26/17 15:33 Nasal Cannula 1.00 08/26/17 15:00 98.0 88 18 100/58 (72) 92 08/26/17 14:00 88 08/26/17 12:00 72 08/26/17 11:00 97.2 93 18 91/58 (69) 95 08/26/17 11:00 80 I/O 08/26/17 08/26/17 08/26/17 08/27/17 08/27/17 08/27/17 07:00 15:00 23:00 07:00 15:00 23:00 Intake Total 240 ml 450 ml 240 ml Output Total 1100 ml 700 ml 200 ml Balance -860 ml -250 ml 40 ml Intake Oral 240 ml 400 ml 240 ml IV Total 50 ml Output Urine Total 1100 ml 700 ml 200 ml # Bowel Movements 0 (Cande Lopez MD R1) Result Diagram: 08/27/1715 08/27/17614 Objective Remarks GENERAL: Elderly female patient lying in bed in no acute distress. SKIN: Warm and dry. No rashes or lesions present. HEENT: AT, NC with EOMI. No rhinorrhea. MMM. No visible LAD or JVD appreciated. CARDIOVASCULAR: Regular rate and rhythm, 3/6 TIERRA. Strong radial and pedal pulses. RESPIRATORY: Breath sounds clear to auscultation bilaterally. No accessory muscle use. Currently on 2L NC. GASTROINTESTINAL: Abdomen soft, non-tender with +BS. Patient mildly distended. No fluid or masses appreciated. MUSCULOSKELETAL: No cyanosis or edema. No calf tenderness. NEURO: Afocal. CN 2-12 grossly intact. Good muscle tone. PSYCH: Normal mood and affect. Good eye contact. Good insight and judgment. Normal speech. (Cande Lopez MD R1) A/P Assessment and Plan 72 yr old w/ PMHx of aortic stenosis, HTN, COPD, and recent stroke on 07/24 s/p right CEA presents with sudden-onset SOB and admitted with NSTEMI and HCAP. Discharge Planning Unclear timetable, pending renal improvement and cardiology interventions. (Cande Lopez MD R1) Attending Attestation Pt. examined and case reviewed with resident physician I have read the above note and agree with the assessment/plan as discussed with me I was involved in all medical decision making for this patient Renal following Cardiology following Poor renal function - unable to perform catheterization until renal function improves Nephrotoxins held (lasix on hold) - pt. required diuresis on arrival due to respiratory distress Aggressive oral hydration Repeat BMP in the am Eldon Engel MD (Eldon Engel MD) Problem List: (1) Non-ST elevation AR (NSTEMI) ICD Codes: I21.4 - Non-ST elevation (NSTEMI) myocardial infarction Status: Acute Plan: Troponin elevated at 8.13, EKG with minor ST depression in leads V4-V6 on admission. Troponin trending down 8.13-7.54-7.03 Continue to monitor on cardiac telemetry Aspirin 81mg administered in ED Morphine 2mg IV push q30m PRN chest pain Nitroglycerin 0.4mg Sl q5m PRN chest pain, nitroglycerin 2% oint q8hr Metoprolol tartrate 100mg PO q12hr CT head negative. Heparin drip. Cardiology consulted- appreciate recs. s/p Lasix. Cardiac cath postponed due to creatinine elevation with Dr. Wilburn (2) CKD (chronic kidney disease) stage 3, GFR 30-59 ml/min ICD Codes: N18.3 - Chronic kidney disease, stage 3 (moderate) Status: Chronic Plan: Baseline Cr ~1.2 per chart review Creatinine increased to 2.75 on 08/27, cardiac catheterization postponed Lasix held Continue to monitor (3) JOE (acute kidney injury) ICD Codes: N17.9 - Acute kidney failure, unspecified Status: Acute Plan: -Patient with increase in creatinine to 2.75 on 08/27 -Baseline Cr ~1.2 per chart review -Lasix held and cardiac catheterization postponed (4) HCAP (healthcare-associated pneumonia) ICD Codes: J18.9 - Pneumonia, unspecified organism Status: Acute Plan: Patient met severe sepsis criteria on admission due to tachycardia, tachypnea, leukocytosis, lactic acid >2, with known source of suspected HCAP CXR significant for development of bibasilar prominent bronchovascular markings w/o consolidation, infiltrates Leukocytosis, tachypnea, tachycardia, and lactic acid have resolved to wnl today. Urine Legionella antigen and pneumococcal negative Blood cultures x2 NGTD Plan: Switch to PO Levaquin 750mg daily Switch to PO prednisone 20mg daily Discontinue Vancomycin, pharmacy consulted for dosing (08/24-08/27) Discontinue Zosyn 4.5 gm q6h (08/24-08/27) Discontinue Solumedrol 40mg IV push q12hr Duonebs ARMOND q4hr, albuterol as needed (5) COPD (chronic obstructive pulmonary disease) ICD Codes: J44.9 - Chronic obstructive pulmonary disease, unspecified Status: Chronic Plan: See plan above Continue Montelukast 10mg PO HS (6) Congestive heart failure ICD Codes: I50.9 - Heart failure, unspecified Status: Chronic Plan: Last Echo 07/26/17 EF of 50-55%, significant for severe aortic stenosis and moderate mitral valve regurgitation 08/25 Echo significant for EF 50-55% with normal left ventricular systolic function, continued severe aortic stenosis BNP 1466 s/p 80mg IV lasix once and Lasix 40mg IV Q8H with improvement in SOB, held due to creatinine increase strict I & Os and daily weights (7) Aortic stenosis ICD Codes: I35.0 - Nonrheumatic aortic (valve) stenosis Status: Chronic Plan: 08/25 Echo shows diffuse calcification of the aortic valve, severe aortic valve stenosis, aortic valve area of 0.697 cm, Aortic valve mean gradient is 32 mmHg (8) HTN (hypertension) ICD Codes: I10 - Essential (primary) hypertension Status: Chronic Plan: Metoprolol [id number] PO BID Continue home Triam/HCTZ 25mg daily and amlodipine 2.5mg PO daily Clonidine PRN for BP > 180/100 (9) Hx of arterial ischemic stroke ICD Codes: Z86.73 - Personal history of transient ischemic attack (TIA), and cerebral infarction without residual deficits Plan: Continue 40mg PO pravastatin HS (10) Anxiety ICD Codes: F41.9 - Anxiety disorder, unspecified Plan: Continue home Xanax 0.125mg PO BID PRN (11) Nutrition, metabolism, and development symptoms ICD Codes: R63.8 - Other symptoms and signs concerning food and fluid intake Status: Acute Plan: Diet: Heart Healthy Diet Fluids: none vitals q4h, strict I & Os, daily weights, neurochecks q4h PT and OT (Cande Lopez MD R1) Problem Qualifiers (1) COPD (chronic obstructive pulmonary disease): (2) Congestive heart failure: Qualified Codes: I50.9 - Heart failure, unspecified (3) Aortic stenosis: Qualified Codes: I35.0 - Nonrheumatic aortic (valve) stenosis (4) HTN (hypertension): Qualified Codes: I10 - Essential (primary) hypertension Cande Lopez MD R1 Aug 27, 2017 10:06 Eldon Engel MD Aug 27, 2017 16:20
[2017-08-27] MEDS ORDERED: LEVOFLOXACIN 750 MG TAB PO ONE (13:00)
[2017-08-27] MEDS ORDERED: VANCOMYCIN 1,500 MG/NS 500 ML IV ONE ×2 (13:00)
[2017-08-27] MEDS: predniSONE 20 MG TAB PO SCH (13:18)
[2017-08-27] MEDS: ALPRAZolam 0.25 MG TAB PO PRN (13:35)
--- NOTE | 2017-08-27 16:51 | HHI.NPPN ---
Subjective Renal Failure: Acute History of Present Illness Patient is a 77 yr old female w/ PMHx of aortic stenosis, HTN, COPD, and recent stroke on 07/24 s/p right CEA. Patient presents to the ED with sudden- onset SOB and associated abdominal pain. She was found to have a troponin of >8 and BNP near 1500 on admission. Nephrology was consulted for evaluation of JOE with worsening renal indices with a creatinine of 2.60 and GFR of 18 ml/min today. Patient was to have cardiac procedure but this has now been put on hold with renal function. Patient has been having CKD stage 3 followed by primary care. Appears that baseline creatinine is around 1.5. Additional Remarks Patient is OOB sitting in chair. Denies any SOB. No edema noted (Michell Salguero) Review of Systems Respiratory Respiratory Remarks Denies any SOB (Michell Salguero) Cardiovascular Cardiac Remarks Denies any CP (Michell Salguero) Gastrointestinal GI Remarks Denies any Abdominal pain (Michell Salguero) Objective Data Data Vital Signs Date Time Temp Pulse Resp B/P (MAP) Pulse Ox O2 Delivery O2 Flow Rate FiO2 08/27/17 15:55 98.2 1 19 111/63 (79) 94 08/27/17 13:27 98.0 1 20 104/62 (76) 93 08/27/17 10:00 80 08/27/17 09:00 82 08/27/17 08:16 96 Nasal Cannula 2.00 08/27/17 08:16 97.9 80 18 135/78 (97) 96 08/27/17 08:00 76 08/27/17 07:40 96 Nasal Cannula 2.00 08/27/17 07:00 74 08/27/17 06:44 80 08/27/17 05:03 81 08/27/17 04:15 80 08/27/17 03:34 78 08/27/17 03:15 97.6 80 119/72 (88) 98 08/27/17 02:00 74 08/27/17 01:00 74 08/27/17 00:00 70 08/26/17 23:47 95 Nasal Cannula 2.00 08/26/17 23:00 68 08/26/17 23:00 98.3 72 105/65 (78) 96 08/26/17 22:00 90 08/26/17 21:00 98 08/26/17 20:00 Nasal Cannula 2.00 08/26/17 20:00 114 08/26/17 19:00 95 08/26/17 19:00 97.8 109 119/73 (88) 97 08/26/17 17:00 90 (Michell Salguero) -: 08/27/17 0615 08/27/17 0615 Physical Exam General Appearance: No Acute Distress, Comfortable (Luis ManuelmannMichell. ANALYSIS REPORTING DEVELOPER) Eyes Eye Exam: Pupils Equal (Michell Salguero. ANALYSIS REPORTING DEVELOPER) Throat Throat Exam: Oral Mucosa [place] & Moist (Michell Salguero. ANALYSIS REPORTING DEVELOPER) Pulmonary Resp Exam: Clear Bilaterally, Breath Sounds Equal, No Distress (Michell Salguero. ANALYSIS REPORTING DEVELOPER) Cardiology CV Exam: Regular (Michell Salguero. ANALYSIS REPORTING DEVELOPER) Gastrointestinal/Abdomen GI Exam: Soft, Non-Tender, Bowel Sounds Present (Michell Salguero. ANALYSIS REPORTING DEVELOPER) Genitourinary Exam: Flank Non-Tender (Michell Salguero. ANALYSIS REPORTING DEVELOPER) Integumentary Skin Exam: Clear, Warm (Michell Salguero. ANALYSIS REPORTING DEVELOPER) Extremeties Extremities Exam: No Edema (Anita Salguerone M. ANALYSIS REPORTING DEVELOPER) Neurologic Neuro Exam: Alert, Awake (Michell Salguero. ANALYSIS REPORTING DEVELOPER) Psychiatric Psych Exam: Appropriate Responses (Michell SalgueroP) Assessment/Plan Problem List: (1) JOE (acute kidney injury) ICD Codes: N17.9 - Acute kidney failure, unspecified Plan: Appears that baseline creatinine is around 1.5 JOE possibly related to sepsis or cariorenal CKD from maybe HTN or renovascular disease Trace proteinuria Potassium WNL Renal US:Right-sided renal atrophy and medical renal disease. No hydronephrosis bilaterally. Bladder unremarkable. Maintain strict I+O and daily weights Continue antibiotics renal dosing Creatinine slightly more elevated from yesterday at 2.75 from 2.60 Fluids encpiraged Continue to follow labs and UOP (2) HTN (hypertension) ICD Codes: I10 - Essential (primary) hypertension Status: Chronic Plan: Well controlled on amlodipine and metoprolol (3) Non-ST elevation IA (NSTEMI) ICD Codes: I21.4 - Non-ST elevation (NSTEMI) myocardial infarction Status: Acute Plan: Cardiology managing Heparin gtt (4) HCAP (healthcare-associated pneumonia) ICD Codes: J18.9 - Pneumonia, unspecified organism Status: Acute Plan: On antibiotics O 2 2 liters (Michell Salguero) Problem List: (1) JOE (acute kidney injury) ICD Codes: N17.9 - Acute kidney failure, unspecified Plan: Appears that baseline creatinine is around 1.5 JOE possibly related to sepsis or cariorenal CKD from maybe HTN or renovascular disease Trace proteinuria Potassium WNL Renal US:Right-sided renal atrophy and medical renal disease. No hydronephrosis bilaterally. Bladder unremarkable. Maintain strict I+O and daily weights Continue antibiotics renal dosing Creatinine slightly more elevated from yesterday at 2.75 from 2.60 Fluids encouraged. Continue to follow labs and UOP. Patient seen and examined,agree with above. Has Slight increase in Creatinine, Renal U/S noted, possibly renovascular disease. Check AMY and ANCA. (2) HTN (hypertension) ICD Codes: I10 - Essential (primary) hypertension Status: Chronic Plan: Well controlled on amlodipine and metoprolol (3) Non-ST elevation IA (NSTEMI) ICD Codes: I21.4 - Non-ST elevation (NSTEMI) myocardial infarction Status: Acute Plan: Cardiology managing Heparin gtt (4) HCAP (healthcare-associated pneumonia) ICD Codes: J18.9 - Pneumonia, unspecified organism Status: Acute Plan: On antibiotics O 2 2 liters (Kingsley Johnson MD) Problem Qualifiers (1) HTN (hypertension): Qualified Codes: I10 - Essential (primary) hypertension Michell Salguero Aug 27, 2017 16:51 Kingsley Johnson MD Aug 27, 2017 17:36
--- NOTE | 2017-08-27 18:13 | PD.CARD.PN ---
Subjective Subjective Remarks Patient was seen earlier today, late entry No chest pain/SOB Objective Medications Current Medications Medications (Trade) Dose Ordered Sig/Jasmeet Route Start Time Stop Time Status Last Admin (NS Flush) 2 ml UNSCH PRN IV FLUSH 08/24/17 15:15 (NS Flush) 2 ml BID IV FLUSH 08/24/17 21:00 08/27/17 09:57 (Zofran Inj) 4 mg Q6H PRN IVP 08/24/17 15:45 (Narcan Inj) 0.4 mg UNSCH PRN IV PUSH 08/24/17 15:45 (Kerry-Colace) 1 tab BID PO 08/24/17 21:00 08/27/17 09:56 (Milk Of Magnesia Liq) 30 ml Q12H PRN PO 08/24/17 15:45 (Senokot) 17.2 mg Q12H PRN PO 08/24/17 15:45 (Dulcolax Supp) 10 mg DAILY PRN RECTAL 08/24/17 15:45 (Lactulose Liq) 30 ml DAILY PRN PO 08/24/17 15:45 08/26/17 09:31 (Nitrostat Sl) 0.4 mg Q5M PRN SL 08/24/17 16:00 (Morphine Inj) 2 mg Q30M PRN IV PUSH 08/24/17 16:00 (Tylenol) 650 mg Q6H PRN PO 08/24/17 16:00 (Heparin Inj) 5,000 units UNSCH PRN IV PUSH 08/24/17 22:00 (Heparin Inj) 2,500 units UNSCH PRN IV PUSH 08/24/17 22:00 Heparin Sodium/ Dextrose 250 ml @ 9.6 mls/hr TITRATE PRN IV 08/24/17 16:00 Future hold 08/26/17 21:46 (Nitroglycerin 2% Oint) 0.5 inch Q8HR TOPICAL 08/24/17 16:00 08/27/17 13:18 (Aspirin Chew) 81 mg DAILY CHEW 08/25/17 09:00 08/27/17 09:57 (Duoneb Neb) 1 ampule Q4HR NEB NEB 08/24/17 16:15 08/27/17 15:16 (Xanax) 0.125 mg BID PRN PO 08/24/17 17:15 2/13/18 13:35 (Norvasc) 2.5 mg DAILY PO 08/25/17 09:00 08/27/17 09:56 (Symbicort 160-4.5 Mcg Inh) 2 puff Q12HR INH 08/24/17 21:00 08/27/17 09:57 (Vitamin D3) 1,000 units DAILY PO 08/25/17 09:00 08/27/17 09:55 (Singulair) 10 mg HS PO 08/24/17 21:00 08/26/17 21:47 (Pravachol) 40 mg HS PO 08/24/17 21:00 08/26/17 21:47 (Lopressor) 100 mg Q12HR PO 08/25/17 09:00 08/27/17 09:56 (Pill Splitter) 1 ea UNSCH PRN OTHER 08/24/17 17:45 (Oscal) 500 mg BID PO 08/24/17 21:00 08/27/17 09:57 (Theragran) 1 tab DAILY PO 08/25/17 09:00 08/27/17 09:56 (Albuterol Neb) 2.5 mg Q2HR NEB PRN NEB 08/24/17 17:45 (Ambien) 5 mg HS PRN PO 08/25/17 17:30 08/26/17 21:47 (Deltasone) 20 mg DAILY PO 08/27/17 12:00 08/27/17 13:18 (Levaquin) 500 mg Q48H PO 08/29/17 13:00 Vital Signs / I&O Vital Signs Date Time Temp Pulse Resp B/P (MAP) Pulse Ox O2 Delivery O2 Flow Rate FiO2 08/27/17 17:03 70 08/27/17 16:00 84 08/27/17 15:55 98.2 1 19 111/63 (79) 94 08/27/17 15:00 87 08/27/17 14:00 82 08/27/17 13:27 98.0 1 20 104/62 (76) 93 08/27/17 13:00 78 08/27/17 12:00 74 08/27/17 11:00 74 08/27/17 10:00 80 08/27/17 09:00 82 08/27/17 08:16 96 Nasal Cannula 2.00 08/27/17 08:16 97.9 80 18 135/78 (97) 96 08/27/17 08:00 76 08/27/17 07:40 96 Nasal Cannula 2.00 08/27/17 07:00 74 08/27/17 06:44 80 08/27/17 05:03 81 08/27/17 04:15 80 08/27/17 03:34 78 08/27/17 03:15 97.6 80 119/72 (88) 98 08/27/17 02:00 74 08/27/17 01:00 74 08/27/17 00:00 70 08/26/17 23:47 95 Nasal Cannula 2.00 08/26/17 23:00 68 08/26/17 23:00 98.3 72 105/65 (78) 96 08/26/17 22:00 90 08/26/17 21:00 98 08/26/17 20:00 Nasal Cannula 2.00 08/26/17 20:00 114 08/26/17 19:00 95 08/26/17 19:00 97.8 109 119/73 (88) 97 I/O 08/26/17 08/26/17 08/26/17 08/27/17 08/27/17 08/27/17 07:00 15:00 23:00 07:00 15:00 23:00 Intake Total 240 ml 450 ml 240 ml 720 ml Output Total 1100 ml 700 ml 200 ml 700 ml Balance -860 ml -250 ml 40 ml 20 ml Intake Oral 240 ml 400 ml 240 ml 720 ml IV Total 50 ml Output Urine Total 1100 ml 700 ml 200 ml 700 ml # Bowel Movements 0 2 Physical Exam GENERAL: NAD, AAOx3 SKIN: Warm and dry. HEAD: Atraumatic. Normocephalic. EYES: Pupils equal and round. No scleral icterus. No injection or drainage. ENT: No nasal bleeding or discharge. Mucous membranes pink and moist. NECK: Trachea midline. No JVD. CARDIOVASCULAR: Regular rate and rhythm. 3/6 crescendo-decrescendo murmur to the RSB RESPIRATORY: No accessory muscle use. Clear to auscultation. Breath sounds equal bilaterally. GASTROINTESTINAL: Abdomen soft, non-tender, nondistended. Hepatic and splenic margins not palpable. MUSCULOSKELETAL: Extremities without clubbing, cyanosis, or edema. No obvious deformities. NEUROLOGICAL: Awake and alert. No obvious cranial nerve deficits. Motor grossly within normal limits. Five out of 5 muscle strength in the arms and legs. Normal speech. PSYCHIATRIC: Appropriate mood and affect; insight and judgment normal. Laboratory Laboratory Tests Test 08/27/17 06:15 White Blood Count 9.9 TH/MM3 Red Blood Count 2.91 MIL/MM3 Hemoglobin 8.9 GM/DL Hematocrit 26.3 % Mean Corpuscular Volume 90.4 FL Mean Corpuscular Hemoglobin 30.7 PG Mean Corpuscular Hemoglobin Concent 34.0 % Red Cell Distribution Width 13.8 % Platelet Count 525 TH/MM3 Mean Platelet Volume 7.4 FL Activated Partial Thromboplast Time 63.7 SEC Blood Urea Nitrogen 51 MG/DL Creatinine 2.75 MG/DL Random Glucose 127 MG/DL Albumin 3.1 GM/DL Calcium Level 10.4 MG/DL Phosphorus Level 5.0 MG/DL Sodium Level 136 MEQ/L Potassium Level 4.3 MEQ/L Chloride Level 92 MEQ/L Carbon Dioxide Level 35.7 MEQ/L Anion Gap 8 MEQ/L Estimat Glomerular Filtration Rate 17 ML/MIN Vancomycin Level Trough 13.2 MCG/ML Complement C3 149 MG/DL Complement C4 26 MG/DL Assessment and Plan Problem List: (1) Aortic stenosis ICD Codes: I35.0 - Nonrheumatic aortic (valve) stenosis Status: Chronic (2) Status post carotid endarterectomy ICD Codes: Z98.890 - Other specified postprocedural states Status: Acute (3) CVA (cerebral vascular accident) ICD Codes: I63.9 - Cerebral infarction, unspecified Status: Acute (4) HTN (hypertension) ICD Codes: I10 - Essential (primary) hypertension Status: Chronic (5) Obesity ICD Codes: E66.9 - Obesity, unspecified Status: Chronic (6) COPD (chronic obstructive pulmonary disease) ICD Codes: J44.9 - Chronic obstructive pulmonary disease, unspecified Status: Chronic (7) Non-ST elevation [place] (NSTEMI) ICD Codes: I21.4 - Non-ST elevation (NSTEMI) myocardial infarction Status: Acute Assessment and Plan 1) NSTEMI Con't heparin drip Possible Type 1 vs 2 2) Severe Eventual RHC/LHC 3) JOE on CKD Worsening of renal function Nephrology following Unable to cath until back towards normal Problem Qualifiers (1) Aortic stenosis: Qualified Codes: I35.0 - Nonrheumatic aortic (valve) stenosis (2) HTN (hypertension): Qualified Codes: I10 - Essential (primary) hypertension (3) COPD (chronic obstructive pulmonary disease): Enrike Wilburn DO Aug 27, 2017 18:13
[2017-08-27] MEDS: MONTELUKAST SODIUM 10 MG TAB PO SCH (20:49)
[2017-08-27] MEDS: PRAVASTATIN SOD 40 MG TAB PO SCH (20:50)
[2017-08-27] MEDS: ZOLPIDEM TARTRATE 5 MG TAB PO PRN (20:59)
[2017-08-27] MEDS: HEPARIN-D5W 25,000 U/250 ML 250 ML IV PRN (23:38)
[2017-08-28] VITALS (29 sets, daily range): BP systolic 103–144; BP diastolic 63–90; PULSE 64–95; RESP 16–18; TEMP 96.1–98.5; O2SAT 92–97
[2017-08-28] MEDS: RESP: ALBUTEROL 2.5 MG/IPRATROPIUM 0.5 MG NEB (SCH) NEB ×5 (00:33→15:17)
[2017-08-28] MEDS: ALPRAZolam 0.25 MG TAB PO PRN ×3 (02:37→21:04)
[2017-08-28] MEDS: NITROGLYCERIN 2% OINT 1 GM PACKET TOPICAL SCH ×3 (05:43→21:01)
[2017-08-28 06:56] LABS: HEMATOCRIT 27.5 % (35.0-46.0); HEMOGLOBIN 9.3 GM/DL (11.6-15.3); MEAN CELL VOLUME 90.8 FL (80.0-100.0); MEAN CORPUSCULAR HEMOGLOBIN 30.6 PG (27.0-34.0); MEAN CORPUSCULAR HGB CONC 33.7 % (32.0-36.0); MEAN PLATELET VOLUME 7.6 FL (7.0-11.0); PLATELET COUNT 504 TH/MM3 (150-450); RED BLOOD COUNT 3.03 MIL/MM3 (4.00-5.30); WHITE BLOOD COUNT 10.8 TH/MM3 (4.0-11.0)
[2017-08-28 07:05] LABS: BICARBONATE 35.9 MEQ/L (21.0-32.0); CREATININE 2.31 MG/DL (0.50-1.00)
[2017-08-28] MEDS: DOCUSATE SODIUM 50 MG/SENNA 8.6 MG TAB PO SCH ×2 (09:00→21:00)
[2017-08-28] MEDS: CALCIUM CARBONATE 1.25 GM (CA 500 MG) TAB PO SCH ×2 (09:00→21:04)
[2017-08-28] MEDS: METOPROLOL TARTRATE 100 MG TAB PO SCH ×2 (09:34→21:02)
[2017-08-28] MEDS: amLODIPine BESYLATE 5 MG TAB PO SCH (09:35)
[2017-08-28] MEDS: BUDESONIDE-FORMOTEROL 160/4.5 MCG INHALER INH SCH ×2 (09:36→21:01)
[2017-08-28] MEDS: MULTIVITAMIN TAB PO SCH (09:36)
[2017-08-28] MEDS: CHOLECALCIFEROL (VIT D3) 1000 UNIT TAB PO SCH (09:36)
[2017-08-28] MEDS: predniSONE 20 MG TAB PO SCH (09:36)
[2017-08-28] MEDS: ASPIRIN 81 MG CHEW TAB CHEW SCH (09:36)
[2017-08-28] MEDS: SODIUM CHLORIDE 0.9% FLUSH 10 ML FLUSH IV FLUSH SCH ×2 (09:37→21:00)
--- NOTE | 2017-08-28 11:36 | HHI.FPPN ---
Subjective Remarks Patient seen and examined this morning by medical team. No acute events overnight. Patient's vital signs remain overall WNL intermittently using 2L NC. She is upset this morning due to being told overnight she would go for her heart catheterization. However, due to her elevated creatinine she is still not able to go for her procedure. Overall she is doing well and has been transitioned to oral antibiotics and steroids for her HCAP. Otherwise she has no complaints and denies any fevers, chills, SOB, chest pain, NVD, ABD pain, or calf tenderness. (Tom Corea MD R2) Objective Vitals Vital Signs Date Time Temp Pulse Resp B/P (MAP) Pulse Ox O2 Delivery O2 Flow Rate FiO2 08/28/17 11:02 96.1 70 18 127/70 (89) 96 08/28/17 10:16 79 08/28/17 09:14 92 08/28/17 08:30 97 Room Air 08/28/17 08:02 80 08/28/17 07:46 94 21 08/28/17 07:45 96.1 80 18 136/78 (97) 97 08/28/17 06:00 80 08/28/17 05:00 82 08/28/17 04:00 98.5 84 18 144/90 (108) 92 08/28/17 04:00 77 08/28/17 03:00 84 08/28/17 02:00 80 08/28/17 01:00 80 08/28/17 00:00 77 08/28/17 00:00 98.4 95 18 116/70 (85) 95 08/27/17 23:00 76 08/27/17 22:00 86 08/27/17 21:27 96 08/27/17 21:00 88 08/27/17 20:00 Room Air 08/27/17 20:00 84 08/27/17 20:00 98.0 94 18 125/73 (90) 98 08/27/17 18:00 84 08/27/17 17:03 70 08/27/17 16:00 84 08/27/17 15:55 98.2 1 19 111/63 (79) 94 08/27/17 15:00 87 08/27/17 14:00 82 08/27/17 13:27 98.0 1 20 104/62 (76) 93 08/27/17 13:00 78 08/27/17 12:00 74 I/O 08/27/17 08/27/17 08/27/17 08/28/17 08/28/17 08/28/17 07:00 15:00 23:00 07:00 15:00 23:00 Intake Total 240 ml 720 ml 240 ml Output Total 200 ml 700 ml 500 ml Balance 40 ml 20 ml -260 ml Intake Oral 240 ml 720 ml 240 ml Output Urine Total 200 ml 700 ml 500 ml # Bowel Movements 2 (Tom Corea MD R2) Result Diagram: 08/28/17 0556 08/28/17 0556 Objective Remarks GENERAL: Elderly female patient lying in bed in no acute distress. Her is at the bedside. SKIN: Warm and dry. No rashes or lesions present. HEENT: AT, NC with EOMI. No rhinorrhea. MMM. No visible LAD or JVD appreciated. CARDIOVASCULAR: Regular rate and rhythm, 3/6 TIERRA. Strong radial and pedal pulses. RESPIRATORY: Breath sounds clear to auscultation bilaterally. No accessory muscle use. Currently on 2L NC. GASTROINTESTINAL: Abdomen soft, non-tender with +BS. Patient mildly distended. No fluid or masses appreciated. MUSCULOSKELETAL: No cyanosis or edema. No calf tenderness. Moving all four extremities spontaneously. NEURO: Afocal. CN 2-12 grossly intact. Good muscle tone. PSYCH: Normal mood and affect. Good eye contact. Good insight and judgment. Normal speech. (Tom Corea MD R2) A/P Assessment and Plan 72 yr old w/ PMHx of aortic stenosis, HTN, COPD, and recent stroke on 07/24 s/p right CEA presents with sudden-onset SOB and admitted with NSTEMI and HCAP. Discharge Planning Unclear timetable, pending renal improvement and cardiology interventions. (Tom Corea MD R2) Attending Attestation Pt. examined and case discussed with resident physicians. I have read the above note and agree with the assessment and plan as discussed with me. I was involved in all medical decision making for this patient. Eldon Engel MD (Eldon Engel MD) Problem List: (1) Non-ST elevation [place] (NSTEMI) ICD Codes: I21.4 - Non-ST elevation (NSTEMI) myocardial infarction Status: Acute Plan: Troponin elevated at 8.13, EKG with minor ST depression in leads V4-V6 on admission. Troponin trending down 8.13-7.54-7.03 Continue to monitor on cardiac telemetry Aspirin 81mg administered in ED Morphine 2mg IV push q30m PRN chest pain Nitroglycerin 0.4mg Sl q5m PRN chest pain, nitroglycerin 2% oint q8hr Metoprolol tartrate 100mg PO q12hr CT head negative. Heparin drip. Cardiology consulted- appreciate recs. s/p Lasix. Cardiac cath postponed due to creatinine elevation with Dr. Wilburn (2) CKD (chronic kidney disease) stage 3, GFR 30-59 ml/min ICD Codes: N18.3 - Chronic kidney disease, stage 3 (moderate) Status: Chronic Plan: Baseline Cr ~1.2 per chart review Creatinine increased to 2.75 on 08/27, cardiac catheterization postponed Lasix held AMY screen negative Anti-myeloperoxidase and proteinase: pending Nephrology consulted, appreciate recommendations (3) JOE (acute kidney injury) ICD Codes: N17.9 - Acute kidney failure, unspecified Status: Acute Plan: -Patient with increase in creatinine to 2.75 on 08/27 -Baseline Cr ~1.2 per chart review -Lasix held and cardiac catheterization postponed (4) HCAP (healthcare-associated pneumonia) ICD Codes: J18.9 - Pneumonia, unspecified organism Status: Acute Plan: Patient met severe sepsis criteria on admission due to tachycardia, tachypnea, leukocytosis, lactic acid >2, with known source of suspected HCAP CXR significant for development of bibasilar prominent bronchovascular markings w/o consolidation, infiltrates Leukocytosis, tachypnea, tachycardia, and lactic acid have resolved to wnl today. Urine Legionella antigen and pneumococcal negative Blood cultures x2 NGTD Plan: Switch to PO Levaquin 500mg Q48h Switch to PO prednisone 20mg daily Discontinue Vancomycin, pharmacy consulted for dosing (08/24-08/27) Discontinue Zosyn 4.5 gm q6h (08/24-08/27) Discontinue Solumedrol 40mg IV push q12hr Duonebs ARMOND q4hr, albuterol as needed (5) COPD (chronic obstructive pulmonary disease) ICD Codes: J44.9 - Chronic obstructive pulmonary disease, unspecified Status: Chronic Plan: See plan above Continue Montelukast 10mg PO HS (6) Congestive heart failure ICD Codes: I50.9 - Heart failure, unspecified Status: Chronic Plan: Last Echo 07/26/17 EF of 50-55%, significant for severe aortic stenosis and moderate mitral valve regurgitation 08/25 Echo significant for EF 50-55% with normal left ventricular systolic function, continued severe aortic stenosis BNP 1466 s/p 80mg IV lasix once and Lasix 40mg IV Q8H with improvement in SOB, held due to creatinine increase strict I & Os and daily weights (7) Aortic stenosis ICD Codes: I35.0 - Nonrheumatic aortic (valve) stenosis Status: Chronic Plan: 08/25 Echo shows diffuse calcification of the aortic valve, severe aortic valve stenosis, aortic valve area of 0.697 cm, Aortic valve mean gradient is 32 mmHg (8) HTN (hypertension) ICD Codes: I10 - Essential (primary) hypertension Status: Chronic Plan: Metoprolol [id number] PO BID Continue home Triam/HCTZ 25mg daily and amlodipine 2.5mg PO daily Clonidine PRN for BP > 180/100 (9) Hx of arterial ischemic stroke ICD Codes: Z86.73 - Personal history of transient ischemic attack (TIA), and cerebral infarction without residual deficits Plan: Continue 40mg PO pravastatin HS (10) Anxiety ICD Codes: F41.9 - Anxiety disorder, unspecified Plan: Continue home Xanax 0.125mg PO BID PRN (11) Nutrition, metabolism, and development symptoms ICD Codes: R63.8 - Other symptoms and signs concerning food and fluid intake Status: Acute Plan: Diet: Heart Healthy Diet Fluids: none vitals q4h, strict I & Os, daily weights, neurochecks q4h PT and OT (Tom Corea MD R2) Problem Qualifiers (1) COPD (chronic obstructive pulmonary disease): (2) Congestive heart failure: Qualified Codes: I50.9 - Heart failure, unspecified (3) Aortic stenosis: Qualified Codes: I35.0 - Nonrheumatic aortic (valve) stenosis (4) HTN (hypertension): Qualified Codes: I10 - Essential (primary) hypertension Tom Corea MD R2 Aug 28, 2017 11:36 Eldon Engel MD Aug 28, 2017 15:57
--- NOTE | 2017-08-28 14:11 | PD.CARD.PN ---
Subjective Subjective Remarks No chest pain/SOB Objective Medications Current Medications Medications (Trade) Dose Ordered Sig/Jasmeet Route Start Time Stop Time Status Last Admin (NS Flush) 2 ml UNSCH PRN IV FLUSH 08/24/17 15:15 (NS Flush) 2 ml BID IV FLUSH 08/24/17 21:00 08/28/17 09:37 (Zofran Inj) 4 mg Q6H PRN IVP 08/24/17 15:45 (Narcan Inj) 0.4 mg UNSCH PRN IV PUSH 08/24/17 15:45 (Kerry-Colace) 1 tab BID PO 08/24/17 21:00 08/27/17 09:56 (Milk Of Magnesia Liq) 30 ml Q12H PRN PO 08/24/17 15:45 (Senokot) 17.2 mg Q12H PRN PO 08/24/17 15:45 (Dulcolax Supp) 10 mg DAILY PRN RECTAL 08/24/17 15:45 (Lactulose Liq) 30 ml DAILY PRN PO 08/24/17 15:45 08/26/17 09:31 (Nitrostat Sl) 0.4 mg Q5M PRN SL 08/24/17 16:00 (Morphine Inj) 2 mg Q30M PRN IV PUSH 08/24/17 16:00 (Tylenol) 650 mg Q6H PRN PO 08/24/17 16:00 (Heparin Inj) 5,000 units UNSCH PRN IV PUSH 08/24/17 22:00 (Heparin Inj) 2,500 units UNSCH PRN IV PUSH 08/24/17 22:00 Heparin Sodium/ Dextrose 250 ml @ 9.6 mls/hr TITRATE PRN IV 08/24/17 16:00 Future hold 08/27/17 23:38 (Nitroglycerin 2% Oint) 0.5 inch Q8HR TOPICAL 08/24/17 16:00 08/28/17 05:43 (Aspirin Chew) 81 mg DAILY CHEW 08/25/17 09:00 08/28/17 09:36 (Duoneb Neb) 1 ampule Q4HR NEB NEB 08/24/17 16:15 08/28/17 11:34 (Xanax) 0.125 mg BID PRN PO 08/24/17 17:15 08/28/17 12:38 (Norvasc) 2.5 mg DAILY PO 08/25/17 09:00 08/28/17 09:35 (Symbicort 160-4.5 Mcg Inh) 2 puff Q12HR INH 08/24/17 21:00 08/28/17 09:36 (Vitamin D3) 1,000 units DAILY PO 08/25/17 09:00 08/28/17 09:36 (Singulair) 10 mg HS PO 08/24/17 21:00 08/27/17 20:49 (Pravachol) 40 mg HS PO 08/24/17 21:00 08/27/17 20:50 (Lopressor) 100 mg Q12HR PO 08/25/17 09:00 08/28/17 09:34 (Pill Splitter) 1 ea UNSCH PRN OTHER 08/24/17 17:45 (Oscal) 500 mg BID PO 08/24/17 21:00 08/27/17 20:49 (Theragran) 1 tab DAILY PO 08/25/17 09:00 08/28/17 09:36 (Albuterol Neb) 2.5 mg Q2HR NEB PRN NEB 08/24/17 17:45 (Ambien) 5 mg HS PRN PO 08/25/17 17:30 08/27/17 20:59 (Deltasone) 20 mg DAILY PO 08/27/17 12:00 08/28/17 09:36 (Levaquin) 500 mg Q48H PO 08/29/17 13:00 Vital Signs / I&O Vital Signs Date Time Temp Pulse Resp B/P (MAP) Pulse Ox O2 Delivery O2 Flow Rate FiO2 08/28/17 13:07 71 08/28/17 12:10 69 08/28/17 11:02 96.1 70 18 127/70 (89) 96 08/28/17 11:01 71 08/28/17 10:16 79 08/28/17 09:14 92 08/28/17 08:30 97 Room Air 08/28/17 08:02 80 08/28/17 07:46 94 21 08/28/17 07:45 96.1 80 18 136/78 (97) 97 08/28/17 06:00 80 08/28/17 05:00 82 08/28/17 04:00 98.5 84 18 144/90 (108) 92 08/28/17 04:00 77 08/28/17 03:00 84 08/28/17 02:00 80 08/28/17 01:00 80 08/28/17 00:00 77 08/28/17 00:00 98.4 95 18 116/70 (85) 95 08/27/17 23:00 76 08/27/17 22:00 86 08/27/17 21:27 96 08/27/17 21:00 88 08/27/17 20:00 Room Air 08/27/17 20:00 84 08/27/17 20:00 98.0 94 18 125/73 (90) 98 08/27/17 18:00 84 08/27/17 17:03 70 08/27/17 16:00 84 08/27/17 15:55 98.2 1 19 111/63 (79) 94 08/27/17 15:00 87 I/O 08/27/17 08/27/17 08/27/17 08/28/17 08/28/17 08/28/17 07:00 15:00 23:00 07:00 15:00 23:00 Intake Total 240 ml 720 ml 240 ml Output Total 200 ml 700 ml 500 ml Balance 40 ml 20 ml -260 ml Intake Oral 240 ml 720 ml 240 ml Output Urine Total 200 ml 700 ml 500 ml # Bowel Movements 2 Physical Exam GENERAL: NAD, AAOx3 SKIN: Warm and dry. HEAD: Atraumatic. Normocephalic. EYES: Pupils equal and round. No scleral icterus. No injection or drainage. ENT: No nasal bleeding or discharge. Mucous membranes pink and moist. NECK: Trachea midline. No JVD. CARDIOVASCULAR: Regular rate and rhythm. 3/6 crescendo-decrescendo murmur to the RSB RESPIRATORY: No accessory muscle use. Clear to auscultation. Breath sounds equal bilaterally. GASTROINTESTINAL: Abdomen soft, non-tender, nondistended. Hepatic and splenic margins not palpable. MUSCULOSKELETAL: Extremities without clubbing, cyanosis, or edema. No obvious deformities. NEUROLOGICAL: Awake and alert. No obvious cranial nerve deficits. Motor grossly within normal limits. Five out of 5 muscle strength in the arms and legs. Normal speech. PSYCHIATRIC: Appropriate mood and affect; insight and judgment normal. Laboratory Laboratory Tests Test 08/28/17 05:56 White Blood Count 10.8 TH/MM3 Red Blood Count 3.03 MIL/MM3 Hemoglobin 9.3 GM/DL Hematocrit 27.5 % Mean Corpuscular Volume 90.8 FL Mean Corpuscular Hemoglobin 30.6 PG Mean Corpuscular Hemoglobin Concent 33.7 % Red Cell Distribution Width 14.0 % Platelet Count 504 TH/MM3 Mean Platelet Volume 7.6 FL Activated Partial Thromboplast Time 66.6 SEC Blood Urea Nitrogen 51 MG/DL Creatinine 2.31 MG/DL Random Glucose 104 MG/DL Calcium Level 11.0 MG/DL Sodium Level 134 MEQ/L Potassium Level 3.5 MEQ/L Chloride Level 91 MEQ/L Carbon Dioxide Level 35.9 MEQ/L Anion Gap 7 MEQ/L Estimat Glomerular Filtration Rate 20 ML/MIN Anti-Nuclear Antibody Screen NEG Assessment and Plan Problem List: (1) Aortic stenosis ICD Codes: I35.0 - Nonrheumatic aortic (valve) stenosis Status: Chronic (2) Status post carotid endarterectomy ICD Codes: Z98.890 - Other specified postprocedural states Status: Acute (3) CVA (cerebral vascular accident) ICD Codes: I63.9 - Cerebral infarction, unspecified Status: Acute (4) HTN (hypertension) ICD Codes: I10 - Essential (primary) hypertension Status: Chronic (5) Obesity ICD Codes: E66.9 - Obesity, unspecified Status: Chronic (6) COPD (chronic obstructive pulmonary disease) ICD Codes: J44.9 - Chronic obstructive pulmonary disease, unspecified Status: Chronic (7) Non-ST elevation [place] (NSTEMI) ICD Codes: I21.4 - Non-ST elevation (NSTEMI) myocardial infarction Status: Acute Assessment and Plan 1) NSTEMI Con't heparin drip Possible Type 1 vs 2 2) Severe Eventual RHC/LHC 3) JOE on CKD Renal function mildly better Nephrology following Unable to cath until back towards normal Will make NPO tonight and consider tomorrow, but most likely Saturday Problem Qualifiers (1) Aortic stenosis: Qualified Codes: I35.0 - Nonrheumatic aortic (valve) stenosis (2) HTN (hypertension): Qualified Codes: I10 - Essential (primary) hypertension (3) COPD (chronic obstructive pulmonary disease): Enrike Wilburn DO Aug 28, 2017 14:11
--- NOTE | 2017-08-28 16:25 | HHI.NPPN ---
Subjective Renal Failure: Acute History of Present Illness Patient is a 77 yr old female w/ PMHx of aortic stenosis, HTN, COPD, and recent stroke on 07/24 s/p right CEA. Patient presents to the ED with sudden- onset SOB and associated abdominal pain. She was found to have a troponin of >8 and BNP near 1500 on admission. Nephrology was consulted for evaluation of JOE with worsening renal indices with a creatinine of 2.60 and GFR of 18 ml/min today. Patient was to have cardiac procedure but this has now been put on hold with renal function. Patient has been having CKD stage 3 followed by primary care. Appears that baseline creatinine is around 1.5. Additional Remarks Patient is OOB sitting in chair. Denies any SOB. No edema noted. Heart cath possibly tomorrow (Michell Salguero) Review of Systems Respiratory Respiratory Remarks Denies any SOB (Michell Salguero) Cardiovascular Cardiac Remarks Denies any CP (Michell Salguero) Gastrointestinal GI Remarks Denies any Abdominal pain (Michell Salguero) Objective Data Data Vital Signs Date Time Temp Pulse Resp B/P (MAP) Pulse Ox O2 Delivery O2 Flow Rate FiO2 08/28/17 15:17 96 21 08/28/17 15:15 96.3 76 18 103/66 (78) 96 08/28/17 13:07 71 08/28/17 12:10 69 08/28/17 11:02 96.1 70 18 127/70 (89) 96 08/28/17 11:01 71 08/28/17 10:16 79 08/28/17 09:14 92 08/28/17 08:30 97 Room Air 08/28/17 08:02 80 08/28/17 07:46 94 21 08/28/17 07:45 96.1 80 18 136/78 (97) 97 08/28/17 06:00 80 08/28/17 05:00 82 08/28/17 04:00 98.5 84 18 144/90 (108) 92 08/28/17 04:00 77 08/28/17 03:00 84 08/28/17 02:00 80 08/28/17 01:00 80 08/28/17 00:00 77 08/28/17 00:00 98.4 95 18 116/70 (85) 95 08/27/17 23:00 76 08/27/17 22:00 86 08/27/17 21:27 96 08/27/17 21:00 88 08/27/17 20:00 Room Air 08/27/17 20:00 84 08/27/17 20:00 98.0 94 18 125/73 (90) 98 08/27/17 18:00 84 08/27/17 17:03 70 (Michell Salguero) -: 08/28/17 0556 08/28/17 0556 Physical Exam General Appearance: No Acute Distress, Comfortable (Michell Salguero) Eyes Eye Exam: Pupils Equal (Michell Salguero) Throat Throat Exam: Oral Mucosa [place] & Moist (Michell Salguero) Pulmonary Resp Exam: Clear Bilaterally, Breath Sounds Equal, No Distress (Michell Salguero) Cardiology CV Exam: Regular (Michell Salguero) Gastrointestinal/Abdomen GI Exam: Soft, Non-Tender, Bowel Sounds Present (Michell Salguero) Genitourinary Exam: Flank Non-Tender (Michell Salguero) Integumentary Skin Exam: Clear, Warm (Michell Salguero) Extremeties Extremities Exam: No Edema (Michell Salguero) Neurologic Neuro Exam: Alert, Awake (Michell Salguero) Psychiatric Psych Exam: Appropriate Responses (Michell Salguero) Assessment/Plan Problem List: (1) JOE (acute kidney injury) ICD Codes: N17.9 - Acute kidney failure, unspecified Plan: Appears that baseline creatinine is around 1.5 JOE possibly related to sepsis or cariorenal CKD from maybe HTN or renovascular disease Trace proteinuria Potassium WNL Renal US:Right-sided renal atrophy and medical renal disease. No hydronephrosis bilaterally. Bladder unremarkable. Maintain strict I+O and daily weights Continue antibiotics renal dosing Creatinine slightly at 2.31 from 2.75 Fluids encouraged. Continue to follow labs and UOP. Possibly heart cath tomorrow (2) HTN (hypertension) ICD Codes: I10 - Essential (primary) hypertension Status: Chronic Plan: Well controlled on amlodipine and metoprolol (3) Non-ST elevation [place] (NSTEMI) ICD Codes: I21.4 - Non-ST elevation (NSTEMI) myocardial infarction Status: Acute Plan: Cardiology managing Heparin gtt (4) HCAP (healthcare-associated pneumonia) ICD Codes: J18.9 - Pneumonia, unspecified organism Status: Acute Plan: On antibiotics O 2 2 liters (Michell Salguero) Problem List: (1) JOE (acute kidney injury) ICD Codes: N17.9 - Acute kidney failure, unspecified Plan: Appears that baseline creatinine is around 1.5 JOE possibly related to sepsis or cariorenal CKD from maybe HTN or renovascular disease Trace proteinuria Potassium WNL Renal US:Right-sided renal atrophy and medical renal disease. No hydronephrosis bilaterally. Bladder unremarkable. Maintain strict I+O and daily weights Continue antibiotics renal dosing Creatinine improve slightly at 2.31 from 2.75 Fluids encouraged. Continue to follow labs and UOP. Possibly heart cath tomorrow. Patient seen and examined, agree with above. (2) HTN (hypertension) ICD Codes: I10 - Essential (primary) hypertension Status: Chronic Plan: Well controlled on amlodipine and metoprolol (3) Non-ST elevation [place] (NSTEMI) ICD Codes: I21.4 - Non-ST elevation (NSTEMI) myocardial infarction Status: Acute Plan: Cardiology managing Heparin gtt (4) HCAP (healthcare-associated pneumonia) ICD Codes: J18.9 - Pneumonia, unspecified organism Status: Acute Plan: On antibiotics O 2 2 liters (Kingsley Johnson MD) Problem Qualifiers (1) HTN (hypertension): Qualified Codes: I10 - Essential (primary) hypertension Michell Salguero Aug 28, 2017 16:25 Kingsley Johnson MD Aug 28, 2017 20:53
[2017-08-28] MEDS ORDERED: SODIUM CHLOR 0.9% 250 ML INJ 250 ML IV ONE (18:45)
[2017-08-28] MEDS: MONTELUKAST SODIUM 10 MG TAB PO SCH (21:02)
[2017-08-28] MEDS: ZOLPIDEM TARTRATE 5 MG TAB PO PRN (21:03)
[2017-08-28] MEDS: PRAVASTATIN SOD 40 MG TAB PO SCH (21:03)
[2017-08-28] MEDS: HEPARIN-D5W 25,000 U/250 ML 250 ML IV PRN (21:17)
[2017-08-29] VITALS (25 sets, daily range): BP systolic 96–151; BP diastolic 56–85; PULSE 58–80; RESP 16–20; TEMP 97.6–98.1; O2SAT 91–100
[2017-08-29] MEDS: NITROGLYCERIN 2% OINT 1 GM PACKET TOPICAL SCH ×3 (06:36→22:00)
[2017-08-29] MEDS: amLODIPine BESYLATE 5 MG TAB PO SCH (08:26)
[2017-08-29] MEDS: predniSONE 20 MG TAB PO SCH (08:26)
[2017-08-29] MEDS: CALCIUM CARBONATE 1.25 GM (CA 500 MG) TAB PO SCH ×2 (08:26→21:36)
[2017-08-29] MEDS: METOPROLOL TARTRATE 100 MG TAB PO SCH ×2 (08:27→20:44)
[2017-08-29] MEDS: BUDESONIDE-FORMOTEROL 160/4.5 MCG INHALER INH SCH ×2 (08:27→20:44)
[2017-08-29] MEDS: SODIUM CHLORIDE 0.9% FLUSH 10 ML FLUSH IV FLUSH SCH ×2 (08:27→20:44)
[2017-08-29] MEDS: ASPIRIN 81 MG CHEW TAB CHEW SCH (08:27)
[2017-08-29] MEDS: MULTIVITAMIN TAB PO SCH (08:27)
[2017-08-29] MEDS: CHOLECALCIFEROL (VIT D3) 1000 UNIT TAB PO SCH (08:27)
[2017-08-29] MEDS: DOCUSATE SODIUM 50 MG/SENNA 8.6 MG TAB PO SCH ×2 (08:28→20:45)
[2017-08-29 08:42] LABS: HEMATOCRIT 27.1 % (35.0-46.0); MEAN CELL VOLUME 90.6 FL (80.0-100.0); MEAN CORPUSCULAR HEMOGLOBIN 30.2 PG (27.0-34.0); MEAN CORPUSCULAR HGB CONC 33.3 % (32.0-36.0); MEAN PLATELET VOLUME 7.7 FL (7.0-11.0); PLATELET COUNT 462 TH/MM3 (150-450); RED BLOOD COUNT 2.99 MIL/MM3 (4.00-5.30); RED CELL DISTRIBUTION WIDTH 13.9 % (11.6-17.2); WHITE BLOOD COUNT 9.4 TH/MM3 (4.0-11.0)
[2017-08-29 08:47] LABS: BICARBONATE 34.8 MEQ/L (21.0-32.0); CALCIUM 10.1 MG/DL (8.5-10.1); CREATININE 1.94 MG/DL (0.50-1.00)
--- NOTE | 2017-08-29 10:08 | HHI.FPPN ---
Subjective Remarks No acute events overnight. Pt lying in bed, at bedside. Pt reports doing well this AM. Denies CP, SOB, abdominal pain, and N/V. (Cande Lopez MD R1) Objective Vitals Vital Signs Date Time Temp Pulse Resp B/P (MAP) Pulse Ox O2 Delivery O2 Flow Rate FiO2 08/29/17 08:15 97 Room Air 08/29/17 08:15 97.8 70 18 151/85 (107) 96 08/29/17 07:01 69 08/29/17 05:00 66 08/29/17 04:00 67 08/29/17 03:27 98.1 74 16 122/71 (88) 96 08/29/17 03:00 67 08/29/17 02:00 68 08/29/17 01:00 70 08/29/17 00:00 66 08/28/17 23:00 64 08/28/17 23:00 97.3 66 16 117/63 (81) 95 08/28/17 22:00 74 08/28/17 21:00 76 08/28/17 20:15 97.3 76 16 120/71 (87) 95 08/28/17 20:00 95 Room Air 08/28/17 20:00 78 08/28/17 19:00 81 08/28/17 18:01 74 08/28/17 17:01 78 08/28/17 16:00 78 08/28/17 15:17 96 21 08/28/17 15:15 96.3 76 18 103/66 (78) 96 08/28/17 15:00 77 08/28/17 14:00 76 08/28/17 13:07 71 08/28/17 12:10 69 08/28/17 11:02 96.1 70 18 127/70 (89) 96 08/28/17 11:01 71 08/28/17 10:16 79 I/O 08/28/17 08/28/17 08/28/17 08/29/17 08/29/17 08/29/17 07:00 15:00 23:00 07:00 15:00 23:00 Intake Total 240 ml 720 ml 240 ml Output Total 500 ml 700 ml 450 ml Balance -260 ml 20 ml -210 ml Intake Oral 240 ml 720 ml 240 ml Output Urine Total 500 ml 700 ml 450 ml # Voids 4 # Bowel Movements 0 0 (Cande Lopez MD R1) Result Diagram: 08/29/17 0816 08/29/17 0816 Objective Remarks GENERAL: Elderly female patient lying in bed in no acute distress. Her is at the bedside. SKIN: Warm and dry. No rashes or lesions present. HEENT: AT, NC with EOMI. No rhinorrhea. MMM. No visible LAD or JVD appreciated. CARDIOVASCULAR: Regular rate and rhythm, 3/6 TIERRA. Strong radial and pedal pulses. RESPIRATORY: Breath sounds clear to auscultation bilaterally. No accessory muscle use. Currently on 2L NC. GASTROINTESTINAL: Abdomen soft, non-tender with +BS. Patient mildly distended. No fluid or masses appreciated. MUSCULOSKELETAL: No cyanosis or edema. No calf tenderness. Moving all four extremities spontaneously. NEURO: Afocal. CN 2-12 grossly intact. Good muscle tone. PSYCH: Normal mood and affect. Good eye contact. Good insight and judgment. Normal speech. (Cande Lopez MD R1) A/P Assessment and Plan 72 yr old w/ PMHx of aortic stenosis, HTN, COPD, and recent stroke on 07/24 s/p right CEA presents with sudden-onset SOB and admitted with NSTEMI and HCAP. Discharge Planning Unclear timetable, pending renal improvement and cardiology interventions. (Cande Lopez MD R1) Attending Attestation Patient examined before resident physician rounds this morning at 7:30 AM No acute events overnight, patient lying in bed comfortably and denies shortness of breath or chest pain I have reviewed the resident note above and agree with the assessment/plan as discussed with me I was involved in all medical decision making for this patient Eldon Engel MD (Eldon Engel MD) Problem List: (1) Non-ST elevation [place] (NSTEMI) ICD Codes: I21.4 - Non-ST elevation (NSTEMI) myocardial infarction Status: Acute Plan: Troponin elevated at 8.13, EKG with minor ST depression in leads V4-V6 on admission. Troponin trending down 8.13-7.54-7.03 Cardiology consulted, recommendations appreciated -continue heparin drip -renal function mildly improving -unable to cath until back towards normal -will make NPO tonight again and consider tomorrow -Plan for Dyevert for procedure to decrease contrast use Continue to monitor on cardiac telemetry Aspirin 81mg administered in ED Morphine 2mg IV push q30m PRN chest pain Nitroglycerin 0.4mg Sl q5m PRN chest pain, nitroglycerin 2% oint q8hr Metoprolol tartrate 100mg PO q12hr CT head negative. (2) CKD (chronic kidney disease) stage 3, GFR 30-59 ml/min ICD Codes: N18.3 - Chronic kidney disease, stage 3 (moderate) Status: Chronic Plan: Baseline Cr ~1.2 per chart review Creatinine improving, catheterization postponed until renal function normalizes Lasix held AMY screen negative Anti-myeloperoxidase and proteinase: pending Nephrology consulted, appreciate recommendations -continue abx renally dosing -fluids encouraged -continue to follow labs (3) JOE (acute kidney injury) ICD Codes: N17.9 - Acute kidney failure, unspecified Status: Acute Plan: -Improving -Baseline Cr ~1.2 per chart review -Lasix held and cardiac catheterization postponed (4) HCAP (healthcare-associated pneumonia) ICD Codes: J18.9 - Pneumonia, unspecified organism Status: Acute Plan: Patient met severe sepsis criteria on admission due to tachycardia, tachypnea, leukocytosis, lactic acid >2, with known source of suspected HCAP CXR significant for development of bibasilar prominent bronchovascular markings w/o consolidation, infiltrates Leukocytosis, tachypnea, tachycardia, and lactic acid have resolved to wnl today. Urine Legionella antigen and pneumococcal negative Blood cultures x2 NGTD Plan: Continue PO Levaquin 500mg Q48h (08/27-) Continue PO prednisone 20mg daily (08/27-) Discontinue Vancomycin, pharmacy consulted for dosing (08/24-08/27) Discontinue Zosyn 4.5 gm q6h (08/24-08/27) Discontinue Solumedrol 40mg IV push q12hr Duonebs ARMOND q4hr, albuterol as needed (5) COPD (chronic obstructive pulmonary disease) ICD Codes: J44.9 - Chronic obstructive pulmonary disease, unspecified Status: Chronic Plan: See plan above Continue Montelukast 10mg PO HS (6) Congestive heart failure ICD Codes: I50.9 - Heart failure, unspecified Status: Chronic Plan: Last Echo 07/26/17 EF of 50-55%, significant for severe aortic stenosis and moderate mitral valve regurgitation 08/25 Echo significant for EF 50-55% with normal left ventricular systolic function, continued severe aortic stenosis BNP 1466 s/p 80mg IV lasix once and Lasix 40mg IV Q8H with improvement in SOB, held due to creatinine increase strict I & Os and daily weights (7) Aortic stenosis ICD Codes: I35.0 - Nonrheumatic aortic (valve) stenosis Status: Chronic Plan: 08/25 Echo shows diffuse calcification of the aortic valve, severe aortic valve stenosis, aortic valve area of 0.697 cm, Aortic valve mean gradient is 32 mmHg (8) HTN (hypertension) ICD Codes: I10 - Essential (primary) hypertension Status: Chronic Plan: Metoprolol [id number] PO BID Continue home Triam/HCTZ 25mg daily and amlodipine 2.5mg PO daily Clonidine PRN for BP > 180/100 (9) Hx of arterial ischemic stroke ICD Codes: Z86.73 - Personal history of transient ischemic attack (TIA), and cerebral infarction without residual deficits Plan: Continue 40mg PO pravastatin HS (10) Anxiety ICD Codes: F41.9 - Anxiety disorder, unspecified Plan: Continue home Xanax 0.125mg PO BID PRN (11) Nutrition, metabolism, and development symptoms ICD Codes: R63.8 - Other symptoms and signs concerning food and fluid intake Status: Acute Plan: Diet: Heart Healthy Diet, NPO after midnight Fluids: none vitals q4h, strict I & Os, daily weights, neurochecks q4h PT and OT (Cande Lopez MD R1) Problem Qualifiers (1) COPD (chronic obstructive pulmonary disease): (2) Congestive heart failure: Qualified Codes: I50.9 - Heart failure, unspecified (3) Aortic stenosis: Qualified Codes: I35.0 - Nonrheumatic aortic (valve) stenosis (4) HTN (hypertension): Qualified Codes: I10 - Essential (primary) hypertension Cande Lopez MD R1 Aug 29, 2017 10:08 Eldon Engel MD Aug 29, 2017 13:51
--- NOTE | 2017-08-29 11:25 | PD.CARD.PN ---
Subjective Subjective Remarks No chest pain/SOB Objective Medications Current Medications Medications (Trade) Dose Ordered Sig/Jasmeet Route Start Time Stop Time Status Last Admin (NS Flush) 2 ml UNSCH PRN IV FLUSH 08/24/17 15:15 (NS Flush) 2 ml BID IV FLUSH 08/24/17 21:00 08/29/17 08:27 (Zofran Inj) 4 mg Q6H PRN IVP 08/24/17 15:45 (Narcan Inj) 0.4 mg UNSCH PRN IV PUSH 08/24/17 15:45 (Kerry-Colace) 1 tab BID PO 08/24/17 21:00 08/27/17 09:56 (Milk Of Magnesia Liq) 30 ml Q12H PRN PO 08/24/17 15:45 (Senokot) 17.2 mg Q12H PRN PO 08/24/17 15:45 (Dulcolax Supp) 10 mg DAILY PRN RECTAL 08/24/17 15:45 (Lactulose Liq) 30 ml DAILY PRN PO 08/24/17 15:45 08/26/17 09:31 (Nitrostat Sl) 0.4 mg Q5M PRN SL 08/24/17 16:00 (Morphine Inj) 2 mg Q30M PRN IV PUSH 08/24/17 16:00 (Tylenol) 650 mg Q6H PRN PO 08/24/17 16:00 (Heparin Inj) 5,000 units UNSCH PRN IV PUSH 08/24/17 22:00 (Heparin Inj) 2,500 units UNSCH PRN IV PUSH 08/24/17 22:00 Heparin Sodium/ Dextrose 250 ml @ 9.6 mls/hr TITRATE PRN IV 08/24/17 16:00 Future hold 08/28/17 21:17 (Nitroglycerin 2% Oint) 0.5 inch Q8HR TOPICAL 08/24/17 16:00 08/29/17 06:36 (Aspirin Chew) 81 mg DAILY CHEW 08/25/17 09:00 08/29/17 08:27 (Xanax) 0.125 mg BID PRN PO 08/24/17 17:15 08/28/17 21:04 (Norvasc) 2.5 mg DAILY PO 08/25/17 09:00 08/29/17 08:26 (Symbicort 160-4.5 Mcg Inh) 2 puff Q12HR INH 08/24/17 21:00 08/29/17 08:27 (Vitamin D3) 1,000 units DAILY PO 08/25/17 09:00 08/29/17 08:27 (Singulair) 10 mg HS PO 08/24/17 21:00 08/28/17 21:02 (Pravachol) 40 mg HS PO 08/24/17 21:00 08/28/17 21:03 (Lopressor) 100 mg Q12HR PO 08/25/17 09:00 08/29/17 08:27 (Pill Splitter) 1 ea UNSCH PRN OTHER 08/24/17 17:45 (Oscal) 500 mg BID PO 08/24/17 21:00 08/29/17 08:26 (Theragran) 1 tab DAILY PO 08/25/17 09:00 08/29/17 08:27 (Albuterol Neb) 2.5 mg Q2HR NEB PRN NEB 08/24/17 17:45 (Ambien) 5 mg HS PRN PO 08/25/17 17:30 08/28/17 21:03 (Deltasone) 20 mg DAILY PO 08/27/17 12:00 08/29/17 08:26 (Levaquin) 500 mg Q48H PO 08/29/17 13:00 Vital Signs / I&O Vital Signs Date Time Temp Pulse Resp B/P (MAP) Pulse Ox O2 Delivery O2 Flow Rate FiO2 08/29/17 10:34 91 21 08/29/17 08:15 97 Room Air 08/29/17 08:15 97.8 70 18 151/85 (107) 96 08/29/17 07:01 69 08/29/17 05:00 66 08/29/17 04:00 67 08/29/17 03:27 98.1 74 16 122/71 (88) 96 08/29/17 03:00 67 08/29/17 02:00 68 08/29/17 01:00 70 08/29/17 00:00 66 08/28/17 23:00 64 08/28/17 23:00 97.3 66 16 117/63 (81) 95 08/28/17 22:00 74 2/14/18 21:00 76 08/28/17 20:15 97.3 76 16 120/71 (87) 95 08/28/17 20:00 95 Room Air 08/28/17 20:00 78 08/28/17 19:00 81 08/28/17 18:01 74 08/28/17 17:01 78 08/28/17 16:00 78 08/28/17 15:17 96 21 08/28/17 15:15 96.3 76 18 103/66 (78) 96 08/28/17 15:00 77 08/28/17 14:00 76 08/28/17 13:07 71 08/28/17 12:10 69 I/O 08/28/17 08/28/17 08/28/17 08/29/17 08/29/17 08/29/17 07:00 15:00 23:00 07:00 15:00 23:00 Intake Total 240 ml 720 ml 240 ml Output Total 500 ml 700 ml 450 ml Balance -260 ml 20 ml -210 ml Intake Oral 240 ml 720 ml 240 ml Output Urine Total 500 ml 700 ml 450 ml # Voids 4 # Bowel Movements 0 0 Physical Exam GENERAL: NAD, AAOx3 SKIN: Warm and dry. HEAD: Atraumatic. Normocephalic. EYES: Pupils equal and round. No scleral icterus. No injection or drainage. ENT: No nasal bleeding or discharge. Mucous membranes pink and moist. NECK: Trachea midline. No JVD. CARDIOVASCULAR: Regular rate and rhythm. 3/6 crescendo-decrescendo murmur to the RSB RESPIRATORY: No accessory muscle use. Clear to auscultation. Breath sounds equal bilaterally. GASTROINTESTINAL: Abdomen soft, non-tender, nondistended. Hepatic and splenic margins not palpable. MUSCULOSKELETAL: Extremities without clubbing, cyanosis, or edema. No obvious deformities. NEUROLOGICAL: Awake and alert. No obvious cranial nerve deficits. Motor grossly within normal limits. Five out of 5 muscle strength in the arms and legs. Normal speech. PSYCHIATRIC: Appropriate mood and affect; insight and judgment normal. Laboratory Laboratory Tests Test 08/29/17 06:19 08/29/17 08:16 Activated Partial Thromboplast Time 56.0 SEC White Blood Count 9.4 TH/MM3 Red Blood Count 2.99 MIL/MM3 Hemoglobin 9.0 GM/DL Hematocrit 27.1 % Mean Corpuscular Volume 90.6 FL Mean Corpuscular Hemoglobin 30.2 PG Mean Corpuscular Hemoglobin Concent 33.3 % Red Cell Distribution Width 13.9 % Platelet Count 462 TH/MM3 Mean Platelet Volume 7.7 FL Blood Urea Nitrogen 48 MG/DL Creatinine 1.94 MG/DL Random Glucose 85 MG/DL Calcium Level 10.1 MG/DL Sodium Level 137 MEQ/L Potassium Level 3.5 MEQ/L Chloride Level 97 MEQ/L Carbon Dioxide Level 34.8 MEQ/L Anion Gap 5 MEQ/L Estimat Glomerular Filtration Rate 25 ML/MIN Assessment and Plan Problem List: (1) Aortic stenosis ICD Codes: I35.0 - Nonrheumatic aortic (valve) stenosis Status: Chronic (2) Status post carotid endarterectomy ICD Codes: Z98.890 - Other specified postprocedural states Status: Acute (3) CVA (cerebral vascular accident) ICD Codes: I63.9 - Cerebral infarction, unspecified Status: Acute (4) HTN (hypertension) ICD Codes: I10 - Essential (primary) hypertension Status: Chronic (5) Obesity ICD Codes: E66.9 - Obesity, unspecified Status: Chronic (6) COPD (chronic obstructive pulmonary disease) ICD Codes: J44.9 - Chronic obstructive pulmonary disease, unspecified Status: Chronic (7) Non-ST elevation [place] (NSTEMI) ICD Codes: I21.4 - Non-ST elevation (NSTEMI) myocardial infarction Status: Acute Assessment and Plan 1) NSTEMI Con't heparin drip Possible Type 1 vs 2 2) Severe Eventual RHC/LHC 3) JOE on CKD Renal function mildly better Nephrology following Unable to cath until back towards normal Will make NPO again tonight and consider tomorrow Plan for Dyevert for procedure to decrease contrast use Problem Qualifiers (1) Aortic stenosis: Qualified Codes: I35.0 - Nonrheumatic aortic (valve) stenosis (2) HTN (hypertension): Qualified Codes: I10 - Essential (primary) hypertension (3) COPD (chronic obstructive pulmonary disease): Enrike Wilburn DO Aug 29, 2017 11:25
[2017-08-29] MEDS: ALPRAZolam 0.25 MG TAB PO PRN ×2 (11:32→21:36)
--- NOTE | 2017-08-29 12:35 | HHI.NPPN ---
Subjective Renal Failure: Acute History of Present Illness Patient is a 77 yr old female w/ PMHx of aortic stenosis, HTN, COPD, and recent stroke on 07/24 s/p right CEA. Patient presents to the ED with sudden- onset SOB and associated abdominal pain. She was found to have a troponin of >8 and BNP near 1500 on admission. Nephrology was consulted for evaluation of JOE with worsening renal indices with a creatinine of 2.60 and GFR of 18 ml/min today. Patient was to have cardiac procedure but this has now been put on hold with renal function. Patient has been having CKD stage 3 followed by primary care. Appears that baseline creatinine is around 1.5. Additional Remarks Resting comfortably. Denies any SOB. No edema noted. (Michell Salguero) Review of Systems Respiratory Respiratory Remarks Denies any SOB (Michell Salguero) Cardiovascular Cardiac Remarks Denies any CP (Michell Salguero) Gastrointestinal GI Remarks Denies any Abdominal pain (Michell Salguero) Objective Data Data Vital Signs Date Time Temp Pulse Resp B/P (MAP) Pulse Ox O2 Delivery O2 Flow Rate FiO2 08/29/17 11:27 97.6 65 18 113/69 (84) 97 08/29/17 10:34 91 21 08/29/17 08:15 97 Room Air 08/29/17 08:15 97.8 70 18 151/85 (107) 96 08/29/17 07:01 69 08/29/17 05:00 66 08/29/17 04:00 67 08/29/17 03:27 98.1 74 16 122/71 (88) 96 08/29/17 03:00 67 08/29/17 02:00 68 08/29/17 01:00 70 08/29/17 00:00 66 08/28/17 23:00 64 08/28/17 23:00 97.3 66 16 117/63 (81) 95 08/28/17 22:00 74 08/28/17 21:00 76 08/28/17 20:15 97.3 76 16 120/71 (87) 95 08/28/17 20:00 95 Room Air 08/28/17 20:00 78 08/28/17 19:00 81 08/28/17 18:01 74 08/28/17 17:01 78 08/28/17 16:00 78 08/28/17 15:17 96 21 08/28/17 15:15 96.3 76 18 103/66 (78) 96 08/28/17 15:00 77 08/28/17 14:00 76 08/28/17 13:07 71 (Michell Salguero. PROPERTY DISPOSAL OFFICER) -: 08/29/17 0816 08/29/17 0816 Physical Exam General Appearance: No Acute Distress, Comfortable (GellermannAnitaMichell M. PROPERTY DISPOSAL OFFICER) Eyes Eye Exam: Pupils Equal (Luis ManuelmannAnitaMichell M. PROPERTY DISPOSAL OFFICER) Throat Throat Exam: Oral Mucosa [place] & Moist (Anita Salguerone M. PROPERTY DISPOSAL OFFICER) Pulmonary Resp Exam: Clear Bilaterally, Breath Sounds Equal, No Distress (GellermannMichell M. PROPERTY DISPOSAL OFFICER) Cardiology CV Exam: Regular (Anita Salguerone M. PROPERTY DISPOSAL OFFICER) Gastrointestinal/Abdomen GI Exam: Soft, Non-Tender, Bowel Sounds Present (Anita Salguerone M. PROPERTY DISPOSAL OFFICER) Genitourinary Exam: Flank Non-Tender (Luis ManuelmannAnitaMichell M. PROPERTY DISPOSAL OFFICER) Integumentary Skin Exam: Clear, Warm (JuanlermannAnitaMichell M. PROPERTY DISPOSAL OFFICER) Extremeties Extremities Exam: No Edema (JuanlerAnita adenne M. PROPERTY DISPOSAL OFFICER) Neurologic Neuro Exam: Alert, Awake (Anita Salguerone M. PROPERTY DISPOSAL OFFICER) Psychiatric Psych Exam: Appropriate Responses (Anita Salguerone M. PROPERTY DISPOSAL OFFICER) Assessment/Plan Problem List: (1) JOE (acute kidney injury) ICD Codes: N17.9 - Acute kidney failure, unspecified Plan: Appears that baseline creatinine is around 1.5 JOE possibly related to sepsis or cariorenal CKD from maybe HTN or renovascular disease Trace proteinuria Potassium WNL Renal US:Right-sided renal atrophy and medical renal disease. No hydronephrosis bilaterally. Bladder unremarkable. Maintain strict I+O and daily weights Continue antibiotics renal dosing Creatinine improving at 1.91 from 2.31 Continue to follow labs and UOP. Recommend gentle hydration 12 hours prior to heart cath. Possible heart cath tomorrow (2) HTN (hypertension) ICD Codes: I10 - Essential (primary) hypertension Status: Chronic Plan: Well controlled on amlodipine and metoprolol (3) Non-ST elevation [place] (NSTEMI) ICD Codes: I21.4 - Non-ST elevation (NSTEMI) myocardial infarction Status: Acute Plan: Cardiology managing Heparin gtt (4) HCAP (healthcare-associated pneumonia) ICD Codes: J18.9 - Pneumonia, unspecified organism Status: Acute Plan: On antibiotics O 2 2 liters (Michell Salguero) Problem List: (1) JOE (acute kidney injury) ICD Codes: N17.9 - Acute kidney failure, unspecified Plan: Appears that baseline creatinine is around 1.5 JOE possibly related to sepsis or cariorenal CKD from maybe HTN or renovascular disease Trace proteinuria Potassium WNL Renal US:Right-sided renal atrophy and medical renal disease. No hydronephrosis bilaterally. Bladder unremarkable. Maintain strict I+O and daily weights Continue antibiotics renal dosing Creatinine improving at 1.91 from 2.31 Continue to follow labs and UOP. Recommend gentle hydration 12 hours prior to heart cath. Possible heart cath tomorrow. Patient seen and examined, agree with above. (2) HTN (hypertension) ICD Codes: I10 - Essential (primary) hypertension Status: Chronic Plan: Well controlled on amlodipine and metoprolol (3) Non-ST elevation [place] (NSTEMI) ICD Codes: I21.4 - Non-ST elevation (NSTEMI) myocardial infarction Status: Acute Plan: Cardiology managing Heparin gtt (4) HCAP (healthcare-associated pneumonia) ICD Codes: J18.9 - Pneumonia, unspecified organism Status: Acute Plan: On antibiotics O 2 2 liters (Kingsley Johnson MD) Problem Qualifiers (1) HTN (hypertension): Qualified Codes: I10 - Essential (primary) hypertension Michell Salguero Aug 29, 2017 12:35 Kingsley Johnson MD Aug 29, 2017 18:45
[2017-08-29] MEDS: LEVOFLOXACIN 500 MG TAB PO SCH (13:00)
[2017-08-29] MEDS ORDERED: SODIUM CHLOR 0.9% 1000 ML INJ 1,000 ML IV ONE (19:45)
--- NOTE | 2017-08-29 20:08 | HHI.FPPN ---
Addendum to progress note ADDENDUM Reason for addendum: Additonal documentation Additional information S: Received a call from nursing staff that patient had a vasovagal episode an hour prior while on the toilet with blood pressures down to 81/63 then 52/19. She was placed in bed with legs elevated and blood pressure corrected to 149/73 and 132/73. The team on-call went to see the patient who stated that immediately after eating she went up to go to the bathroom to urinate and defecate when she started feeling dizzy and lightheaded. She called out for help to the nurse who came in and helped her back into the bed. She states that right now she is feeling fine. No longer feels dizzy or lightheaded, no chest pain, no shortness of breath. O: General: Elderly white female laying in bed watching TV, in no acute distress Cardiovascular: RRR, 3/6 systolic murmur appreciated Respiratory: CTAB Extremities: No edema, no calf tenderness A/P: 77-year-old female with severe aortic stenosis, hypertension, and recent stroke admitted for NSTEMI, acute CHF, and sepsis due to HCAP. Patient had an episode of postprandial hypertension which resulted in a vasovagal state while on the toilet. -1 L NS bolus given - Will continue to monitor -Advised patient about getting up slowly from supine to sitting to standing positions LUKE Kumari,Zoey CRUZ R1 Aug 29, 2017 20:08
[2017-08-29] MEDS: PRAVASTATIN SOD 40 MG TAB PO SCH (21:35)
[2017-08-29] MEDS: MONTELUKAST SODIUM 10 MG TAB PO SCH (21:36)
[2017-08-29] MEDS: ZOLPIDEM TARTRATE 5 MG TAB PO PRN (21:36)
[2017-08-29] MEDS: HEPARIN-D5W 25,000 U/250 ML 250 ML IV PRN (22:57)
[2017-08-30] VITALS (19 sets, daily range): BP systolic 104–136; BP diastolic 49–82; PULSE 62–86; RESP 20; TEMP 96.7–98.2; O2SAT 97–100
[2017-08-30] MEDS: NITROGLYCERIN 2% OINT 1 GM PACKET TOPICAL SCH ×3 (06:00→20:27)
[2017-08-30 07:48] LABS: HEMATOCRIT 24.8 % (35.0-46.0); HEMOGLOBIN 8.3 GM/DL (11.6-15.3); MEAN CELL VOLUME 91.8 FL (80.0-100.0); MEAN CORPUSCULAR HEMOGLOBIN 30.6 PG (27.0-34.0); MEAN CORPUSCULAR HGB CONC 33.4 % (32.0-36.0); MEAN PLATELET VOLUME 7.9 FL (7.0-11.0); PLATELET COUNT 392 TH/MM3 (150-450); RED BLOOD COUNT 2.71 MIL/MM3 (4.00-5.30); WHITE BLOOD COUNT 10.3 TH/MM3 (4.0-11.0)
[2017-08-30 07:51] LABS: BICARBONATE 31.5 MEQ/L (21.0-32.0); CALCIUM 9.3 MG/DL (8.5-10.1); CREATININE 1.74 MG/DL (0.50-1.00)
[2017-08-30] MEDS: amLODIPine BESYLATE 5 MG TAB PO SCH (08:25)
[2017-08-30] MEDS: predniSONE 20 MG TAB PO SCH (08:26)
[2017-08-30] MEDS: CALCIUM CARBONATE 1.25 GM (CA 500 MG) TAB PO SCH ×2 (08:26→20:27)
[2017-08-30] MEDS: CHOLECALCIFEROL (VIT D3) 1000 UNIT TAB PO SCH (08:26)
[2017-08-30] MEDS: ASPIRIN 81 MG CHEW TAB CHEW SCH (08:26)
[2017-08-30] MEDS: MULTIVITAMIN TAB PO SCH (08:26)
[2017-08-30] MEDS: DOCUSATE SODIUM 50 MG/SENNA 8.6 MG TAB PO SCH ×2 (08:26→20:27)
[2017-08-30] MEDS: SODIUM CHLORIDE 0.9% FLUSH 10 ML FLUSH IV FLUSH SCH ×2 (08:26→20:27)
[2017-08-30] MEDS: METOPROLOL TARTRATE 100 MG TAB PO SCH ×2 (08:26→20:27)
[2017-08-30] MEDS: BUDESONIDE-FORMOTEROL 160/4.5 MCG INHALER INH SCH ×2 (08:30→20:27)
--- NOTE | 2017-08-30 08:46 | HHI.FPPN ---
Subjective Remarks Patient seen and examined this morning. Overnight patient had vasovagal episode after using bedside commode. Responded to 1L NS bolus. Otherwise patient has been doing well. Her only complaint this morning is having to use NC as it is irritating her nose. Otherwise she has no complaints and denies any fevers, chills, SOB, chest pain, NVD, ABD pain, or calf tenderness. (Tom Corea MD R2) Objective Vitals Vital Signs Date Time Temp Pulse Resp B/P (MAP) Pulse Ox O2 Delivery O2 Flow Rate FiO2 08/30/17 04:00 98.0 80 20 108/82 (91) 100 08/30/17 00:00 98.2 86 20 128/71 (90) 99 08/29/17 21:30 121/67 (85) 08/29/17 20:35 97.8 75 20 96/56 (69) 99 08/29/17 18:01 80 08/29/17 17:00 68 08/29/17 16:00 68 08/29/17 15:15 97.6 68 18 105/57 (73) 100 08/29/17 15:00 68 08/29/17 14:00 72 08/29/17 13:00 72 08/29/17 12:00 68 08/29/17 11:27 97.6 65 18 113/69 (84) 97 08/29/17 11:00 66 08/29/17 10:34 91 21 08/29/17 10:00 58 08/29/17 09:00 70 I/O 08/29/17 08/29/17 08/29/17 08/30/17 08/30/17 08/30/17 07:00 15:00 23:00 07:00 15:00 23:00 Intake Total 240 ml 960 ml Output Total 450 ml 850 ml Balance -210 ml 110 ml Intake Oral 240 ml 960 ml Output Urine Total 450 ml 850 ml # Bowel Movements 0 1 (Tom Corea MD R2) Result Diagram: 08/30/17 0630 08/30/17 0630 Objective Remarks GENERAL: Elderly female patient lying in bed in no acute distress. SKIN: Warm and dry. No rashes or lesions present. HEENT: AT, NC with EOMI. No rhinorrhea. MMM. No visible LAD or JVD appreciated. CARDIOVASCULAR: Regular rate and rhythm, 3/6 TIERRA. 2+ radial and pedal pulses. RESPIRATORY: BL Breath sounds clear to auscultation anteriorly. No accessory muscle use. GASTROINTESTINAL: Abdomen soft, non-tender with +BS. Patient mildly distended. No fluid or masses appreciated. MUSCULOSKELETAL: No cyanosis or edema. No calf tenderness. Moving all four extremities spontaneously. NEURO: Afocal. CN 2-12 grossly intact. Good muscle tone. PSYCH: Normal mood and affect. Good eye contact. Good insight and judgment. Normal speech. (Tom Corea MD R2) A/P Assessment and Plan 72 yr old w/ PMHx of aortic stenosis, HTN, COPD, and recent stroke on 07/24 s/p right CEA presents with sudden-onset SOB and admitted with NSTEMI and HCAP. Discharge Planning Unclear timetable, pending renal improvement and cardiology interventions. (Tom Corea MD R2) Attending Attestation Patient seen and examined separate from resident medical rounds this afternoon at approximately 2 PM. - Vasovagal/near syncopal episode last night - Status post 1 L normal saline bolus and bedrest with no repeat episodes Patient case reviewed and resident note as written above reviewed -I agree with the assessment and plan as discussed with me I was involved in all medical decision making for this patient She will be scheduled for cardiac catheterization with cardiology on Saturday morning as long as clinical course remained stable Eldon Engel MD (Eldon Engel MD) Problem List: (1) Non-ST elevation PR (NSTEMI) ICD Codes: I21.4 - Non-ST elevation (NSTEMI) myocardial infarction Status: Acute Plan: Troponin elevated at 8.13, EKG with minor ST depression in leads V4-V6 on admission. Troponin trending down 8.13-7.54-7.03 Cardiology consulted, recommendations appreciated -continue heparin drip -renal function mildly improving -unable to cath until back towards normal -Patient has been NPO for possible catheterization today -Plan for Dyevert for procedure to decrease contrast use Continue to monitor on cardiac telemetry Aspirin 81mg administered in ED Morphine 2mg IV push q30m PRN chest pain Nitroglycerin 0.4mg Sl q5m PRN chest pain, nitroglycerin 2% oint q8hr Metoprolol tartrate 100mg PO q12hr CT head negative. (2) Vasovagal episode ICD Codes: R55 - Syncope and collapse Status: Acute Plan: Patient with vasovagal episode overnight 08/29 -1L NS bolus given with appropriate response -Due to severe aortic regurgitation, patient to be put on bed rest due to avoid possible complications with pending cardiac procedure (3) CKD (chronic kidney disease) stage 3, GFR 30-59 ml/min ICD Codes: N18.3 - Chronic kidney disease, stage 3 (moderate) Status: Chronic Plan: Baseline Cr ~1.2 per chart review Creatinine improving, catheterization postponed until renal function normalizes Lasix held AMY screen negative Anti-myeloperoxidase and proteinase: Negative 1L NS bolus given 08/29 due to vasovagal episode Nephrology consulted, appreciate recommendations -continue abx renally dosing -fluids encouraged -continue to follow labs (4) JOE (acute kidney injury) ICD Codes: N17.9 - Acute kidney failure, unspecified Status: Acute Plan: -Improving -Plan as above (5) HCAP (healthcare-associated pneumonia) ICD Codes: J18.9 - Pneumonia, unspecified organism Status: Acute Plan: Patient met severe sepsis criteria on admission due to tachycardia, tachypnea, leukocytosis, lactic acid >2, with known source of suspected HCAP CXR significant for development of bibasilar prominent bronchovascular markings w/o consolidation, infiltrates Leukocytosis, tachypnea, tachycardia, and lactic acid have resolved to wnl today. Urine Legionella antigen and pneumococcal negative Blood cultures x2 NGTD Plan: Continue PO Levaquin 500mg Q48h (08/27-) Continue PO prednisone 20mg daily (08/27-) Discontinue Vancomycin, pharmacy consulted for dosing (08/24-08/27) Discontinue Zosyn 4.5 gm q6h (08/24-08/27) Discontinue Solumedrol 40mg IV push q12hr Duonebs ARMOND q4hr, albuterol as needed (6) COPD (chronic obstructive pulmonary disease) ICD Codes: J44.9 - Chronic obstructive pulmonary disease, unspecified Status: Chronic Plan: See plan above Continue Montelukast 10mg PO HS Continue Symbicort Breathing treatments as needed (7) Congestive heart failure ICD Codes: I50.9 - Heart failure, unspecified Status: Chronic Plan: Last Echo 07/26/17 EF of 50-55%, significant for severe aortic stenosis and moderate mitral valve regurgitation 08/25 Echo significant for EF 50-55% with normal left ventricular systolic function, continued severe aortic stenosis BNP 1466 Lasix held due to creatinine increase strict I & Os and daily weights (8) Aortic stenosis ICD Codes: I35.0 - Nonrheumatic aortic (valve) stenosis Status: Chronic Plan: 08/25 Echo shows diffuse calcification of the aortic valve, severe aortic valve stenosis, aortic valve area of 0.697 cm, Aortic valve mean gradient is 32 mmHg (9) HTN (hypertension) ICD Codes: I10 - Essential (primary) hypertension Status: Chronic Plan: Metoprolol [id number] PO BID Held Triam/HCTZ 25mg daily Continue amlodipine 2.5mg PO daily Clonidine PRN for BP > 180/100 (10) Hx of arterial ischemic stroke ICD Codes: Z86.73 - Personal history of transient ischemic attack (TIA), and cerebral infarction without residual deficits Plan: Continue 40mg PO pravastatin HS (11) Anxiety ICD Codes: F41.9 - Anxiety disorder, unspecified Plan: Continue home Xanax 0.125mg PO BID PRN (12) Nutrition, metabolism, and development symptoms ICD Codes: R63.8 - Other symptoms and signs concerning food and fluid intake Status: Acute Plan: Diet: NPO since midnight for possible heart catheterization Fluids: None, 1L NS bolus 08/30 for vasovagal episode vitals q4h, strict I & Os, daily weights, neurochecks q4h PT and OT (Tom Corea MD R2) Problem Qualifiers (1) COPD (chronic obstructive pulmonary disease): (2) Congestive heart failure: Qualified Codes: I50.9 - Heart failure, unspecified (3) Aortic stenosis: Qualified Codes: I35.0 - Nonrheumatic aortic (valve) stenosis (4) HTN (hypertension): Qualified Codes: I10 - Essential (primary) hypertension Tom Corea MD R2 Aug 30, 2017 08:46 Eldon Engel MD Aug 30, 2017 16:39
--- NOTE | 2017-08-30 12:13 | PD.CARD.PN ---
Subjective Subjective Remarks No chest pain/SOB Last night vasovagal on the toilet and dropped her blood pressure, after being placed back in the bed blood pressure normalized Objective Medications Current Medications Medications (Trade) Dose Ordered Sig/Jasmeet Route Start Time Stop Time Status Last Admin (NS Flush) 2 ml UNSCH PRN IV FLUSH 08/24/17 15:15 (NS Flush) 2 ml BID IV FLUSH 08/24/17 21:00 08/30/17 08:26 (Zofran Inj) 4 mg Q6H PRN IVP 08/24/17 15:45 (Narcan Inj) 0.4 mg UNSCH PRN IV PUSH 08/24/17 15:45 (Kerry-Colace) 1 tab BID PO 08/24/17 21:00 08/27/17 09:56 (Milk Of Magnesia Liq) 30 ml Q12H PRN PO 08/24/17 15:45 (Senokot) 17.2 mg Q12H PRN PO 08/24/17 15:45 (Dulcolax Supp) 10 mg DAILY PRN RECTAL 08/24/17 15:45 (Lactulose Liq) 30 ml DAILY PRN PO 08/24/17 15:45 08/26/17 09:31 (Nitrostat Sl) 0.4 mg Q5M PRN SL 08/24/17 16:00 (Morphine Inj) 2 mg Q30M PRN IV PUSH 08/24/17 16:00 (Tylenol) 650 mg Q6H PRN PO 08/24/17 16:00 (Heparin Inj) 5,000 units UNSCH PRN IV PUSH 08/24/17 22:00 (Heparin Inj) 2,500 units UNSCH PRN IV PUSH 08/24/17 22:00 Heparin Sodium/ Dextrose 250 ml @ 9.6 mls/hr TITRATE PRN IV 08/24/17 16:00 Future hold 08/29/17 22:57 (Nitroglycerin 2% Oint) 0.5 inch Q8HR TOPICAL 08/24/17 16:00 08/29/17 22:00 (Aspirin Chew) 81 mg DAILY CHEW 08/25/17 09:00 08/30/17 08:26 (Xanax) 0.125 mg BID PRN PO 08/24/17 17:15 08/29/17 21:36 (Norvasc) 2.5 mg DAILY PO 08/25/17 09:00 08/30/17 08:25 (Symbicort 160-4.5 Mcg Inh) 2 puff Q12HR INH 08/24/17 21:00 08/30/17 08:30 (Vitamin D3) 1,000 units DAILY PO 08/25/17 09:00 08/30/17 08:26 (Singulair) 10 mg HS PO 08/24/17 21:00 08/29/17 21:36 (Pravachol) 40 mg HS PO 08/24/17 21:00 08/29/17 21:35 (Lopressor) 100 mg Q12HR PO 08/25/17 09:00 08/30/17 08:26 (Pill Splitter) 1 ea UNSCH PRN OTHER 08/24/17 17:45 (Oscal) 500 mg BID PO 08/24/17 21:00 08/30/17 08:26 (Theragran) 1 tab DAILY PO 08/25/17 09:00 08/30/17 08:26 (Albuterol Neb) 2.5 mg Q2HR NEB PRN NEB 08/24/17 17:45 08/29/17 11:59 (Ambien) 5 mg HS PRN PO 08/25/17 17:30 08/29/17 21:36 (Deltasone) 20 mg DAILY PO 08/27/17 12:00 08/30/17 08:26 (Levaquin) 500 mg Q48H PO 08/29/17 13:00 08/29/17 13:00 Vital Signs / I&O Vital Signs Date Time Temp Pulse Resp B/P (MAP) Pulse Ox O2 Delivery O2 Flow Rate FiO2 08/30/17 10:00 62 08/30/17 09:00 66 08/30/17 08:53 99 21 08/30/17 08:30 97 Room Air 08/30/17 08:03 79 08/30/17 08:00 96.7 82 20 136/73 (94) 97 08/30/17 07:00 78 08/30/17 04:00 98.0 80 20 108/82 (91) 100 08/30/17 00:00 98.2 86 20 128/71 (90) 99 08/29/17 21:30 121/67 (85) 08/29/17 20:35 97.8 75 20 96/56 (69) 99 08/29/17 18:01 80 08/29/17 17:00 68 08/29/17 16:00 68 08/29/17 15:15 97.6 68 18 105/57 (73) 100 08/29/17 15:00 68 08/29/17 14:00 72 08/29/17 13:00 72 I/O 08/29/17 08/29/17 08/29/17 08/30/17 08/30/17 08/30/17 07:00 15:00 23:00 07:00 15:00 23:00 Intake Total 240 ml 960 ml Output Total 450 ml 850 ml Balance -210 ml 110 ml Intake Oral 240 ml 960 ml Output Urine Total 450 ml 850 ml # Bowel Movements 0 1 Physical Exam GENERAL: NAD, AAOx3 SKIN: Warm and dry. HEAD: Atraumatic. Normocephalic. EYES: Pupils equal and round. No scleral icterus. No injection or drainage. ENT: No nasal bleeding or discharge. Mucous membranes pink and moist. NECK: Trachea midline. No JVD. CARDIOVASCULAR: Regular rate and rhythm. 3/6 crescendo-decrescendo murmur to the RSB RESPIRATORY: No accessory muscle use. Clear to auscultation. Breath sounds equal bilaterally. GASTROINTESTINAL: Abdomen soft, non-tender, nondistended. Hepatic and splenic margins not palpable. MUSCULOSKELETAL: Extremities without clubbing, cyanosis, or edema. No obvious deformities. NEUROLOGICAL: Awake and alert. No obvious cranial nerve deficits. Motor grossly within normal limits. Five out of 5 muscle strength in the arms and legs. Normal speech. PSYCHIATRIC: Appropriate mood and affect; insight and judgment normal. Laboratory Laboratory Tests Test 08/30/17 06:30 White Blood Count 10.3 TH/MM3 Red Blood Count 2.71 MIL/MM3 Hemoglobin 8.3 GM/DL Hematocrit 24.8 % Mean Corpuscular Volume 91.8 FL Mean Corpuscular Hemoglobin 30.6 PG Mean Corpuscular Hemoglobin Concent 33.4 % Red Cell Distribution Width 14.0 % Platelet Count 392 TH/MM3 Mean Platelet Volume 7.9 FL Activated Partial Thromboplast Time 65.9 SEC Blood Urea Nitrogen 40 MG/DL Creatinine 1.74 MG/DL Random Glucose 87 MG/DL Calcium Level 9.3 MG/DL Sodium Level 139 MEQ/L Potassium Level 3.6 MEQ/L Chloride Level 101 MEQ/L Carbon Dioxide Level 31.5 MEQ/L Anion Gap 7 MEQ/L Estimat Glomerular Filtration Rate 28 ML/MIN Assessment and Plan Problem List: (1) Aortic stenosis ICD Codes: I35.0 - Nonrheumatic aortic (valve) stenosis Status: Chronic (2) Status post carotid endarterectomy ICD Codes: Z98.890 - Other specified postprocedural states Status: Acute (3) CVA (cerebral vascular accident) ICD Codes: I63.9 - Cerebral infarction, unspecified Status: Acute (4) HTN (hypertension) ICD Codes: I10 - Essential (primary) hypertension Status: Chronic (5) Obesity ICD Codes: E66.9 - Obesity, unspecified Status: Chronic (6) COPD (chronic obstructive pulmonary disease) ICD Codes: J44.9 - Chronic obstructive pulmonary disease, unspecified Status: Chronic (7) Non-ST elevation SC (NSTEMI) ICD Codes: I21.4 - Non-ST elevation (NSTEMI) myocardial infarction Status: Acute Assessment and Plan 1) NSTEMI Con't heparin drip Possible Type 1 vs 2 2) Severe Eventual RHC/LHC Bedrest 3) JOE on CKD Renal function mildly better Nephrology following Unable to cath until back towards normal Plan for Dyevert for procedure to decrease contrast use Discussed consideration of cath today (08/30) with risks and benefits, but creatinine still not stable or back to baseline Plan for Saturday If over the any concerns, Dr. Griffiths will be covering Discussed with primary team, patient and Problem Qualifiers (1) Aortic stenosis: Qualified Codes: I35.0 - Nonrheumatic aortic (valve) stenosis (2) HTN (hypertension): Qualified Codes: I10 - Essential (primary) hypertension (3) COPD (chronic obstructive pulmonary disease): Enrike Wilburn DO Aug 30, 2017 12:13
--- NOTE | 2017-08-30 16:36 | HHI.NPPN ---
Subjective Renal Failure: Acute History of Present Illness Patient is a 77 yr old female w/ PMHx of aortic stenosis, HTN, COPD, and recent stroke on 07/24 s/p right CEA. Patient presents to the ED with sudden- onset SOB and associated abdominal pain. She was found to have a troponin of >8 and BNP near 1500 on admission. Nephrology was consulted for evaluation of JOE with worsening renal indices with a creatinine of 2.60 and GFR of 18 ml/min today. Patient was to have cardiac procedure but this has now been put on hold with renal function. Patient has been having CKD stage 3 followed by primary care. Appears that baseline creatinine is around 1.5. Additional Remarks Patient is alert, seen in AM, no SOB, no chest pain. Review of Systems Respiratory Respiratory Remarks Denies any SOB Cardiovascular Cardiac Remarks Denies any CP Gastrointestinal GI Remarks Denies any Abdominal pain Objective Data Data Vital Signs Date Time Temp Pulse Resp B/P (MAP) Pulse Ox O2 Delivery O2 Flow Rate FiO2 08/30/17 13:00 72 08/30/17 12:00 69 08/30/17 12:00 97.1 69 20 104/62 (76) 98 08/30/17 11:00 66 08/30/17 10:00 62 08/30/17 09:00 66 08/30/17 08:53 99 21 08/30/17 08:30 97 Room Air 08/30/17 08:03 79 08/30/17 08:00 96.7 82 20 136/73 (94) 97 08/30/17 07:00 78 08/30/17 04:00 98.0 80 20 108/82 (91) 100 08/30/17 00:00 98.2 86 20 128/71 (90) 99 08/29/17 21:30 121/67 (85) 08/29/17 20:35 97.8 75 20 96/56 (69) 99 08/29/17 18:01 80 08/29/17 17:00 68 -: 08/30/17 0630 08/30/17 0630 Physical Exam General Appearance: No Acute Distress, Comfortable Eyes Eye Exam: Pupils Equal Throat Throat Exam: Oral Mucosa Morse & Moist Pulmonary Resp Exam: Clear Bilaterally, Breath Sounds Equal, No Distress Cardiology CV Exam: Regular Gastrointestinal/Abdomen GI Exam: Soft, Non-Tender, Bowel Sounds Present Genitourinary Exam: Flank Non-Tender Integumentary Skin Exam: Clear, Warm Extremeties Extremities Exam: No Edema Neurologic Neuro Exam: Alert, Awake Psychiatric Psych Exam: Appropriate Responses Assessment/Plan Problem List: (1) JOE (acute kidney injury) ICD Codes: N17.9 - Acute kidney failure, unspecified Plan: Appears that baseline creatinine is around 1.5 JOE possibly related to sepsis or cariorenal CKD from maybe HTN or renovascular disease Trace proteinuria Potassium WNL Renal US:Right-sided renal atrophy and medical renal disease. No hydronephrosis bilaterally. Bladder unremarkable. Maintain strict I+O and daily weights Continue antibiotics renal dosing Continue to follow labs and UOP. Recommend gentle hydration 12 hours prior to heart cath. Possible heart cath. Creatinine continue to improve 1.7 (2) HTN (hypertension) ICD Codes: I10 - Essential (primary) hypertension Status: Chronic Plan: Well controlled on amlodipine and metoprolol (3) Non-ST elevation DC (NSTEMI) ICD Codes: I21.4 - Non-ST elevation (NSTEMI) myocardial infarction Status: Acute Plan: Cardiology managing Heparin gtt (4) HCAP (healthcare-associated pneumonia) ICD Codes: J18.9 - Pneumonia, unspecified organism Status: Acute Plan: On antibiotics O 2 2 liters Problem Qualifiers (1) HTN (hypertension): Qualified Codes: I10 - Essential (primary) hypertension Kingsley Johnson MD Aug 30, 2017 16:36
[2017-08-30] MEDS: PRAVASTATIN SOD 40 MG TAB PO SCH (20:27)
[2017-08-30] MEDS: MONTELUKAST SODIUM 10 MG TAB PO SCH (20:27)
[2017-08-30] MEDS: ZOLPIDEM TARTRATE 5 MG TAB PO PRN (20:27)
[2017-08-30] MEDS: HEPARIN-D5W 25,000 U/250 ML 250 ML IV PRN (23:11)
[2017-08-31] VITALS (25 sets, daily range): BP systolic 99–129; BP diastolic 56–79; PULSE 64–90; RESP 16–20; TEMP 97–98.2; O2SAT 94–97
[2017-08-31] MEDS: NITROGLYCERIN 2% OINT 1 GM PACKET TOPICAL SCH ×2 (05:08→17:03)
[2017-08-31 06:45] LABS: HEMATOCRIT 24.4 % (35.0-46.0); MEAN CORPUSCULAR HEMOGLOBIN 30.3 PG (27.0-34.0); MEAN CORPUSCULAR HGB CONC 32.9 % (32.0-36.0); MEAN PLATELET VOLUME 7.9 FL (7.0-11.0); PLATELET COUNT 411 TH/MM3 (150-450); RED BLOOD COUNT 2.65 MIL/MM3 (4.00-5.30); RED CELL DISTRIBUTION WIDTH 14.5 % (11.6-17.2); WHITE BLOOD COUNT 11.9 TH/MM3 (4.0-11.0)
[2017-08-31 07:09] LABS: BICARBONATE 29.4 MEQ/L (21.0-32.0); CALCIUM 9.2 MG/DL (8.5-10.1); CREATININE 1.61 MG/DL (0.50-1.00)
[2017-08-31] MEDS: DOCUSATE SODIUM 50 MG/SENNA 8.6 MG TAB PO SCH ×2 (09:00→20:23)
[2017-08-31] MEDS: predniSONE 20 MG TAB PO SCH (09:10)
[2017-08-31] MEDS: SODIUM CHLORIDE 0.9% FLUSH 10 ML FLUSH IV FLUSH SCH ×2 (09:10→20:23)
[2017-08-31] MEDS: CALCIUM CARBONATE 1.25 GM (CA 500 MG) TAB PO SCH ×2 (09:10→20:23)
[2017-08-31] MEDS: METOPROLOL TARTRATE 100 MG TAB PO SCH ×2 (09:10→20:23)
[2017-08-31] MEDS: MULTIVITAMIN TAB PO SCH (09:10)
[2017-08-31] MEDS: ASPIRIN 81 MG CHEW TAB CHEW SCH (09:10)
[2017-08-31] MEDS: CHOLECALCIFEROL (VIT D3) 1000 UNIT TAB PO SCH (09:10)
[2017-08-31] MEDS: amLODIPine BESYLATE 5 MG TAB PO SCH (09:10)
[2017-08-31] MEDS: BUDESONIDE-FORMOTEROL 160/4.5 MCG INHALER INH SCH ×2 (09:12→20:23)
--- NOTE | 2017-08-31 11:42 | HHI.FPPN ---
Subjective Remarks Ms Carbajal is doing well today no chest or abdominal pain or SOB, etc. She had one episode of near syncope but has been bedridden since then. Met her and her and she is anticipating cath on Saturday with decisions to be made after that regarding aortic valve replacement and bypass or stenting, etc. Objective Vitals Vital Signs Date Time Temp Pulse Resp B/P (MAP) Pulse Ox O2 Delivery O2 Flow Rate FiO2 08/31/17 07:50 97.0 64 18 129/79 (96) 94 08/31/17 07:00 Room Air 08/31/17 06:00 77 08/31/17 05:00 75 08/31/17 04:00 74 08/31/17 04:00 Room Air 08/31/17 04:00 98.1 74 18 99/56 (70) 94 08/31/17 03:00 76 08/31/17 02:00 81 08/31/17 01:00 74 08/31/17 00:00 98.0 72 18 124/68 (86) 97 08/31/17 00:00 72 08/31/17 00:00 Room Air 08/30/17 23:00 80 08/30/17 22:00 84 08/30/17 21:00 81 08/30/17 20:00 86 08/30/17 20:00 Room Air 08/30/17 20:00 97.9 86 20 133/74 (93) 97 08/30/17 17:00 74 08/30/17 16:33 98.0 76 20 112/49 (70) 98 08/30/17 16:00 77 08/30/17 15:00 68 08/30/17 13:00 72 08/30/17 12:00 69 08/30/17 12:00 97.1 69 20 104/62 (76) 98 I/O 08/30/17 08/30/17 08/30/17 08/31/17 08/31/17 08/31/17 07:00 15:00 23:00 07:00 15:00 23:00 Intake Total 480 ml 340 ml Output Total 600 ml 650 ml Balance -120 ml -310 ml Intake Oral 480 ml 240 ml IV Total 100 ml Output Urine Total 600 ml 650 ml # Bowel Movements 0 0 Result Diagram: 08/31/17 0535 08/31/17 05 Objective Remarks GENERAL: Elderly female patient lying in bed in no acute distress. SKIN: Warm and dry. No rashes or lesions present. HEENT: AT, NC with EOMI. No rhinorrhea. MMM. No visible LAD or JVD appreciated. CARDIOVASCULAR: Regular rate and rhythm, 3/6 TIERRA. 2+ radial and pedal pulses. RESPIRATORY: BL Breath sounds clear to auscultation anteriorly. No accessory muscle use. GASTROINTESTINAL: Abdomen soft, non-tender with +BS. Patient mildly distended. No fluid or masses appreciated. MUSCULOSKELETAL: No cyanosis or edema. No calf tenderness. Moving all four extremities spontaneously. NEURO: Afocal. CN 2-12 grossly intact. Good muscle tone. PSYCH: Normal mood and affect. Good eye contact. Good insight and judgment. Normal speech. A/P Assessment and Plan 72 yr old w/ PMHx of aortic stenosis, HTN, COPD, and recent stroke on 07/24 s/p right CEA presents with sudden-onset SOB and admitted with NSTEMI and HCAP. Discharge Planning Unclear timetable, pending renal improvement and cardiology interventions. Problem List: (1) Non-ST elevation [place] (NSTEMI) ICD Codes: I21.4 - Non-ST elevation (NSTEMI) myocardial infarction Status: Acute Plan: Troponin elevated at 8.13, EKG with minor ST depression in leads V4-V6 on admission. Troponin trending down 8.13-7.54-7.03 Cardiology consulted, recommendations appreciated -continue heparin drip -renal function mildly improving -unable to cath until back towards normal -Cath Saturday -Plan for Dyevert for procedure to decrease contrast use Continue to monitor on cardiac telemetry Aspirin 81mg administered in ED Morphine 2mg IV push q30m PRN chest pain Nitroglycerin 0.4mg Sl q5m PRN chest pain, nitroglycerin 2% oint q8hr, will change to be off x 8 hours daily as the pt can get habituated to NTG paste and it quits working as well Metoprolol tartrate 100mg PO q12hr CT head negative. (2) Vasovagal episode ICD Codes: R55 - Syncope and collapse Status: Acute Plan: Patient with vasovagal episode overnight 08/29 -1L NS bolus given with appropriate response -Due to severe aortic stenosis, patient to be put on bed rest due to avoid possible complications with pending cardiac procedure. (3) CKD (chronic kidney disease) stage 3, GFR 30-59 ml/min ICD Codes: N18.3 - Chronic kidney disease, stage 3 (moderate) Status: Chronic Plan: Baseline Cr ~1.2 per chart review Creatinine improving, catheterization postponed until renal function normalizes , aiming for Saturday Lasix held AMY screen negative Anti-myeloperoxidase and proteinase: Negative 1L NS bolus given 08/29 due to vasovagal episode Nephrology consulted, appreciate recommendations -continue abx renally dosing -fluids encouraged -continue to follow labs (4) JOE (acute kidney injury) ICD Codes: N17.9 - Acute kidney failure, unspecified Status: Acute Plan: -Improving -Plan as above (5) HCAP (healthcare-associated pneumonia) ICD Codes: J18.9 - Pneumonia, unspecified organism Status: Acute Plan: Patient met severe sepsis criteria on admission due to tachycardia, tachypnea, leukocytosis, lactic acid >2, with known source of suspected HCAP CXR significant for development of bibasilar prominent bronchovascular markings w/o consolidation, infiltrates Leukocytosis, tachypnea, tachycardia, and lactic acid have resolved to wnl today. Urine Legionella antigen and pneumococcal negative Blood cultures x2 NGTD Plan: Continue PO Levaquin 500mg Q48h (08/27-) Continue PO prednisone 20mg daily (08/27-) weaning down now Discontinued Vancomycin, pharmacy consulted for dosing (08/24-08/27) Discontinued Zosyn 4.5 gm q6h (08/24-08/27) Discontinued Solumedrol 40mg IV push q12hr Duonebs ARMOND q4hr, albuterol as needed (6) COPD (chronic obstructive pulmonary disease) ICD Codes: J44.9 - Chronic obstructive pulmonary disease, unspecified Status: Chronic Plan: See plan above Continue Montelukast 10mg PO HS Continue Symbicort Breathing treatments as needed will wean off steroids (7) Congestive heart failure ICD Codes: I50.9 - Heart failure, unspecified Status: Chronic Plan: Last Echo 07/26/17 EF of 50-55%, significant for severe aortic stenosis and moderate mitral valve regurgitation 08/25 Echo significant for EF 50-55% with normal left ventricular systolic function, continued severe aortic stenosis BNP 1466 Lasix held due to creatinine increase strict I & Os and daily weights (8) Aortic stenosis ICD Codes: I35.0 - Nonrheumatic aortic (valve) stenosis Status: Chronic Plan: 08/25 Echo shows diffuse calcification of the aortic valve, severe aortic valve stenosis, aortic valve area of 0.697 cm, Aortic valve mean gradient is 32 mmHg she may very well need valve replacement but it is unclear exactly what procedure will be done. she is anxious about "open heart surgery" with her recent CVA, etc. (9) HTN (hypertension) ICD Codes: I10 - Essential (primary) hypertension Status: Chronic Plan: Metoprolol [id number] PO BID Held Triam/HCTZ 25mg daily Continue amlodipine 2.5mg PO daily Clonidine PRN for BP > 180/100 (10) Hx of arterial ischemic stroke ICD Codes: Z86.73 - Personal history of transient ischemic attack (TIA), and cerebral infarction without residual deficits Plan: Continue 40mg PO pravastatin HS (11) Anxiety ICD Codes: F41.9 - Anxiety disorder, unspecified Plan: Continue home Xanax 0.125mg PO BID PRN will consider an antidepressant as she has had a CVA and is at high risk for depression (12) Nutrition, metabolism, and development symptoms ICD Codes: R63.8 - Other symptoms and signs concerning food and fluid intake Status: Acute Plan: Diet: NPO at midnight on Saturday for heart catheterization, now eating well Fluids: None, 1L NS bolus 08/30 for vasovagal episode vitals q4h, strict I & Os, daily weights, neurochecks q4h PT and OT Problem Qualifiers (1) COPD (chronic obstructive pulmonary disease): (2) Congestive heart failure: Qualified Codes: I50.9 - Heart failure, unspecified (3) Aortic stenosis: Qualified Codes: I35.0 - Nonrheumatic aortic (valve) stenosis (4) HTN (hypertension): Qualified Codes: I10 - Essential (primary) hypertension Trupti Zarco MD Aug 31, 2017 11:42
[2017-08-31] MEDS: LEVOFLOXACIN 500 MG TAB PO SCH (12:40)
[2017-08-31] MEDS: ALPRAZolam 0.25 MG TAB PO PRN (14:48)
[2017-08-31] MEDS ORDERED: POTASSIUM CHLORIDE 8 MEQ CONTROLLED RELEASE TAB PO ONE (15:45)
--- NOTE | 2017-08-31 15:45 | HHI.NPPN ---
Subjective Renal Failure: Acute History of Present Illness Patient is a 77 yr old female w/ PMHx of aortic stenosis, HTN, COPD, and recent stroke on 07/24 s/p right CEA. Patient presents to the ED with sudden- onset SOB and associated abdominal pain. She was found to have a troponin of >8 and BNP near 1500 on admission. Nephrology was consulted for evaluation of JOE with worsening renal indices with a creatinine of 2.60 and GFR of 18 ml/min today. Patient was to have cardiac procedure but this has now been put on hold with renal function. Patient has been having CKD stage 3 followed by primary care. Appears that baseline creatinine is around 1.5. Additional Remarks Patient is alert, seen in AM, no SOB, no chest pain. Review of Systems Respiratory Respiratory Remarks Denies any SOB Cardiovascular Cardiac Remarks Denies any CP Gastrointestinal GI Remarks Denies any Abdominal pain Objective Data Data Vital Signs Date Time Temp Pulse Resp B/P (MAP) Pulse Ox O2 Delivery O2 Flow Rate FiO2 08/31/17 14:00 70 08/31/17 13:00 70 08/31/17 12:00 70 08/31/17 12:00 97.7 71 16 121/66 (84) 96 08/31/17 11:00 74 08/31/17 10:00 90 08/31/17 09:00 76 08/31/17 08:00 68 08/31/17 07:50 97.0 64 18 129/79 (96) 94 08/31/17 07:00 74 08/31/17 07:00 Room Air 08/31/17 06:00 77 08/31/17 05:00 75 08/31/17 04:00 74 08/31/17 04:00 Room Air 08/31/17 04:00 98.1 74 18 99/56 (70) 94 08/31/17 03:00 76 08/31/17 02:00 81 08/31/17 01:00 74 08/31/17 00:00 98.0 72 18 124/68 (86) 97 08/31/17 00:00 72 08/31/17 00:00 Room Air 08/30/17 23:00 80 08/30/17 22:00 84 08/30/17 21:00 81 08/30/17 20:00 86 08/30/17 20:00 Room Air 08/30/17 20:00 97.9 86 20 133/74 (93) 97 08/30/17 17:00 74 08/30/17 16:33 98.0 76 20 112/49 (70) 98 08/30/17 16:00 77 -: 08/31/17 0535 08/31/17 0535 Physical Exam General Appearance: No Acute Distress, Comfortable Eyes Eye Exam: Pupils Equal Throat Throat Exam: Oral Mucosa [place] & Moist Pulmonary Resp Exam: Clear Bilaterally, Breath Sounds Equal, No Distress Cardiology CV Exam: Regular Gastrointestinal/Abdomen GI Exam: Soft, Non-Tender, Bowel Sounds Present Genitourinary Exam: Flank Non-Tender Integumentary Skin Exam: Clear, Warm Extremeties Extremities Exam: No Edema Neurologic Neuro Exam: Alert, Awake Psychiatric Psych Exam: Appropriate Responses Assessment/Plan Problem List: (1) JOE (acute kidney injury) ICD Codes: N17.9 - Acute kidney failure, unspecified Plan: Appears that baseline creatinine is around 1.5 JOE possibly related to sepsis or cariorenal CKD from maybe HTN or renovascular disease Trace proteinuria Potassium WNL Renal US:Right-sided renal atrophy and medical renal disease. No hydronephrosis bilaterally. Bladder unremarkable. Maintain strict I+O and daily weights Continue antibiotics renal dosing Continue to follow labs and UOP. Recommend gentle hydration 12 hours prior to heart cath. Possible heart cath. Creatinine continue to improve 1.6 K Low replace (2) HTN (hypertension) ICD Codes: I10 - Essential (primary) hypertension Status: Chronic Plan: Well controlled on amlodipine and metoprolol (3) Non-ST elevation [place] (NSTEMI) ICD Codes: I21.4 - Non-ST elevation (NSTEMI) myocardial infarction Status: Acute Plan: Cardiology managing Heparin gtt (4) HCAP (healthcare-associated pneumonia) ICD Codes: J18.9 - Pneumonia, unspecified organism Status: Acute Plan: On antibiotics O 2 2 liters Problem Qualifiers (1) HTN (hypertension): Qualified Codes: I10 - Essential (primary) hypertension Alyson Servin MD Aug 31, 2017 15:45
[2017-08-31] MEDS: ZOLPIDEM TARTRATE 5 MG TAB PO PRN (20:23)
[2017-08-31] MEDS: MONTELUKAST SODIUM 10 MG TAB PO SCH (20:23)
[2017-08-31] MEDS: PRAVASTATIN SOD 40 MG TAB PO SCH (20:23)
[2017-08-31] MEDS: HEPARIN-D5W 25,000 U/250 ML 250 ML IV PRN (23:31)
[2017-09-01] VITALS (27 sets, daily range): BP systolic 111–136; BP diastolic 58–74; PULSE 60–79; RESP 16–20; TEMP 97.2–98.4; O2SAT 95–99
[2017-09-01] MEDS: predniSONE 10 MG TAB PO SCH (05:31)
[2017-09-01 07:39] LABS: HEMATOCRIT 22.6 % (35.0-46.0); HEMOGLOBIN 7.7 GM/DL (11.6-15.3); MEAN CELL VOLUME 92.5 FL (80.0-100.0); MEAN CORPUSCULAR HEMOGLOBIN 31.6 PG (27.0-34.0); MEAN CORPUSCULAR HGB CONC 34.2 % (32.0-36.0); MEAN PLATELET VOLUME 8.1 FL (7.0-11.0); PLATELET COUNT 338 TH/MM3 (150-450); RED BLOOD COUNT 2.44 MIL/MM3 (4.00-5.30); RED CELL DISTRIBUTION WIDTH 14.7 % (11.6-17.2); WHITE BLOOD COUNT 10.9 TH/MM3 (4.0-11.0)
[2017-09-01 07:59] LABS: BICARBONATE 30.2 MEQ/L (21.0-32.0); CREATININE 1.43 MG/DL (0.50-1.00)
[2017-09-01] MEDS: METOPROLOL TARTRATE 100 MG TAB PO SCH ×2 (08:38→20:31)
[2017-09-01] MEDS: CHOLECALCIFEROL (VIT D3) 1000 UNIT TAB PO SCH (08:39)
[2017-09-01] MEDS: ASPIRIN 81 MG CHEW TAB CHEW SCH (08:39)
[2017-09-01] MEDS: DOCUSATE SODIUM 50 MG/SENNA 8.6 MG TAB PO SCH ×2 (08:39→20:31)
[2017-09-01] MEDS: NITROGLYCERIN 2% OINT 1 GM PACKET TOPICAL SCH ×2 (08:39→15:36)
[2017-09-01] MEDS: MULTIVITAMIN TAB PO SCH (08:39)
[2017-09-01] MEDS: amLODIPine BESYLATE 5 MG TAB PO SCH (08:39)
[2017-09-01] MEDS: CALCIUM CARBONATE 1.25 GM (CA 500 MG) TAB PO SCH ×2 (08:39→20:31)
[2017-09-01] MEDS: SODIUM CHLORIDE 0.9% FLUSH 10 ML FLUSH IV FLUSH SCH ×2 (08:40→20:31)
[2017-09-01] MEDS: BUDESONIDE-FORMOTEROL 160/4.5 MCG INHALER INH SCH ×2 (08:40→20:34)
--- NOTE | 2017-09-01 08:59 | HHI.FPPN ---
Subjective Remarks Patient seen and examined this morning by medical team. No acute events overnight per report. Patient's vital signs remain within normal limits. Patient states that she is feeling well and is ready for her catheterization tomorrow morning. We discussed her anemia and the likely need of transfusion prior to her procedure tomorrow. She is agreeable to transfusion at this time. Otherwise she has no complaints and denies any fevers, chills, shortness of breath, chest pain, NVD, abdominal pain, or calf tenderness. (Tom Corea MD R2) Objective Vitals Vital Signs Date Time Temp Pulse Resp B/P (MAP) Pulse Ox O2 Delivery O2 Flow Rate FiO2 09/01/17 06:00 74 09/01/17 05:00 76 09/01/17 04:00 Room Air 09/01/17 04:00 98.2 79 18 111/63 (79) 95 09/01/17 04:00 79 09/01/17 03:00 78 09/01/17 02:00 74 09/01/17 01:00 75 09/01/17 00:00 98.4 76 18 118/62 (80) 97 09/01/17 00:00 76 08/31/17 23:00 75 08/31/17 22:00 79 08/31/17 21:32 21 08/31/17 21:00 72 08/31/17 20:00 98.1 77 20 110/70 (83) 96 08/31/17 20:00 77 08/31/17 20:00 Room Air 08/31/17 18:00 76 08/31/17 17:00 68 08/31/17 16:00 68 08/31/17 15:47 98.2 71 16 118/65 (82) 94 08/31/17 15:00 74 08/31/17 14:00 70 08/31/17 13:00 70 08/31/17 12:00 70 08/31/17 12:00 97.7 71 16 121/66 (84) 96 08/31/17 11:00 74 08/31/17 10:00 90 08/31/17 09:00 76 I/O 08/31/17 08/31/17 08/31/17 09/01/17 09/01/17 09/01/17 07:00 15:00 23:00 07:00 15:00 23:00 Intake Total 340 ml 720 ml 240 ml Output Total 650 ml 650 ml Balance -310 ml 720 ml -410 ml Intake Oral 240 ml 720 ml 240 ml IV Total 100 ml Output Urine Total 650 ml 650 ml # Voids 5 # Bowel Movements 0 0 0 (Tom Corea MD R2) Result Diagram: 09/01/1764409/01/17644 Objective Remarks GENERAL: Elderly female patient lying in bed in no acute distress. SKIN: Warm and dry. No rashes or lesions present. HEENT: AT, NC with EOMI. No rhinorrhea. MMM. No visible LAD or JVD appreciated. CARDIOVASCULAR: Regular rate and rhythm, 3/6 TIERRA. 2+ radial and pedal pulses. RESPIRATORY: BL Breath sounds clear to auscultation anteriorly. No accessory muscle use. GASTROINTESTINAL: Abdomen soft, non-tender with positive bowel sounds. No masses appreciated. MUSCULOSKELETAL: No cyanosis or edema. No calf tenderness. Moving all four extremities spontaneously. NEURO: Afocal. CN 2-12 grossly intact. Good muscle tone. PSYCH: Normal mood and affect. Good eye contact. Good insight and judgment. Normal speech. (Tom Corea MD R2) A/P Assessment and Plan 72 yr old w/ PMHx of aortic stenosis, HTN, COPD, and recent stroke on 07/24 s/p right CEA presents with sudden-onset SOB and admitted with NSTEMI and HCAP. Discharge Planning Unclear timetable, pending renal improvement and cardiology interventions. (Tom Corea MD R2) Attending Attestation Patient seen and examined. Case reviewed and discussed with the resident team. Agree with plan of care as discussed with me and documented in the resident note. she is doing well and stable and hopes to avoid any big procedure but will see what the recommendations are after her cath (Trupti Zarco MD) Problem List: (1) Non-ST elevation [place] (NSTEMI) ICD Codes: I21.4 - Non-ST elevation (NSTEMI) myocardial infarction Status: Acute Plan: Troponin elevated at 8.13, EKG with minor ST depression in leads V4-V6 on admission. Troponin trending down 8.13-7.54-7.03 Cardiology consulted, recommendations appreciated -continue heparin drip -renal function mildly improving -unable to cath until back towards normal -Cath Saturday -Plan for Dyevert for procedure to decrease contrast use Continue to monitor on cardiac telemetry Aspirin 81mg administered in ED Morphine 2mg IV push q30m PRN chest pain Nitroglycerin 0.4mg Sl q5m PRN chest pain, nitroglycerin 2% oint q8hr, will change to be off x 8 hours daily as the pt can get habituated to NTG paste and it quits working as well Metoprolol tartrate 100mg PO q12hr CT head negative. (2) Anemia ICD Codes: D64.9 - Anemia, unspecified Status: Acute Plan: -H/H 7.7/22.6 on 09/01/17 -Due to her CAD, plan to transfuse with hemoglobin less than 8 -Plan to transfuse 1 unit PRBC without Lasix due to kidney function -Medical team to evaluate for possible Lasix dose if patient subsequently develops respiratory distress (3) Vasovagal episode ICD Codes: R55 - Syncope and collapse Status: Acute Plan: Patient with vasovagal episode overnight 08/29 -1L NS bolus given with appropriate response -Due to severe aortic stenosis, patient to be put on bed rest due to avoid possible complications with pending cardiac procedure. (4) CKD (chronic kidney disease) stage 3, GFR 30-59 ml/min ICD Codes: N18.3 - Chronic kidney disease, stage 3 (moderate) Status: Chronic Plan: Baseline Cr ~1.5 per chart review Creatinine improving, catheterization postponed until renal function normalizes , aiming for Saturday Lasix held AMY screen negative Anti-myeloperoxidase and proteinase: Negative 1L NS bolus given 08/29 due to vasovagal episode NS at 100ml/hr ordered approximately 12 hours prior to heart catheterization procedure Nephrology consulted, appreciate recommendations -continue abx renally dosing -fluids encouraged -continue to follow labs (5) JOE (acute kidney injury) ICD Codes: N17.9 - Acute kidney failure, unspecified Status: Acute Plan: -Improving -Plan as above (6) HCAP (healthcare-associated pneumonia) ICD Codes: J18.9 - Pneumonia, unspecified organism Status: Acute Plan: Patient met severe sepsis criteria on admission due to tachycardia, tachypnea, leukocytosis, lactic acid >2, with known source of suspected HCAP CXR significant for development of bibasilar prominent bronchovascular markings w/o consolidation, infiltrates Leukocytosis, tachypnea, tachycardia, and lactic acid have resolved to wnl today. Urine Legionella antigen and pneumococcal negative Blood cultures x2 NGTD Plan: Continue PO Levaquin 500mg Q48h (08/27-) Continue PO prednisone 20mg daily (08/27-) weaning down now Discontinued Vancomycin, pharmacy consulted for dosing (08/24-08/27) Discontinued Zosyn 4.5 gm q6h (08/24-08/27) Discontinued Solumedrol 40mg IV push q12hr Duonebs ARMOND q4hr, albuterol as needed (7) COPD (chronic obstructive pulmonary disease) ICD Codes: J44.9 - Chronic obstructive pulmonary disease, unspecified Status: Chronic Plan: See plan above Continue Montelukast 10mg PO HS Continue Symbicort Breathing treatments as needed will wean off steroids (8) Congestive heart failure ICD Codes: I50.9 - Heart failure, unspecified Status: Chronic Plan: Last Echo 07/26/17 EF of 50-55%, significant for severe aortic stenosis and moderate mitral valve regurgitation 08/25 Echo significant for EF 50-55% with normal left ventricular systolic function, continued severe aortic stenosis BNP 1466 Lasix held due to creatinine increase strict I & Os and daily weights (9) Aortic stenosis ICD Codes: I35.0 - Nonrheumatic aortic (valve) stenosis Status: Chronic Plan: 08/25 Echo shows diffuse calcification of the aortic valve, severe aortic valve stenosis, aortic valve area of 0.697 cm, Aortic valve mean gradient is 32 mmHg -Plan for catheterization as above prior to decisions for valve replacement (10) HTN (hypertension) ICD Codes: I10 - Essential (primary) hypertension Status: Chronic Plan: Metoprolol [id number] PO BID Held Triam/HCTZ 25mg daily Continue amlodipine 2.5mg PO daily Clonidine PRN for BP > 180/100 (11) Hx of arterial ischemic stroke ICD Codes: Z86.73 - Personal history of transient ischemic attack (TIA), and cerebral infarction without residual deficits Plan: Continue 40mg PO pravastatin HS (12) Anxiety ICD Codes: F41.9 - Anxiety disorder, unspecified Plan: Continue home Xanax 0.125mg PO BID PRN will consider an antidepressant as she has had a CVA and is at high risk for depression (13) Nutrition, metabolism, and development symptoms ICD Codes: R63.8 - Other symptoms and signs concerning food and fluid intake Status: Acute Plan: Diet: NPO at midnight on Saturday for heart catheterization, now eating well Fluids: None, 1L NS bolus 08/30 for vasovagal episode, per nephrology planned for 12 hours of IV fluids prior to procedure to assist with kidney function vitals q4h, strict I & Os, daily weights, neurochecks q4h PT and OT (Tom Corea MD R2) Problem Qualifiers (1) Anemia: Qualified Codes: D64.9 - Anemia, unspecified (2) COPD (chronic obstructive pulmonary disease): (3) Congestive heart failure: Qualified Codes: I50.9 - Heart failure, unspecified (4) Aortic stenosis: Qualified Codes: I35.0 - Nonrheumatic aortic (valve) stenosis (5) HTN (hypertension): Qualified Codes: I10 - Essential (primary) hypertension Tom Corea MD R2 Sep 01, 2017 08:59 Trupti Zarco MD Sep 02, 2017 11:37
[2017-09-01] MEDS ORDERED: POTASSIUM CHLORIDE 10 MEQ CONTROLLED RELEASE TAB PO ONE (09:00)
[2017-09-01] MEDS ORDERED: diphenhydrAMINE HCL 25 MG CAP PO PRN (10:30)
[2017-09-01] MEDS ORDERED: SODIUM CHLOR 0.9% 250 ML INJ 250 ML IV ONE (10:30)
[2017-09-01] MEDS ORDERED: ACETAMINOPHEN 325 MG TAB PO PRN (10:30)
--- NOTE | 2017-09-01 10:35 | HHI.PR ---
Addendum to Inpatient Note Addendum Reason: Additional Documentation Additional Information Off service note Mrs. Carbajal is a 77-year-old female admitted on 08/24/17 for chest pain found to have an NSTEMI. Patient was administered appropriate therapies and started on heparin drip with cardiology consulted for possible catheterization. However , an acute elevation in her creatinine postponed the procedure and nephrology was consulted. Patient was administered gentle IV fluid hydration with an ultrasound showing right-sided renal atrophy with medical renal disease. Her creatinine has improved from 2.7-1.4 with her baseline averaging approximately 1.5 per chart review. Now that the patient's creatinine has returned to her baseline level, cardiology is planning for heart catheterization on Saturday, 09/02, at 0830. Per nephrology, gentle IV fluid hydration with normal saline at 100 mL per hour ordered 12 hours prior to procedure to assist with avoiding contrast nephropathy. Patient was also found to be anemic with a hemoglobin of 7.8 on 09/01/17. She will be transfused 1 unit PRBC due to her underlying cardiac disease. Of note, patient also had a vasovagal episode on 08/29/17 while moving herself from the bedside commode to her bed. Patient has a history of severe aortic stenosis which was likely a contributing factor to her episode. She has since been placed on strict bedrest without further episodes. Per discussion with cardiology, team will plan for cardiac catheterization and then have a discussion regarding possible valve replacement and treatments for her coronary artery disease that are most appropriate for her clinical picture. Patient also presented with chest x-ray significant for bibasilar consolidations concerning for age As she was recently discharged from the hospital s/p CVA. She was started on vancomycin and Zosyn with Solu-Medrol. She was then transitioned to Levaquin and prednisone which she continues to take orally. Tom Corea MD R2 Sep 01, 2017 10:35
[2017-09-01] MEDS: HEPARIN-D5W 25,000 U/250 ML 250 ML IV PRN (11:07)
--- NOTE | 2017-09-01 13:26 | HHI.NPPN ---
Subjective Renal Failure: Acute History of Present Illness Patient is a 77 yr old female w/ PMHx of aortic stenosis, HTN, COPD, and recent stroke on 07/24 s/p right CEA. Patient presents to the ED with sudden- onset SOB and associated abdominal pain. She was found to have a troponin of >8 and BNP near 1500 on admission. Nephrology was consulted for evaluation of JOE with worsening renal indices with a creatinine of 2.60 and GFR of 18 ml/min today. Patient was to have cardiac procedure but this has now been put on hold with renal function. Patient has been having CKD stage 3 followed by primary care. Appears that baseline creatinine is around 1.5. Additional Remarks Patient is alert, seen in AM, no SOB, no chest pain. Review of Systems Respiratory Respiratory Remarks Denies any SOB Cardiovascular Cardiac Remarks Denies any CP Gastrointestinal GI Remarks Denies any Abdominal pain Objective Data Data Vital Signs Date Time Temp Pulse Resp B/P (MAP) Pulse Ox O2 Delivery O2 Flow Rate FiO2 09/01/17 11:00 70 09/01/17 11:00 97.2 70 16 118/60 (79) 99 09/01/17 10:00 78 09/01/17 09:00 74 09/01/17 08:00 74 09/01/17 08:00 95 Room Air 09/01/17 07:30 98.3 79 18 118/66 (83) 95 09/01/17 07:00 75 09/01/17 06:00 74 09/01/17 05:00 76 09/01/17 04:00 Room Air 09/01/17 04:00 98.2 79 18 111/63 (79) 95 09/01/17 04:00 79 09/01/17 03:00 78 09/01/17 02:00 74 09/01/17 01:00 75 09/01/17 00:00 98.4 76 18 118/62 (80) 97 09/01/17 00:00 76 08/31/17 23:00 75 08/31/17 22:00 79 08/31/17 21:32 21 08/31/17 21:00 72 08/31/17 20:00 98.1 77 20 110/70 (83) 96 08/31/17 20:00 77 08/31/17 20:00 Room Air 08/31/17 18:00 76 08/31/17 17:00 68 08/31/17 16:00 68 08/31/17 15:47 98.2 71 16 118/65 (82) 94 08/31/17 15:00 74 08/31/17 14:00 70 -: 09/01/17 0645 09/01/17 0645 Physical Exam General Appearance: No Acute Distress, Comfortable Eyes Eye Exam: Pupils Equal Throat Throat Exam: Oral Mucosa [place] & Moist Pulmonary Resp Exam: Clear Bilaterally, Breath Sounds Equal, No Distress Cardiology CV Exam: Regular Gastrointestinal/Abdomen GI Exam: Soft, Non-Tender, Bowel Sounds Present Genitourinary Exam: Flank Non-Tender Integumentary Skin Exam: Clear, Warm Extremeties Extremities Exam: No Edema Neurologic Neuro Exam: Alert, Awake Psychiatric Psych Exam: Appropriate Responses Assessment/Plan Problem List: (1) JOE (acute kidney injury) ICD Codes: N17.9 - Acute kidney failure, unspecified Plan: Appears that baseline creatinine is around 1.5 JOE possibly related to sepsis or cariorenal CKD from maybe HTN or renovascular disease Trace proteinuria Potassium WNL Renal US:Right-sided renal atrophy and medical renal disease. No hydronephrosis bilaterally. Bladder unremarkable. Maintain strict I+O and daily weights Continue antibiotics renal dosing Continue to follow labs and UOP. Recommend gentle hydration 12 hours prior to heart cath. Possible heart cath. Creatinine continue to improve 1.4 PRBC for Hb 7.7 Dr. Willson to follow (2) HTN (hypertension) ICD Codes: I10 - Essential (primary) hypertension Status: Chronic Plan: Well controlled on amlodipine and metoprolol (3) Non-ST elevation LA (NSTEMI) ICD Codes: I21.4 - Non-ST elevation (NSTEMI) myocardial infarction Status: Acute Plan: Cardiology managing Heparin gtt (4) HCAP (healthcare-associated pneumonia) ICD Codes: J18.9 - Pneumonia, unspecified organism Status: Acute Plan: On antibiotics O 2 2 liters Problem Qualifiers (1) HTN (hypertension): Qualified Codes: I10 - Essential (primary) hypertension Alyson Servin MD Sep 01, 2017 13:26
[2017-09-01 20:16] LABS: HEMOGLOBIN 9.7 GM/DL (11.6-15.3)
[2017-09-01] MEDS: MONTELUKAST SODIUM 10 MG TAB PO SCH (20:31)
[2017-09-01] MEDS: PRAVASTATIN SOD 40 MG TAB PO SCH (20:31)
[2017-09-01] MEDS: SODIUM CHLOR 0.9% 1000 ML INJ 1,000 ML IV SCH (20:32)
[2017-09-01] MEDS: ZOLPIDEM TARTRATE 5 MG TAB PO PRN (20:33)
[2017-09-02] VITALS (28 sets, daily range): BP systolic 109–171; BP diastolic 64–96; PULSE 60–86; RESP 16–19; TEMP 98–98.6; O2SAT 92–98
[2017-09-02 02:03] LABS: AUTOMATED NEUTROPHIL # 7.5 TH/MM3 (1.8-7.7); BASOPHIL % 0.3 % (0.0-2.0); EOSINOPHIL # 0.3 TH/MM3 (0-0.4); EOSINOPHIL % 2.8 % (0.0-4.0); HEMATOCRIT 27.4 % (35.0-46.0); HEMOGLOBIN 9.2 GM/DL (11.6-15.3); LYMPH % 18.7 % (9.0-44.0); MEAN CELL VOLUME 89.7 FL (80.0-100.0); MEAN CORPUSCULAR HEMOGLOBIN 30.2 PG (27.0-34.0); MEAN CORPUSCULAR HGB CONC 33.7 % (32.0-36.0); MEAN PLATELET VOLUME 8.1 FL (7.0-11.0); MONO % 7.7 % (0.0-8.0); MONOCYTE # 0.8 TH/MM3 (0-0.9); NEUT % 70.5 % (16.0-70.0); PLATELET COUNT 339 TH/MM3 (150-450); RED BLOOD COUNT 3.06 MIL/MM3 (4.00-5.30); RED CELL DISTRIBUTION WIDTH 15.1 % (11.6-17.2); WHITE BLOOD COUNT 10.6 TH/MM3 (4.0-11.0)
[2017-09-02 02:34] LABS: ALBUMIN 2.6 GM/DL (3.4-5.0); AST (GOT) 14 U/L (15-37); BLOOD UREA NITROGEN 32 MG/DL (7-18); CALCIUM 8.5 MG/DL (8.5-10.1); CHLORIDE 107 MEQ/L (98-107); CREATININE 1.51 MG/DL (0.50-1.00); GLOMERULAR FILTRATION RATE 33 ML/MIN (>89); GLUCOSE,RANDOM 92 MG/DL (74-106); SODIUM (NA) 142 MEQ/L (136-145)
[2017-09-02 02:37] LABS: ALKALINE PHOSPHATASE 55 U/L (45-117); ALT (GPT) 14 U/L (10-53); TOTAL BILIRUBIN ADULT 0.6 MG/DL (0.2-1.0); TOTAL PROTEIN 5.7 GM/DL (6.4-8.2)
[2017-09-02] MEDS: SODIUM CHLOR 0.9% 1000 ML INJ 1,000 ML IV SCH (04:37)
[2017-09-02] MEDS: predniSONE 10 MG TAB PO SCH (05:57)
[2017-09-02] MEDS: amLODIPine BESYLATE 5 MG TAB PO SCH (08:12)
[2017-09-02] MEDS: METOPROLOL TARTRATE 100 MG TAB PO SCH ×2 (08:13→21:22)
[2017-09-02] MEDS: MULTIVITAMIN TAB PO SCH ×2 (08:13→10:23)
[2017-09-02] MEDS ORDERED: IOHEXOL 350 MG/ML 50 ML BTL (for Cath Lab) OTHER ONE (08:21)
[2017-09-02] MEDS: ASPIRIN 81 MG CHEW TAB CHEW SCH (08:22)
[2017-09-02] MEDS ORDERED: HEPARIN-NS/PF FLUSH BAG 2,000 ML IV FLUSH ONE (08:28)
[2017-09-02] MEDS ORDERED: HEPARIN SODIUM - IV 10,000 UNITS/10 ML VIAL ONE (08:38)
[2017-09-02] MEDS ORDERED: VERAPAMIL HCL 5 MG/2 ML VIAL ONE (08:38)
[2017-09-02] MEDS ORDERED: SODIUM CHLOR 0.9% 1000 ML INJ 1,000 ML IV SCH (09:44)
--- NOTE | 2017-09-02 09:50 | CATHPROC ---
[email or web address] HIS Report Study Information Study Number Scheduled Start Study Start [id number] 09/02/2017 Sep 02 2017 8:04AM Referring Institution Admit Source Facility Department 1 Emergency department [facility] - [employer] Physician and Clinical Staff Initial Enrike Law Information Technology Associate Rupert Crow,TRACEE Information Technology Associate Antonio Lee,TRACEE Recorder Jono Shin RT(R) Recorder Tahmina Dillon BSN Scrub Leonard Naidu RCIS(BS) Procedures Performed Procedure Location (Site) Vessel Name Coronary Angiograms LCA Left Coronary Coronary Angiograms RCA Right Coronary Equipment Time Lead Web Application Developer Description Size Mfg Part Number Used/Scraped CATHETER, FR5 SWAN MARYANN 08:16 HAJI PATINO FR 5 [id number] *[id number] Used MONITOR TRANSDUCER, TRUWAVE [id number] 08:15 HAJI PATINO * Used W/STOCKCOCK *[id number] TRANSDUCER, TRUWAVE [id number] 08:15 HAJI PATINO * Used W/STOCKCOCK *[id number] *[id number] 08:15 Checkd.In INDUSTRIES PACK, CCL CUSTOM * Used *[id number] 09:06 MEDTRONIC JR 4.0 DXTERITY CATHETER FR 5 Used *[id number] BAND, RADIAL COMPRESSION TR [id number] 09:20 [employer] 24CM Used SHORT 24 *[id number] 08:15 [employer] [place] MED[employer] WIRE, 3MMJ .035 180CM 180CM Used *[id number] 08:15 NAMIC MANIFOLD, 2 PORT * Used *[id number] 08:15 NAMIC MANIFOLD, 4 PORT * Used *[id number] 08:15 [employer] OMNIPAQUE, 350 MG, 150ML 150ML [id number] Used [id number] 08:15 [employer] MED[employer] BLANKET,WARM AIR CCL * Used *[id number] SHEATH, FR6 TRANSRADIAL RM*[id number] 08:16 [employer] MEDICAL FR 6 Used SLENDER 10CM *[id number] SHEATH, FR6 TRANSRADIAL [id number] 08:16 [employer]ICAL FR 6 Used SLENDER 10CM *[id number] Equipment Model, Serial, Lot Number and Expiration Data Description Model Number Serial Number Lot Number Expiration Date JR 4.0 DXTERITY CATHETER [id number] 04-18-2020 History: Current Medications Medication Dosage/Unit Route Frequency Last Date/Time Taken ASA LOPRESSOR NORVASC History: Allergies Allergy Reaction lisinopril obdulio cough History: Risk Factors Family History of Hypertension Dyslipidemia Previous KS Previous Heart Failure Premature CAD Yes Yes No No No Prior Valve Prior PCI Prior CABG Surgery No No No Cerebrovascular Peripheral Artery Chronic Lung On Dialysis Diabetes Disease Disease Disease No Yes No Yes No History: Symptoms/Diagnosis Selection Items SOB History: Stress Tests Stress or Imaging Studies Performed No History: Other Current Smoker Quit Packs a Day Years Used Pack Years No 30 Years Ago 1 7 7 Regular Diet Yes Labs Hgb (g/dl) Hct (%) WBC (l/cumm) Platelets (thousands) 11.60-17.00 35.00-51.00 4.00-11.00 150.00-450.00 9.2 27.4 10.6 339 Glucose (mg/dl) BUN (mg/dl) Creatinine (mg/dl) BUN:Creatinine (1:x) 74.00-106.00 7.00-18.00 0.50-1.30 10.00-20.00 92 32 1.5 21.3 Na (meq/l) K (meq/l) 136.00-145.00 3.50-5.10 142 3.9 INR (PTT:PT) 0.90-1.10 1 Troponin I (ng/ml) CPK-MB (ng/ML) 0.02-0.05 0.50-3.60 7.03 Not Drawn Medication Medication Total Dose (Bolus/Oral) Medication Total Dosage/Unit 1% XYLOCAINE 20 mL FENTANYL 50 mcg RADIAL COCKTAIL 5 mL (Bolus) Medications (Bolus/Oral) Medication Time Given Dosage/Unit Administered By Reason FENTANYL 09/02/2017 8:50:12 AM 50 mcg Rupert Crow 50 mcg FENTANYL given by Rupert Crow RN in Left Wrist via Peripheral IV. Ordered by Prashant Wilburn 1% XYLOCAINE 09/02/2017 8:50:54 AM 20 mL Enrike Wilburn 20 mL 1% XYLOCAINE given in lab by Enrike Wilburn in Right Wrist via Subcutaneous. Ordered by Enrike Sung RADIAL COCKTAIL 09/02/2017 8:55:24 AM 5 mL (Bolus) Enrike Wilburn 5 mL (Bolus) RADIAL COCKTAIL given in lab by Enrike Wilburn via Radial. Ordered by Prashant Wilburn Ntg 200mcg Verapamil 2.5mg Heparin 3100 U. Medication (Drip) Medication Time Given Dosage/Unit Concentration/Unit Diluent (ml) Solution IV Solutions 09/02/2017 8:33:30 AM 50 mL (IV) NaCl .9 IV Solutions given by Rupert Crow, TRACEE in Left Wrist via Peripheral IV. Pump/Drip Flow at kvo using NaCl .9. Ordered by Enrike Wilburn Initial Case Assessment Cardiovascular HR Rhythm NIBP Chest Pain 93 sr 158/83 0 Edema Present Skin color Skin None Normal Warm Circulatory - Right Pulses Dorsalis Pedis Femoral Radial 3 3 3 Scale (0,1,2,3,4,d) Circulatory - Left Pulses Dorsalis Pedis Femoral Radial 3 3 Scale (0,1,2,3,4,d) Neurological State Oriented to time-place- Alert Moves all extremities person Respiration - General Respiration Rate SpO2 (%) O2 (lpm) (B/min) 12 96 0 Chronological Log Time Study Chronological Log 8:21:19 Patient arrived via Bed. 8:21:21 Patient Name, D.O.B, / Armband Verified By R.N. 8:21:23 Consent signed by the physician and the patient and verified by the [employer] staff. 8:21:24 Pre-op and post- op instructions given; patient acknowledges understanding of instructions . Vitals capture started with the following parameters, Patient=Adult, Interval=3 min, Initial Yconhijq=783 mmHg, 8:29:32 Deflation Rate=5 mmHg, Cuff placed on Left Arm 8:30:39 EY=204 bpm, NTWO=010/92 mmhg, SpO2=96.0 %, Resp=24 B/min, Landa=2 8:31:00 Verbal Stimulation=2 Physical Stimulation=2 Airway=2 Respiration=2 TOTAL=8. (0=absent, 1=shin ited, 2=present) 8:32:01 Presedation assessment performed by [employer] RN. 8:32:05 Allens test performed on the right radial and ulnar artery. 8:32:11 Immediate Presedation assesment performed by physician. 8:32:15 Patient has been NPO for More than 6Hrs. 8:32:21 Skin Breakdown- none per patient 8:32:34 Patient Warmer Placed on the Table. 8:32:40 Imani Prominences Protected 8:32:47 A # 20 IV was noted in the Wrist (left). Grade = 0 8:33:12 HR=91 bpm, BEFP=986/83 mmhg, SpO2=97.0 %, Resp=20 B/min, Pain=0, Rolando=10, Landa=2 8:33:20 A # 20 IV was noted in the Forearm (right). Grade = 0 IV Solutions given by Rupert Crow, TRACEE in Left Wrist via Peripheral IV. Pump/Drip Flow at kvo using NaCl .9. Ordered by 8:33:30 Enrike Wilburn 8:34:01 History and physical on the chart or being dictated. Assessment: Initial Case, HR=93 BPM, Rhythm=sr, XRJA=726/83 mmhg, Chest Pain=0, Edema=None, [place] r=Normal, Skin = Warm Right Pulses: Familia Ped=3, Femoral=3, Radial=3 8:34:04 Left Pulses: Familia Ped=3, Femoral=3 Neurological: State=Alert, Ox3, KUHN Respiration: Resp=12 B/min, SpO2=96 %, O2=0 lpm 8:36:13 HR=91 bpm, MCCD=173/84 mmhg, SpO2=97.0 %, Resp=12 B/min, Pain=0, Rolando=10, Landa=2 8:36:57 Reference ECG taken 8:39:13 HR=86 bpm, AVBU=417/86 mmhg, SpO2=96.0 %, Resp=15 B/min, Pain=0, Rolando=10, Landa=2 8:39:53 Bilateral groins prepped with 2% chlorhexidine, and draped after a 3 minute waiting time. 8:42:13 HR=85 bpm, EZBR=739/93 mmhg, SpO2=95.0 %, Resp=20 B/min, Pain=0, Rolando=10, Landa=2 8:43:06 MD paged 8:44:13 MD arrived. 8:45:15 HR=85 bpm, APFA=129/85 mmhg, SpO2=95.0 %, Resp=18 B/min, Pain=0, Rolando=10, Landa=2 8:48:14 HR=80 bpm, WZRC=847/93 mmhg, SpO2=96.0 %, Resp=21 B/min, Pain=0, Rolando=10, Landa=2 8:49:27 Pressure channel 1 zeroed. Time Out. Correct patient, correct procedure, correct physician, power injector loaded, or not l oaded with contrast with 8:49:56 surgical team present. Time Out Concurred by MD and individual staff in procedure. Time Out #2 - Consents verified, patient in correct position, all results are labled and display ed, safety precautions 8:49:57 taken. Time Out concurred by MD, individual staff and DIANETICIST in procedure. 8:50:03 Case Start 8:50:12 50 mcg FENTANYL given by Rupert Crow RN in Left Wrist via Peripheral IV. Ordered by Enrike Serrano 20 mL 1% XYLOCAINE given in lab by Enrike Wilburn in Right Wrist via Subcutaneous. Ordered by Cosmo 8:50:54 Enrike Casper 8:51:38 HR=79 bpm, WHFJ=900/84 mmhg, SpO2=96.0 %, Resp=13 B/min, Pain=0, Rolando=10, Landa=2 8:54:12 HR=77 bpm, MRLO=567/90 mmhg, SpO2=98.0 %, Resp=11 B/min, Pain=0, Rolando=10, Landa=2 5 mL (Bolus) RADIAL COCKTAIL given in lab by Enrike Wilburn via Radial. Ordered by Enrike Wilburn Ntg 8:55:24 200mcg Verapamil 2.5mg Heparin 3100 U. 8:55:46 Access site was right Radial Artery via ultrasound. A SHEATH, FR6 TRANSRADIAL SLENDER 10CM FR 6 was advanced into the Radial (right) using the Gisela neri 8:55:49 technique. 8:57:14 HR=76 bpm, UAPZ=059/75 mmhg, SpO2=96.0 %, Resp=11 B/min, Pain=0, Rolando=10, Landa=2 8:58:36 Access site was right Brachial Vein A SHEATH, FR6 TRANSRADIAL SLENDER 10CM FR 6 was advanced into the Brach. Vein (right) using the Percutaneous 8:59:37 technique. 8:59:59 A CATHETER, FR5 SWAN MARYANN MONITOR FR 5 was inserted via Brach. Vein (right) 9:00:10 HR=72 bpm, UXWN=528/74 mmhg, SpO2=91.0 %, Resp=17 B/min, Pain=0, Rolando=10, Landa=2 Recorded Pressure: PCW, HR=69, Condition=Condition 1 9:01:21 (Pulmonary Capillary Wedge) PCW 24/20 Saturation: Site=MPA (Main Pulmonary Artery) , O2=63.1 %, Hgb=9.2 gm/dl, Condition=Condition 1. Used in :02:59 calculation. 9:03:11 HR=68 bpm, FZLG=270/71 mmhg, SpO2=91.0 %, Resp=13 B/min, Pain=0, Rolando=10, Landa=2 9:03:54 Saturation: Site=Ao (Aorta) , O2=93.5 %, Hgb=9.2 gm/dl, Condition=Condition 1. Used in [facility]. Recorded Pressure: MPA, HR=67, Condition=Condition 1 9:04:07 (Main Pulmonary Artery) MPA 38 Recorded Pressure: RV, HR=66, Condition=Condition 1 9:04:57 (Right Ventricle) RV 39/10/13 Recorded Pressure: RA, HR=66, Condition=Condition 1 9:05:28 (Right Atrium) RA 14 9:06:11 HR=65 bpm, ZEQK=448/75 mmhg, SpO2=93.0 %, Resp=9 B/min, Pain=0, Rolando=10, Landa=2 9:06:15 [place] Maryann Catheter Removed A JR 4.0 AiMeiWeiTERITY CATHETER FR 5 was advanced over a wire. OMNIPAQUE, 350 MG, 150ML 150ML was use d for 9:06:38 injections. Recorded Pressure: Ao, HR=66, Condition=Condition 1 9:08:07 (Aorta) Ao 148/73/104 9:08:37 The RCA was injected and visualized at various angles. OMNIPAQUE, 350 MG, 150ML 150ML used. 9:09:11 HR=66 bpm, ORIZ=980/82 mmhg, SpO2=91.0 %, Resp=20 B/min, Pain=0, Rolando=10, Landa=2 After removing the current catheter a JL 3.5 INFINITI CATHETER FR 5 was advanced over a WIRE, 3M MJ .035 180CM 9:10:04 180CM. 9:12:13 HR=65 bpm, CHYX=307/80 mmhg, SpO2=91.0 %, Resp=14 B/min, Pain=0, Rolando=10, Landa=2 9:12:28 The LCA was injected and visualized at various angles. OMNIPAQUE, 350 MG, 150ML 150ML used. 9:15:16 HR=61 bpm, LFNF=013/70 mmhg, SpO2=92 %, Resp=18 B/min, Pain=0, Rolando=10, Landa=2 9:18:14 HR=67 bpm, SHNU=995/70 mmhg, SpO2=91.0 %, Resp=23 B/min, Pain=0, Rolando=10, Landa=2 9:18:23 Catheter was removed 9::18 Case End 9:19:22 Activated Clotting Time Drawn Radial Compression Device Used. 13 mLs of air placed in BAND, RADIAL COMPRESSION TR SHORT 24 24C M. Affected 9:20:04 hand 93 % O2 saturation. 9:21:14 HR=66 bpm, LPHJ=901/74 mmhg, SpO2=92.0 %, Resp=17 B/min, Pain=0, Rolando=10, Landa=2 9:23:01 ACT (Normal Range 90-180) = 199 9:24:14 HR=65 bpm, QFEM=725/72 mmhg, SpO2=92.0 %, Resp=6 B/min, Pain=0, Rolando=10, Landa=2 9:27:17 HR=64 bpm, FEOH=591/60 mmhg, SpO2=92.0 %, Resp=8 B/min, Pain=0, Rolando=10, Landa=2 9:27:29 Catheter(s) removed without difficulty 9:27:42 venous Sheath(s) left in place, will be removed in Holding Area 9:28:12 Sterile dressing applied to site 9::18 No case complications noted. 9::25 Cine recording checked. 9:29:34 Bedside Report will be given. 9:29:47 A Left and Right Heart Cath was performed. 9:33:57 Patient moved to stretcher End Study - Contrast Media Used In Study Contrast Total Opened (mL) Total Used (mL) Total Wasted (mL) Omnipaque 36 36 0 End Study - Maximum Contrast Load Max Contrast Load (mL) 261.4 End Study - Radiation Exposure Fluoro Time (minutes) 2.6 End Study - Patient Disposition Complications Transferred To Telemetry Bed
[2017-09-02] MEDS: CALCIUM CARBONATE 1.25 GM (CA 500 MG) TAB PO SCH ×2 (10:23→21:22)
[2017-09-02] MEDS: BUDESONIDE-FORMOTEROL 160/4.5 MCG INHALER INH SCH ×2 (10:23→21:21)
[2017-09-02] MEDS: CHOLECALCIFEROL (VIT D3) 1000 UNIT TAB PO SCH (10:23)
[2017-09-02] MEDS: SODIUM CHLORIDE 0.9% FLUSH 10 ML FLUSH IV FLUSH SCH ×2 (10:24→21:00)
[2017-09-02] MEDS: DOCUSATE SODIUM 50 MG/SENNA 8.6 MG TAB PO SCH ×2 (10:24→21:00)
[2017-09-02] MEDS: NITROGLYCERIN 2% OINT 1 GM PACKET TOPICAL SCH ×2 (11:24→16:16)
--- NOTE | 2017-09-02 12:01 | HHI.FPPN ---
Subjective Remarks Patient seen and examined this morning. She is status post cardiac catheterization. She reports that the shoe shanker saw multiple areas where stents may be needed. Decided to postpone further procedures tomorrow (09/03/17) , with the intentions of determining whether catheterization with multiple stent placement versus open heart surgery the preferred method of treatment. Awaiting further recommendations by cardiology at this time. Objective Vitals Vital Signs Date Time Temp Pulse Resp B/P (MAP) Pulse Ox O2 Delivery O2 Flow Rate FiO2 09/02/17 09:42 92 21 09/02/17 08:15 86 18 171/96 (121) 97 09/02/17 08:15 Room Air 09/02/17 05:50 75 09/02/17 05:00 72 09/02/17 04:00 98.6 78 18 125/69 (87) 96 09/02/17 04:00 78 09/02/17 03:00 76 09/02/17 02:00 74 09/02/17 01:00 72 09/02/17 00:00 98.0 80 18 119/66 (83) 98 09/02/17 00:00 80 09/01/17 23:00 72 09/01/17 22:24 96 09/01/17 22:00 75 09/01/17 21:00 79 09/01/17 20:00 98.0 72 20 132/71 (91) 97 09/01/17 20:00 Room Air 09/01/17 20:00 72 09/01/17 18:00 66 09/01/17 17:00 66 09/01/17 16:00 66 09/01/17 15:00 97.8 60 16 115/58 (77) 99 09/01/17 15:00 68 09/01/17 14:38 20 09/01/17 14:00 68 09/01/17 14:00 97.8 70 16 125/73 97 09/01/17 13:43 97.2 70 16 136/74 98 09/01/17 13:26 97.2 76 16 126/69 98 09/01/17 13:00 78 09/01/17 12:00 74 I/O 09/01/17 09/01/17 09/01/17 09/02/17 09/02/17 09/02/17 07:00 15:00 23:00 07:00 15:00 23:00 Intake Total 240 ml 15 ml 930 ml 1320 ml Output Total 650 ml 600 ml 800 ml Balance -410 ml 15 ml 330 ml 520 ml Intake Oral 240 ml 480 ml 240 ml IV Total 1080 ml Packed Cells 400 ml Blood Product IV Normal Saline Flush 15 ml 50 ml Output Urine Total 650 ml 600 ml 800 ml # Bowel Movements 0 0 Result Diagram: 09/02/17 0140 09/02/17 0140 Imaging Last Impressions Renal Ultrasound 08/26/17 0000 Signed Impressions: Service Date/Time: Saturday, August 26, 2017 19:37 - CONCLUSION: 1. Right-sided renal atrophy and medical renal disease. No hydronephrosis bilaterally. Bladder unremarkable. Kermit Short MD Chest X-Ray 08/24/17 1320 Signed Impressions: Service Date/Time: Thursday, August 24, 2017 14:07 - CONCLUSION: Development of bibasilar prominent bronchovascular markings without consolidation, infiltrates. Milind Fairbanks MD Head CT 08/24/17 0000 Signed Impressions: Service Date/Time: Thursday, August 24, 2017 20:02 - CONCLUSION: No acute findings in the brain. Stable advanced supratentorial white matter hypodensities. The Patrick Gupta MD Objective Remarks GEN: Well-developed, well-nourished obese female patient. No acute distress. CV: Regular rate and rhythm with 3/6 systolic ejection murmur. 2+ radial and pedal pulses LUNGS: Clear to auscultation bilaterally. Normal respiratory effort. No wheezes , rales, rhonchi. GI: Soft, nontender, nondistended. No palpable masses. Bowel sounds WNL. EXT: No edema. NEURO/PSYCH: Afocal. Awake, alert, and oriented x3. Appropriate insight and judgment. Procedures 09/02/17: Cardiac catheterization Medications and IVs Current Medications Medications (Trade) Dose Ordered Sig/Jasmeet Route Start Time Stop Time Status Last Admin (NS Flush) 2 ml UNSCH PRN IV FLUSH 08/24/17 15:15 (NS Flush) 2 ml BID IV FLUSH 08/24/17 21:00 09/02/17 10:24 (Zofran Inj) 4 mg Q6H PRN IVP 08/24/17 15:45 (Narcan Inj) 0.4 mg UNSCH PRN IV PUSH 08/24/17 15:45 (Kerry-Colace) 1 tab BID PO 08/24/17 21:00 09/01/17 20:31 (Milk Of Magnesia Liq) 30 ml Q12H PRN PO 08/24/17 15:45 (Senokot) 17.2 mg Q12H PRN PO 08/24/17 15:45 (Dulcolax Supp) 10 mg DAILY PRN RECTAL 08/24/17 15:45 (Lactulose Liq) 30 ml DAILY PRN PO 08/24/17 15:45 08/26/17 09:31 (Nitrostat Sl) 0.4 mg Q5M PRN SL 08/24/17 16:00 (Morphine Inj) 2 mg Q30M PRN IV PUSH 08/24/17 16:00 (Tylenol) 650 mg Q6H PRN PO 08/24/17 16:00 (Heparin Inj) 5,000 units UNSCH PRN IV PUSH 08/24/17 22:00 (Heparin Inj) 2,500 units UNSCH PRN IV PUSH 08/24/17 22:00 Heparin Sodium/ Dextrose 250 ml @ 9.6 mls/hr TITRATE PRN IV 08/24/17 16:00 Future hold 09/01/17 11:07 (Aspirin Chew) 81 mg DAILY CHEW 08/25/17 09:00 09/02/17 08:22 (Xanax) 0.125 mg BID PRN PO 08/24/17 17:15 08/31/17 14:48 (Norvasc) 2.5 mg DAILY PO 08/25/17 09:00 09/02/17 08:12 (Symbicort 160-4.5 Mcg Inh) 2 puff Q12HR INH 08/24/17 21:00 09/02/17 10:23 (Vitamin D3) 1,000 units DAILY PO 08/25/17 09:00 09/02/17 10:23 (Singulair) 10 mg HS PO 08/24/17 21:00 09/01/17 20:31 (Pravachol) 40 mg HS PO 08/24/17 21:00 09/01/17 20:31 (Lopressor) 100 mg Q12HR PO 08/25/17 09:00 09/02/17 08:13 (Pill Splitter) 1 ea UNSCH PRN OTHER 08/24/17 17:45 (Oscal) 500 mg BID PO 08/24/17 21:00 09/02/17 10:23 (Theragran) 1 tab DAILY PO 08/25/17 09:00 09/02/17 10:23 (Albuterol Neb) 2.5 mg Q2HR NEB PRN NEB 08/24/17 17:45 08/29/17 11:59 (Ambien) 5 mg HS PRN PO 08/25/17 17:30 09/01/17 20:33 (Nitroglycerin 2% Oint) 0.5 inch Q8HR WHILE AWAKE NEB TOPICAL 08/31/17 16:00 09/02/17 11:24 (Deltasone) 10 mg Taper DAILY@0600 PO 09/01/17 06:00 09/07/17 05:59 09/02/17 05:57 (Tylenol) 650 mg Q4H PRN PO 09/01/17 10:30 09/01/17 13:29 (Benadryl) 25 mg Q4H PRN PO 09/01/17 10:30 09/01/17 13:29 Sodium Chloride 1,000 ml @ 50 mls/hr Q20H IV 09/02/17 09:44 09/02/17 17:43 09/02/17 10:25 A/P Assessment and Plan 72 yr old w/ PMHx of aortic stenosis, HTN, COPD, and recent stroke on 07/24 s/p right CEA presents with sudden-onset SOB and admitted with NSTEMI and HCAP. Status post cardiac catheterization on 09/02/17. Discharge Planning Unclear timetable, pending renal improvement and cardiology interventions. Problem List: (1) Non-ST elevation CO (NSTEMI) ICD Codes: I21.4 - Non-ST elevation (NSTEMI) myocardial infarction Status: Acute Plan: Troponin elevated at 8.13, EKG with minor ST depression in leads V4-V6 on admission. Troponin trending down 8.13-7.54-7.03 Cardiology consulted, recommendations appreciated -continue heparin drip -renal function mildly improving -Status post cardiac catheterization, awaiting further recommendations per cardiology -Awaiting Trace for further catheterization with stent placement versus CABG Continue to monitor on cardiac telemetry Aspirin 81mg administered in ED Morphine 2mg IV push q30m PRN chest pain Nitroglycerin 0.4mg Sl q5m PRN chest pain, nitroglycerin 2% oint q8hr, will change to be off x 8 hours daily as the pt can get habituated to NTG paste and it quits working as well Metoprolol tartrate 100mg PO q12hr CT head negative. (2) Anemia ICD Codes: D64.9 - Anemia, unspecified Status: Acute Plan: Status post blood transfusionx1. Current H&H is 9.2/27.4, stable -Due to her CAD, plan to transfuse with hemoglobin less than 8 (3) Vasovagal episode ICD Codes: R55 - Syncope and collapse Status: Acute Plan: Patient with vasovagal episode overnight 08/29 -1L NS bolus given with appropriate response -Due to severe aortic stenosis, patient to be put on bed rest due to avoid possible complications with pending further cardiac procedures. (4) CKD (chronic kidney disease) stage 3, GFR 30-59 ml/min ICD Codes: N18.3 - Chronic kidney disease, stage 3 (moderate) Status: Chronic Plan: Baseline Cr ~1.5 per chart review Creatinine improving, status post cardiac catheterization, will follow creatinine in the a.m. Lasix held AMY screen negative Anti-myeloperoxidase and proteinase: Negative Nephrology consulted, appreciate recommendations -continue abx renally dosing -fluids encouraged -continue to follow labs (5) JOE (acute kidney injury) ICD Codes: N17.9 - Acute kidney failure, unspecified Status: Acute Plan: -Improving -Plan as above (6) HCAP (healthcare-associated pneumonia) ICD Codes: J18.9 - Pneumonia, unspecified organism Status: Acute Plan: Patient met severe sepsis criteria on admission due to tachycardia, tachypnea, leukocytosis, lactic acid >2, with known source of suspected HCAP Leukocytosis, tachypnea, tachycardia, and lactic acid have resolved to wnl Urine Legionella antigen and pneumococcal negative Blood cultures x2 NGTD Plan: Continue PO Levaquin 500mg Q48h (08/27-) Continue PO prednisone 20mg daily (08/27-) weaning down now Discontinued Vancomycin, pharmacy consulted for dosing (08/24-08/27) Discontinued Zosyn 4.5 gm q6h (08/24-08/27) Discontinued Solumedrol 40mg IV push q12hr Duonebs JASMEET q4hr, albuterol as needed (7) COPD (chronic obstructive pulmonary disease) ICD Codes: J44.9 - Chronic obstructive pulmonary disease, unspecified Status: Chronic Plan: See plan above Continue Montelukast 10mg PO HS Continue Symbicort Breathing treatments as needed will wean off steroids (8) Congestive heart failure ICD Codes: I50.9 - Heart failure, unspecified Status: Chronic Plan: Last Echo 07/26/17 EF of 50-55%, significant for severe aortic stenosis and moderate mitral valve regurgitation 08/25 Echo significant for EF 50-55% with normal left ventricular systolic function, continued severe aortic stenosis BNP 1466 Lasix held due to creatinine increase strict I & Os and daily weights (9) Aortic stenosis ICD Codes: I35.0 - Nonrheumatic aortic (valve) stenosis Status: Chronic Plan: 08/25 Echo shows diffuse calcification of the aortic valve, severe aortic valve stenosis, aortic valve area of 0.697 cm, Aortic valve mean gradient is 32 mmHg -Status post catheterization, awaiting further recommendations from cardiology for possible valve replacement. (10) HTN (hypertension) ICD Codes: I10 - Essential (primary) hypertension Status: Chronic Plan: Metoprolol [id number] PO BID Held Triam/HCTZ 25mg daily Continue amlodipine 2.5mg PO daily Clonidine PRN for BP > 180/100 (11) Hx of arterial ischemic stroke ICD Codes: Z86.73 - Personal history of transient ischemic attack (TIA), and cerebral infarction without residual deficits Plan: Continue 40mg PO pravastatin HS (12) Anxiety ICD Codes: F41.9 - Anxiety disorder, unspecified Plan: Continue home Xanax 0.125mg PO BID PRN will consider an antidepressant as she has had a CVA and is at high risk for depression (13) Nutrition, metabolism, and development symptoms ICD Codes: R63.8 - Other symptoms and signs concerning food and fluid intake Status: Acute Plan: Diet: Heart healthy diet Fluids: P.O. intake vitals q4h, strict I & Os, daily weights, neurochecks q4h PT and OT Problem Qualifiers (1) Anemia: Qualified Codes: D64.9 - Anemia, unspecified (2) COPD (chronic obstructive pulmonary disease): (3) Congestive heart failure: Qualified Codes: I50.9 - Heart failure, unspecified (4) Aortic stenosis: Qualified Codes: I35.0 - Nonrheumatic aortic (valve) stenosis (5) HTN (hypertension): Qualified Codes: I10 - Essential (primary) hypertension Braden Del Valle MD, R3 Sep 02, 2017 12:01
--- NOTE | 2017-09-02 12:34 | PD.CARD.PN ---
Subjective Subjective Remarks No chest pain/SOB Post-cath doing well Objective Medications Current Medications Medications (Trade) Dose Ordered Sig/Jasmeet Route Start Time Stop Time Status Last Admin (NS Flush) 2 ml UNSCH PRN IV FLUSH 08/24/17 15:15 (NS Flush) 2 ml BID IV FLUSH 08/24/17 21:00 09/02/17 10:24 (Zofran Inj) 4 mg Q6H PRN IVP 08/24/17 15:45 (Narcan Inj) 0.4 mg UNSCH PRN IV PUSH 08/24/17 15:45 (Kerry-Colace) 1 tab BID PO 08/24/17 21:00 09/01/17 20:31 (Milk Of Magnesia Liq) 30 ml Q12H PRN PO 08/24/17 15:45 (Senokot) 17.2 mg Q12H PRN PO 08/24/17 15:45 (Dulcolax Supp) 10 mg DAILY PRN RECTAL 08/24/17 15:45 (Lactulose Liq) 30 ml DAILY PRN PO 08/24/17 15:45 08/26/17 09:31 (Nitrostat Sl) 0.4 mg Q5M PRN SL 08/24/17 16:00 (Morphine Inj) 2 mg Q30M PRN IV PUSH 08/24/17 16:00 (Tylenol) 650 mg Q6H PRN PO 08/24/17 16:00 (Heparin Inj) 5,000 units UNSCH PRN IV PUSH 08/24/17 22:00 (Heparin Inj) 2,500 units UNSCH PRN IV PUSH 08/24/17 22:00 Heparin Sodium/ Dextrose 250 ml @ 9.6 mls/hr TITRATE PRN IV 08/24/17 16:00 Future hold 09/01/17 11:07 (Aspirin Chew) 81 mg DAILY CHEW 08/25/17 09:00 09/02/17 08:22 (Xanax) 0.125 mg BID PRN PO 08/24/17 17:15 08/31/17 14:48 (Norvasc) 2.5 mg DAILY PO 08/25/17 09:00 09/02/17 08:12 (Symbicort 160-4.5 Mcg Inh) 2 puff Q12HR INH 08/24/17 21:00 09/02/17 10:23 (Vitamin D3) 1,000 units DAILY PO 08/25/17 09:00 09/02/17 10:23 (Singulair) 10 mg HS PO 08/24/17 21:00 09/01/17 20:31 (Pravachol) 40 mg HS PO 08/24/17 21:00 09/01/17 20:31 (Lopressor) 100 mg Q12HR PO 08/25/17 09:00 09/02/17 08:13 (Pill Splitter) 1 ea UNSCH PRN OTHER 08/24/17 17:45 (Oscal) 500 mg BID PO 08/24/17 21:00 09/02/17 10:23 (Theragran) 1 tab DAILY PO 08/25/17 09:00 09/02/17 10:23 (Albuterol Neb) 2.5 mg Q2HR NEB PRN NEB 08/24/17 17:45 08/29/17 11:59 (Ambien) 5 mg HS PRN PO 08/25/17 17:30 09/01/17 20:33 (Nitroglycerin 2% Oint) 0.5 inch Q8HR WHILE AWAKE NEB TOPICAL 08/31/17 16:00 09/02/17 11:24 (Deltasone) 10 mg Taper DAILY@0600 PO 09/01/17 06:00 09/07/17 05:59 09/02/17 05:57 (Tylenol) 650 mg Q4H PRN PO 09/01/17 10:30 09/01/17 13:29 (Benadryl) 25 mg Q4H PRN PO 09/01/17 10:30 09/01/17 13:29 Sodium Chloride 1,000 ml @ 50 mls/hr Q20H IV 09/02/17 09:44 09/02/17 17:43 09/02/17 10:25 Vital Signs / I&O Vital Signs Date Time Temp Pulse Resp B/P (MAP) Pulse Ox O2 Delivery O2 Flow Rate FiO2 09/02/17 09:42 92 21 09/02/17 08:15 86 18 171/96 (121) 97 09/02/17 08:15 Room Air 09/02/17 05:50 75 09/02/17 05:00 72 2/19/18 04:00 98.6 78 18 125/69 (87) 96 09/02/17 04:00 78 09/02/17 03:00 76 09/02/17 02:00 74 09/02/17 01:00 72 09/02/17 00:00 98.0 80 18 119/66 (83) 98 09/02/17 00:00 80 09/01/17 23:00 72 18 22:24 96 09/01/17 22:00 75 09/01/17 21:00 79 09/01/17 20:00 98.0 72 20 132/71 (91) 97 09/01/17 20:00 Room Air 09/01/17 20:00 72 09/01/17 18:00 66 09/01/17 17:00 66 09/01/17 16:00 66 09/01/17 15:00 97.8 60 16 115/58 (77) 99 09/01/17 15:00 68 09/01/17 14:38 20 09/01/17 14:00 68 09/01/17 14:00 97.8 70 16 125/73 97 09/01/17 13:43 97.2 70 16 136/74 98 09/01/17 13:26 97.2 76 16 126/69 98 09/01/17 13:00 78 I/O 09/01/17 09/01/17 09/01/17 09/02/17 09/02/17 09/02/17 07:00 15:00 23:00 07:00 15:00 23:00 Intake Total 240 ml 15 ml 930 ml 1320 ml Output Total 650 ml 600 ml 800 ml Balance -410 ml 15 ml 330 ml 520 ml Intake Oral 240 ml 480 ml 240 ml IV Total 1080 ml Packed Cells 400 ml Blood Product IV Normal Saline Flush 15 ml 50 ml Output Urine Total 650 ml 600 ml 800 ml # Bowel Movements 0 0 Physical Exam GENERAL: NAD, AAOx3 SKIN: Warm and dry. HEAD: Atraumatic. Normocephalic. EYES: Pupils equal and round. No scleral icterus. No injection or drainage. ENT: No nasal bleeding or discharge. Mucous membranes pink and moist. NECK: Trachea midline. No JVD. CARDIOVASCULAR: Regular rate and rhythm. 3/6 crescendo-decrescendo murmur to the RSB RESPIRATORY: No accessory muscle use. Clear to auscultation. Breath sounds equal bilaterally. GASTROINTESTINAL: Abdomen soft, non-tender, nondistended. Hepatic and splenic margins not palpable. MUSCULOSKELETAL: Extremities without clubbing, cyanosis, or edema. No obvious deformities. NEUROLOGICAL: Awake and alert. No obvious cranial nerve deficits. Motor grossly within normal limits. Five out of 5 muscle strength in the arms and legs. Normal speech. PSYCHIATRIC: Appropriate mood and affect; insight and judgment normal. Laboratory Laboratory Tests Test 09/01/17 19:30 09/02/17 01:40 Hemoglobin 9.7 GM/DL 9.2 GM/DL Hematocrit 29.0 % 27.4 % Activated Partial Thromboplast Time 52.2 SEC 54.4 SEC White Blood Count 10.6 TH/MM3 Red Blood Count 3.06 MIL/MM3 Mean Corpuscular Volume 89.7 FL Mean Corpuscular Hemoglobin 30.2 PG Mean Corpuscular Hemoglobin Concent 33.7 % Red Cell Distribution Width 15.1 % Platelet Count 339 TH/MM3 Mean Platelet Volume 8.1 FL Neutrophils (%) (Auto) 70.5 % Lymphocytes (%) (Auto) 18.7 % Monocytes (%) (Auto) 7.7 % Eosinophils (%) (Auto) 2.8 % Basophils (%) (Auto) 0.3 % Neutrophils # (Auto) 7.5 TH/MM3 Lymphocytes # (Auto) 2.0 TH/MM3 Monocytes # (Auto) 0.8 TH/MM3 Eosinophils # (Auto) 0.3 TH/MM3 Basophils # (Auto) 0.0 TH/MM3 CBC Comment DIFF FINAL Differential Comment Blood Urea Nitrogen 32 MG/DL Creatinine 1.51 MG/DL Random Glucose 92 MG/DL Total Protein 5.7 GM/DL Albumin 2.6 GM/DL Calcium Level 8.5 MG/DL Magnesium Level 2.0 MG/DL Alkaline Phosphatase 55 U/L Aspartate Amino Transf (AST/SGOT) 14 U/L Alanine Aminotransferase (ALT/SGPT) 14 U/L Total Bilirubin 0.6 MG/DL Sodium Level 142 MEQ/L Potassium Level 3.9 MEQ/L Chloride Level 107 MEQ/L Carbon Dioxide Level 28.0 MEQ/L Anion Gap 7 MEQ/L Estimat Glomerular Filtration Rate 33 ML/MIN Assessment and Plan Problem List: (1) Aortic stenosis ICD Codes: I35.0 - Nonrheumatic aortic (valve) stenosis Status: Chronic (2) Status post carotid endarterectomy ICD Codes: Z98.890 - Other specified postprocedural states Status: Acute (3) CVA (cerebral vascular accident) ICD Codes: I63.9 - Cerebral infarction, unspecified Status: Acute (4) HTN (hypertension) ICD Codes: I10 - Essential (primary) hypertension Status: Chronic (5) Obesity ICD Codes: E66.9 - Obesity, unspecified Status: Chronic (6) COPD (chronic obstructive pulmonary disease) ICD Codes: J44.9 - Chronic obstructive pulmonary disease, unspecified Status: Chronic (7) Non-ST elevation PR (NSTEMI) ICD Codes: I21.4 - Non-ST elevation (NSTEMI) myocardial infarction Status: Acute Assessment and Plan 1) NSTEMI Con't heparin drip 3-4 hours after TR band and brachial sheath removed 2) Severe Bedrest 3) JOE on CKD Renal function mildly better Nephrology following 4) CAD Multiple significant lesions Will discuss with CT surgery about consideration of AVR/CABG vs TAVR/PCI Will most likely need to have interventions staged due to significant CKD Problem Qualifiers (1) Aortic stenosis: Qualified Codes: I35.0 - Nonrheumatic aortic (valve) stenosis (2) HTN (hypertension): Qualified Codes: I10 - Essential (primary) hypertension (3) COPD (chronic obstructive pulmonary disease): Enrike Wilburn DO Sep 02, 2017 12:34
[2017-09-02] MEDS: ALPRAZolam 0.25 MG TAB PO PRN (13:06)
--- NOTE | 2017-09-02 14:39 | HHI.NPPN ---
Subjective Renal Failure: Acute History of Present Illness Patient is a 77 yr old female w/ PMHx of aortic stenosis, HTN, COPD, and recent stroke on 07/24 s/p right CEA. Patient presents to the ED with sudden- onset SOB and associated abdominal pain. She was found to have a troponin of >8 and BNP near 1500 on admission. Nephrology was consulted for evaluation of JOE with worsening renal indices with a creatinine of 2.60 and GFR of 18 ml/min today. Patient was to have cardiac procedure but this has now been put on hold with renal function. Patient has been having CKD stage 3 followed by primary care. Appears that baseline creatinine is around 1.5. Additional Remarks Patient is alert, seen in AM, no SOB, no chest pain, seen after the Cardiac Cath. Review of Systems Respiratory Respiratory Remarks Denies any SOB Cardiovascular Cardiac Remarks Denies any CP Gastrointestinal GI Remarks Denies any Abdominal pain Objective Data Data Vital Signs Date Time Temp Pulse Resp B/P (MAP) Pulse Ox O2 Delivery O2 Flow Rate FiO2 09/02/17 09:42 92 21 09/02/17 08:15 86 18 171/96 (121) 97 09/02/17 08:15 Room Air 09/02/17 05:50 75 09/02/17 05:00 72 09/02/17 04:00 98.6 78 18 125/69 (87) 96 09/02/17 04:00 78 09/02/17 03:00 76 09/02/17 02:00 74 09/02/17 01:00 72 09/02/17 00:00 98.0 80 18 119/66 (83) 98 09/02/17 00:00 80 09/01/17 23:00 72 09/01/17 22:24 96 09/01/17 22:00 75 09/01/17 21:00 79 09/01/17 20:00 98.0 72 20 132/71 (91) 97 09/01/17 20:00 Room Air 09/01/17 20:00 72 09/01/17 18:00 66 09/01/17 17:00 66 09/01/17 16:00 66 09/01/17 15:00 97.8 60 16 115/58 (77) 99 09/01/17 15:00 68 09/01/17 14:38 20 -: 09/02/17 0140 09/02/17 0140 Physical Exam General Appearance: No Acute Distress, Comfortable Eyes Eye Exam: Pupils Equal Throat Throat Exam: Oral Mucosa [place] & Moist Pulmonary Resp Exam: Clear Bilaterally, Breath Sounds Equal, No Distress Cardiology CV Exam: Regular Gastrointestinal/Abdomen GI Exam: Soft, Non-Tender, Bowel Sounds Present Genitourinary Exam: Flank Non-Tender Integumentary Skin Exam: Clear, Warm Extremeties Extremities Exam: No Edema Neurologic Neuro Exam: Alert, Awake Psychiatric Psych Exam: Appropriate Responses Assessment/Plan Problem List: (1) JOE (acute kidney injury) ICD Codes: N17.9 - Acute kidney failure, unspecified Plan: Appears that baseline creatinine is around 1.5 JOE possibly related to sepsis or cariorenal CKD from maybe HTN or renovascular disease Trace proteinuria Potassium WNL Renal US:Right-sided renal atrophy and medical renal disease. No hydronephrosis bilaterally. Bladder unremarkable. Maintain strict I+O and daily weights Continue antibiotics renal dosing Continue to follow labs and UOP. On gentle hydration now. Post Cardiac Cath., results noted. To be seen by CT surgery. (2) HTN (hypertension) ICD Codes: I10 - Essential (primary) hypertension Status: Chronic Plan: Well controlled on amlodipine and metoprolol (3) Non-ST elevation CT (NSTEMI) ICD Codes: I21.4 - Non-ST elevation (NSTEMI) myocardial infarction Status: Acute Plan: Cardiology managing Heparin gtt (4) HCAP (healthcare-associated pneumonia) ICD Codes: J18.9 - Pneumonia, unspecified organism Status: Acute Plan: On antibiotics O 2 2 liters Problem Qualifiers (1) HTN (hypertension): Qualified Codes: I10 - Essential (primary) hypertension Kingsley Johnson MD Sep 02, 2017 14:39
--- NOTE | 2017-09-02 15:51 | PD.CAR.PN ---
CVT Progress Note Subjective/Hospital Course: pt seen and evaluated / full consult to follow sts discussed with pt RISK SCORES About the STS Risk Calculator Procedure: AV Replacement + CAB Risk of Mortality: 11.346% Morbidity or Mortality: 49.553% Long Length of Stay: 33.696% Short Length of Stay: 6.929% Permanent Stroke: 6.121% Prolonged Ventilation: 44.683% DSW Infection: 0.962% Renal Failure: 17.143% Reoperation: 13.818% Objective: Vital Signs Date Time Temp Pulse Resp B/P (MAP) Pulse Ox O2 Delivery O2 Flow Rate FiO2 09/02/17 09:42 92 21 09/02/17 08:15 86 18 171/96 (121) 97 09/02/17 08:15 Room Air 09/02/17 05:50 75 09/02/17 05:00 72 09/02/17 04:00 98.6 78 18 125/69 (87) 96 09/02/17 04:00 78 09/02/17 03:00 76 09/02/17 02:00 74 09/02/17 01:00 72 09/02/17 00:00 98.0 80 18 119/66 (83) 98 09/02/17 00:00 80 09/01/17 23:00 72 09/01/17 22:24 96 09/01/17 22:00 75 09/01/17 21:00 79 09/01/17 20:00 98.0 72 20 132/71 (91) 97 09/01/17 20:00 Room Air 09/01/17 20:00 72 09/01/17 18:00 66 09/01/17 17:00 66 09/01/17 16:00 66 Result Diagram: 09/02/17 0140 09/02/17 0140 (1) Aortic stenosis (2) Status post carotid endarterectomy (3) CVA (cerebral vascular accident) (4) HTN (hypertension) (5) Obesity (6) COPD (chronic obstructive pulmonary disease) (7) Non-ST elevation MA (NSTEMI) Problem Qualifiers (1) Aortic stenosis: Qualified Codes: I35.0 - Nonrheumatic aortic (valve) stenosis (2) HTN (hypertension): Qualified Codes: I10 - Essential (primary) hypertension (3) COPD (chronic obstructive pulmonary disease): Alexys,Megha R. V BLOCK SAW OPERATOR Sep 02, 2017 15:51
[2017-09-02] MEDS: ACETAMINOPHEN 325 MG TAB PO PRN (16:15)
[2017-09-02] MEDS: HEPARIN-D5W 25,000 U/250 ML 250 ML IV PRN (18:23)
[2017-09-02] MEDS: MONTELUKAST SODIUM 10 MG TAB PO SCH (21:21)
[2017-09-02] MEDS: PRAVASTATIN SOD 40 MG TAB PO SCH (21:21)
[2017-09-02] MEDS: ZOLPIDEM TARTRATE 5 MG TAB PO PRN (21:22)
--- NOTE | 2017-09-02 21:57 | RADRPT ---
EXAM DATE/TIME: 09/02/2017 20:39 [facility] COMPARISON: No previous studies available for comparison. INDICATIONS : PreOp cardiac surgery. MEDICAL HISTORY : Hypercholesterolemia. Arthritis. HTN. COPD. Dyspnea. GERD. Skin cancer. Anemia. Shingles. Depression. Anxiety. Anticoagulant therapy, Heparin. SURGICAL HISTORY : Tonsillectomy. Carotid endarterectomy. Cholecystectomy. Hysterectomy. ENCOUNTER: Subsequent ACUITY: 1 day PAIN SCORE: 0/10 LOCATION: Bilateral legs. TECHNIQUE: Venous ultrasound of the left and right leg was performed from the inguinal ligament to the proximal calf. Real-time, color Doppler and spectral tracing, compression and augmentation techniques were us ed. FINDINGS: RIGHT LEG: There is normal compressibility of the deep venous system from the inguinal region to the proximal ca lf. No echogenic clot is seen in the lumen of the common femoral, femoral, popliteal, and posterior tibial veins. There is a normal response of the venous system to proximal and distal augmentation an d respiration. LEFT LEG: There is normal compressibility of the deep venous system from the inguinal region to the proximal ca lf. No echogenic clot is seen in the lumen of the common femoral, femoral, popliteal, and posterior tibial veins. There is a normal response of the venous system to proximal and distal augmentation an d respiration. CONCLUSION: Normal examination. Reno Vogel MD on September 02, 2017 at 21:56 Board Certified Radiologist. This report was verified electronically.
--- NOTE | 2017-09-02 22:00 | RADRPT ---
EXAM DATE/TIME: 09/02/2017 20:47 [place] COMPARISON: No previous studies available for comparison. INDICATIONS : PreOp cardiac surgery. MEDICAL HISTORY : Hypercholesterolemia. Arthritis. HTN. COPD. Dyspnea. GERD. Skin cancer. Anemia. Shingles. Depression. Anxiety. Anticoagulant therapy, Heparin. SURGICAL HISTORY : Tonsillectomy. Carotid endarterectomy. Cholecystectomy. Hysterectomy. ENCOUNTER: Initial ACUITY: 1 day PAIN SCORE: 0/10 LOCATION: Bilateral legs. GREATER SAPHENOUS VEIN THIGH: PROXIMAL: Right 6 mm Left 6 mm MID: Right 3 mm Left 2 mm DISTAL: Right 3 mm Left 3 mm CALF: PROXIMAL: Right 2 mm Left 2 mm MID: Right 1 mm Left 1 mm DISTAL: Right 1 mm Left 2 mm FINDINGS: The venous system of the lower extremities are patent by color Doppler imaging. Measurements of the leg veins (in mm) are listed above. CONCLUSION: Normal examination. Reno Vogel MD on September 02, 2017 at 21:58 Board Certified Radiologist. This report was verified electronically.
[2017-09-03] VITALS (31 sets, daily range): BP systolic 110–133; BP diastolic 58–75; PULSE 66–85; RESP 14–20; TEMP 98.1–98.6; O2SAT 94–98
[2017-09-03] MEDS: ACETAMINOPHEN 325 MG TAB PO PRN (01:21)
[2017-09-03] MEDS: predniSONE 10 MG TAB PO SCH (05:41)
[2017-09-03 06:55] LABS: AUTOMATED NEUTROPHIL # 6.5 TH/MM3 (1.8-7.7); BASOPHIL % 0.5 % (0.0-2.0); EOSINOPHIL # 0.5 TH/MM3 (0-0.4); EOSINOPHIL % 5.7 % (0.0-4.0); HEMATOCRIT 26.7 % (35.0-46.0); LYMPHOCYTE # 1.6 TH/MM3 (1.0-4.8); MEAN CORPUSCULAR HEMOGLOBIN 30.5 PG (27.0-34.0); MEAN CORPUSCULAR HGB CONC 33.5 % (32.0-36.0); MEAN PLATELET VOLUME 8.4 FL (7.0-11.0); MONO % 8.6 % (0.0-8.0); MONOCYTE # 0.8 TH/MM3 (0-0.9); NEUT % 68.2 % (16.0-70.0); PLATELET COUNT 299 TH/MM3 (150-450); RED BLOOD COUNT 2.94 MIL/MM3 (4.00-5.30); RED CELL DISTRIBUTION WIDTH 15.5 % (11.6-17.2); WHITE BLOOD COUNT 9.6 TH/MM3 (4.0-11.0)
[2017-09-03 07:16] LABS: BILIRUBIN, URINE NEG (NEG); BLOOD, URINE NEG (NEG); GLUCOSE,URINE NEG (NEG); KETONE, URINE NEG (NEG); NITRITE,URINE NEG (NEG); PH, URINE 5.5 (5.0-8.5); SQUAMOUS EPITHELIAL CELL URINE <1 /hpf (0-5); URINE COLOR YELLOW (YELLW/STRAW); URINE LEUKOCYTE ESTERASE NEG (NEG)
[2017-09-03 07:28] LABS: ALBUMIN 2.5 GM/DL (3.4-5.0); AST (GOT) 13 U/L (15-37); BICARBONATE 26.3 MEQ/L (21.0-32.0); BLOOD UREA NITROGEN 26 MG/DL (7-18); CALCIUM 8.7 MG/DL (8.5-10.1); CHLORIDE 107 MEQ/L (98-107); CREATININE 1.22 MG/DL (0.50-1.00); GLOMERULAR FILTRATION RATE 43 ML/MIN (>89); GLUCOSE,RANDOM 80 MG/DL (74-106); SODIUM (NA) 140 MEQ/L (136-145)
[2017-09-03 07:32] LABS: ALKALINE PHOSPHATASE 57 U/L (45-117); ALT (GPT) 13 U/L (10-53); TOTAL BILIRUBIN ADULT 0.6 MG/DL (0.2-1.0); TOTAL PROTEIN 5.6 GM/DL (6.4-8.2)
--- NOTE | 2017-09-03 08:18 | MB ---
cc: LILLY ARANDA DATE OF CONSULTATION 09/02/2017 DATE OF 1940. HISTORY OF THE PRESENT ILLNESS A 72-year-old patient of Dr. Gilmore that was recently admitted following a right-sided CVA with left-sided arm weakness, then underwent right carotid endarterectomy July 31 for the right-sided ischemic CVA. She also had some white matter changes. She went to rehab post surgery, was doing well, went home on August 21 and apparently woke up with some epigastric pain, some shortness of breath, became very anxious, called her Home Health who called . She was found to have elevated troponin, was admitted with a NSTEMI and also EKG changes. She had been followed in the past and has history of severe aortic stenosis. Her echo July 26 showed an aortic valve area of 0.93 with a gradient of 42. We were consulted to evaluate for aortic valve replacement, also possible coronary artery bypass grafting. She had a heart catheterization today showing an ejection fraction of 55%, left main disease of 20%. The distal LAD 80%. The diagonal 90%. The circumflex 90%. The OM 95%. RCA 70%. Right-sided heart pressures showed an RA pressure of 11, PA pressure is 38/17. Wedge pressure of 20. Cardiac output 6.1 with an index of 3.3. Cardiac films have been evaluated by Dr. Lilly Aranda. She has diffuse disease with poor targets so she is being evaluated for possible TAVR plus or minus coronary artery bypass grafting versus PCI and we will need second opinion at this time. PAST MEDICAL HISTORY 1. Severe aortic stenosis. 2. Right sided ischemic CVA. 3. Chronic kidney disease. 4. Hypertension. 5. Chronic obstructive pulmonary disease. 6. History of pulmonary emboli 2009. 7. She has recently underwent right carotid endarterectomy patch angioplasty July 31, [address] Cervantes. 8. Cholecystectomy. ALLERGIES SHE HAS ALLERGY TO LISINOPRIL. MEDICATIONS Home meds include: 1. Benadryl. 2. Albuterol inhaler. 3. Plavix 75 milligrams, the last dose on the . 4. Pravachol 40 mg. 5. Toprol XL 200 mg daily. 6. Norvasc 2.5 daily. 7. Cozaar 25 daily. 8. Xanax 0.125 b.i.d. p.r.n. for anxiety. 9. Symbicort 2 puffs q. 12. 10. Singulair 10 mg every night. 11. Multivitamin. FAMILY HISTORY Father at 83 due to ruptured aortic aneurysm. Mother at 56 of colon cancer. SOCIAL HISTORY The patient , two children. Previous tobacco abuse. Smoked for 7 years quit 30 years ago. Occasional rare beer, no illicit drugs. REVIEW OF SYSTEMS GENERAL: No night sweats, fever, heat and cold intolerance. SKIN: No psoriasis, itching or hives. HEENT: No blurred vision, hearing loss. RESPIRATORY: Positive for recent shortness of breath. CARDIOVASCULAR: As above in HPI. GASTROINTESTINAL: No diarrhea, vomiting. GENITOURINARY: No burning, frequency, urgency. MANUFACTURING LEAD: History of recent CVA and carotid endarterectomy. ENDOCRINE: No history of diabetes and/or hypothyroidism. PHYSICAL EXAMINATION VITAL SIGNS: On exam blood pressure 170/90, heart rate of 86, room air sat 92. GENERAL: Patient is awake, alert in no acute distress. HEENT: Head is normocephalic. She does have some mild left facial drooping. Pupils are equal and reactive. Oral mucosa pink, moist. NECK: Supple. No JVD. She has a well-healed right carotid endarterectomy scar. No bruit noted on the left. CARDIOVASCULAR: Heart sounds S1-S2 with grade 3/6 systolic murmur best noted on the left sternal border. LUNGS: Clear to auscultation. No wheezes, rales or rhonchi. ABDOMEN: Soft, nontender. No masses or organomegaly. EXTREMITIES: Reveal no cyanosis, clubbing or edema. She does have a 03/05 cane flume watcher strength in her left hand. LABORATORY DATA Her lab work shows hemoglobin 9.2, hematocrit 27, white cell count 10, platelet count 339. Sodium 142, potassium 3.9, BUN of 32 with a creatinine 1.51. Troponin was as high as 8.13. BNP at 1400. IMAGING Chest x-ray showed some increased bronchial markings. Her CT of brain showed no acute finding. She was also treated for possible health care acquired pneumonia while she was in [facility]. She is now on some Levaquin and some prednisone. IMPRESSION This is a 72-year-old female with severe aortic stenosis, multivessel coronary artery disease, ejection fraction of 55%. Again the films have been evaluated by Dr. Lilly Aranda. She has multivessel disease with poor targets. She will need to be evaluated for possible TAVR candidate. Her risks for mortality is 11.34, morbidity mortality 49. Other risk factors include recent health care acquired pneumonia, chronic kidney disease stage III, chronic anemia, status post recent transfusion, non-ST elevation myocardial infarction and also COPD. We will in the meantime have our partner Dr. Hanna Hammonds also evaluate for second opinion, and if possible the patient may need to be transferred for tertiary center for further evaluation for bypass and aortic valve replacement. DICTATED BY: BRYCE Forbes Lilly Aranda MD CHM/KK /4:07 PM /8:15 AM
[2017-09-03] MEDS: NITROGLYCERIN 2% OINT 1 GM PACKET TOPICAL SCH ×2 (08:51→17:26)
[2017-09-03] MEDS: BUDESONIDE-FORMOTEROL 160/4.5 MCG INHALER INH SCH ×2 (08:51→21:30)
[2017-09-03] MEDS: CALCIUM CARBONATE 1.25 GM (CA 500 MG) TAB PO SCH ×2 (08:52→21:15)
[2017-09-03] MEDS: CHOLECALCIFEROL (VIT D3) 1000 UNIT TAB PO SCH (08:52)
[2017-09-03] MEDS: MULTIVITAMIN TAB PO SCH (08:52)
[2017-09-03] MEDS: ASPIRIN 81 MG CHEW TAB CHEW SCH (08:53)
[2017-09-03] MEDS: amLODIPine BESYLATE 5 MG TAB PO SCH (08:54)
[2017-09-03] MEDS: METOPROLOL TARTRATE 100 MG TAB PO SCH ×2 (08:54→21:16)
[2017-09-03] MEDS: DOCUSATE SODIUM 50 MG/SENNA 8.6 MG TAB PO SCH ×2 (08:55→21:00)
[2017-09-03] MEDS: SODIUM CHLORIDE 0.9% FLUSH 10 ML FLUSH IV FLUSH SCH ×2 (08:57→21:16)
--- NOTE | 2017-09-03 09:09 | HHI.FPPN ---
Subjective Remarks Patient seen with family at the bedside, and son. Patient is doing well this morning. All are anticipating a conversation with cardiology and cardiovascular surgery with regard to options for treatment. She denies chest pain, nausea, vomiting, fever, chills, shortness of breath. No syncope. (Song Tapia MD, R3) Objective Vitals Vital Signs Date Time Temp Pulse Resp B/P (MAP) Pulse Ox O2 Delivery O2 Flow Rate FiO2 09/03/17 08:04 72 09/03/17 07:32 69 09/03/17 07:28 Room Air 09/03/17 07:25 98.6 69 14 133/75 (94) 94 09/03/17 07:00 68 09/03/17 06:00 68 09/03/17 05:00 71 09/03/17 04:00 68 09/03/17 03:30 98.4 74 16 123/66 (85) 98 09/03/17 03:00 66 09/03/17 02:00 68 09/03/17 01:00 75 09/03/17 00:00 71 09/02/17 23:30 98.3 71 16 120/65 (83) 92 09/02/17 23:00 66 09/02/17 22:00 72 09/02/17 21:00 82 09/02/17 20:17 96 Room Air 09/02/17 20:15 96 21 09/02/17 20:00 98.3 79 16 109/64 (79) 96 09/02/17 20:00 80 09/02/17 19:00 82 09/02/17 18:00 84 09/02/17 17:15 18 09/02/17 17:00 70 09/02/17 16:00 72 09/02/17 15:15 98.3 61 19 140/76 (97) 97 09/02/17 15:00 71 09/02/17 14:00 76 09/02/17 13:00 66 09/02/17 12:00 60 09/02/17 11:00 98.2 60 18 134/77 (96) 97 09/02/17 11:00 60 09/02/17 10:00 62 09/02/17 09:42 92 21 I/O 09/02/17 09/02/17 09/02/17 09/03/1709/03/18 2/20/18 07:00 15:00 23:00 07:00 15:00 23:00 Intake Total 1320 ml 720 ml 480 ml Output Total 800 ml 400 ml 200 ml Balance 520 ml 320 ml 280 ml Intake Oral 240 ml 720 ml 480 ml IV Total 1080 ml Output Urine Total 800 ml 400 ml 200 ml # Voids 1 # Bowel Movements 0 0 (Song Tapia MD, R3) Result Diagram: 09/03/1752509/03/17525 Objective Remarks GEN: Well-developed, well-nourished obese female patient. No acute distress. CV: Regular rate and rhythm with 3/6 systolic ejection murmur. 2+ radial and pedal pulses LUNGS: Clear to auscultation bilaterally. Normal respiratory effort. No wheezes , rales, rhonchi. GI: Soft, nontender, nondistended. No palpable masses. Bowel sounds WNL. EXT: No edema. NEURO/PSYCH: Afocal. Awake, alert, and oriented x3. Appropriate insight and judgment. Procedures 09/02/17: Cardiac catheterization (Song Tapia MD, R3) A/P Assessment and Plan 72 yr old w/ PMHx of aortic stenosis, HTN, COPD, and recent stroke on 07/24 s/p right CEA presents with sudden-onset SOB and admitted with NSTEMI and HCAP. Status post cardiac catheterization on 09/02/17. Discharge Planning Unclear timetable, pending cardiology interventions. (Song Tapia MD, R3) Attending Attestation Patient examined independently from resident physicians on medical rounds Patient sitting comfortably in bed without complaint with and son in the room Cardiology was just in to discuss case with patient, she is apparently going for cardiac catheterization with possible stent placement tomorrow and further intervention later in the week with possible aortic valve replacement done via intravascular approach if possible Case was discussed with the resident physicians and I have read the above note and agree with the assessment/plan as discussed with me I was involved in all medical decision making for this patient Eldon Engel MD (Eldon Engel MD) Problem List: (1) Aortic stenosis ICD Codes: I35.0 - Nonrheumatic aortic (valve) stenosis Status: Chronic Plan: 08/25 Echo shows diffuse calcification of the aortic valve, severe aortic valve stenosis, aortic valve area of 0.697 cm, Aortic valve mean gradient is 32 mmHg -Status post catheterization on 09/02 -Creatinine improved this AM Cardiology and CVS consulted There is consideration of AVR/CABG vs TAVR/PCI; also considering transferring to a tertiary center for further evaluation for bypass and aortic valve replacement. Dr. Hammonds to provide second opinion. (2) Non-ST elevation [place] (NSTEMI) ICD Codes: I21.4 - Non-ST elevation (NSTEMI) myocardial infarction Status: Resolved Plan: Troponin elevated at 8.13, EKG with minor ST depression in leads V4-V6 on admission. Cardiology consulted See recommendations above Metoprolol tartrate 100mg PO q12hr (3) Anemia ICD Codes: D64.9 - Anemia, unspecified Status: Acute Plan: stable -Due to her CAD, plan to transfuse with hemoglobin less than 8 (4) Vasovagal episode ICD Codes: R55 - Syncope and collapse Status: Acute Plan: Patient with vasovagal episode overnight 08/29 -Due to severe aortic stenosis, patient to be put on bed rest due to avoid possible complications with pending further cardiac procedures. (5) CKD (chronic kidney disease) stage 3, GFR 30-59 ml/min ICD Codes: N18.3 - Chronic kidney disease, stage 3 (moderate) Status: Chronic Plan: Baseline Cr ~1.5 per chart review Nephrology consulted Avoid nephrotoxic agents; careful with dye (6) JOE (acute kidney injury) ICD Codes: N17.9 - Acute kidney failure, unspecified Status: Acute Plan: -Improving -Plan as above (7) HCAP (healthcare-associated pneumonia) ICD Codes: J18.9 - Pneumonia, unspecified organism Status: Resolved Plan: Resolved PO prednisone 20mg daily (08/27-) weaning down to 10 mg daily x 1 week total Discontinued Vancomycin, pharmacy consulted for dosing (08/24-08/27) Discontinued Zosyn 4.5 gm q6h (08/24-08/27) Discontinued Solumedrol 40mg IV push q12hr Duonebs ARMOND q4hr, albuterol as needed (8) COPD (chronic obstructive pulmonary disease) ICD Codes: J44.9 - Chronic obstructive pulmonary disease, unspecified Status: Chronic Plan: See plan above Continue Montelukast 10mg PO HS Continue Symbicort Breathing treatments as needed Weaning steroids (9) Congestive heart failure ICD Codes: I50.9 - Heart failure, unspecified Status: Chronic Plan: Last Echo 07/26/17 EF of 50-55%, significant for severe aortic stenosis and moderate mitral valve regurgitation See plan above 08/25 Echo significant for EF 50-55% with normal left ventricular systolic function, continued severe aortic stenosis BNP 1466 Lasix held due to creatinine increase strict I & Os and daily weights (10) HTN (hypertension) ICD Codes: I10 - Essential (primary) hypertension Status: Chronic Plan: Metoprolol [id number] PO BID Held Triam/HCTZ 25mg daily Continue amlodipine 2.5mg PO daily Clonidine PRN for BP > 180/100 (11) Hx of arterial ischemic stroke ICD Codes: Z86.73 - Personal history of transient ischemic attack (TIA), and cerebral infarction without residual deficits Plan: Continue 40mg PO pravastatin HS (12) Anxiety ICD Codes: F41.9 - Anxiety disorder, unspecified Status: Chronic Plan: Continue home Xanax 0.125mg PO BID PRN will consider an antidepressant as she has had a CVA and is at high risk for depression (13) Nutrition, metabolism, and development symptoms ICD Codes: R63.8 - Other symptoms and signs concerning food and fluid intake Status: Acute Plan: Diet: Heart healthy diet Fluids: P.O. intake vitals q4h, strict I & Os, daily weights, neurochecks q4h PT and OT (Song Tapia MD, R3) Problem Qualifiers (1) Aortic stenosis: Qualified Codes: I35.0 - Nonrheumatic aortic (valve) stenosis (2) Anemia: Qualified Codes: D64.9 - Anemia, unspecified (3) COPD (chronic obstructive pulmonary disease): (4) Congestive heart failure: Qualified Codes: I50.9 - Heart failure, unspecified (5) HTN (hypertension): Qualified Codes: I10 - Essential (primary) hypertension Song Tapia MD, R3 Sep 03, 2017 09:09 Eldon Engel MD Sep 03, 2017 11:23
--- NOTE | 2017-09-03 13:27 | PD.CAR.PN ---
CVT Progress Note Subjective/Hospital Course: A 72-year-old patient of Dr. Gilmore that was recently admitted following a right-sided CVA with left-sided arm weakness, then underwent right carotid endarterectomy July 31 for the right-sided ischemic CVA. She also had some white matter changes. She went to rehab post surgery, was doing well, went home on August 21 and apparently woke up with some epigastric pain, some shortness of breath, became very anxious, called her Home Health who called . She was found to have elevated troponin, was admitted with a NSTEMI and also EKG changes. She had been followed in the past and has history of severe aortic stenosis. Her echo July 26 showed an aortic valve area of 0.93 with a gradient of 42. We were consulted to evaluate for aortic valve replacement, also possible coronary artery bypass grafting. She had a heart catheterization today showing an ejection fraction of 55%, left main disease of 20%. The distal LAD 80%. The diagonal 90%. The circumflex 90%. The OM 95%. RCA 70%. Right-sided heart pressures showed an RA pressure of 11, PA pressure is 38/17. Wedge pressure of 20. Cardiac output 6.1 with an index of 3.3. Cardiac films have been evaluated by Dr. Lilly Aranda. She has diffuse disease with poor targets so she is being evaluated for possible TAVR plus or minus coronary artery bypass grafting versus PCI and we will need second opinion at this time. PAST MEDICAL HISTORY: Severe aortic stenosis, Right sided ischemic CVA, Chronic kidney disease, Hypertension, Chronic obstructive pulmonary disease, History of pulmonary emboli 2009, She has recently underwent right carotid endarterectomy patch angioplasty July 31, [address] Cervantes. 09/03 no chest pain last night remains on Heparin gtt being evaluated for possible PCI this week / then TAVR at later date Objective: GENERAL: A&O x 3 SKIN: Warm and dry. well healed right lateral neck incision HEAD: Normocephalic. EYES: No scleral icterus. No injection or drainage. NECK: Supple, trachea midline. No JVD or lymphadenopathy. CARDIOVASCULAR: Regular rate and rhythm without murmurs, gallops, or rubs. RESPIRATORY: Breath sounds equal bilaterally. No accessory muscle use. GASTROINTESTINAL: Abdomen soft, non-tender, nondistended. MUSCULOSKELETAL: No cyanosis, or edema. mild left upper ext weakness BACK: Nontender without obvious deformity. No CVA tenderness. Vital Signs Date Time Temp Pulse Resp B/P (MAP) Pulse Ox O2 Delivery O2 Flow Rate FiO2 09/03/17 12:35 85 09/03/17 11:53 70 09/03/17 11:39 98.1 72 18 110/58 (75) 95 09/03/17 10:04 69 09/03/17 09:04 77 09/03/17 08:04 72 09/03/17 07:32 69 09/03/17 07:28 Room Air 09/03/17 07:25 98.6 69 14 133/75 (94) 94 09/03/17 07:00 68 09/03/17 06:00 68 09/03/17 05:00 71 09/03/17 04:00 68 09/03/17 03:30 98.4 74 16 123/66 (85) 98 09/03/17 03:00 66 09/03/17 02:00 68 09/03/17 01:00 75 09/03/17 00:00 71 09/02/17 23:30 98.3 71 16 120/65 (83) 92 09/02/17 23:00 66 09/02/17 22:00 72 09/02/17 21:00 82 09/02/17 20:17 96 Room Air 09/02/17 20:15 96 21 09/02/17 20:00 98.3 79 16 109/64 (79) 96 09/02/17 20:00 80 09/02/17 19:00 82 09/02/17 18:00 84 09/02/17 17:15 18 09/02/17 17:00 70 09/02/17 16:00 72 09/02/17 15:15 98.3 61 19 140/76 (97) 97 09/02/17 15:00 71 09/02/17 14:00 76 Labs: Laboratory Tests Test 09/03/17 03:30 09/03/17 05:26 09/03/17 06:00 09/03/17 10:10 Nasal Screen MRSA (PCR) MRSA NOT DETECTED (NOT White Blood Count 9.6 TH/MM3 (4.0-11.0) Red Blood Count 2.94 MIL/MM3 (4.00-5.30) Hemoglobin 9.0 GM/DL (11.6-15.3) Hematocrit 26.7 % (35.0-46.0) Mean Corpuscular Volume 91.0 FL (80.0-100.0) Mean Corpuscular Hemoglobin 30.5 PG (27.0-34.0) Mean Corpuscular Hemoglobin Concent 33.5 % (32.0-36.0) Red Cell Distribution Width 15.5 % (11.6-17.2) Platelet Count 299 TH/MM3 (150-450) Mean Platelet Volume 8.4 FL (7.0-11.0) Neutrophils (%) (Auto) 68.2 % (16.0-70.0) Lymphocytes (%) (Auto) 17.0 % (9.0-44.0) Monocytes (%) (Auto) 8.6 % (0.0-8.0) Eosinophils (%) (Auto) 5.7 % (0.0-4.0) Basophils (%) (Auto) 0.5 % (0.0-2.0) Neutrophils # (Auto) 6.5 TH/MM3 (1.8-7.7) Lymphocytes # (Auto) 1.6 TH/MM3 (1.0-4.8) Monocytes # (Auto) 0.8 TH/MM3 (0-0.9) Eosinophils # (Auto) 0.5 TH/MM3 (0-0.4) Basophils # (Auto) 0.0 TH/MM3 (0-0.2) CBC Comment DIFF FINAL Differential Comment Blood Urea Nitrogen 26 MG/DL (7-18) Creatinine 1.22 MG/DL (0.50-1.00) Random Glucose 80 MG/DL (74-106) Total Protein 5.6 GM/DL (6.4-8.2) Albumin 2.5 GM/DL (3.4-5.0) Calcium Level 8.7 MG/DL (8.5-10.1) Alkaline Phosphatase 57 U/L (45-117) Aspartate Amino Transf (AST/SGOT) 13 U/L (15-37) Alanine Aminotransferase (ALT/SGPT) 13 U/L (10-53) Total Bilirubin 0.6 MG/DL (0.2-1.0) Sodium Level 140 MEQ/L (136-145) Potassium Level 3.6 MEQ/L (3.5-5.1) Chloride Level 107 MEQ/L (98-107) Carbon Dioxide Level 26.3 MEQ/L (21.0-32.0) Anion Gap 7 MEQ/L (5-15) Estimat Glomerular Filtration Rate 43 ML/MIN (>89) Urine Color YELLOW (YELLW/STRAW) Urine Turbidity CLEAR (CLEAR) Urine pH 5.5 (5.0-8.5) Urine Specific [place] 1.021 (1.002-1.035) Urine Protein NEG mg/dL (NEG-TRACE) Urine Glucose (UA) NEG mg/dL (NEG) Urine Ketones NEG mg/dL (NEG) Urine Occult Blood NEG (NEG) Urine Nitrite NEG (NEG) Urine Bilirubin NEG (NEG) Urine Urobilinogen LESS THAN 2.0 MG/DL (LESS Urine Leukocyte Esterase NEG (NEG) Urine RBC 1 /hpf (0-3) Urine WBC 1 /hpf (0-5) Urine Squamous Epithelial Cells <1 /hpf (0-5) Microscopic Urinalysis Comment CULT NOT INDICATED Activated Partial Thromboplast Time 58.1 SEC (24.3-30.1) Result Diagram: 09/03/1752509/03/17525 Telemetry: NSR (1) Aortic stenosis Plan: will be evaluated for TAVR at later date (2) Status post carotid endarterectomy (3) CVA (cerebral vascular accident) (4) HTN (hypertension) (5) Obesity (6) COPD (chronic obstructive pulmonary disease) (7) Non-ST elevation [place] (NSTEMI) Plan: eval for PCI per Dr Wilburn on Heparin gtt Problem Qualifiers (1) Aortic stenosis: Qualified Codes: I35.0 - Nonrheumatic aortic (valve) stenosis (2) HTN (hypertension): Qualified Codes: I10 - Essential (primary) hypertension (3) COPD (chronic obstructive pulmonary disease): Mgeha Reardon Sep 03, 2017 13:27
--- NOTE | 2017-09-03 14:56 | PD.CARD.PN ---
Subjective Subjective Remarks No chest pain/SOB Doing well today Objective Medications Current Medications Medications (Trade) Dose Ordered Sig/Jasmeet Route Start Time Stop Time Status Last Admin (NS Flush) 2 ml UNSCH PRN IV FLUSH 08/24/17 15:15 (NS Flush) 2 ml BID IV FLUSH 08/24/17 21:00 09/02/17 10:24 (Zofran Inj) 4 mg Q6H PRN IVP 08/24/17 15:45 (Narcan Inj) 0.4 mg UNSCH PRN IV PUSH 08/24/17 15:45 (Kerry-Colace) 1 tab BID PO 08/24/17 21:00 09/03/17 08:55 (Milk Of Magnesia Liq) 30 ml Q12H PRN PO 08/24/17 15:45 09/03/17 08:55 (Senokot) 17.2 mg Q12H PRN PO 08/24/17 15:45 (Dulcolax Supp) 10 mg DAILY PRN RECTAL 08/24/17 15:45 (Lactulose Liq) 30 ml DAILY PRN PO 08/24/17 15:45 08/26/17 09:31 (Nitrostat Sl) 0.4 mg Q5M PRN SL 08/24/17 16:00 (Morphine Inj) 2 mg Q30M PRN IV PUSH 08/24/17 16:00 (Tylenol) 650 mg Q6H PRN PO 08/24/17 16:00 09/03/17 01:21 (Heparin Inj) 5,000 units UNSCH PRN IV PUSH 08/24/17 22:00 (Heparin Inj) 2,500 units UNSCH PRN IV PUSH 08/24/17 22:00 09/03/17 01:13 Heparin Sodium/ Dextrose 250 ml @ 9.6 mls/hr TITRATE PRN IV 08/24/17 16:00 Future hold 09/02/17 18:23 (Aspirin Chew) 81 mg DAILY CHEW 08/25/17 09:00 09/03/17 08:53 (Xanax) 0.125 mg BID PRN PO 08/24/17 17:15 09/02/17 13:06 (Norvasc) 2.5 mg DAILY PO 08/25/17 09:00 09/03/17 08:54 (Symbicort 160-4.5 Mcg Inh) 2 puff Q12HR INH 08/24/17 21:00 09/03/17 08:51 (Vitamin D3) 1,000 units DAILY PO 08/25/17 09:00 09/03/17 08:52 (Singulair) 10 mg HS PO 08/24/17 21:00 09/02/17 21:21 (Pravachol) 40 mg HS PO 08/24/17 21:00 09/02/17 21:21 (Lopressor) 100 mg Q12HR PO 08/25/17 09:00 09/03/17 08:54 (Pill Splitter) 1 ea UNSCH PRN OTHER 08/24/17 17:45 (Oscal) 500 mg BID PO 08/24/17 21:00 09/03/17 08:52 (Theragran) 1 tab DAILY PO 08/25/17 09:00 09/03/17 08:52 (Albuterol Neb) 2.5 mg Q2HR NEB PRN NEB 08/24/17 17:45 08/29/17 11:59 (Ambien) 5 mg HS PRN PO 08/25/17 17:30 09/02/17 21:22 (Nitroglycerin 2% Oint) 0.5 inch Q8HR WHILE AWAKE NEB TOPICAL 08/31/17 16:00 09/03/17 08:51 (Deltasone) 10 mg Taper DAILY@0600 PO 09/01/17 06:00 09/07/17 05:59 09/03/17 05:41 (Tylenol) 650 mg Q4H PRN PO 09/01/17 10:30 09/01/17 13:29 (Benadryl) 25 mg Q4H PRN PO 09/01/17 10:30 09/01/17 13:29 Vital Signs / I&O Vital Signs Date Time Temp Pulse Resp B/P (MAP) Pulse Ox O2 Delivery O2 Flow Rate FiO2 09/03/17 12:35 85 09/03/17 11:53 70 09/03/17 11:39 98.1 72 18 110/58 (75) 95 09/03/17 10:04 69 09/03/17 09:04 77 09/03/17 08:04 72 09/03/17 07:32 69 09/03/17 07:28 Room Air 09/03/17 07:25 98.6 69 14 133/75 (94) 94 09/03/17 07:00 68 09/03/17 06:00 68 09/03/17 05:00 71 09/03/17 04:00 68 09/03/17 03:30 98.4 74 16 123/66 (85) 98 09/03/17 03:00 66 09/03/17 02:00 68 09/03/17 01:00 75 09/03/17 00:00 71 09/02/17 23:30 98.3 71 16 120/65 (83) 92 09/02/17 23:00 66 09/02/17 22:00 72 09/02/17 21:00 82 09/02/17 20:17 96 Room Air 09/02/17 20:15 96 21 09/02/17 20:00 98.3 79 16 109/64 (79) 96 09/02/17 20:00 80 09/02/17 19:00 82 09/02/17 18:00 84 09/02/17 17:15 18 09/02/17 17:00 70 09/02/17 16:00 72 09/02/17 15:15 98.3 61 19 140/76 (97) 97 09/02/17 15:00 71 I/O 09/02/17 09/02/17 09/02/17 09/03/17 09/03/17 09/03/17 07:00 15:00 23:00 07:00 15:00 23:00 Intake Total 1320 ml 720 ml 480 ml Output Total 800 ml 400 ml 200 ml Balance 520 ml 320 ml 280 ml Intake Oral 240 ml 720 ml 480 ml IV Total 1080 ml Output Urine Total 800 ml 400 ml 200 ml # Voids 1 # Bowel Movements 0 0 Physical Exam GENERAL: NAD, AAOx3 SKIN: Warm and dry. HEAD: Atraumatic. Normocephalic. EYES: Pupils equal and round. No scleral icterus. No injection or drainage. ENT: No nasal bleeding or discharge. Mucous membranes pink and moist. NECK: Trachea midline. No JVD. CARDIOVASCULAR: Regular rate and rhythm. 3/6 crescendo-decrescendo murmur to the RSB RESPIRATORY: No accessory muscle use. Clear to auscultation. Breath sounds equal bilaterally. GASTROINTESTINAL: Abdomen soft, non-tender, nondistended. Hepatic and splenic margins not palpable. MUSCULOSKELETAL: Extremities without clubbing, cyanosis, or edema. No obvious deformities. NEUROLOGICAL: Awake and alert. No obvious cranial nerve deficits. Motor grossly within normal limits. Five out of 5 muscle strength in the arms and legs. Normal speech. PSYCHIATRIC: Appropriate mood and affect; insight and judgment normal. Laboratory Laboratory Tests Test 09/02/17 17:53 09/03/17 00:17 09/03/17 03:30 09/03/17 05:26 Activated Partial Thromboplast Time 21.2 SEC 39.0 SEC Nasal Screen MRSA (PCR) MRSA NOT DETECTED White Blood Count 9.6 TH/MM3 Red Blood Count 2.94 MIL/MM3 Hemoglobin 9.0 GM/DL Hematocrit 26.7 % Mean Corpuscular Volume 91.0 FL Mean Corpuscular Hemoglobin 30.5 PG Mean Corpuscular Hemoglobin Concent 33.5 % Red Cell Distribution Width 15.5 % Platelet Count 299 TH/MM3 Mean Platelet Volume 8.4 FL Neutrophils (%) (Auto) 68.2 % Lymphocytes (%) (Auto) 17.0 % Monocytes (%) (Auto) 8.6 % Eosinophils (%) (Auto) 5.7 % Basophils (%) (Auto) 0.5 % Neutrophils # (Auto) 6.5 TH/MM3 Lymphocytes # (Auto) 1.6 TH/MM3 Monocytes # (Auto) 0.8 TH/MM3 Eosinophils # (Auto) 0.5 TH/MM3 Basophils # (Auto) 0.0 TH/MM3 CBC Comment DIFF FINAL Differential Comment Blood Urea Nitrogen 26 MG/DL Creatinine 1.22 MG/DL Random Glucose 80 MG/DL Total Protein 5.6 GM/DL Albumin 2.5 GM/DL Calcium Level 8.7 MG/DL Alkaline Phosphatase 57 U/L Aspartate Amino Transf (AST/SGOT) 13 U/L Alanine Aminotransferase (ALT/SGPT) 13 U/L Total Bilirubin 0.6 MG/DL Sodium Level 140 MEQ/L Potassium Level 3.6 MEQ/L Chloride Level 107 MEQ/L Carbon Dioxide Level 26.3 MEQ/L Anion Gap 7 MEQ/L Estimat Glomerular Filtration Rate 43 ML/MIN Test 09/03/17 06:00 09/03/17 10:10 Urine Color YELLOW Urine Turbidity CLEAR Urine pH 5.5 Urine Specific [place] 1.021 Urine Protein NEG mg/dL Urine Glucose (UA) NEG mg/dL Urine Ketones NEG mg/dL Urine Occult Blood NEG Urine Nitrite NEG Urine Bilirubin NEG Urine Urobilinogen LESS THAN 2.0 MG/DL Urine Leukocyte Esterase NEG Urine RBC 1 /hpf Urine WBC 1 /hpf Urine Squamous Epithelial Cells <1 /hpf Microscopic Urinalysis Comment CULT NOT INDICATED Activated Partial Thromboplast Time 58.1 SEC Assessment and Plan Problem List: (1) Aortic stenosis ICD Codes: I35.0 - Nonrheumatic aortic (valve) stenosis Status: Chronic (2) Status post carotid endarterectomy ICD Codes: Z98.890 - Other specified postprocedural states Status: Acute (3) CVA (cerebral vascular accident) ICD Codes: I63.9 - Cerebral infarction, unspecified Status: Acute (4) HTN (hypertension) ICD Codes: I10 - Essential (primary) hypertension Status: Chronic (5) Obesity ICD Codes: E66.9 - Obesity, unspecified Status: Chronic (6) COPD (chronic obstructive pulmonary disease) ICD Codes: J44.9 - Chronic obstructive pulmonary disease, unspecified Status: Chronic (7) Non-ST elevation IN (NSTEMI) ICD Codes: I21.4 - Non-ST elevation (NSTEMI) myocardial infarction Status: Resolved Assessment and Plan 1) NSTEMI Con't heparin drip 2) Severe OK with getting up to the chair with assist, no bedside toilet due to straining with 3) JOE on CKD Renal function better Nephrology following 4) CAD Multiple significant lesions Discussed with CT surgery, too high risk Plan for PCI tomorrow if needed stage for Saturday Eventual TAVR most likely outpt Problem Qualifiers (1) Aortic stenosis: Qualified Codes: I35.0 - Nonrheumatic aortic (valve) stenosis (2) HTN (hypertension): Qualified Codes: I10 - Essential (primary) hypertension (3) COPD (chronic obstructive pulmonary disease): Enrike Wilburn DO Sep 03, 2017 14:56
--- NOTE | 2017-09-03 15:50 | HHI.NPPN ---
Subjective Renal Failure: Acute History of Present Illness Patient is a 77 yr old female w/ PMHx of aortic stenosis, HTN, COPD, and recent stroke on 07/24 s/p right CEA. Patient presents to the ED with sudden- onset SOB and associated abdominal pain. She was found to have a troponin of >8 and BNP near 1500 on admission. Nephrology was consulted for evaluation of JOE with worsening renal indices with a creatinine of 2.60 and GFR of 18 ml/min today. Patient was to have cardiac procedure but this has now been put on hold with renal function. Patient has been having CKD stage 3 followed by primary care. Appears that baseline creatinine is around 1.5. Additional Remarks Patient is alert and oriented. Sitting up in chair. Plan for heart cath tomorrow with possible stent placement (Michell Salguero) Review of Systems Respiratory Respiratory Remarks Denies any SOB (Michell Salguero) Cardiovascular Cardiac Remarks Denies any CP (Michell Salguero) Gastrointestinal GI Remarks Denies any Abdominal pain (Michell Salguero) Objective Data Data Vital Signs Date Time Temp Pulse Resp B/P (MAP) Pulse Ox O2 Delivery O2 Flow Rate FiO2 09/03/17 12:35 85 09/03/17 11:53 70 09/03/17 11:39 98.1 72 18 110/58 (75) 95 09/03/17 10:04 69 09/03/17 09:04 77 09/03/17 08:04 72 09/03/17 07:32 69 09/03/17 07:28 Room Air 09/03/17 07:25 98.6 69 14 133/75 (94) 94 09/03/17 07:00 68 09/03/17 06:00 68 09/03/17 05:00 71 09/03/17 04:00 68 09/03/17 03:30 98.4 74 16 123/66 (85) 98 09/03/17 03:00 66 09/03/17 02:00 68 09/03/17 01:00 75 09/03/17 00:00 71 09/02/17 23:30 98.3 71 16 120/65 (83) 92 09/02/17 23:00 66 09/02/17 22:00 72 09/02/17 21:00 82 09/02/17 20:17 96 Room Air 09/02/17 20:15 96 21 09/02/17 20:00 98.3 79 16 109/64 (79) 96 09/02/17 20:00 80 09/02/17 19:00 82 09/02/17 18:00 84 09/02/17 17:15 18 09/02/17 17:00 70 09/02/17 16:00 72 (Michell Salguero) -: 09/03/17 0526 09/03/17 0526 Physical Exam General Appearance: No Acute Distress, Comfortable (Michell Salguero) Eyes Eye Exam: Pupils Equal (Michell Salguero) Throat Throat Exam: Oral Mucosa Gilberts & Moist (Michell Salguero) Pulmonary Resp Exam: Clear Bilaterally, Breath Sounds Equal, No Distress (Michell Salguero) Cardiology CV Exam: Regular (Michell Salguero) Gastrointestinal/Abdomen GI Exam: Soft, Non-Tender, Bowel Sounds Present (Michell Salguero) Genitourinary Exam: Flank Non-Tender (Michell Salguero) Integumentary Skin Exam: Clear, Warm (Michell Salguero) Extremeties Extremities Exam: No Edema (Michell Salguero) Neurologic Neuro Exam: Alert, Awake (Michell Salguero) Psychiatric Psych Exam: Appropriate Responses (Michell Salguero) Assessment/Plan Problem List: (1) JOE (acute kidney injury) ICD Codes: N17.9 - Acute kidney failure, unspecified Plan: Appears that baseline creatinine is around 1.5 JOE possibly related to sepsis or cariorenal CKD from HTN or renovascular disease Trace proteinuria Renal US:Right-sided renal atrophy and medical renal disease. No hydronephrosis bilaterally. Bladder unremarkable. Continue to follow labs and UOP. Post Cardiac Cath., results noted. CT surgery not a surgical candidate. Plans for heart cath tomorrow and PCI Creatinine at 1.22 today (2) HTN (hypertension) ICD Codes: I10 - Essential (primary) hypertension Status: Chronic Plan: Well controlled on amlodipine and metoprolol (3) Non-ST elevation ID (NSTEMI) ICD Codes: I21.4 - Non-ST elevation (NSTEMI) myocardial infarction Status: Resolved Plan: Cardiology managing Heparin gtt (4) HCAP (healthcare-associated pneumonia) ICD Codes: J18.9 - Pneumonia, unspecified organism Status: Resolved Plan: On antibiotics O 2 2 liters (Michell Salguero) Problem List: (1) JOE (acute kidney injury) ICD Codes: N17.9 - Acute kidney failure, unspecified Plan: Appears that baseline creatinine is around 1.5 JOE possibly related to sepsis or cariorenal CKD from HTN or renovascular disease Trace proteinuria Renal US:Right-sided renal atrophy and medical renal disease. No hydronephrosis bilaterally. Bladder unremarkable. Continue to follow labs and UOP. Post Cardiac Cath., results noted. CT surgery not a surgical candidate. Plans for heart cath tomorrow and PCI Creatinine at 1.22 today. Patient seen and examined, agree with above. (2) HTN (hypertension) ICD Codes: I10 - Essential (primary) hypertension Status: Chronic Plan: Well controlled on amlodipine and metoprolol (3) Non-ST elevation ID (NSTEMI) ICD Codes: I21.4 - Non-ST elevation (NSTEMI) myocardial infarction Status: Resolved Plan: Cardiology managing Heparin gtt (4) HCAP (healthcare-associated pneumonia) ICD Codes: J18.9 - Pneumonia, unspecified organism Status: Resolved Plan: On antibiotics O 2 2 liters (Kingsley Johnson MD) Problem Qualifiers (1) HTN (hypertension): Qualified Codes: I10 - Essential (primary) hypertension Michell Salguero Sep 03, 2017 15:50 Kingsley Johnson MD Sep 03, 2017 17:18
[2017-09-03 17:02] LABS: HEMOGLOBIN A1C 5.2 % (4.3-6.0)
[2017-09-03] MEDS: ZOLPIDEM TARTRATE 5 MG TAB PO PRN (21:15)
[2017-09-03] MEDS: PRAVASTATIN SOD 40 MG TAB PO SCH (21:15)
[2017-09-03] MEDS: MONTELUKAST SODIUM 10 MG TAB PO SCH (21:16)
[2017-09-03] MEDS: HEPARIN-D5W 25,000 U/250 ML 250 ML IV PRN (23:27)
[2017-09-04] VITALS (19 sets, daily range): BP systolic 79–176; BP diastolic 46–101; PULSE 47–86; RESP 15–20; TEMP 97.3–98.9; O2SAT 92–100
[2017-09-04] MEDS: predniSONE 10 MG TAB PO SCH (05:52)
[2017-09-04] MEDS: NITROGLYCERIN 2% OINT 1 GM PACKET TOPICAL SCH (08:00)
--- NOTE | 2017-09-04 08:51 | HHI.FPPN ---
Subjective Remarks Doing well this morning. She is looking forward to getting her procedure done today. Currently nothing by mouth. She has no complaints. No chest pain, shortness of breath, fever, nausea, vomiting. Objective Vitals Vital Signs Date Time Temp Pulse Resp B/P (MAP) Pulse Ox O2 Delivery O2 Flow Rate FiO2 09/04/17 08:19 73 09/04/17 07:17 98.9 72 16 129/68 (88) 93 09/04/17 07:17 72 09/04/17 05:00 68 09/04/17 04:00 98.8 75 20 137/73 (94) 95 09/04/17 04:00 Room Air 09/04/17 04:00 67 09/04/17 03:00 68 09/04/17 02:00 72 09/04/17 01:00 72 09/04/17 00:00 Room Air 09/04/17 00:00 73 09/04/17 00:00 98.2 86 20 120/64 (82) 95 09/03/17 23:00 70 09/03/17 22:00 74 09/03/17 21:00 76 09/03/17 20:00 98.2 80 20 129/69 (89) 96 09/03/17 20:00 Room Air 09/03/17 20:00 77 09/03/17 19:00 80 09/03/17 18:00 76 09/03/17 17:33 95 21 09/03/17 17:00 66 09/03/17 16:00 66 09/03/17 15:55 98.6 71 17 122/66 (84) 95 09/03/17 15:00 68 09/03/17 14:00 66 09/03/17 13:00 74 09/03/17 12:35 85 09/03/17 11:53 70 09/03/17 11:39 98.1 72 18 110/58 (75) 95 09/03/17 11:00 72 09/03/17 10:04 69 09/03/17 09:04 77 I/O 09/03/17 09/03/17 09/03/17 09/04/17 09/04/17 09/04/17 07:00 15:00 23:00 07:00 15:00 23:00 Intake Total 480 ml 850 ml 240 ml Output Total 200 ml 500 ml 360 ml Balance 280 ml 350 ml -120 ml Intake Oral 480 ml 850 ml 240 ml Output Urine Total 200 ml 500 ml 360 ml # Voids 1 # Bowel Movements 0 2 0 Result Diagram: 09/03/1752509/03/17525 Objective Remarks GEN: Well-developed, well-nourished female patient. No acute distress. CV: Regular rate and rhythm with 3/6 systolic ejection murmur. 2+ radial and pedal pulses LUNGS: Clear to auscultation bilaterally. Normal respiratory effort. No wheezes , rales, rhonchi. GI: Soft, nontender, nondistended. No palpable masses. Bowel sounds WNL. EXT: No edema. NEURO/PSYCH: Afocal. Awake, alert, and oriented x3. Appropriate insight and judgment. Procedures 09/02/17: Cardiac catheterization A/P Assessment and Plan 72 yr old w/ PMHx of aortic stenosis, HTN, COPD, and recent stroke on 07/24 s/p right CEA presents with sudden-onset SOB and admitted with NSTEMI and HCAP. Status post cardiac catheterization on 09/02/17. Cardiology planning on PCI today at 1:30 PM. Discharge Planning Unclear timetable, pending cardiology interventions. Problem List: (1) Aortic stenosis ICD Codes: I35.0 - Nonrheumatic aortic (valve) stenosis Status: Chronic Plan: 08/25 Echo shows diffuse calcification of the aortic valve, severe aortic valve stenosis, aortic valve area of 0.697 cm, Aortic valve mean gradient is 32 mmHg -Status post catheterization on 09/02 -Creatinine closely monitored Cardiology and CV[facility] consulted Plan for PCI today Likely TAVR as outpatient (2) Non-ST elevation PR (NSTEMI) ICD Codes: I21.4 - Non-ST elevation (NSTEMI) myocardial infarction Status: Resolved Plan: Troponin elevated at 8.13, EKG with minor ST depression in leads V4-V6 on admission. Cardiology consulted See recommendations above Metoprolol tartrate 100mg PO q12hr (3) Anemia ICD Codes: D64.9 - Anemia, unspecified Status: Acute Plan: stable -Due to her CAD, plan to transfuse with hemoglobin less than 8 (4) Vasovagal episode ICD Codes: R55 - Syncope and collapse Status: Acute Plan: Patient with vasovagal episode overnight 08/29 -Due to severe aortic stenosis, patient to be put on bed rest due to avoid possible complications with pending further cardiac procedures. (5) CKD (chronic kidney disease) stage 3, GFR 30-59 ml/min ICD Codes: N18.3 - Chronic kidney disease, stage 3 (moderate) Status: Chronic Plan: Baseline Cr ~1.5 per chart review Nephrology consulted Avoid nephrotoxic agents; careful with dye (6) JOE (acute kidney injury) ICD Codes: N17.9 - Acute kidney failure, unspecified Status: Acute Plan: -Improving -Plan as above (7) HCAP (healthcare-associated pneumonia) ICD Codes: J18.9 - Pneumonia, unspecified organism Status: Resolved Plan: Resolved PO prednisone 20mg daily (08/27-) weaning down to 10 mg daily x 1 week total Discontinued Vancomycin, pharmacy consulted for dosing (08/24-08/27) Discontinued Zosyn 4.5 gm q6h (08/24-08/27) Discontinued Solumedrol 40mg IV push q12hr Duonebs ARMOND q4hr, albuterol as needed (8) COPD (chronic obstructive pulmonary disease) ICD Codes: J44.9 - Chronic obstructive pulmonary disease, unspecified Status: Chronic Plan: See plan above Continue Montelukast 10mg PO HS Continue Symbicort Breathing treatments as needed Weaning steroids (9) Congestive heart failure ICD Codes: I50.9 - Heart failure, unspecified Status: Chronic Plan: Last Echo 07/26/17 EF of 50-55%, significant for severe aortic stenosis and moderate mitral valve regurgitation See plan above 08/25 Echo significant for EF 50-55% with normal left ventricular systolic function, continued severe aortic stenosis BNP 1466 Lasix held due to creatinine increase strict I & Os and daily weights (10) HTN (hypertension) ICD Codes: I10 - Essential (primary) hypertension Status: Chronic Plan: Metoprolol [id number] PO BID Held Triam/HCTZ 25mg daily Continue amlodipine 2.5mg PO daily Clonidine PRN for BP > 180/100 (11) Hx of arterial ischemic stroke ICD Codes: Z86.73 - Personal history of transient ischemic attack (TIA), and cerebral infarction without residual deficits Plan: Continue 40mg PO pravastatin HS (12) Anxiety ICD Codes: F41.9 - Anxiety disorder, unspecified Status: Chronic Plan: Continue home Xanax 0.125mg PO BID PRN will consider an antidepressant as she has had a CVA and is at high risk for depression (13) Nutrition, metabolism, and development symptoms ICD Codes: R63.8 - Other symptoms and signs concerning food and fluid intake Status: Acute Plan: Diet: NPO for procedure today. Heart healthy otherwise Fluids: P.O. intake vitals q4h, strict I & Os, daily weights, neurochecks q4h PT and OT Problem Qualifiers (1) Aortic stenosis: Qualified Codes: I35.0 - Nonrheumatic aortic (valve) stenosis (2) Anemia: Qualified Codes: D64.9 - Anemia, unspecified (3) COPD (chronic obstructive pulmonary disease): (4) Congestive heart failure: Qualified Codes: I50.9 - Heart failure, unspecified (5) HTN (hypertension): Qualified Codes: I10 - Essential (primary) hypertension Song Tapia MD, R3 Sep 04, 2017 08:51
[2017-09-04] MEDS: BUDESONIDE-FORMOTEROL 160/4.5 MCG INHALER INH SCH (09:00)
[2017-09-04] MEDS: SODIUM CHLORIDE 0.9% FLUSH 10 ML FLUSH IV FLUSH SCH (09:00)
[2017-09-04] MEDS: CHOLECALCIFEROL (VIT D3) 1000 UNIT TAB PO SCH (09:00)
[2017-09-04] MEDS: ASPIRIN 81 MG CHEW TAB CHEW SCH (09:00)
[2017-09-04] MEDS: DOCUSATE SODIUM 50 MG/SENNA 8.6 MG TAB PO SCH (09:00)
[2017-09-04] MEDS: amLODIPine BESYLATE 5 MG TAB PO SCH (09:00)
[2017-09-04] MEDS: CALCIUM CARBONATE 1.25 GM (CA 500 MG) TAB PO SCH (09:00)
[2017-09-04] MEDS: MULTIVITAMIN TAB PO SCH (09:00)
[2017-09-04] MEDS: METOPROLOL TARTRATE 100 MG TAB PO SCH (09:00)
--- NOTE | 2017-09-04 09:28 | HHI.NPPN ---
Subjective Renal Failure: Acute History of Present Illness Patient is a 77 yr old female w/ PMHx of aortic stenosis, HTN, COPD, and recent stroke on 07/24 s/p right CEA. Patient presents to the ED with sudden- onset SOB and associated abdominal pain. She was found to have a troponin of >8 and BNP near 1500 on admission. Nephrology was consulted for evaluation of JOE with worsening renal indices with a creatinine of 2.60 and GFR of 18 ml/min today. Patient was to have cardiac procedure but this has now been put on hold with renal function. Patient has been having CKD stage 3 followed by primary care. Appears that baseline creatinine is around 1.5. Additional Remarks Patient is alert and oriented. NPO for heart cath today with possible stent placement (Michell Salguero) Review of Systems Respiratory Respiratory Remarks Denies any SOB (Michell Salguero) Cardiovascular Cardiac Remarks Denies any CP (Michell Salguero) Gastrointestinal GI Remarks Denies any Abdominal pain (Michell Salguero) Objective Data Data Vital Signs Date Time Temp Pulse Resp B/P (MAP) Pulse Ox O2 Delivery O2 Flow Rate FiO2 09/04/17 08:19 73 09/04/17 07:17 98.9 72 16 129/68 (88) 93 09/04/17 07:17 72 09/04/17 05:00 68 09/04/17 04:00 98.8 75 20 137/73 (94) 95 09/04/17 04:00 Room Air 09/04/17 04:00 67 09/04/17 03:00 68 09/04/17 02:00 72 09/04/17 01:00 72 09/04/17 00:00 Room Air 09/04/17 00:00 73 09/04/17 00:00 98.2 86 20 120/64 (82) 95 09/03/17 23:00 70 09/03/17 22:00 74 09/03/17 21:00 76 09/03/17 20:00 98.2 80 20 129/69 (89) 96 09/03/17 20:00 Room Air 09/03/17 20:00 77 09/03/17 19:00 80 09/03/17 18:00 76 09/03/17 17:33 95 21 09/03/17 17:00 66 09/03/17 16:00 66 09/03/17 15:55 98.6 71 17 122/66 (84) 95 09/03/17 15:00 68 09/03/17 14:00 66 09/03/17 13:00 74 09/03/17 12:35 85 09/03/17 11:53 70 09/03/17 11:39 98.1 72 18 110/58 (75) 95 09/03/17 11:00 72 09/03/17 10:04 69 (Michell Salguero) -: 09/03/17 0526 09/03/17 0526 Imaging Last Impressions Lower Extremity Ultrasound 09/02/17 0000 Signed Impressions: Service Date/Time: Saturday, September 02, 2017 20:47 - CONCLUSION: Normal examination. Reno Vogel MD Renal Ultrasound 08/26/17 0000 Signed Impressions: Service Date/Time: Saturday, August 26, 2017 19:37 - CONCLUSION: 1. Right-sided renal atrophy and medical renal disease. No hydronephrosis bilaterally. Bladder unremarkable. Kermit Short MD Chest X-Ray 08/24/17 1320 Signed Impressions: Service Date/Time: Thursday, August 24, 2017 14:07 - CONCLUSION: Development of bibasilar prominent bronchovascular markings without consolidation, infiltrates. Milind Fairbanks MD Head CT 08/24/17 0000 Signed Impressions: Service Date/Time: Thursday, August 24, 2017 20:02 - CONCLUSION: No acute findings in the brain. Stable advanced supratentorial white matter hypodensities. The Patrick Gupta MD (Michell Salguero) Physical Exam General Appearance: No Acute Distress, Comfortable (Michell Salguero) Appearance Remarks Intubated and sedated. (Kingsley Johnson MD) Eyes Eye Exam: Pupils Equal (Michell Salguero) Throat Throat Exam: Oral Mucosa [place] & Moist (Michell Salguero) Pulmonary Resp Exam: Clear Bilaterally, Breath Sounds Equal, No Distress (Michell Salguero) Resp Exam: Rhonchi, Decreased Bases (Kingsley Johnson MD) Cardiology CV Exam: Regular (Michell Salguero) Gastrointestinal/Abdomen GI Exam: Soft, Non-Tender, Bowel Sounds Present (Michell Salguero) Genitourinary Exam: Flank Non-Tender (Michell Salguero) Integumentary Skin Exam: Clear, Warm (Michell Salguero) Extremeties Extremities Exam: No Edema (Michell Salguero) Neurologic Neuro Exam: Alert, Awake (Michell Salguero) Neuro Exam: Sedated (Kingsley Johnson MD) Psychiatric Psych Exam: Appropriate Responses (Michell Salguero) Assessment/Plan Problem List: (1) JOE (acute kidney injury) ICD Codes: N17.9 - Acute kidney failure, unspecified Plan: Appears that baseline creatinine is around 1.5 JOE possibly related to sepsis or cariorenal CKD from HTN or renovascular disease Trace proteinuria Renal US:Right-sided renal atrophy and medical renal disease. No hydronephrosis bilaterally. Bladder unremarkable. Post Cardiac Cath., results noted. CT surgery not a surgical candidate. NPO for for heart cath today and PCI Continue to follow labs and UOP (2) HTN (hypertension) ICD Codes: I10 - Essential (primary) hypertension Status: Chronic Plan: Well controlled on amlodipine and metoprolol (3) Non-ST elevation ID (NSTEMI) ICD Codes: I21.4 - Non-ST elevation (NSTEMI) myocardial infarction Status: Resolved Plan: Cardiology managing Heparin gtt (4) HCAP (healthcare-associated pneumonia) ICD Codes: J18.9 - Pneumonia, unspecified organism Status: Resolved Plan: On antibiotics O 2 2 liters (Michell Salguero) Problem List: (1) JOE (acute kidney injury) ICD Codes: N17.9 - Acute kidney failure, unspecified Plan: Appears that baseline creatinine is around 1.5 JOE possibly related to sepsis or cariorenal CKD from HTN or renovascular disease Trace proteinuria Renal US:Right-sided renal atrophy and medical renal disease. No hydronephrosis bilaterally. Bladder unremarkable. Post Cardiac Cath., results noted. CT surgery not a surgical candidate. Continue to follow labs and UOP. Patient seen and examined, agree with above. Cardiac Cath results noted. has now Pericardial drainage, and intubated. BP off and on dropping. Creatinine is better, but can increase with unstable hemodynamics. (2) HTN (hypertension) ICD Codes: I10 - Essential (primary) hypertension Status: Chronic Plan: Well controlled on amlodipine and metoprolol (3) Non-ST elevation ID (NSTEMI) ICD Codes: I21.4 - Non-ST elevation (NSTEMI) myocardial infarction Status: Resolved Plan: Cardiology managing Heparin gtt (4) HCAP (healthcare-associated pneumonia) ICD Codes: J18.9 - Pneumonia, unspecified organism Status: Resolved Plan: On antibiotics O 2 2 liters (Kingsley Johnson MD) Problem Qualifiers (1) HTN (hypertension): Qualified Codes: I10 - Essential (primary) hypertension Michell Salguero Sep 04, 2017 09:28 Kingsley Johnson MD Sep 04, 2017 18:52
[2017-09-04 10:16] LABS: HEMATOCRIT 27.2 % (35.0-46.0); HEMOGLOBIN 9.2 GM/DL (11.6-15.3); MEAN CELL VOLUME 91.6 FL (80.0-100.0); MEAN CORPUSCULAR HGB CONC 33.8 % (32.0-36.0); PLATELET COUNT 285 TH/MM3 (150-450); RED BLOOD COUNT 2.97 MIL/MM3 (4.00-5.30); RED CELL DISTRIBUTION WIDTH 15.6 % (11.6-17.2); WHITE BLOOD COUNT 9.8 TH/MM3 (4.0-11.0)
[2017-09-04 10:39] LABS: BICARBONATE 28.9 MEQ/L (21.0-32.0); CALCIUM 8.9 MG/DL (8.5-10.1); CREATININE 1.2 MG/DL (0.50-1.00)
[2017-09-04] MEDS ORDERED: HEPARIN-NS/PF FLUSH BAG 1,000 ML IV FLUSH ONE ×3 (10:53→13:39)
[2017-09-04] MEDS ORDERED: VERAPAMIL HCL 5 MG/2 ML VIAL ONE (10:53)
[2017-09-04] MEDS ORDERED: MIDAZOLAM HCL 2 MG/2 ML VIAL ONE ×3 (10:53→14:21)
[2017-09-04] MEDS ORDERED: NITROGLYCERIN INJ 5 ML ONE (10:53)
[2017-09-04] MEDS ORDERED: HEPARIN SODIUM - IV 10,000 UNITS/10 ML VIAL ONE (10:53)
[2017-09-04] MEDS ORDERED: CLOPIDOGREL 300 MG TAB ONE (11:34)
--- NOTE | 2017-09-04 12:13 | PD.CAR.PN ---
CVT Progress Note Subjective/Hospital Course: A 72-year-old patient of Dr. Gilmore that was recently admitted following a right-sided CVA with left-sided arm weakness, then underwent right carotid endarterectomy July 31 for the right-sided ischemic CVA. She also had some white matter changes. She went to rehab post surgery, was doing well, went home on August 21 and apparently woke up with some epigastric pain, some shortness of breath, became very anxious, called her Home Health who called . She was found to have elevated troponin, was admitted with a NSTEMI and also EKG changes. She had been followed in the past and has history of severe aortic stenosis. Her echo July 26 showed an aortic valve area of 0.93 with a gradient of 42. We were consulted to evaluate for aortic valve replacement, also possible coronary artery bypass grafting. She had a heart catheterization today showing an ejection fraction of 55%, left main disease of 20%. The distal LAD 80%. The diagonal 90%. The circumflex 90%. The OM 95%. RCA 70%. Right-sided heart pressures showed an RA pressure of 11, PA pressure is 38/17. Wedge pressure of 20. Cardiac output 6.1 with an index of 3.3. Cardiac films have been evaluated by Dr. Lilly Aranda. She has diffuse disease with poor targets so she is being evaluated for possible TAVR plus or minus coronary artery bypass grafting versus PCI and we will need second opinion at this time. PAST MEDICAL HISTORY: Severe aortic stenosis, Right sided ischemic CVA, Chronic kidney disease, Hypertension, Chronic obstructive pulmonary disease, History of pulmonary emboli 2009, She has recently underwent right carotid endarterectomy patch angioplasty July 31, [address] Cervantes. 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2 80 20 129/69 (89) 96 09/03/17 20:00 Room Air 09/03/17 20:00 77 09/03/17 19:00 80 09/03/17 18:00 76 09/03/17 17:33 95 21 09/03/17 17:00 66 09/03/17 16:00 66 09/03/17 15:55 98.6 71 17 122/66 (84) 95 09/03/17 15:00 68 09/03/17 14:00 66 09/03/17 13:00 74 09/03/17 12:35 85 Labs: Laboratory Tests Test 09/04/17 06:17 09/04/17 10:03 Activated Partial Thromboplast Time 52.2 SEC (24.3-30.1) White Blood Count 9.8 TH/MM3 (4.0-11.0) Red Blood Count 2.97 MIL/MM3 (4.00-5.30) Hemoglobin 9.2 GM/DL (11.6-15.3) Hematocrit 27.2 % (35.0-46.0) Mean Corpuscular Volume 91.6 FL (80.0-100.0) Mean Corpuscular Hemoglobin 31.0 PG (27.0-34.0) Mean Corpuscular Hemoglobin Concent 33.8 % (32.0-36.0) Red Cell Distribution Width 15.6 % (11.6-17.2) Platelet Count 285 TH/MM3 (150-450) Mean Platelet Volume 8.0 FL (7.0-11.0) Blood Urea Nitrogen 24 MG/DL (7-18) Creatinine 1.20 MG/DL (0.50-1.00) Random Glucose 99 MG/DL (74-106) Calcium Level 8.9 MG/DL (8.5-10.1) Sodium Level 139 MEQ/L (136-145) Potassium Level 4.3 MEQ/L (3.5-5.1) Chloride Level 104 MEQ/L (98-107) Carbon Dioxide Level 28.9 MEQ/L (21.0-32.0) Anion Gap 6 MEQ/L (5-15) Estimat Glomerular Filtration Rate 43 ML/MIN (>89) Result Diagram: 09/04/17 1003 09/04/17 1003 (1) Aortic stenosis Plan: will be evaluated for TAVR at later date (2) Status post carotid endarterectomy (3) CVA (cerebral vascular accident) (4) HTN (hypertension) (5) Obesity (6) COPD (chronic obstructive pulmonary disease) (7) Non-ST elevation AL (NSTEMI) Plan: eval for PCI per Dr Wilburn on Heparin gtt Problem Qualifiers (1) Aortic stenosis: Qualified Codes: I35.0 - Nonrheumatic aortic (valve) stenosis (2) HTN (hypertension): Qualified Codes: I10 - Essential (primary) hypertension (3) COPD (chronic obstructive pulmonary disease): Megha Reardon Sep 04, 2017 12:13
[2017-09-04] MEDS ORDERED: NOREPINEPHRINE 4 MG/4 ML AMP ONE (12:16)
[2017-09-04] MEDS ORDERED: ATROPINE SULFATE 1 MG/10 ML SYRINGE ONE ×2 (13:17→13:18)
[2017-09-04] MEDS ORDERED: PHENYLEPHRINE HCL 10 MG/ML VIAL ONE (13:17)
[2017-09-04] MEDS ORDERED: HEPARIN-D5W 25,000 U/250 ML 250 ML ONE (13:40)
[2017-09-04] MEDS ORDERED: SODIUM CHLOR 0.9% 1000 ML INJ 1,000 ML IV SCH (14:38)
[2017-09-04] MEDS ORDERED: CLOPIDOGREL 300 MG TAB PO ONE (14:45)
[2017-09-04] MEDS ORDERED: EPINEPHrine HCL (1:10,000) 1 MG/10 ML SYRINGE ONE (15:12)
--- NOTE | 2017-09-04 15:12 | CATHPROC ---
Needle HIS Report Study Information Study Number Admission Scheduled Start Study Start [id number] Aug 24 2017 3:11PM 09/04/2017 Sep 04 2017 10:36AM [place] [facility] Cardiac Catheterization Admit Source Facility Department Other [facility] - Claims Attorney Physician and Clinical Staff Initial Enrike Law Projector Booth Operator Trupti Pearson,RN Additional Abhilash Ruvalcaba Projector Booth Operator Tahmina Dillon ,NGOCN Additional Hanna Bella Other Kaylie Avalos,TRACEE Additional Lilly Bryant Recorder Bhumika Fairbanks,RT(R) Recorder Laurita العلي RCIS TECH2 Scrub Pamela Echavarria ,RT(R) Scrub Rupinder Modi,RT(R) TECH2 Scrub Ricardo Coe,RT(R) Procedures Performed Procedure Location (Site) Vessel Name Coronary Angiograms LCA Left Coronary Coronary Angiograms LAD Mid Left Coronary IABP Fem Art (right) Femoral Art PTCA LAD Mid Left Coronary PTCA LAD Prox Left Coronary Stent LAD Mid Left Coronary Stent LAD Prox Left Coronary Wire insertion Radial (right) Radial Art. Equipment Time Inspector Shells Description Size Mfg Part Number Used/Scraped [id number] 13:14 LEA [employer] STENT, 2.80 16MM JOSTENT RX 2.80 16MM Used *[id number] 13:23 [employer]A [employer] STENT, 2.80 19MM JOSTENT RX 2.80 19MM [id number] Used WIRE, BALANCE MIDDLEWEIGHT [id number] 11:31 [employer]A [employer] 190CM Used 190CM *[id number] 13:21 HAJI PATINO PACING CATHETER J CURVE FR 5 Used *[id number] TRANSDUCER, TRUWNICOLE [id number] 10:59 HAJI PATINO * Used W/STOCKCOCK *[id number] CARDIOVASCULAR CATHETER, CORONARY CLASSIC [id number] 11:39 Used SYSTEMS INC. 1.25MM *[id number] CARDIOVASCULAR LUBRICANT, VIPERSLIDE [id number] 11:46 Used SYSTEMS INC. ATHERCTOMY *[id number] CARDIOVASCULAR WIRE, VIPER ADVANCE [id number] 11:39 Used SYSTEMS INC. CORONARY FLP *[id number]- 13:10 MAQUET BALLOON, FR8 50CC FR 8 50CC Used 01U [id number] 10:59 Parabel PACK, CCL CUSTOM * Used *[id number] 10:59 Parabel SUPPORT, ARTERIAL ADULT 54687 *[id number] Used BALLOON, 1.25 X 6MM SPRINTER [id number] 11:31 MEDTRONIC 6MM Used LEGEND OTW *[id number] [id number] 12:41 MEDTRONIC BALLOON, 1.5 X 6MM SPRINTER 6MM Used *0692178 [id number] 12:55 MEDTRONIC BALLOON, 2.0 X 20MM EUPHORA 20MM Used *[id number] BALLOON, 2.75 X 15MM NC [id number] 13:37 MEDTRONIC 15MM Used EUPHORA *[id number] [id number] 13:30 MEDTRONIC STENT, 2.5 26 INTEGRITY 2.5 26 Used *[id number] [id number] 11:20 MEDTRONIC/AVE EBU 3.5 Z2 GUIDE CATHETER FR 6 Used *3799088 [id number] 11:21 Inkling 30 SHARA INDEFLATOR Used *[id number] BAND, RADIAL COMPRESSION TR [id number] 13:53 Tagwhat MEDICAL 24CM Used SHORT 24 *[id number] 12:24 Inkling KIT, PERICARDIAL * PC201 Used [id number] 12:07 Inkling SHEATH, FR6.5 PRELUDE 11CM FR 6.5 038ACT Used *8591665 [id number] 10:59 Inkling WIRE, EXCHANGE 260CM 3MMJ 260CM Used *[id number] 10:59 NAMIC MANIFOLD, 4 PORT * Used *1219075 10:59 NYCOMED OMNIPAQUE, 350 MG, 150ML 150ML [id number] Used [id number] 10:59 ALVAREZ MEDICAL BLANKET,WARM AIR CCL * Used *9010491 [id number] 12:05 TERUMO MEDICAL SHEATH, FR5 TERUMO (10CM) FR 5 Used *3647050 [id number] 12:07 TERUMO MEDICAL SHEATH, FR6 TERUMO (10CM) FR 6 Used *1712328 SHEATH, FR6 TRANSRADIAL RM*[id number] 10:59 TERUMO MEDICAL FR 6 Used SLENDER 10CM *[id number] WIRE, RUNTHROUGH NS FLOPPY [id number] 12:35 TERUMO MEDICAL 300CM Used .014 300CM *[id number] Equipment Model, Serial, Lot Number and Expiration Data Description Model Number Serial Number Lot Number Expiration Date CATHETER, CORONARY CLASSIC [id number] 05-14-2019 1.25MM STENT, 2.5 26 INTEGRITY [id number] 02-05-2019 STENT, 2.80 16MM JOSTENT RX [id number] 01-11-2019 STENT, 2.80 19MM JOSTENT RX [id number] 11-11-2018 WIRE, JAGDISH ADVANCE CORONARY [id number] 10-12-2018 History: Current Medications Medication Dosage/Unit Route Frequency Last Date/Time Taken ASA NORVASC History: Allergies Allergy Reaction lisinopril obdulio cough History: Risk Factors Family History of Hypertension Dyslipidemia Previous TN Previous Heart Failure Premature CAD Yes Yes No Yes No Prior Valve Prior PCI Prior CABG Surgery No No No Cerebrovascular Peripheral Artery Chronic Lung On Dialysis Diabetes Disease Disease Disease No Yes No Yes No History: Symptoms/Diagnosis Selection Items SOB History: Stress Tests Stress or Imaging Studies Performed No History: Other Disease Selection Items COPD HTN History: Other Current Smoker Method Quit Packs a Day Years Used Pack Years No Cigarettes 30 Years Ago 1 7 7 Labs Hgb (g/dl) Hct (%) RBC (MIL/MM3) WBC (l/cumm) Platelets (thousands) 11.60-17.00 35.00-51.00 4.00-5.90 4.00-11.00 150.00-450.00 9.2 27.2 2.9 9.8 285 Glucose (mg/dl) BUN (mg/dl) Creatinine (mg/dl) BUN:Creatinine (1:x) 74.00-106.00 7.00-18.00 0.50-1.30 10.00-20.00 99 24 1.2 20 Na (meq/l) K (meq/l) 136.00-145.00 3.50-5.10 139 4.3 Troponin I (ng/ml) CPK (u/l) CPK-MB (ng/ML) 0.02-0.05 26.00-308.00 0.50-3.60 7.03 255 29.2 Medication Medication Total Dose (Bolus/Oral) Medication Total Dosage/Unit 1% XYLOCAINE 20 mL ATROPINE 1 mg FENTANYL 75 mcg HEPARIN 5500 units NTG (IC) 150 mcg OXYGEN 2 l/min RADIAL COCKTAIL 5 mL (Bolus) VERSED 3.5 mg Medications (Bolus/Oral) Medication Time Given Dosage/Unit Administered By Reason VERSED 09/04/2017 11:24:31 AM 0.5 mg Michel, Trupti 0.5 mg VERSED given in lab by Trupti Pearson RN in Left Wrist via Peripheral IV. Ordered by Enrike Wilburn OXYGEN 09/04/2017 11:24:43 AM 2 l/min Trupti Pearson 2 l/min OXYGEN given in lab by Trupti Pearson RN via Nasal. 1% XYLOCAINE 09/04/2017 11:25:05 AM 20 mL Enrike Wilburn 20 mL 1% XYLOCAINE given in lab by Enrike Wilburn in Right Radial via Subcutaneous. FENTANYL 09/04/2017 11:25:10 AM 25 mcg Trupti Pearson 25 mcg FENTANYL given in lab by Trupti Pearson RN in Left Wrist via Peripheral IV. Ordered by Enrike Garber Ntg 200mcg Verapamil 2.5mg Heparin RADIAL COCKTAIL 09/04/2017 11:26:22 AM 5 mL (Bolus) Enrike Wilburn 3000U 5 mL (Bolus) RADIAL COCKTAIL given in lab by Enrkie Wilburn in Right Radial via Radial. Using [S olution Name]. Reason: Ntg 200mcg Verapamil 2.5mg Heparin 3000U. HEPARIN 09/04/2017 11:33:48 AM 5500 units Trupti Pearson 5500 units HEPARIN given in lab by Trupti Pearson RN via Peripheral IV. Ordered by Enrike Wilburn ATROPINE 09/04/2017 12:27:15 PM 1 mg Michel, Rtupti 1 mg ATROPINE given in lab by Trupti Pearson RN in Left Wrist via Peripheral IV. Ordered by Enrike Wilburn VERSED 09/04/2017 1:09:40 PM 0.5 mg Hesher, Trupti 0.5 mg VERSED given in lab by Trupti Pearson RN in Left Wrist via Peripheral IV. Ordered by Enrike Wilburn VERSED 09/04/2017 1:28:11 PM 0.5 mg Hesher, Trupti 0.5 mg VERSED given in lab by Trupti Pearson RN in Left Wrist via Peripheral IV. Ordered by Enrike Wilburn NTG (IC) 09/04/2017 1:35:18 PM 150 mcg Enrike Wilburn 150 mcg NTG (IC) given in lab by Enrike Wilburn via Intra-coronary. Ordered by Enrike Wilburn VERSED 09/04/2017 1:36:37 PM 1 mg Trupti Pearson 1 mg VERSED given in lab by Trupti Pearson RN in Left Wrist via Peripheral IV. Ordered by Enrike Wilburn VERSED 09/04/2017 2:22:38 PM 1 mg Tahmina Dillon 1 mg VERSED given in lab by Tahmina Dillon BSN in Left Wrist via Peripheral IV. Ordered by Enrike Serrano FENTANYL 09/04/2017 2:28:02 PM 50 mcg Trupti Pearson 50 mcg FENTANYL given in lab by Trupti Pearson RN in Right Wrist via Peripheral IV. Ordered by Enrike Sanchez Medication (Drip) Medication Time Given Dosage/Unit Concentration/Unit Diluent (ml) Solution HEPARIN DRIP 09/04/2017 2:02:29 PM 100 units/hr 54471 units 250 D5W 100 units/hr HEPARIN DRIP given in lab by Trupti Pearson RN in Left Antecubital via Peripheral IV. P ump/Drip Flow = 1 ml/hr [place] [address] units in 250 ml. Ordered by Enrike Wilburn. IV Solutions 09/04/2017 10:45:58 AM 50 mL (IV) NaCl .9 IV Solutions given in lab by Trupti Pearson RN in Left Wrist via Peripheral IV. Pump/Drip Flow using NaCl .9. IV Solutions 09/04/2017 12:27:27 PM 0 mL (IV) 500 NaCl .9 IV Solutions given in lab by Kaylie Avalos RN in Right Groin via Central IV. Pump/Drip Flow = 20 m l/hr using NaCl .9. Ordered by Enrike Wilburn. LEVOPHED 09/04/2017 12:10:44 PM 4 mcg/min 4 mg 250 D5W 4 mcg/min LEVOPHED given in lab by Kaylie Avalos RN in Right Groin via Central IV. Pump/Drip Flow = 15 ml/hr using D5W with a concentration of 4 mg in 250 ml. Ordered by Enrike Wilburn LEVOPHED 09/04/2017 12:18:41 PM 2 mcg/min 4 mg 250 D5W 2 mcg/min LEVOPHED given in lab by Kaylie Avalos RN in Right Groin via Central IV. Pump/Drip Flow = 7.5 ml/hr using D5W with a concentration of 4 mg in 250 ml. Ordered by Enrike Wilburn drip lowered LEVOPHED DRIP 09/04/2017 12:32:35 PM 2 mcg/min 4 mg 250 STOPPED 2 mcg/min LEVOPHED DRIP STOPPED given in lab by Kaylie Avalos RN in Right Groin via Central IV. Pu mp/Drip Flow = 7.5 ml/hr using [Solution Name] with a concentration of 4 mg in 250 ml. Ordered by Enrike Wilburn Discontinued at 09/04/19 18 13:04. GRAYSON-SYNEPHRINE 09/04/2017 12:02:10 PM 50 mcg/min 10 mg 250 D5W 50 mcg/min GRAYSON-SYNEPHRINE given in lab by Trupti Pearson RN in Left Wrist via Peripheral IV. Pump/Dr ip Flow = 75 ml/hr using D5W with a concentration of 10 mg in 250 ml. Ordered by Enrike Wilburn GRAYSON-SYNEPHRINE 09/04/2017 12:07:56 PM 100 mcg/min 10 mg 250 D5W 100 mcg/min GRAYSON-SYNEPHRINE given in lab by Trupti Pearson RN in Left Wrist via Peripheral IV. Pump/D rip Flow = 150 ml/hr using D5W with a concentration of 10 mg in 250 ml. Ordered by Enrike Wilburn GRAYSON-SYNEPHRINE 09/04/2017 12:18:20 PM 200 mcg/min 10 mg 250 D5W 200 mcg/min GRAYSON-SYNEPHRINE given in lab by Trupti Pearson RN in Left Wrist via Peripheral IV. Pump/D rip Flow = 300 ml/hr using D5W with a concentration of 10 mg in 250 ml. Ordered by Enrike Wilburn Initial Case Assessment Cardiovascular HR Rhythm NIBP Chest Pain 67 SR 162/85 0 Edema Present Skin color Skin None Normal Warm Dry Circulatory - Right Pulses Dorsalis Pedis Femoral Radial 1 2 3 Scale (0,1,2,3,4,d) Scale (0,1,2,3,4,d) Neurological State Oriented to time-place- Alert Moves all extremities person Respiration - General Respiration Rate SpO2 (%) (B/min) 14 96 Final Case Assessment Cardiovascular HR Rhythm NIBP Chest Pain 68 sr 146/68 0 Circulatory - Right Pulses Dorsalis Pedis 1 Scale (0,1,2,3,4,d) Scale (0,1,2,3,4,d) Neurological State Oriented to time-place- Alert Moves all extremities person Comment: Pt intubated but alert and aware Respiration - General Respiration Rate SpO2 (%) (B/min) 13 100 Respiration - Ventilator Type Intubation Type ET(oral) Respiration - Ventilator Settings TV (ml) IMV (L) FIO2 (%) PEEP (cm/H2O) 550 12 100 5 Chronological Log Time Study Chronological Log 10:45:40 Patient arrived via Bed. 10:45:45 Patient Name, D.O.B, / Armband Verified By R.N. 10:45:45 Consent signed by the physician and the patient and verified by the Claims Attorney staff. 10:45:46 Pre-op and post- op instructions given; patient acknowledges understanding of instructions. 10:45:46 Verbal Stimulation=2 Physical Stimulation=2 Airway=2 Respiration=2 TOTAL=8. (0=absent, 1=li mited, 2=present) 10:45:51 Patient has been NPO for More than 6Hrs. 10:45:51 Skin Breakdown- none per pt 10:45:52 Disposable Defibrillator Pads Placed On Patient. 10:45:54 Imani Prominences Protected 10:45:56 A # 20 IV was noted in the Wrist (left). Grade = 0 10:45:58 IV Solutions given in lab by Trupti Pearson, TRACEE in Left Wrist via Peripheral IV. Pump/Drip Flow using NaCl .9. 10:46:00 History and physical on the chart or being dictated. Assessment: Initial Case, HR=67 BPM, Rhythm=SR, QKTV=619/85 mmhg, Chest Pain=0, Edema=None, Col or=Normal, Skin = Warm, Dry 10:46:03 Right Pulses: Familia Ped=1, Femoral=2, Radial=3 Neurological: State=Alert, Ox3, KUHN Respiration: Resp=14 B/min, SpO2=96 % 10:53:34 Reference ECG taken Vitals capture started with the following parameters, Patient=Adult, Interval=5 min, Initial Pr oiihir=688 mmHg, 10:55:42 Deflation Rate=5 mmHg, Cuff placed on Left Arm 10:56:22 HR=70 bpm, IEPR=452/85 mmhg, SpO2=96.0 %, Resp=16 B/min 11:01:25 HR=66 bpm, NZVO=345/77 mmhg, SpO2=96.0 %, Resp=22 B/min 11:04:51 Right Radial and right groin prepped with 2% chlorhexidine, and draped after a 3 min. waiti ng time. 11:06:22 HR=65 bpm, OBGU=699/79 mmhg, SpO2=95.0 %, Resp=21 B/min 11:08:09 MD paged 11:08:16 MD responded 11:11:23 HR=67 bpm, HQCF=580/80 mmhg, SpO2=94.0 %, Resp=23 B/min 11:14:02 Pressure channel 1 zeroed. 11:15:58 MD arrived. 11:16:24 HR=65 bpm, TAIR=382/74 mmhg, SpO2=94.0 %, Resp=20 B/min 11:21:23 HR=64 bpm, FSFT=575/74 mmhg, SpO2=94.0 %, Resp=22 B/min Time Out. Correct patient, correct procedure, correct physician, power injector not loaded with contrast with surgical 11:24:22 team present. Time Out Concurred by MD and individual staff in procedure. 11:24:31 0.5 mg VERSED given in lab by Trupti Pearson RN in Left Wrist via Peripheral IV. Ordered Enrike Ledesma 11:24:43 2 l/min OXYGEN given in lab by Trupti Pearson RN via Nasal. 11:25:01 Case Start 11:25:05 20 mL 1% XYLOCAINE given in lab by Enrike Wilburn in Right Radial via Subcutaneous. 11:25:10 25 mcg FENTANYL given in lab by Trupti Pearson RN in Left Wrist via Peripheral IV. Ordered by Enrike Wilburn 11:26:00 Access site was right Radial Artery. A SHEATH, FR6 TRANSRADIAL SLENDER 10CM FR 6 was advanced into the Radial (right) using the Perc utaneous 11:26:11 technique. 11:26:22 HR=67 bpm, EBMZ=699/89 mmhg, SpO2=97 %, Resp=11 B/min 5 mL (Bolus) RADIAL COCKTAIL given in lab by Enrike Wilburn in Right Radial via Radial. Us ing [Solution Name]. 11:26:22 Reason: Ntg 200mcg Verapamil 2.5mg Heparin 3000U. A EBU 3.5 Z2 GUIDE CATHETER FR 6 was advanced over a wire. OMNIPAQUE, 350 MG, 150ML 150ML was u sed for 11:27:22 injections. Recorded Pressure: Ao, HR=64, Condition=Condition 1 11:29:03 (Aorta) Ao 121/61/84 11:31:27 HR=64 bpm, GAJJ=318/70 mmhg, SpO2=94.0 %, Resp=20 B/min 11:32:20 The Recorder is being relieved by Laurita العلي, PARKING ENFORCER TECH2. 11:33:31 A WIRE, BALANCE MIDDLEWEIGHT 190CM 190CM was inserted via Radial (right). 11:33:48 5500 units HEPARIN given in lab by Trupti Pearson, TRACEE via Peripheral IV. Ordered by Enrike Narayanan. A BALLOON, 1.25 X 6MM SPRINTER LEGEND OTW 6MM was inserted over WIRE, BALANCE MIDDLEWEIGHT 190C M 11:34:19 190CM via the Radial (right). 11:36:20 HR=64 bpm, JWYW=976/66 mmhg, SpO2=94.0 %, Resp=22 B/min 11:41:21 HR=66 bpm, IMTB=681/70 mmhg, SpO2=96.0 %, Resp=16 B/min 11:41:55 Balloon and wire advanced to distal LAD for wire exchange. 11:42:58 The previous wire was exchanged for a WIRE, VIPER ADVANCE CORONARY. 11:43:24 Balloon Removed. 11:46:22 HR=74 bpm, GVSL=584/61 mmhg, SpO2=96.0 %, Resp=11 B/min 11:47:01 Activated Clotting Time Drawn 11:51:23 HR=64 bpm, VMTC=420/72 mmhg, SpO2=97.0 %, Resp=19 B/min 11:51:24 An CATHETER, CORONARY CLASSIC 1.25MM catheter was inserted into the LAD Mid. 11:52:16 The Scrub is being relieved by Ricardo Coe, RT(R). 11:53:27 ACT (Normal Range 90-180) = 358 11:55:55 Passes made with the 1.25 crown in the mid Lad 11:56:22 HR=66 bpm, MFDX=280/79 mmhg, SpO2=99.0 %, Resp=15 B/min 12:00:46 1.25 crown removed, wire access lost. 12:01:21 HR=59 bpm, NIBP=86/50 mmhg, SpO2=98.0 %, Resp=14 B/min 12:01:39 The LCA was injected and visualized at various angles. OMNIPAQUE, 350 MG, 150ML 150ML used . 50 mcg/min GRAYSON-SYNEPHRINE given in lab by Trupti Pearson RN in Left Wrist via Peripheral IV. P ump/Drip Flow = 75 12:02:10 ml/hr using D5W with a concentration of 10 mg in 250 ml. Ordered by Enrike Wilburn 12:03:18 Echo called stat 12:03:44 Access site was Right Femoral Vein. 12:04:52 A SHEATH, FR5 TERUMO (10CM) FR 5 was advanced into the Fem Vein (right) using the Percutane ous technique. 12:05:33 Access site was Right Femoral Artery. 12:05:45 A SHEATH, FR6.5 PRELUDE 11CM FR 6.5 was advanced into the Fem Art (right) using the Percuta neous technique. 12:06:12 HR=54 bpm, NIBP=93/74 mmhg, SpO2=99.0 %, Resp=13 B/min 12:07:04 analytical lab technician arrived 12:07:53 Cassius arrived for CV consult 100 mcg/min GRAYSON-SYNEPHRINE given in lab by Trupti Pearson RN in Left Wrist via Peripheral IV. Pump/Drip Flow = 12:07:56 150 ml/hr using D5W with a concentration of 10 mg in 250 ml. Ordered by Enrike Wilburn 12:08:26 Sheath exchanged for IABP sheath after pre dilation. An intra aortic balloon was advanced to the descending aorta. Proper placement was confired und er fluoroscopy and 12:09:39 the balloon was sutured in place. Ratio = 1:1. Augmented BP ~SYS~/~VIRAL~ 12:10:17 NIBP STAT measurement started. 12:10:19 Dr Aranda arrived. 4 mcg/min LEVOPHED given in lab by Kaylie Avalos, RN in Right Groin via Central IV. Pump/Drip Flow = 15 ml/hr 12:10:44 using D5W with a concentration of 4 mg in 250 ml. Ordered by Enrike Wilburn 12:10:48 HR=49 bpm, NIBP=69/45 mmhg, SpO2=99.0 %, Resp=18 B/min 12:12:23 HR=56 bpm, NIBP=82/54 mmhg, SpO2=99.0 %, Resp=22 B/min 12:14:29 NIBP STAT measurement started. 12:15:44 Manufactured Buildings Supervisor arrived 12:16:22 HR=55 bpm, AJJK=834/142 mmhg, SpO2=94.0 %, Resp=14 B/min 12:17:06 CPR started 200 mcg/min GRAYSON-SYNEPHRINE given in lab by Trupti Pearson, TRACEE in Left Wrist via Peripheral IV. Pump/Drip Flow = 12:18:20 300 ml/hr using D5W with a concentration of 10 mg in 250 ml. Ordered by Enrike Wilburn 2 mcg/min LEVOPHED given in lab by Kaylie Avalos, TRACEE in Right Groin via Central IV. Pump/Drip Flow = 7.5 ml/hr 12:18:41 using D5W with a concentration of 4 mg in 250 ml. Ordered by Enrike Wilburn drip lowered 12:19:45 CPR stopped 12:20:59 Dr Gonzales arrived 12:21:29 WW=825 bpm, IYLO=372/57 mmhg, SpO2=99.0 %, Resp=0 B/min 12:23:14 Chest prepped for pericardiocentesis 12:25:34 NIBP STAT measurement started. 12:26:18 DL=954 bpm, MUCA=442/48 mmhg, SpO2=99.0 % 12:26:35 Dr Frey scrubbed in to assist. 12::15 1 mg ATROPINE given in lab by Trupti Pearson RN in Left Wrist via Peripheral IV. Ordered b Enrike Jennings IV Solutions given in lab by Kaylie Avalos RN in Right Groin via Central IV. Pump/Drip Flow = 20 ml/hr using NaCl 12:27:27 .9. Ordered by Enrike Wilburn 12:28:34 50mg zemuron given IV by Sepideh Avalos RN ordered by Dr Gonzales 12:30:31 Oral Intubation Performed by Dr Gonzales 12:31:[address] Hammonds 12:32:04 HR=85 bpm, OCZW=136/52 mmhg, DpZ9=751.0 %, Resp=10 B/min 2 mcg/min LEVOPHED DRIP STOPPED given in lab by Kaylie Avalos RN in Right Groin via Central IV. Pump/Drip Flow 12:32:35 = 7.5 ml/hr using [Solution Name] with a concentration of 4 mg in 250 ml. Ordered by Enrike Garber Discontinued at 09/04/2017 13:04. 12:32:55 Dr Hammonds performing pericardial aspirations. 12:37:14 HR=68 bpm, YGOM=929/83 mmhg, SpO2=98.0 %, Resp=11 B/min 12:37:27 A WIRE, RUNTHROUGH NS FLOPPY .014 300CM 300CM was inserted via Radial (right). A BALLOON, 1.5 X 6MM SPRINTER 6MM was inserted over WIRE, RUNTHROUGH NS FLOPPY .014 300CM 300CM via the 12:39:47 LAD Prox. 12:40:00 ACT (Normal Range 90-180) = 275 A BALLOON, 1.5 X 6MM SPRINTER 6MM over a WIRE, RUNTHROUGH NS FLOPPY .014 300CM 300CM in the LAD Mid 12:40:22 was inflated using a 30 SHARA INDEFLATOR at ~SHARA~ shara for ~SECONDS~ sec. 12:40:41 Activated Clotting Time Drawn 12:41:36 HR=74 bpm, SSCA=084/81 mmhg, SpO2=97.0 %, Resp=11 B/min 12:46:39 HR=74 bpm, XGAC=545/73 mmhg, SpO2=98.0 %, Resp=11 B/min 12:49:13 Balloon Removed. 12:51:30 HR=72 bpm, MGYH=062/98 mmhg, SpO2=99.0 %, Resp=11 B/min 12:51:56 1 unit of PRBC's hung by Sepideh Avalos RN verified by TRACEE Iverson A BALLOON, 2.0 X 20MM EUPHORA 20MM was inserted over WIRE, RUNTHROUGH NS FLOPPY .014 300CM 300C M via 12:53:54 the LAD Mid. A BALLOON, 2.0 X 20MM EUPHORA 20MM over a WIRE, RUNTHROUGH NS FLOPPY .014 300CM 300CM in the LA D Mid 12:53:56 was inflated using a 30 SHARA INDEFLATOR at 12 shara for ~SECONDS~ sec. A BALLOON, 2.0 X 20MM EUPHORA 20MM over a WIRE, RUNTHROUGH NS FLOPPY .014 300CM 300CM in the LA D Mid 12:53:58 was inflated using a 30 SHARA INDEFLATOR at 12 shara for ~SECONDS~ sec. 12:56:12 Balloon pulled back into guide. 12:56:37 HR=72 bpm, PBSX=426/66 mmhg, YpX8=582.0 %, Resp=11 B/min 12:56:51 The LAD Mid was injected and visualized at various angles. OMNIPAQUE, 350 MG, 150ML 150ML u sed. 12:57:21 Balloon readvanced to Mid LAD A BALLOON, 2.0 X 20MM EUPHORA 20MM over a WIRE, RUNTHROUGH NS FLOPPY .014 300CM 300CM in the LA D Mid 12:58:53 was inflated using a 30 SHARA INDEFLATOR at 14 shara for 960 sec. 13:00:33 Activated Clotting Time Drawn 13:01:30 HR=72 bpm, ZGYL=170/91 mmhg, IiV6=875.0 %, Resp=11 B/min 13:03:58 2nd unit of PRBC's hung by TRACEE Benavidez and verified by TRACEE Iverson 13:04:46 ACT (Normal Range 90-180) = 247 13:07:20 HR=74 bpm, WAHZ=973/74 mmhg, JpE1=062.0 %, Resp=11 B/min 13:09:40 0.5 mg VERSED given in lab by Trupti Pearson RN in Left Wrist via Peripheral IV. Ordered Enrike Ledesma 13:10:50 The LAD Mid was injected and visualized at various angles. OMNIPAQUE, 350 MG, 150ML 150ML u sed. 13:11:34 HR=71 bpm, PSZV=097/96 mmhg, RaT9=914.0 %, Resp=11 B/min 13:12:21 Balloon Removed. An STENT, 2.80 16MM JOSTENT RX 2.80 16MM Bare Metal Stent was inserted through a EBU 3.5 Z2 MALLORIE DE CATHETER 13:15:03 FR 6 over a WIRE, RUNTHROUGH NS FLOPPY .014 300CM 300CM. 13:15:32 Stent not deployed. Stent removed and intact. 13:16:39 HR=64 bpm, GUUJ=356/59 mmhg, SlU3=264.0 %, Resp=12 B/min A BALLOON, 2.0 X 20MM EUPHORA 20MM over a WIRE, RUNTHROUGH NS FLOPPY .014 300CM 300CM in the LA D Mid 13:17:35 was inflated using a 30 SHARA INDEFLATOR at 14 shara for 20 sec. A BALLOON, 2.0 X 20MM EUPHORA 20MM over a WIRE, RUNTHROUGH NS FLOPPY .014 300CM 300CM in the LA D 13:17:53 Prox was inflated using a 30 SHARA INDEFLATOR at 14 shara for 20 sec. 13:18:54 Balloon Removed. An STENT, 2.80 16MM JOSTENT RX 2.80 16MM Bare Metal Stent was reinserted through a EBU 3.5 Z2 G UIDE 13:19:10 CATHETER FR 6 over a WIRE, RUNTHROUGH NS FLOPPY .014 300CM 300CM. 13:19:33 The LAD Mid was injected and visualized at various angles. OMNIPAQUE, 350 MG, 150ML 150ML u sed. A STENT, 2.80 16MM JOSTENT RX 2.80 16MM was deployed using a 30 SHARA INDEFLATOR at 16 atmosphere s for 19 13:21:05 seconds in the LAD Mid. 13:21:34 HR=67 bpm, UNTM=518/67 mmhg, BkY6=160.0 %, Resp=11 B/min 13:21:40 Delivery device removed An STENT, 2.80 19MM JOSTENT RX 2.80 19MM Bare Metal Stent was inserted through a EBU 3.5 Z2 MALLORIE DE CATHETER 13:22:33 FR 6 over a WIRE, RUNTHROUGH NS FLOPPY .014 300CM 300CM. A STENT, 2.80 19MM JOSTENT RX 2.80 19MM was deployed using a 30 SHARA INDEFLATOR at 16 atmosphere s for 35 13:23:46 seconds in the LAD Mid. 13:25:49 Delivery device removed 13:27:10 Dr Tk padilla scrub 13:27:20 HR=72 bpm, QPQU=044/63 mmhg, OdD9=059.0 %, Resp=12 B/min 13:28:11 0.5 mg VERSED given in lab by Trupti Pearson RN in Left Wrist via Peripheral IV. Ordered b y Enrike Wilburn. An STENT, 2.5 26 INTEGRITY 2.5 26 Bare Metal Stent was inserted through a EBU 3.5 Z2 GUIDE CATH ETER FR 6 over 13:31:29 a WIRE, RUNTHROUGH NS FLOPPY .014 300CM 300CM. 13:31:40 HR=73 bpm, NMDW=855/65 mmhg, JkK2=413.0 %, Resp=11 B/min A STENT, 2.5 26 INTEGRITY 2.5 26 was deployed using a 30 SHARA INDEFLATOR at 14 atmospheres for 3 0 seconds in 13:32:38 the LAD Prox. 13:32:50 Re-inflated the stent balloon in the LAD Prox to 16 SHARA for 30 seconds. 13:34:17 Re-inflated the stent balloon in the LAD Mid to 16 SHARA for 14 seconds. 13:34:37 Re-inflated the stent balloon in the LAD Mid to 16 SHARA for 30 seconds. 13:35:09 Delivery device removed 13:35:18 150 mcg NTG (IC) given in lab by Enrike Wilburn via Intra-coronary. Ordered by Enrike Narayanan 13:36:37 HR=68 bpm, QXFS=244/81 mmhg, XbO1=913.0 %, Resp=11 B/min 13:36:37 1 mg VERSED given in lab by Trupti Pearson, TRACEE in Left Wrist via Peripheral IV. Ordered by Enrike Wilburn. Pericardial catheter exchanged for a 10FR [place] Drainage catheter with ultrasound guid ance. (REF: [id number], 13:39:02 Lot # [id number] 13:41:30 HR=73 bpm, ZJWX=754/94 mmhg, SpO2=99.0 %, Resp=12 B/min A BALLOON, 2.75 X 15MM NC EUPHORA 15MM was inserted over WIRE, RUNTHROUGH NS FLOPPY .014 300CM 13:42:26 300CM via the LAD Prox. A BALLOON, 2.75 X 15MM NC EUPHORA 15MM over a WIRE, RUNTHROUGH NS FLOPPY .014 300CM 300CM in th e LAD 13:42:26 Mid was inflated using a 30 SHARA INDEFLATOR at 15 shara for 15 sec. A BALLOON, 2.75 X 15MM NC EUPHORA 15MM over a WIRE, RUNTHROUGH NS FLOPPY .014 300CM 300CM in th e LAD 13:42:36 Prox was inflated using a 30 SHARA INDEFLATOR at 120 shara for 110 sec. 13:43:34 Balloon Removed. 13:44:55 Wire removed 13:45:00 Guide Catheter was removed 13:46:37 HR=72 bpm, UIVY=859/77 mmhg, JqL9=297.0 %, Resp=17 B/min 13:49:52 IABP stopped, position checked under fluoro, readvancing IABP wire to reposition 13:51:39 HR=74 bpm, MGZT=730/82 mmhg, ScA3=382.0 %, Resp=17 B/min 13:52:10 IABP restarted 13:53:47 In the Fem Vein (right) the SHEATH, FR5 TERUMO (10CM) FR [address] by Ricardo Coe, RT(R). 13:55:16 In the Fem Art (right) the IABP sheath was sutured in place by Ricardo Coe RT(R). 13:55:57 The [place] [facility] Catheter in the Lt. chest was secured in place with a tegaderm by Ricardo Orr RT(R). 13:56:38 HR=71 bpm, YWOU=790/68 mmhg, KyY9=510.0 %, Resp=12 B/min 13:57:21 Case End Radial Compression Device Used. 15 mLs of air placed in BAND, RADIAL COMPRESSION TR SHORT 24 24 CM. Affected 14:00:33 hand 100 % O2 saturation. 14:02:11 HR=68 bpm, DJDX=569/64 mmhg, TrK5=695.0 %, Resp=12 B/min 100 units/hr HEPARIN DRIP given in lab by Trupti Pearson, RN in Left Antecubital via Peripheral IV. Pump/Drip Flow = 14:02:29 1 ml/hr [place] [address] units in 250 ml. Ordered by Enrike Wilburn 14:06:42 HR=67 bpm, PLED=609/60 mmhg, NiK1=539.0 %, Resp=15 B/min 14:11:28 HR=71 bpm, RLGC=042/57 mmhg, UrV1=042.0 %, Resp=15 B/min 14:17:11 HR=68 bpm, ZDSA=259/72 mmhg, Resp=13 B/min 14:21:43 KNLG=560/68 mmhg, HaH8=972.0 % 1 mg VERSED given in lab by Tahmina Dillon BSN in Left Wrist via Peripheral IV. Ordered b Enrike Jennings 14:22:38 G. Assessment: Final Case, HR=68 BPM, Rhythm=sr, XSDM=826/68 mmhg, Chest Pain=0 Right Pulses: Familia Ped=1 14:27:31 Neurological: State=Alert, Ox3, KUHN, Comment=Pt intubated but alert and aware Respiration: Resp=13 B/min, LrR5=997 %, Type=ET(Oral), KE=896 mL, IMV=12 L, IRJ2=984 %, PEEP=5 cm/H2O 14:28:02 50 mcg FENTANYL given in lab by Trupti Pearson, RN in Right Wrist via Peripheral IV. Ordere d by Enrike Wilburn 14:31:07 Patient moved to bed 14:39:02 Patient transported to CVICU, Plavix 600mg will be given in CVICU on arrival. 15:05:57 Sterile dressing applied to right groin site 15:06:16 Case complication noted. Complication: Case Complications Surgery: Status=Elective 15:07:08 Angina: Profound Hypertension (requiring Tx), Profound Hypotension Arterial: Vascular Complication - Dissection, Perforation, extrav Other: Cardiogenic Shock End Study - Contrast Media Used In Study Contrast Total Opened (mL) Total Used (mL) Total Wasted (mL) Omnipaque 250 250 0 End Study - Maximum Contrast Load Max Contrast Load (mL) 325.8 End Study - Radiation Exposure Fluoro Time (minutes) 31.0 End Study - Sheaths Sheaths Pulled By Sheath Hold Time (min) Ricardo Coe End Study - Patient Disposition Complications Transferred To Interventional Outcome Yes Critical Care Bed a partial success
[2017-09-04] MEDS ORDERED: PROPOFOL 500 MG/50 ML INJ 50 ML ONE (15:13)
[2017-09-04] MEDS ORDERED: PROPOFOL 1000 MG/100 ML INJ 100 ML IV PRN (15:30)
[2017-09-04] MEDS ORDERED: fentaNYL DRIP 250 ML IV PRN (15:30)
[2017-09-04] MEDS ORDERED: LORazepam 2 MG/ML VIAL IV PUSH ONE (15:45)
--- NOTE | 2017-09-04 16:21 | RADRPT ---
EXAM DATE/TIME: 09/04/2017 15:51 [place] COMPARISON: CHEST SINGLE AP, August 24, 2017, 14:07. INDICATIONS : Post intubation. MEDICAL HISTORY : Hypercholesterolemia. Arthritis. HTN. COPD. SURGICAL HISTORY : Carotid endarterectomy. Cholecystectomy. Hysterectomy. ENCOUNTER: Initial ACUITY: 1 day PAIN SCORE: Non-responsive. LOCATION: Bilateral chest FINDINGS: A single view of the chest demonstrates the lungs to be symmetrically aerated without evidence of mas s, infiltrate or effusion. The cardiomediastinal contours are unremarkable. Osseous structures are intact. ET tube tip is 3 cm above the nick. Catheter projects over the left medial chest. Gastri c tube traverses the [id number] CONCLUSION: ET tube in good position. Patrick Gupta MD on September 04, 2017 at 16:19 Board Certified Radiologist. This report was verified electronically.
[2017-09-04] MEDS ORDERED: EPINEPHrine HCL (1:1000) 1 MG/ML VIAL ONE ×2 (16:29→16:30)
--- NOTE | 2017-09-04 17:28 | PD.CONS ---
[facility] Service Critical Care Medicine Consult Requested By Dr. Wilburn Reason for Consult Critical care management Primary Care Physician Eldon Engel MD History of Present Illness History of Present Illness A 72-year-old patient of Dr. Gilmore that was recently admitted following a right-sided CVA with left-sided arm weakness, then underwent right carotid endarterectomy July 31 for the right-sided ischemic CVA. She also had some white matter changes. She went to rehab post surgery, was doing well, went home on August 21 and apparently woke up with some epigastric pain, some shortness of breath, became very anxious, called her Home Health who called . She was found to have elevated troponin, was admitted with a NSTEMI and also EKG changes. She had been followed in the past and has history of severe aortic stenosis. Her echo July 26 showed an aortic valve area of 0.93 with a gradient of 42. CTS was consulted to evaluate for aortic valve replacement, also possible coronary artery bypass grafting. She had a heart catheterization today showing an ejection fraction of 55%, left main disease of 20%. The distal LAD 80%. The diagonal 90%. The circumflex 90%. The OM 95%. RCA 70%. Right-sided heart pressures showed an RA pressure of 11, PA pressure is 38/17. Wedge pressure of 20. Cardiac output 6.1 with an index of 3.3. Cardiac films have been evaluated by Dr. Lilly Aranda. She has diffuse disease with poor targets so she was evaluated for possible TAVR with high risk PCI. Patient was taken for cardiac catheter today for high risk PCI for LAD by Dr. Wilburn. During PCI patient dissected/perforated LAD. She underwent stenting of the perforated/dissected LAD with [address] Wilburn and a pericardial drain was placed by Dr. Hammonds. Pericardium was drained during cardiac catheterization. IABP was placed. Patient was intubated in the catheter lab and was subsequently transferred to CVICU. She received aspirin and Plavix and was started on heparin drip at 700 units an hour. I was consulted by Dr. Wilburn for critical care management. I evaluated the patient following arrival to CVICU. At that time she was orally intubated on mechanical ventilation. She is awake and hoping) arising command. She had a pericardial drain with minimal bloody drainage on arrival. IABP was in place and a venous sheath as well in the right groin. History was obtained by discussion with Dr. Wilburn as well as reviewing records. 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 Past Surgical History Cholecystectomy 09/21/97 Allergies: Coded Allergies: lisinopril (Unverified Allergy, Mild, obdulio cough, 08/24/17) Family History Father: at 83-AAA Mother: at 56- colon cancer Siblings: none Children: healthy Social History Marital Status: Living Situation: Lives with her in [place] Tobacco: quit 30 years ago, h/o smoking 1ppd for 7 yrs Alcohol: 1beer/week Illicit drug use: none Physical Exam Vital Signs Vital Signs Date Time Temp Pulse Resp B/P (MAP) Pulse Ox O2 Delivery O2 Flow Rate FiO2 09/04/17 15:00 91/47 (94) 09/04/17 14:40 98 100 09/04/17 10:29 72 09/04/17 09:56 73 09/04/17 09:00 74 09/04/17 08:19 73 09/04/17 08:00 70 09/04/17 07:17 98.9 72 16 129/68 (88) 93 09/04/17 07:17 72 09/04/17 07:00 Room Air 09/04/17 05:00 68 09/04/17 04:00 98.8 75 20 137/73 (94) 95 09/04/17 04:00 Room Air 09/04/17 04:00 67 09/04/17 03:00 68 09/04/17 02:00 72 09/04/17 01:00 72 09/04/17 00:00 Room Air 09/04/17 00:00 73 09/04/17 00:00 98.2 86 20 120/64 (82) 95 09/03/17 23:00 70 09/03/17 22:00 74 09/03/17 21:00 76 09/03/17 20:00 98.2 80 20 129/69 (89) 96 09/03/17 20:00 Room Air 09/03/17 20:00 77 09/03/17 19:00 80 09/03/17 18:00 76 09/03/17 17:33 95 21 09/03/17 17:00 66 Physical Exam HEENT/ Neuro: Drowsy, arousable, orally intubated, Pallor present, no icterus, tongue/ mucosa Neck: No JVD Chest/Pulm: on mech vent, good air entry bilaterally, no wheezing or crackles CVS: S1-S2 regular, no murmur. Pericardial drain with sanguinous drainage GI/abdomen: soft, nontender, bowel sounds sluggish Extremities: warm bilaterally, no edema IABP and venous sheath in place in right groin. Laboratory Laboratory Tests Test 09/03/17 18:26 09/04/17 06:17 09/04/17 10:03 Activated Partial Thromboplast Time 54.1 52.2 White Blood Count 9.8 Red Blood Count 2.97 Hemoglobin 9.2 Hematocrit 27.2 Mean Corpuscular Volume 91.6 Mean Corpuscular Hemoglobin 31.0 Mean Corpuscular Hemoglobin Concent 33.8 Red Cell Distribution Width 15.6 Platelet Count 285 Mean Platelet Volume 8.0 Blood Urea Nitrogen 24 Creatinine 1.20 Random Glucose 99 Calcium Level 8.9 Sodium Level 139 Potassium Level 4.3 Chloride Level 104 Carbon Dioxide Level 28.9 Anion Gap 6 Estimat Glomerular Filtration Rate 43 Date/Time Source Procedure Growth Status 08/24/17 13:25 Blood Peripheral Aerobic Blood Culture - Final NO GROWTH IN 5 DAYS Complete 08/24/17 13:25 Blood Peripheral Anaerobic Blood Culture - Final NO GROWTH IN 5 DAYS Complete 08/24/17 16:20 Urine Catheterized Urine Streptococcus pneumoniae Antigen (M - Final PRESUMPTIVE NEGATIVE FOR STREPTOCOCCU... Complete Result Diagram: 09/04/17 1003 09/04/17 1003 Imaging Last Impressions Lower Extremity Ultrasound 09/02/17 0000 Signed Impressions: Service Date/Time: Saturday, September 02, 2017 20:47 - CONCLUSION: Normal examination. Reno Vogel MD Renal Ultrasound 08/26/17 0000 Signed Impressions: Service Date/Time: Saturday, August 26, 2017 19:37 - CONCLUSION: 1. Right-sided renal atrophy and medical renal disease. No hydronephrosis bilaterally. Bladder unremarkable. Kermit Short MD Chest X-Ray 08/24/17 1320 Signed Impressions: Service Date/Time: Thursday, August 24, 2017 14:07 - CONCLUSION: Development of bibasilar prominent bronchovascular markings without consolidation, infiltrates. Milind Fairbanks MD Head CT 08/24/17 0000 Signed Impressions: Service Date/Time: Thursday, August 24, 2017 20:02 - CONCLUSION: No acute findings in the brain. Stable advanced supratentorial white matter hypodensities. The Patrick Gupta MD Assessment and Plan Assessment and Plan Multivessel CAD status post high risk PCI with LAD stenting complicated by LAD perforation/dissection status post stenting and pericardial drain placement, IABP insertion Severe aortic stenosis Acute respiratory failure on mechanical ventilation Hypotension History of stroke COPD History of PE Plan: Neuro: Sedation with fentanyl as needed. Hold propofol in view of hypotension. Cardiovascular: Status post high risk PCI compensated by dissection/perforation of LAD status post stenting with pericardial drain placement, IABP insertion. - Pericardial drain in place with about 250 cc of bloody drainage since arrival to CVICU. - Received aspirin and Plavix in the catheter lab. Started on heparin at 700 units an hour however this was held in view of increased bloody drainage from pericardial drain. - Started on Levophed for pressor support. Epinephrine drip being started. 1 L and S bolus ordered. One unit PRBCs to be transfused. Stat labs reviewed hemoglobin 9.4. - Discussed with Dr. Wilburn at bedside. Plan to continue pressors, transfuse and see if patient stabilizes. Pulmonary: Continue mechanical ventilation, vent bundle, bronchodilators as needed. GI/liver: Nothing by mouth for now. Renal/: IV hydration, strict intake output, monitor and replete elect lites, follow BUN creatinine. ID: No indication for antibiotics at this time. Heme: Follow CBC. On aspirin and Plavix. Heparin held. One unit PRBCs ordered stat. Prophylaxis: Pepcid, SCDs. Discussed with Dr. Wilburn, discussed with [facility]. Condition remains critical Transferred on critical care excluding procedures 70 minutes Olvin Mata MD Sep 04, 2017 17:28
[2017-09-04] MEDS ORDERED: IOHEXOL 350 MG/ML 50 ML BTL (for Cath Lab) OTHER ONE (17:30)
[2017-09-04] MEDS ORDERED: IOHEXOL 350 MG/ML 100 ML BTL (for Cath Lab) OTHER ONE (17:30)
[2017-09-04] MEDS ORDERED: ALBUMIN 5% INJ 250 ML IV ONE (18:08)
[2017-09-04 18:37] LABS: BILIRUBIN, URINE NEG (NEG); BLOOD, URINE NEG (NEG); GLUCOSE,URINE 70 mg/dL (NEG); KETONE, URINE NEG (NEG); NITRITE,URINE NEG (NEG); URINE COLOR YELLOW (YELLW/STRAW); URINE LEUKOCYTE ESTERASE NEG (NEG)
--- NOTE | 2017-09-04 18:51 | PD.CARD.PN ---
Subjective Subjective Remarks Post-cath Seen multiple times Hypotensive on multiple vasopressors Objective Medications Current Medications Medications (Trade) Dose Ordered Sig/Jasmeet Route Start Time Stop Time Status Last Admin (NS Flush) 2 ml UNSCH PRN IV FLUSH 08/24/17 15:15 (NS Flush) 2 ml BID IV FLUSH 08/24/17 21:00 09/04/17 09:00 (Zofran Inj) 4 mg Q6H PRN IVP 08/24/17 15:45 (Narcan Inj) 0.4 mg UNSCH PRN IV PUSH 08/24/17 15:45 (Kerry-Colace) 1 tab BID PO 08/24/17 21:00 09/03/17 08:55 (Milk Of Magnesia Liq) 30 ml Q12H PRN PO 08/24/17 15:45 09/03/17 08:55 (Senokot) 17.2 mg Q12H PRN PO 08/24/17 15:45 (Dulcolax Supp) 10 mg DAILY PRN RECTAL 08/24/17 15:45 (Lactulose Liq) 30 ml DAILY PRN PO 08/24/17 15:45 08/26/17 09:31 (Nitrostat Sl) 0.4 mg Q5M PRN SL 08/24/17 16:00 (Morphine Inj) 2 mg Q30M PRN IV PUSH 08/24/17 16:00 (Tylenol) 650 mg Q6H PRN PO 08/24/17 16:00 09/03/17 01:21 (Heparin Inj) 5,000 units UNSCH PRN IV PUSH 08/24/17 22:00 (Heparin Inj) 2,500 units UNSCH PRN IV PUSH 08/24/17 22:00 09/03/17 01:13 Heparin Sodium/ Dextrose 250 ml @ 9.6 mls/hr TITRATE PRN IV 08/24/17 16:00 Future hold 09/03/17 23:27 (Aspirin Chew) 81 mg DAILY CHEW 08/25/17 09:00 09/04/17 09:00 (Xanax) 0.125 mg BID PRN PO 08/24/17 17:15 09/02/17 13:06 (Norvasc) 2.5 mg DAILY PO 08/25/17 09:00 Future Hold 09/04/17 09:00 (Symbicort 160-4.5 Mcg Inh) 2 puff Q12HR INH 08/24/17 21:00 09/04/17 09:00 (Vitamin D3) 1,000 units DAILY PO 08/25/17 09:00 09/03/17 08:52 (Singulair) 10 mg HS PO 08/24/17 21:00 09/03/17 21:16 (Pravachol) 40 mg HS PO 08/24/17 21:00 09/03/17 21:15 (Lopressor) 100 mg Q12HR PO 08/25/17 09:00 Future Hold 09/04/17 09:00 (Pill Splitter) 1 ea UNSCH PRN OTHER 08/24/17 17:45 (Oscal) 500 mg BID PO 08/24/17 21:00 09/03/17 21:15 (Theragran) 1 tab DAILY PO 08/25/17 09:00 09/03/17 08:52 (Albuterol Neb) 2.5 mg Q2HR NEB PRN NEB 08/24/17 17:45 08/29/17 11:59 (Ambien) 5 mg HS PRN PO 08/25/17 17:30 Future Hold 09/03/17 21:15 (Deltasone) 5 mg Taper DAILY@0600 PO 09/01/17 06:00 09/07/17 05:59 09/04/17 05:52 (Tylenol) 650 mg Q4H PRN PO 09/01/17 10:30 09/01/17 13:29 (Benadryl) 25 mg Q4H PRN PO 09/01/17 10:30 09/01/17 13:29 Sodium Chloride 1,000 ml @ 80 mls/hr [id number] IV 09/04/17 14:38 09/05/17 02:37 (Plavix) 75 mg DAILY PO 09/05/17 09:00 (Peridex 0.12% Liq) 15 ml BID@08,20 MT 09/04/17 20:00 Propofol 100 ml @ 2.352 mls/ hr TITRATE PRN IV 09/04/17 15:30 Fentanyl Citrate 250 ml @ 5 mls/hr TITRATE PRN IV 09/04/17 15:30 Vital Signs / I&O Vital Signs Date Time Temp Pulse Resp B/P (MAP) Pulse Ox O2 Delivery O2 Flow Rate FiO2 09/04/17 18:27 97.3 78 18 79/46 92 09/04/17 17:38 98 50 09/04/17 15:00 91/47 (94) 09/04/17 14:40 98 100 09/04/17 13:03 98.1 49 20 176/101 97 09/04/17 12:51 97.7 47 20 88/46 97 09/04/17 12:10 70 88/46 09/04/17 12:02 70 88/46 09/04/17 10:29 72 09/04/17 09:56 73 09/04/17 09:00 74 09/04/17 08:19 73 09/04/17 08:00 70 09/04/17 07:17 98.9 72 16 129/68 (88) 93 09/04/17 07:17 72 09/04/17 07:00 Room Air 09/04/17 05:00 68 09/04/17 04:00 98.8 75 20 137/73 (94) 95 09/04/17 04:00 Room Air 09/04/17 04:00 67 09/04/17 03:00 68 09/04/17 02:00 72 09/04/17 01:00 72 09/04/17 00:00 Room Air 09/04/17 00:00 73 09/04/17 00:00 98.2 86 20 120/64 (82) 95 09/03/17 23:00 70 09/03/17 22:00 74 09/03/17 21:00 76 09/03/17 20:00 98.2 80 20 129/69 (89) 96 09/03/17 20:00 Room Air 09/03/17 20:00 77 09/03/17 19:00 80 I/O 09/03/17 09/03/17 09/03/17 09/04/17 09/04/17 09/04/17 07:00 15:00 23:00 07:00 15:00 23:00 Intake Total 480 ml 850 ml 240 ml Output Total 200 ml 500 ml 360 ml Balance 280 ml 350 ml -120 ml Intake Oral 480 ml 850 ml 240 ml Output Urine Total 200 ml 500 ml 360 ml # Voids 1 # Bowel Movements 0 2 0 Physical Exam GENERAL: Intubated SKIN: Warm and dry. HEAD: Atraumatic. Normocephalic. EYES: Pupils equal and round. No scleral icterus. No injection or drainage. ENT: No nasal bleeding or discharge. Mucous membranes pink and moist. NECK: Trachea midline. No JVD. CARDIOVASCULAR: Regular rate and rhythm. 3/6 crescendo-decrescendo murmur to the RSB RESPIRATORY: No accessory muscle use. Clear to auscultation. Breath sounds equal bilaterally. GASTROINTESTINAL: Abdomen soft, non-tender, nondistended. Hepatic and splenic margins not palpable. MUSCULOSKELETAL: Extremities without clubbing, cyanosis, or edema. No obvious deformities. Right femoral venous and arterial lines NEUROLOGICAL: Intubated. Laboratory Laboratory Tests Test 09/04/17 06:17 09/04/17 10:03 09/04/17 16:55 Activated Partial Thromboplast Time 52.2 SEC White Blood Count 9.8 TH/MM3 Red Blood Count 2.97 MIL/MM3 Hemoglobin 9.2 GM/DL Hematocrit 27.2 % Mean Corpuscular Volume 91.6 FL Mean Corpuscular Hemoglobin 31.0 PG Mean Corpuscular Hemoglobin Concent 33.8 % Red Cell Distribution Width 15.6 % Platelet Count 285 TH/MM3 Mean Platelet Volume 8.0 FL Blood Urea Nitrogen 24 MG/DL Creatinine 1.20 MG/DL Random Glucose 99 MG/DL Calcium Level 8.9 MG/DL Sodium Level 139 MEQ/L Potassium Level 4.3 MEQ/L Chloride Level 104 MEQ/L Carbon Dioxide Level 28.9 MEQ/L Anion Gap 6 MEQ/L Estimat Glomerular Filtration Rate 43 ML/MIN Urine Color YELLOW Urine Turbidity CLEAR Urine pH 6.0 Urine Specific [place] 1.039 Urine Protein TRACE mg/dL Urine Glucose (UA) 70 mg/dL Urine Ketones NEG mg/dL Urine Occult Blood NEG Urine Nitrite NEG Urine Bilirubin NEG Urine Urobilinogen LESS THAN 2.0 MG/DL Urine Leukocyte Esterase NEG Urine RBC 5 /hpf Urine WBC 3 /hpf Microscopic Urinalysis Comment CATH-CULT NOT IND Imaging Last 24 hours Impressions Chest X-Ray 09/04/17 1534 Signed Impressions: Service Date/Time: Monday, September 04, 2017 15:51 - CONCLUSION: ET tube in good position. Patrick Gupta MD Assessment and Plan Problem List: (1) Aortic stenosis ICD Codes: I35.0 - Nonrheumatic aortic (valve) stenosis Status: Chronic (2) Status post carotid endarterectomy ICD Codes: Z98.890 - Other specified postprocedural states Status: Acute (3) CVA (cerebral vascular accident) ICD Codes: I63.9 - Cerebral infarction, unspecified Status: Acute (4) HTN (hypertension) ICD Codes: I10 - Essential (primary) hypertension Status: Chronic (5) Obesity ICD Codes: E66.9 - Obesity, unspecified Status: Chronic (6) COPD (chronic obstructive pulmonary disease) ICD Codes: J44.9 - Chronic obstructive pulmonary disease, unspecified Status: Chronic (7) Non-ST elevation TN (NSTEMI) ICD Codes: I21.4 - Non-ST elevation (NSTEMI) myocardial infarction Status: Resolved Assessment and Plan 1) NSTEMI 2) Severe 3) JOE on CKD 4) CAD Multiple significant lesions Discussed with CT surgery, too high risk 5) Attempted high risk PCI of LAD complicated by perforation and dissection Intubated in the room Emergent IABP placed Pericardial drain placed secondary to effusion 2 covered stents placed in LAD, with BMS placed proximally 6) Now with continual hypotension on increasing vasopressors, difficulty registering a peripheral pulse Discussed with family about "code status" from full code, to no code, to comfort care All questions answered They agree that she should be a "no code" They don't believe that she will be able to make it through the night, and request comfort care with withdrawal of care Discussed what this means with the family, and they understand their decision Will plan on giving pain medications, and then removing all life-saving equipment Problem Qualifiers (1) Aortic stenosis: Qualified Codes: I35.0 - Nonrheumatic aortic (valve) stenosis (2) HTN (hypertension): Qualified Codes: I10 - Essential (primary) hypertension (3) COPD (chronic obstructive pulmonary disease): Enrike Wilburn DO Sep 04, 2017 18:51
--- NOTE | 2017-09-04 19:18 | DEATH SUM ---
Pronouncement Date Pronounced : Sep 04, 2017 Time Of : 19:14 Pronouncement Called to pronounce of patient. Identified patient as Shawnee Carbajal with wrist band MR# [id number]. Patient with no cardiac activity in 2 separate leads and no palpable/auscible cardiac activity. Patient with no spontaneous respirations, no corneal reflex or response to painful stimuli. Pupils fixed and dilated. Family at bedside, and son made aware. Preliminary Cause of : Multi Organ Failure Enrike Wilburn DO Sep 04, 2017 19:18
[2017-09-04] MEDS ORDERED: CHLORHEXIDINE 0.12% (ORAL KIT) 15 ML CUP MT SCH (20:00)
--- NOTE | 2017-09-05 08:11 | EKG ---
Date Performed: 09/04/2017 Time Performed: 15:50:08 PTAGE: 77 years EKG: Sinus rhythm Leftward axis Extensive ST-T changes may be due to myocardial ischemia Abnormal ECG PREVIOUS TRACING : 08/25/2017 01.15 Since the prior tracing, there has been no significant moore DOCTOR: Janell Gilmore Interpretating Date/Time 09/05/2017 08:09:51
--- NOTE | 2017-09-05 08:11 | EKG ---
Date Performed: 09/04/2017 Time Performed: 16:35:26 PTAGE: 77 years EKG: Possible ectopic atrial bradycardia Lead(s) unsuitable for analysis: V2 Prolonged QT interv al Extensive ST-T changes may be due to myocardial ischemia Abnormal ECG PREVIOUS TRACING : 09/04/2017 15.50 Since the prior tracing, there has been no significant moore DOCTOR: Janell Gilmore Interpretating Date/Time 09/05/2017 08:10:00
[2017-09-05] MEDS ORDERED: CLOPIDOGREL 75 MG TAB PO SCH (09:00)
--- NOTE | 2017-09-05 21:20 | ECHRPT ---
Indication: PERICARDIAL EFFUSION CONCLUSIONS Limited echocardiogram during procedure. Multiple images of moderate pericardial effusion. After pericardial drain placed, minimal fluid not iced. Overall, ejection fraction appears around 40%. BP: 129 / 68 HR: 72 Rhythm: Sinus Technical Quality:Fair Enrike Wilburn DO (Electronically Signed) Final Date:05 September 2017 21:19
--- NOTE | 2017-09-06 10:58 | MA ---
cc: BON BOLAÑOS DO DATE 09/05/2017 PROCEDURE Coronary angiogram, CSI atherectomy LAD, stent x2 to the LAD for perforation, bare metal stent to the LAD proximal, emergent intra-aortic balloon pump placement, moderate sedation 150 minutes, complex procedure. PREPROCEDURE DIAGNOSIS NSTEMI, coronary artery disease, aortic stenosis for TAVR, turned down by surgery. POSTPROCEDURE DIAGNOSIS Multivessel coronary artery disease, coronary perforation status post Graftmaster x2 as well as bare metal stenting of the LAD, cardiogenic shock requiring emergent intra-aortic balloon pump placement, acute respiratory distress requiring intubation, pericardial effusion status post pericardial drain. MEDICATIONS 1. Versed 2-1/2 mg. 2. Fentanyl 25 mcg. 3. Heparin 5500 units 4. Aime-Synephrine 350 mcg. 5. Levophed drip on, but stopped before the end of the case. 6. Atropine 1 mg, 2 units pack red blood cells 7. Heparin drip at 900 units per hour CONTRAST USED 250 cc FLUOROSCOPY 31 minutes ANESTHESIA Moderate sedation 150 minutes ESTIMATED BLOOD LOSS 100 CC COMPLICATIONS Coronary perforation requiring pericardial drain, cardiogenic shock requiring intra-aortic balloon pump, acute respiratory distress requiring intubation. PROCEDURAL SUMMARY Shawnee Carbajal is a pleasant 77-year-old female who presented and was found to have significant coronary artery disease as well as aortic stenosis. She was turned down for a consideration of AVR with CABG and so she was recommended PCI before consideration of TAVR. As this was a high-risk procedure, I discussed this extensively with the patient and her family. The patient consented for the procedure as such. She was brought to the lab and prepped in the usual sterile fashion. Right radial artery was accessed using a modified Seldinger technique and placement of a 5/6 Palestinian slender sheath. This was easily aspirated and flushed. An EBU 3.5 guide was advanced and engaged in the left main. The patient was given heparin as an anticoagulant. A BMW wire was advanced into the distal LAD. A BMW wire was preloaded in an over the wire balloon and this was taken distally and a wire was exchanged for a ViperWire. CSI atherectomy catheter was then placed into the mid-LAD for two runs. After this second run, it appears that the wire was fused to the atherectomy catheter and I was unable to remove the atherectomy catheter without removing the wire. At this time, both were pulled back and wire access was lost. The patient became hypotensive and injection showed a dissection as well as perforation of the LAD. I attempted to place the BMW wire back down the LAD, but at this time I kept accessing the dissection flap. The patient was becoming hypotensive and bradycardic. The right femoral vein was accessed using a modified Seldinger technique and placement of a 5-Palestinian sheath. Right femoral artery was accessed using a modified Seldinger technique and placement of a 6-Palestinian sheath. Echo as well as CT surgery were called emergently and arrived. The patient was given multiple doses of Aime-Synephrine at this time and placed on a Levophed drip. An emergent intra-aortic balloon pump was then placed on one-to-one fashion. The patient briefly appeared to be losing her pulse and as she became more and more hypotensive, CPR was started for less than 30 seconds until she was responsive. The patient was then intubated by anesthesia. Dr. rAanda scrubbed in at this time to help with the procedure. A pericardiocentesis was performed by Dr. Hammonds and placement of a pericardial drain. A run through floppy wire was then advanced into the distal LAD with placement of an xqrl-nxj-hdex balloon distally. Contrast was injected through this to show that we were intraluminal. This balloon was inflated in the proximal portion. This was exchanged out for a compliant balloon (2 x 20). This was inflated multiple times for 5-15 minutes to help attempt to close off the perforation. The patient received 2 units of blood during this time. The patient continued to have significant flow through a perforation and so we attempted to place a Graftmaster stent covered stent (2.8 x 16) but were unable to and so the compliant balloon (2 x 20) was used to dilate the proximal section of the LAD. A Graftmaster covered stent (2.8 x 16) was then placed into the mid LAD. Then a Graftmaster 2.8 x 19) was placed proximal to this with a few millimeters of overlap. The overlap section was then inflated at a high pressure with the stent balloon. At this time, there appeared to be no further perforation. Because of the previous inflation on the proximal LAD, it felt like this needed to be stented and so a bare metal stent (2.5 x 26) was used to cover the proximal section. A pericardial catheter was exchanged for a 10-Palestinian Elberta drainage catheter per Dr. Hammonds. A noncompliant balloon (2.75 x 15) was then used to post dilate the proximal portion of the Graftmaster, as well as the bare metal stent. The wire was removed. The guide catheter was removed. Intraaortic balloon pump was then checked under fluoroscopy and re-advanced over the wire to reposition and then restarted. A radial band was placed over the arteriotomy site for hemostasis. The patient was transferred to CVICU in critical condition. IMPRESSION 1. NSTEMI 2. Multivessel coronary artery disease as above. 3. Severe aortic stenosis. 4. Coronary perforation status post Graftmaster covered stent x2. 5. Cardiogenic shock requiring emergent intraaortic balloon pump placement. 6. Acute respiratory distress status post intubation. RECOMMENDATIONS 1. Ms. Carbajal will be taken to CVICU and critical care will be consulted for further help with ventilator management. 2. As a perforation was not noted at the end of the procedure, she will be placed on a low level heparin drip as there is concern that her pericardial drain will clot. 3. She will be placed on aspirin and Plavix therapy and loaded with 600 mg once in the CVICU. 4. I discussed with the family events of the procedure, as well as her critical condition at this time. 5. Further recommendations will be made based on the hospital course. Thank you for allowing me to see Shawnee Carbajal. If there are any questions, please do not hesitate to call. Bon Bolaños DO VGP/DJL /11:06 PM /10:33 AM
--- NOTE | 2017-09-06 11:36 | MA ---
cc: ENRIKE BOLAÑOS DO DATE 09/02/2017 PROCEDURE 1. Coronary angiogram. 2. Right heart catheterization. 3. Ultrasound-guided access. PREPROCEDURE DIAGNOSIS 1. NSTEMI. 2. Severe aortic stenosis. 3. Shortness of breath. POSTPROCEDURE DIAGNOSIS 1. NSTEMI. 2. Coronary artery disease. 3. Severe aortic stenosis. MEDICATION Verapamil 2.5 mg, nitro 200 mcg, heparin 3100 units, fentanyl 50 mcg. CONTRAST USED 36 cc. FLUOROSCOPY 2.6 minutes. SEDATION Moderate sedation, ___ minutes. ESTIMATED BLOOD LOSS 10 cc. PROCEDURAL SUMMARY Shawnee Carbajal is a pleasant 77-year-old female who sees my partner Dr. Gilmore in the office and has known severe aortic stenosis. She presented in congestive heart failure with an elevated troponin. She was recommended cardiac catheterization to determine her coronary anatomy before deciding how to proceed with her aortic valve. The risks, benefits and alternatives were explained to her and she consented to such. She was brought to the lab and prepped in the usual sterile fashion. The right radial artery was accessed using a modified Seldinger technique and placement of a 5/6 Moldovan sheath. The right brachial vein was accessed using a modified Seldinger technique and ultrasound guidance and placement of a 5/6 Slender sheath. Both were easily aspirated and flushed. A [place] catheter was advanced up the brachial vein to a wedge position as oxygen saturations and pressures were measured in a standard fashion on pullback throughout the heart. The [place]-Mary[place] catheter was removed. A JR4 was advanced over a J-wire to the ascending aorta and used for selective angiography of the right coronary artery system. It did not feel prudent to cross the aortic valve at this time as she has known severe aortic stenosis. This was exchanged out for a JL 3.5 which was used for selective angiography of the left coronary artery system. The JL 3.5 was removed over a J-wire. A radial band was placed over the arteriotomy site for hemostasis. The right brachial vein was planned to be removed once ACT values were appropriate. JR-4 was advanced over a J-wire to the ascending aorta and used for selective angiography of the right coronary artery system. It was not felt prudent at this time to cross the aortic valve as the patient previously has known severe aortic stenosis. This was exchanged out for a JL-3.5 which was used for selective angiography of the left coronary artery system. JL-3.5 was removed over a J-wire. A radial band was placed over the arteriotomy site for hemostasis. The brachial artery was planned to be remove once ACT values were appropriate. The patient left the label drier cardiovascularly stable. FINDINGS Left main normal size vessel with 20% disease in the proximal portion. It bifurcates into an LAD and circumflex. LAD has diffuse 50% disease throughout the proximal portion. The [id number]-sa-yzbrwb portion has multiple areas of significant disease with the main portion in the mid section of 70-80 percent. Distally, the vessel tapers down overall to a small vessel. Left circumflex is a normal size vessel with tandem lesions of 90 and 80% in the proximal portion. In the midportion, there is 99% disease. After this, it bifurcates into two overall small obtuse marginales which show some competitive flow. RCA has a long tubular 70% lesion in the proximal portion. The [id number] portion has diffuse 50% disease. Distally, this supplies collaterals to an obtuse marginal. HEMODYNAMIC RESULTS RA 11. RV 39/10. RVEDP 13. PA 38/19, mean 27. Wedge 20. Cardiac output 6.1. Cardiac index 3.3. IMPRESSION 1. NSTEMI 2. Significant coronary artery disease/multivessel coronary artery disease as above. 3. Severe aortic stenosis by echocardiogram. RECOMMENDATIONS 1. Ms. Carbajal will be evaluated by CT surgery for consideration of possible CABG/AVR versus TAVR with possible PCI. 2. She will be placed back on a heparin drip 3 hours after her TR band is removed. 3. Further recommendations will be made after CT surgery evaluation. Thank you for allowing me to see Shawnee Carbajal If there are any questions, please do not hesitate to call. Enrike Bolaños DO VGP/MARCEL /10:03 PM /11:41 AM
--- NOTE | 2017-09-09 14:22 | RSPPFT ---
DATE OF PROCEDURE: 09/03/17 COMMENTS: Spirometry with FVC of 1.4, FEV1 of 1.1, FEV1/FVC ratio at 74%. Post-bronchodilator study was not performed. IMPRESSION: 1. Moderately severe airways obstruction.
== END 2017-09-04 19:14 | disposition expired | DRG 270 ==
LOC: NEPE 13:14 → NEDA 15:11 → HCIS 20:10 → HCVI 09-04 14:38
PROVIDERS: ADMIT Family Medicine; ATTEND Family Medicine
PROC: 5A09357 Assistance with Respiratory Ventilation, Less than 24 Consecutive Hours, Continuous Positive Airway Pressure (ICD-10-PCS; 2017-08-24)
PROC: 4A023N8 Measurement of Cardiac Sampling and Pressure, Bilateral, Percutaneous Approach (ICD-10-PCS; 2017-09-02)
PROC: B2111ZZ Fluoroscopy of Multiple Coronary Arteries using Low Osmolar Contrast (ICD-10-PCS; 2017-09-02)
PROC: B2151ZZ Fluoroscopy of Left Heart using Low Osmolar Contrast (ICD-10-PCS; 2017-09-02)
PROC: 02703FZ Dilation of Coronary Artery, One Artery with Three Intraluminal Devices, Percutaneous Approach (ICD-10-PCS; 2017-09-04)
PROC: 02C03ZZ Extirpation of Matter from Coronary Artery, One Artery, Percutaneous Approach (ICD-10-PCS; 2017-09-04)
PROC: 30233N1 Transfusion of Nonautologous Red Blood Cells into Peripheral Vein, Percutaneous Approach (ICD-10-PCS; 2017-09-04)
PROC: 4A023N7 Measurement of Cardiac Sampling and Pressure, Left Heart, Percutaneous Approach (ICD-10-PCS; 2017-09-04)
PROC: B2111ZZ Fluoroscopy of Multiple Coronary Arteries using Low Osmolar Contrast (ICD-10-PCS; 2017-09-04)
PROC: 0W9D30Z Drainage of Pericardial Cavity with Drainage Device, Percutaneous Approach (ICD-10-PCS; 2017-09-04)
PROC: 5A02210 Assistance with Cardiac Output using Balloon Pump, Continuous (ICD-10-PCS; principal; 2017-09-04 13:45)
DX: I21.4 Non-ST elevation (NSTEMI) myocardial infarction (principal); I50.31 Acute diastolic (congestive) heart failure; R65.20 Severe sepsis without septic shock; J96.00 Acute respiratory failure, unspecified whether with hypoxia or hypercapnia; I25.42 Coronary artery dissection; N17.9 Acute kidney failure, unspecified; R57.0 Cardiogenic shock; I13.0 Hypertensive heart and chronic kidney disease with heart failure and stage 1 through stage 4 chronic kidney disease, or unspecified chronic kidney disease; A41.9 Sepsis, unspecified organism; N18.3 Chronic kidney disease, stage 3 (moderate); J18.9 Pneumonia, unspecified organism; J44.0 Chronic obstructive pulmonary disease with (acute) lower respiratory infection; I25.10 Atherosclerotic heart disease of native coronary artery without angina pectoris; I08.0 Rheumatic disorders of both mitral and aortic valves; Y95 Nosocomial condition; F41.9 Anxiety disorder, unspecified; E66.9 Obesity, unspecified; K59.00 Constipation, unspecified; Z90.710 Acquired absence of both cervix and uterus; Z86.711 Personal history of pulmonary embolism; Z87.891 Personal history of nicotine dependence; Z86.73 Personal history of transient ischemic attack (TIA), and cerebral infarction without residual deficits; Z80.0 Family history of malignant neoplasm of digestive organs; R00.1 Bradycardia, unspecified
CPT/HCPCS: 33010; 33967; 36430; 70450; 71045; 76775; 76937; 80048; 80053; 80069; 80202; 81001; 82550; 82552; 82810; 83036; 83605; 83735; 83880; 84484; 85002; 85014; 85018; 85025; 85027; 85347; 85610; 85730; 86021; 86038; 86160; 86850; 86900; 86901; 86920; 87040; 87449; 87641; 92933; 93005; 93306; 93308; 93454; 93456; 93970; 93998; 94002; 94003; 94010; 94150; 94640; 94664; 96374; 99152; 99153; C1714; C1725; C1729; C1769; C1874; C1876; C1887; C1893; J0171; J0461; J1644; J1940; J2250; J2270; J2370; J2543; J2920; J2930; J3010; J3370; J7030; J7050; J7512; J7613; P9016; P9045; Q9967